=== PATIENT | male | born 1965 | race Caucasian/White ===

== ENCOUNTER → 2017-10-03 | Outpatient (CLI) | payer OTHER ==
--- NOTE | 2017-10-03 10:26 | XR ---
EXAMINATION TYPE: XR knee limited LT DATE OF EXAM: 10/03/2017 CLINICAL HISTORY: History of cerebral palsy with pain and arthritis. TECHNIQUE: Two views of the left knee are obtained. COMPARISON: None. FINDINGS: There is no acute fracture/dislocation evident in left knee. 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 There is mild tricompartment joint spa ce loss. Posterior popliteal vascular calcification is seen. IMPRESSION: As above.
== END ==
LOC: RADXRMAIN 09:55
PROVIDERS: ATTEND Family Medicine
DX: M25.562 Pain in left knee (principal); Z86.69 Personal history of other diseases of the nervous system and sense organs

== ENCOUNTER 2018-10-10 10:27 | Day surgery (SDC) | payer OTHER ==
[2018-10-05 09:57] VITALS: BMI 25.8
[~2018-10-10 10:27] MED LIST: ALPRAZolam 0.25 MG TAB PO PRN; ALPRAZolam 0.5 MG TAB PO PRN; ASPIRIN 325 MG TAB PO STA; ATORVASTATIN 80 MG TAB PO STA; NITROGLYCERIN SL TABS 0.4 MG TAB SUBLINGUAL PRN; SODIUM CHLORIDE 0.9% 1,000 ML in EMPTY BAG 1 BAG IV ONE
[2018-10-10] MEDS ORDERED: fentaNYL (PF) 50 MCG/ML 2 ML AMP IV ONE (10:40)
[2018-10-10] MEDS ORDERED: MIDAZOLAM (PF) 2 MG/2 ML VIAL IV ONE (10:40)
[2018-10-10] MEDS ORDERED: LIDOCAINE 1% INJ 10MG/ML (20 ML MDV) SQ ONE ×2 (10:41→10:42)
[2018-10-10] MEDS ORDERED: SODIUM CHLORIDE 0.9% 1,000 ML IV ONE (11:05)
[2018-10-10 11:28] VITALS: RESP 16; TEMP 98.1
[2018-10-10 11:40] LABS: Basophils # (A) 0.1 k/uL (0-0.2); Basophils % (A) 0 %; Eosinophils # (A) 0.3 k/uL (0-0.7); Eosinophils % (A) 2 %; HCT 45.8 % (39.0-53.0); Lymphocytes % (A) 19 %; MCH 30.1 pg (25.0-35.0); MCHC 32.7 g/dL (31.0-37.0); Mean Platelet Volume 6.9; Monocytes # (A) 0.6 k/uL (0-1.0); Monocytes % (A) 5 %; Neutrophils # (A) 7.5 k/uL (1.3-7.7); Neutrophils % (A) 71 %; Platelet Count 268 k/uL (150-450); RBC 4.97 m/uL (4.30-5.90); RDW 13.2 % (11.5-15.5); WBC 10.6 k/uL (3.8-10.6)
[2018-10-10 11:50] LABS: Anion Gap 12 mmol/L; Blood Urea Nitrogen 14 mg/dL (9-20); Carbon Dioxide 20 mmol/L (22-30); Chloride 110 mmol/L (98-107); Glucose 100 mg/dL (74-99); Potassium 4.7 mmol/L (3.5-5.1); Sodium 142 mmol/L (137-145)
[2018-10-10] MEDS ORDERED: LIDOCAINE 1% INJ 10MG/ML (20 ML MDV) ONE (11:51)
[2018-10-10] MEDS ORDERED: fentaNYL (PF) 50 MCG/ML 2 ML AMP ONE (11:51)
[2018-10-10] MEDS ORDERED: RX INFO: IV CONTRAST WAS GIVEN 1 EACH MISC MISCELLANE PRN (16:33)
[2018-10-10] MEDS ORDERED: METOPROLOL SUCCINATE (ER) 25 MG TAB.ER.24H PO SCH (16:45)
[2018-10-10] MEDS ORDERED: ASPIRIN 81 MG PO SCH (16:45)
[2018-10-10 16:53] LABS: Basophils % (A) 0 %; Eosinophils # (A) 0.1 k/uL (0-0.7); Eosinophils % (A) 1 %; HCT 42.7 % (39.0-53.0); HGB 13.8 gm/dL (13.0-17.5); Lymphocytes # (A) 2.1 k/uL (1.0-4.8); Lymphocytes % (A) 26 %; MCH 29.8 pg (25.0-35.0); MCHC 32.3 g/dL (31.0-37.0); MCV 92.5 fL (80.0-100.0); Mean Platelet Volume 6.7; Monocytes # (A) 0.3 k/uL (0-1.0); Monocytes % (A) 4 %; Neutrophils # (A) 5.4 k/uL (1.3-7.7); Neutrophils % (A) 67 %; Platelet Count 234 k/uL (150-450); RBC 4.61 m/uL (4.30-5.90); RDW 13.1 % (11.5-15.5); WBC 8.1 k/uL (3.8-10.6)
[2018-10-10 16:55] LABS: ALT 30 U/L (21-72); AST 21 U/L (17-59); Albumin 4.5 g/dL (3.5-5.0); Alkaline Phosphatase 78 U/L (38-126); Anion Gap 8 mmol/L; Blood Urea Nitrogen 12 mg/dL (9-20); Calcium 9.8 mg/dL (8.4-10.2); Carbon Dioxide 28 mmol/L (22-30); Chloride 105 mmol/L (98-107); Cholesterol 101 mg/dL (<200); Glucose 127 mg/dL (74-99); HDL Cholesterol 50 mg/dL (40-60); LDL Cholesterol,Calculated 24 mg/dL (0-99); Magnesium 1.8 mg/dL (1.6-2.3); Potassium 3.7 mmol/L (3.5-5.1); Sodium 141 mmol/L (137-145); Total Bilirubin 0.4 mg/dL (0.2-1.3); Total Protein 7.4 g/dL (6.3-8.2); Triglycerides 136 mg/dL (<150)
[2018-10-10 16:59] LABS: Partial Thromboplastin Time 24.7 sec (22.0-30.0); Prothrombin Time 10.4 sec (9.0-12.0)
--- NOTE | 2018-10-10 17:12 | P.GSCN ---
<Natalie Cline - Last Filed: 10/10/18 16:55> History of Present Illness Consult date: 10/10/18 Reason for Consult: triple-vessel coronary artery disease, surgical revascularization recommendation s Requesting physician: Tarik Prajapati History of present illness: This is a 53-year-old inactive gentleman who previously followed with Dr. Patel on an outpatient basis. He has a previous medical history of cerebral palsy, hyperlipidemia, previous tobacco dependence, quit smoking in February 2017 but prior to that smoked a pack a day for 40 years, shingles in 2014, questionable acute kidney injury many years ago, and family history of premature coronary artery disease on his mother's side. Apparently he has been having intermittent chest pain for the last 6 months which occurs with exertion. It is associated with shortness of breath and abates on its own. He denied any other symptoms. He had discussed this with his primary care physician without follow-up. Apparently he had been scheduled for a colonoscopy but when he told the anesthesiologist that he had been having intermittent chest pain, the anesthesiologist canceled the case and referred him to cardiology. He followed up with Dr. Prajapati of [facility], had a stress test and echocardiogram in the office, results of which are not available at this time, but he was recommended to undergo heart catheterization which was completed today. The catheterization demonstrated right coronary artery stenosis 99%, PLB branch with 60% stenosis, obtuse marginal branch of the circumflex coronary artery at 90% stenosis, and proximal LAD stenosis of 85%. Consultation was placed for Dr. Galan from cardiothoracic surgery for surgical recommendations. Review of Systems Review of systems was completed and is negative except as noted in the HPI Past Medical History Past Medical History: Chest Pain / Angina, Hyperlipidemia Additional Past Medical History / Comment(s): RECENT EPISODES OF CHEST PAIN, cerebral palsy History of Any Multi-Drug Resistant Organisms: None Reported Past Surgical History: No Surgical Hx Reported Past Anesthesia/Blood Transfusion Reactions: No Reported Reaction Additional Past Anesthesia/Blood Transfusion Reaction / Comm: NO PRIOR SX HX Past Psychological History: No Psychological Hx Reported Smoking Status: Former smoker Past Alcohol Use History: None Reported Past Drug Use History: None Reported - Past Family History Mother Additional Family Medical History / Comment(s): family history of premature coronary artery disease on his mother's side Medications and Allergies Home Medications Medication Instructions Recorded Confirmed Type Ergocalciferol (Vitamin D2) 50,000 unit PO MO 10/05/18 10/10/18 History [Vitamin D2] Aspirin 81 mg PO DAILY #30 chew 10/10/18 Rx Atorvastatin [Lipitor] 80 mg PO HS #30 tab 10/10/18 Rx Metoprolol Succinate (ER) [Toprol 25 mg PO DAILY #30 tab.er.24h 10/10/18 Rx XL] Nitroglycerin Sl Tabs [Nitrostat] 0.4 mg SUBLINGUAL Q5M PRN #25 tab 10/10/18 Rx Allergies Allergy/AdvReac Type Severity Reaction Status Date / Time No Known Allergies Allergy Verified 10/05/18 09:54 Surgical - Exam Vital Signs Temp Pulse Resp Pulse Ox 98.1 F 62 16 98 10/10/18 11:09 10/10/18 11:09 10/10/18 11:09 10/10/18 11:09 - General well developed, well nourished, no distress, no pain - Eyes PERRL, normal ocular movement - ENT no hearing loss - Neck no masses, no bruits, trachea midline - Respiratory lungs sounds clear bilaterally. Respirations even, nonlabored. Currently on room air with oxygen saturation 94%. - Cardiovascular S1, S2 present. Regular rate and rhythm, sinus rhythm on telemetry. Palpable peripheral pulses bilaterally. No edema present. No calf pain or tenderness noted. - Abdomen Abdomen: soft, non tender, bowel sounds - Genitourinary deferred - Rectum deferred - Integumentary no rash, no growths - Neurologic contracture of the right arm normal sensation - Psychiatric oriented to time, oriented to person, oriented to place, speech is normal Results - Labs 10/10/18 16:30 10/10/18 11:20 Abnormal Lab Results - Last 24 Hours (Table) 10/10/18 Range/Units 11:20 Chloride 110 H (98-107) mmol/L Carbon Dioxide 20 L (22-30) mmol/L Creatinine 0.62 L (0.66-1.25) mg/dL Glucose 100 H (74-99) mg/dL Diabetes panel 10/10/18 Range/Units 11:20 Sodium 142 (137-145) mmol/L Potassium 4.7 (3.5-5.1) mmol/L Chloride 110 H (98-107) mmol/L Carbon Dioxide 20 L (22-30) mmol/L BUN 14 (9-20) mg/dL Creatinine 0.62 L (0.66-1.25) mg/dL Glucose 100 H (74-99) mg/dL Calcium 10.0 (8.4-10.2) mg/dL Calcium panel 10/10/18 Range/Units 11:20 Calcium 10.0 (8.4-10.2) mg/dL Pituitary panel 10/10/18 Range/Units 11:20 Sodium 142 (137-145) mmol/L Potassium 4.7 (3.5-5.1) mmol/L Chloride 110 H (98-107) mmol/L Carbon Dioxide 20 L (22-30) mmol/L BUN 14 (9-20) mg/dL Creatinine 0.62 L (0.66-1.25) mg/dL Glucose 100 H (74-99) mg/dL Calcium 10.0 (8.4-10.2) mg/dL Adrenal panel 10/10/18 Range/Units 11:20 Sodium 142 (137-145) mmol/L Potassium 4.7 (3.5-5.1) mmol/L Chloride 110 H (98-107) mmol/L Carbon Dioxide 20 L (22-30) mmol/L BUN 14 (9-20) mg/dL Creatinine 0.62 L (0.66-1.25) mg/dL Glucose 100 H (74-99) mg/dL Calcium 10.0 (8.4-10.2) mg/dL - Imaging Additional studies: cardiac catheterization films reviewed Assessment and Plan Assessment: 1. Triple-vessel coronary artery disease 2. Hyperlipidemia 3. Cerebral palsy 4. Previous tobacco dependence 5. Family history of premature coronary artery disease Plan: The patient was seen and examined at the bedside in the extended stay unit. Chart/diagnostics were reviewed. The usual perioperative course of coronary artery bypass surgery was reviewed with the patient, risks and benefits were discussed, all questions were answered. In addition, the patient's sister Radha was called on the phone and the same teaching was completed with her. Preoperative teaching was initiated. Heart catheterization films will be rev iewed with Dr. Galan. We recommend maximizing medical therapy with aspirin, statin, beta karissa therapy. Further recommendations to be made for timing of surgery. Thank you prefer this consult. We look forward to working with you in the care of your patient. Time with Patient: Greater than 30 <Denilson Galan - Last Filed: 10/10/18 18:25> Surgical - Exam Vital Signs Temp Pulse Resp Pulse Ox 98.1 F 62 16 98 10/10/18 11:09 10/10/18 11:09 10/10/18 11:09 10/10/18 11:09 Results - Labs 10/10/18 16:30 10/10/18 16:30 Abnormal Lab Results - Last 24 Hours (Table) 10/10/18 10/10/18 Range/Units 11:20 16:30 Chloride 110 H (98-107) mmol/L Carbon Dioxide 20 L (22-30) mmol/L Creatinine 0.62 L (0.66-1.25) mg/dL Glucose 100 H 127 H (74-99) mg/dL Diabetes panel 10/10/18 10/10/18 Range/Units 11:20 16:30 Sodium 142 141 (137-145) mmol/L Potassium 4.7 3.7 (3.5-5.1) mmol/L Chloride 110 H 105 (98-107) mmol/L Carbon Dioxide 20 L 28 (22-30) mmol/L BUN 14 12 (9-20) mg/dL Creatinine 0.62 L 0.67 (0.66-1.25) mg/dL Glucose 100 H 127 H (74-99) mg/dL Calcium 10.0 9.8 (8.4-10.2) mg/dL AST 21 (17-59) U/L ALT 30 (21-72) U/L Alkaline Phosphatase 78 (38-126) U/L Total Protein 7.4 (6.3-8.2) g/dL Albumin 4.5 (3.5-5.0) g/dL Triglycerides 136 (<150) mg/dL HDL Cholesterol 50 (40-60) mg/dL Thyroid panel 10/10/18 Range/Units 16:30 TSH 2.710 (0.465-4.680) mIU/L Calcium panel 10/10/18 10/10/18 Range/Units 11:20 16:30 Calcium 10.0 9.8 (8.4-10.2) mg/dL Albumin 4.5 (3.5-5.0) g/dL Pituitary panel 10/10/18 10/10/18 Range/Units 11:20 16:30 Sodium 142 141 (137-145) mmol/L Potassium 4.7 3.7 (3.5-5.1) mmol/L Chloride 110 H 105 (98-107) mmol/L Carbon Dioxide 20 L 28 (22-30) mmol/L BUN 14 12 (9-20) mg/dL Creatinine 0.62 L 0.67 (0.66-1.25) mg/dL Glucose 100 H 127 H (74-99) mg/dL Calcium 10.0 9.8 (8.4-10.2) mg/dL TSH 2.710 (0.465-4.680) mIU/L Adrenal panel 10/10/18 10/10/18 Range/Units 11:20 16:30 Sodium 142 141 (137-145) mmol/L Potassium 4.7 3.7 (3.5-5.1) mmol/L Chloride 110 H 105 (98-107) mmol/L Carbon Dioxide 20 L 28 (22-30) mmol/L BUN 14 12 (9-20) mg/dL Creatinine 0.62 L 0.67 (0.66-1.25) mg/dL Glucose 100 H 127 H (74-99) mg/dL Calcium 10.0 9.8 (8.4-10.2) mg/dL Total Bilirubin 0.4 (0.2-1.3) mg/dL AST 21 (17-59) U/L ALT 30 (21-72) U/L Alkaline Phosphatase 78 (38-126) U/L Total Protein 7.4 (6.3-8.2) g/dL Albumin 4.5 (3.5-5.0) g/dL Assessment and Plan Plan: The patient was seen and examined. The history and physical findings were veri fied. I agree with the above assessment and plan. The patient is a 53 year old male with a history of cerebral palsy and a congenital right upper extremity contracture, who reports chest pain for several months. Cardiac cath performed today reveals multi-vessel CAD. A coronary artery bypass was recommended. The risks, benefits, and alternatives to the procedure were discussed with the patient. All of his questions were answered. His pre-operative workup is in progress. He will be discharged home today with plan for CABG within the next several weeks.
[2018-10-10] MEDS ORDERED: ATORVASTATIN 80 MG TAB PO SCH (18:00)
--- NOTE | 2018-10-10 18:16 | XR ---
EXAMINATION TYPE: XR chest 2V DATE OF EXAM: 10/10/2018 COMPARISON: EXAMINATION TYPE: XR chest 2V DATE OF EXAM: 10/10/2018 COMPARISON: NONE HISTORY: Postop cardiac surgery. TECHNIQUE: 2 views FINDINGS: Heart and mediastinum appear normal. Lungs are clear of infiltrate. There is no heart failu re. There is no evidence of pleural effusion or pneumothorax. There are chest leads. Bony thorax is i ntact. IMPRESSION: No active cardiopulmonary disease.
--- NOTE | 2018-10-10 18:31 | CC ---
CARDIAC CATHETERIZATION REPORT This patient was recently evaluated in the office with symptoms of exertional angina. The patient underwent a stress test. Stress test showed inferior wall ischemia. In view of that, the patient was recommended to have a cardiac catheterization for definitive diagnosis. The patient does not have any definite history of diabetes. PROCEDURE: The right groin was prepped and draped in the usual manner and a #6-Czech was placed in under ultrasound guidance with a micropuncture needle. Selective coronary angiography was then performed in multiple projections. Left ventricular pressures were obtained. We did not do left ventriculography because patient developed transient left bundle branch block. HEMODYNAMICS: Left ventricular end-diastolic pressure was 12 to 16 mmHg prior to angiography. No gradient was noted across the aortic valve. SELECTIVE CORONARY ANGIOGRAPHY: Left main coronary artery is normal and patent. All of this patient's coronary blood vessels are heavily calcified. LAD has 85% stenosis in its proximal portion. Distal LAD is a good-caliber blood vessel and is bypassable. Circumflex coronary artery is a good-caliber blood vessel and obtuse marginal branch has a 90% stenosis. The right coronary artery is heavily calcified and has 99% stenosis in its proximal portion. There is a CHILO-3 flow noted in the distal right coronary artery. The PLV branch has a 60% to 70% stenosis. FINAL IMPRESSION: This study reveals severe triple-vessel disease. Patient's blood vessels are heavily calcified. In view of the significant triple-vessel disease and heavily calcified vessels, we will get a surgical opinion for possible coronary artery bypass surgery. The films were also reviewed with Dr. Friedman. MMWAYNE / ALISHA: [id number] /
[2018-10-10 19:02] VITALS: BP 172/86; PULSE 67
--- NOTE | 2018-10-10 19:09 | US ---
EXAMINATION TYPE: US carotid duplex BILAT DATE OF EXAM: 10/10/2018 COMPARISON: NONE CLINICAL HISTORY: Pre-Op Cardiac Surgery. Pre CABG surgery. EXAM MEASUREMENTS: RIGHT: Peak Systolic Velocity (PSV) cm/sec ----- Right CCA: 88.1 ----- Right ICA: 175.3 ----- Right ECA: 147.5 ICA/CCA ratio: 2.0 RIGHT: End Diastole cm/sec ----- Right CCA: 19.8 ----- Right ICA: 33.2 ----- Right ECA: 13.7 LEFT: Peak Systolic Velocity (PSV) cm/sec ----- Left CCA: 91.9 ----- Left ICA: 209.8 ----- Left ECA: 245.4 ICA/CCA ratio: 2.3 LEFT: End Diastole cm/sec ----- Left CCA: 27.3 ----- Left ICA: 54.6 ----- Left ECA: 19.1 VERTEBRALS (direction of flow): Right Vertebral: Antegrade Left Vertebral: Antegrade Rhythm: Normal Bilateral plaque seen in bulbs. Elevated velocities in bilateral ICA and ECA vessels. IMPRESSION: There is antegrade flow in the vertebral arteries. The images and measurements suggest 7 0% stenosis in both internal carotid arteries. Bilateral elevated internal carotid artery velocities. Criteria for Assigning % of Stenosis / Diameter reduction (Estimation based on the indirect measurements of the internal carotid artery velocities (ICA PSV). 1. Normal (no stenosis)=ICA PSV < 125 cm/s: ratio < 2.0: ICA EDV<40 cm/s. 2. Less than 50% stenosis=ICA PSV < 125 cm/s: ratio < 2.0: ICA EDV<40 cm/s. 3. 50 to 69% stenosis=ICA PSV of 125 to 230 cm/s: ration 2.0 ? 4.0: ICA EDV 40-100 cm/s. 4. Greater than 70% stenosis to near occlusion= ICA PSV > 230 cm/s: ratio > 4.0: ICA EDV > 100 cm/s. 5. Near occlusion= ICA PSV velocities may be low or undetectable: variable ratio and ICA EDV. 6. Total occlusion=unable to detect flow.
[2018-10-10 19:11] LABS: Amorphous Sediment,Urine Rare /hpf; Appearance,Urine Clear (Clear); Bacteria,Urine Many /hpf; Bilirubin,Urine Negative (Negative); Blood,Urine Negative (Negative); Color,Urine Light Yellow; Glucose,Urine (UA) Negative (Negative); Ketones,Urine Negative (Negative); Leukocyte Esterase,Urine Moderate (Negative); Nitrite,Urine Positive (Negative); PH, Urine 6.5 (5.0-8.0); Protein,Urine Negative (Negative); RBC,Urine 3 /hpf (0-5); Squamous Epithelial Cell,Urine <1 /hpf (0-4); Urobilinogen,Urine <2.0 mg/dL (<2.0); WBC,Urine 52 /hpf (0-5)
[2018-10-10 19:36] LABS: Specific Gravity,Urine >1.050 (1.001-1.035)
[2018-10-10] MEDS ORDERED: ATORVASTATIN 40 MG TAB PO SCH (21:00)
[2018-10-11 04:35] LABS: Hepatitis A Antibody IgM Non-Reactive (Non-Reactive); Hepatitis B Core IgM Non-Reactive (Non-Reactive)
[2018-10-11 04:37] LABS: Hemoglobin A1C 5.9 % (4.0-6.0)
== END 2018-10-10 19:26 | disposition home or self-care (01) ==
LOC: CATHCVL 10:27
PROVIDERS: ATTEND Internal Medicine Cardiovascular Disease
DX: I25.10 Atherosclerotic heart disease of native coronary artery without angina pectoris (principal); I25.84 Coronary atherosclerosis due to calcified coronary lesion; Z87.891 Personal history of nicotine dependence; E78.5 Hyperlipidemia, unspecified; G80.9 Cerebral palsy, unspecified; Z82.49 Family history of ischemic heart disease and other diseases of the circulatory system; Z79.899 Other long term (current) drug therapy
CPT/HCPCS: 93458; 86900; 86901; 80061; 80053; 80074; 84443; 83735; 85025; 85610; 85730; 86850; 81001; 87070; 87086; 87077; 87186; 83036; 71046; 93970; 93880; C1760; C1894; C1769 ×2; J2001; J3010; J2250; 80048

== ENCOUNTER → 2018-10-10 | Outpatient (CLI) | payer OTHER ==
[2018-10-16 14:08] VITALS: BMI 25.8
== END | disposition home or self-care (01) ==
LOC: LABWHC1 16:30 → EDSTATUS 10-19 08:00
PROVIDERS: ATTEND Surgery
DX: I25.10 Atherosclerotic heart disease of native coronary artery without angina pectoris (principal)
CPT/HCPCS: 86850; 86900; 86901

== ENCOUNTER 2018-10-24 05:35 | Inpatient (IN) | payer OTHER ==
[~2018-10-24 05:35] MED LIST changes: +ALBUMIN HUMAN 25% 50 ML IV ONE; -ALPRAZolam 0.25 MG TAB PO PRN; -ALPRAZolam 0.5 MG TAB PO PRN; +ASPIRIN 325 MG TAB PO ONE; -ASPIRIN 325 MG TAB PO STA; +ATORVASTATIN 10 MG TAB PO ONE; -ATORVASTATIN 80 MG TAB PO STA; +CALCIUM CHLORIDE 100 MG/ML 10 ML SYRINGE IV ONE; +CHLORHEXIDINE GLUCONATE 15 ML CUP MUCOUS MEM ONE; +CLEVIDIPINE BUTYRATE 25 MG in EMPTY BAG 1 BAG IV ONE; +DEXTROSE 5% IN WATER 1,000 ML with POTASSIUM CHLORIDE 110 MEQ, MAGNESIUM SULFATE 16 MEQ... IV ONE; +DEXTROSE 5% IN WATER 1,000 ML with POTASSIUM CHLORIDE 25 MEQ, SODIUM CHLORIDE 2.5MEQ/ML... IRRIGATION ONE; +HEPARIN SODIUM 1,000 UN/ML (10ML VL) IV ONE; +HEPARIN SODIUM,PORCINE 5,000 UNIT in SODIUM CHLORIDE 0.9% 500 ML 500 ML IV ONE; +LACTATED RINGERS 1,000 ML IV ONE; +MAGNESIUM SULFATE MG 500 MG/ML IV ONE; +MANNITOL 25% 12.5 GM/50 ML VIAL IV ONE; +METOPROLOL TARTRATE 12.5 MG TAB PO ONE; -NITROGLYCERIN SL TABS 0.4 MG TAB SUBLINGUAL PRN; +NITROGLYCERIN-D5W PMX 25 MG/250 ML BTL IV ONE; +NOREPINEPHRINE 4 MG in SODIUM CHLORIDE 0.9% 250 ML IV ONE; +PAPAVERINE 360 MG in SODIUM CHLORIDE 0.9% 90 ML IV ONE; +PHENYLEPHRINE 10 MG/ML VIAL IV ONE; +PHENYLEPHRINE 40 MG in SODIUM CHLORIDE 0.9% 250 ML IV ONE; +PROPOFOL 1,000 MG/100 ML VIAL IV ONE; +PROTAMINE SULFATE 10 MG/ML 25 ML VIAL IV ONE; +PROTAMINE SULFATE 250 MG in EMPTY BAG 1 BAG IV ONE; +SODIUM BICARB 8.4% 50 ML SYR (1 MEQ/ML) IV ONE; +SODIUM CHLORIDE 0.9% 1,000 ML IV ONE; -SODIUM CHLORIDE 0.9% 1,000 ML in EMPTY BAG 1 BAG IV ONE; +TRANEXAMIC ACID 2,000 MG in SODIUM CHLORIDE 0.9% 80 ML IV ONE; +ceFAZolin 1,000 MG in SODIUM CHLORIDE 0.9% IRRIGATIO 1,000 ML IRRIGATION ONE; +ceFAZolin 2,000 MG in SODIUM CHLORIDE 0.9% 30 ML IVPB ONE; +ceFAZolin IN SWFI 2 GM/20 ML SYRINGE IVP ONE
[2018-10-24] MEDS ORDERED: ALBUMIN HUMAN 5% (12.5gm) 250 ML BOTTLE IVPB ONE (07:38)
[2018-10-24] MEDS ORDERED: PHENYLEPHRINE-0.9% NACL SYG 1 MG/10 ML SYRINGE ONE (07:38)
[2018-10-24] MEDS ORDERED: VASOPRESSIN 20 UNIT/ML 1 ML VIAL ONE (07:38)
[2018-10-24] MEDS ORDERED: PROPOFOL 10 MG/ML 20 ML VIAL IV ONE (07:38)
[2018-10-24] MEDS ORDERED: SODIUM CHLORIDE 0.9% 250 ML BAG ONE (07:38)
[2018-10-24] MEDS ORDERED: ELECTROLYTE-R (PH 7.4) 1,000 ML IV.SOLN IV ONE (07:38)
[2018-10-24] MEDS ORDERED: LIDOCAINE 1% INJ 10MG/ML (20 ML MDV) ONE (07:38)
[2018-10-24] MEDS ORDERED: PROTAMINE SULFATE 10 MG/ML 25 ML VIAL IV ONE (07:38)
[2018-10-24] MEDS ORDERED: VECURONIUM 10 MG VIAL IV ONE (07:38)
[2018-10-24] MEDS ORDERED: MIDAZOLAM 2 MG/2 ML VIAL ONE (07:38)
[2018-10-24] MEDS ORDERED: CALCIUM CHLORIDE 100 MG/ML 10 ML SYRINGE ONE (07:38)
[2018-10-24] MEDS ORDERED: fentaNYL (PF) 50 MCG/ML 50 ML VIAL ONE (07:38)
[2018-10-24] MEDS ORDERED: TRANEXAMIC ACID 1,000 MG/10 ML VIAL ONE (07:38)
[2018-10-24] MEDS ORDERED: ROCURONIUM BROMIDE 10 MG/ML 10 ML VIAL IV ONE (07:38)
[2018-10-24] MEDS ORDERED: HEPARIN SODIUM,PORCINE 10,000 UNIT/ML 1 ML VIAL ONE (07:38)
[2018-10-24] MEDS ORDERED: LACTATED RINGERS 1,000 ML BAG IV ONE (07:38)
[2018-10-24] MEDS ORDERED: GLYCOPYRROLATE 0.2 MG/ML 2 ML VIAL ONE (07:38)
[2018-10-24] MEDS ORDERED: INSULIN REGULAR 100 UNIT/ML VIAL ONE (07:38)
[2018-10-24] MEDS ORDERED: POTASSIUM CHLORIDE 2 MEQ/ML 20 ML VIAL ONE (07:38)
[2018-10-24] MEDS ORDERED: DILTIAZEM 125 MG in SODIUM CHLORIDE 0.9% 100 ML IV SCH ×2 (08:30→15:13)
[2018-10-24 08:59] LABS: ABG Base Excess -3.4 mmol/L; ABG HCO3 23 mmol/L (21-25); ABG PCO2 43 mmHg (35-45); ABG PH 7.33 (7.35-7.45); ABG PO2 225 mmHg (83-108); ABG Potassium Whole Blood 4.1 mmol/L (3.4-4.5); ABG Sodium Whole Blood 141 mmol/L (135-146); ABG TCO2 24 mmol/L (19-24)
[2018-10-24 10:09] LABS: ABG Base Excess -5.4 mmol/L; ABG HCO3 23 mmol/L (21-25); ABG PCO2 55 mmHg (35-45); ABG PH 7.22 (7.35-7.45); ABG PO2 228 mmHg (83-108); ABG Potassium Whole Blood 4.5 mmol/L (3.4-4.5); ABG Sodium Whole Blood 141 mmol/L (135-146); ABG TCO2 25 mmol/L (19-24)
[2018-10-24 11:03] LABS: ABG Base Excess 1.8 mmol/L; ABG HCO3 27 mmol/L (21-25); ABG PCO2 43 mmHg (35-45); ABG Potassium Whole Blood 4.4 mmol/L (3.4-4.5); ABG Sodium Whole Blood 138 mmol/L (135-146); ABG TCO2 28 mmol/L (19-24)
[2018-10-24 11:17] LABS: ABG Base Excess -0.3 mmol/L; ABG HCO3 25 mmol/L (21-25); ABG PCO2 41 mmHg (35-45); ABG PH 7.39 (7.35-7.45); ABG PO2 382 mmHg (83-108); ABG Potassium Whole Blood 5.6 mmol/L (3.4-4.5); ABG Sodium Whole Blood 135 mmol/L (135-146); ABG TCO2 26 mmol/L (19-24)
[2018-10-24 11:48] LABS: ABG Base Excess -1.9 mmol/L; ABG HCO3 23 mmol/L (21-25); ABG PCO2 39 mmHg (35-45); ABG PH 7.38 (7.35-7.45); ABG PO2 326 mmHg (83-108); ABG Potassium Whole Blood 5.1 mmol/L (3.4-4.5); ABG Sodium Whole Blood 136 mmol/L (135-146); ABG TCO2 24 mmol/L (19-24)
[2018-10-24 12:27] LABS: ABG Base Excess -2.8 mmol/L; ABG HCO3 22 mmol/L (21-25); ABG PCO2 39 mmHg (35-45); ABG PH 7.36 (7.35-7.45); ABG PO2 321 mmHg (83-108); ABG Potassium Whole Blood 4.7 mmol/L (3.4-4.5); ABG Sodium Whole Blood 137 mmol/L (135-146); ABG TCO2 24 mmol/L (19-24)
[2018-10-24 13:01] LABS: ABG Base Excess -4.2 mmol/L; ABG HCO3 22 mmol/L (21-25); ABG PCO2 42 mmHg (35-45); ABG PH 7.32 (7.35-7.45); ABG PO2 346 mmHg (83-108); ABG Sodium Whole Blood 137 mmol/L (135-146); ABG TCO2 23 mmol/L (19-24)
[2018-10-24 14:25] LABS: ABG Base Excess -2.9 mmol/L; ABG HCO3 23 mmol/L (21-25); ABG PCO2 44 mmHg (35-45); ABG PH 7.33 (7.35-7.45); ABG PO2 234 mmHg (83-108); ABG Potassium Whole Blood 3.6 mmol/L (3.4-4.5); ABG Sodium Whole Blood 141 mmol/L (135-146); ABG TCO2 24 mmol/L (19-24)
[2018-10-24 14:25] LABS: ABG PO2 >420 mmHg (83-108)
[2018-10-24] MEDS ORDERED: CALCIUM GLUCONATE 2 GM in SODIUM CHLORIDE 0.9% 100 ML IVPB PRN (15:13)
[2018-10-24] MEDS ORDERED: Potassium Replacement Protocol 1 EACH MISC MISCELLANE PRN (15:13)
[2018-10-24] MEDS ORDERED: NITROGLYCERIN-D5W PMX 50 MG in DEXTROSE/WATER 1 250ML.BAG IV SCH (15:13)
[2018-10-24] MEDS ORDERED: Phosphorus Replacement Protoco 1 EACH MISC MISCELLANE PRN (15:13)
[2018-10-24] MEDS ORDERED: PROPOFOL 1,000 MG in EMPTY BAG 1 BAG IV SCH (15:13)
[2018-10-24] MEDS ORDERED: METOCLOPRAMIDE 5 MG/ML 2 ML VIAL IVP PRN (15:13)
[2018-10-24] MEDS ORDERED: DEXMEDETOMIDINE/0.9% NACL(PMX) 400 MCG in EMPTY BAG 1 BAG IV SCH (15:13)
[2018-10-24] MEDS ORDERED: BENZOCAINE/MENTHOL LOZENG 1 EACH LOZENGE MUCOUS MEM PRN (15:13)
[2018-10-24] MEDS ORDERED: Magnesium Replacement Protocol 1 EACH MISC MISCELLANE PRN (15:13)
[2018-10-24] MEDS ORDERED: ONDANSETRON 4 MG/2 ML VIAL IVP PRN (15:13)
[2018-10-24] MEDS ORDERED: AMIODARONE 360 MG in DEXTROSE 5% IN WATER 200 ML IV PRN ×2 (15:13)
[2018-10-24] MEDS ORDERED: IPRATROPIUM-ALBUTEROL 3 ML NEB INHALATION PRN (15:13)
[2018-10-24] MEDS: LACTATED RINGERS 1,000 ML IV SCH (15:35)
[2018-10-24] MEDS: SODIUM CHLORIDE 0.9% 150 ML with VASOPRESSIN 60 UNIT IV SCH ×2 (15:35)
[2018-10-24 16:03] LABS: ABG Base Excess -0.7 mmol/L; ABG HCO3 26 mmol/L (21-25); ABG Oxygen Saturation 99.4 % (94-97); ABG PCO2 53 mmHg (35-45); ABG PH 7.29 (7.35-7.45); ABG PO2 274 mmHg (83-108); ABG TCO2 27 mmol/L (19-24)
[2018-10-24 16:08] LABS: Ionized Calcium 4.8 mg/dL (4.5-5.3)
[2018-10-24] MEDS: IPRATROPIUM-ALBUTEROL 3 ML NEB INHALATION SCH ×3 (16:08→19:47)
[2018-10-24] MEDS: ALBUMIN HUMAN 5% 250 ML in EMPTY BAG 1 BAG IVPB PRN ×2 (16:10→18:00)
[2018-10-24 16:11] LABS: INR 1.3 (<1.2); Partial Thromboplastin Time 28.6 sec (22.0-30.0); Prothrombin Time 13.6 sec (9.0-12.0)
[2018-10-24 16:12] LABS: ALT 22 U/L (21-72); AST 42 U/L (17-59); Alkaline Phosphatase 33 U/L (38-126); Anion Gap 5 mmol/L; Blood Urea Nitrogen 10 mg/dL (9-20); Calcium 7.8 mg/dL (8.4-10.2); Carbon Dioxide 26 mmol/L (22-30); Chloride 111 mmol/L (98-107); Glucose 88 mg/dL (74-99); Magnesium 2.4 mg/dL (1.6-2.3); Potassium 5.4 mmol/L (3.5-5.1); Sodium 142 mmol/L (137-145); Total Bilirubin 0.5 mg/dL (0.2-1.3); Total Protein 4.6 g/dL (6.3-8.2)
[2018-10-24] MEDS: NOREPINEPHRINE 4 MG in SODIUM CHLORIDE 0.9% 250 ML IV SCH (16:15)
[2018-10-24 16:29] LABS: Basophils % (A) 0 %; Eosinophils # (A) 0.1 k/uL (0-0.7); Eosinophils % (A) 1 %; HCT 24.3 % (39.0-53.0); Lymphocytes # (A) 1.4 k/uL (1.0-4.8); Lymphocytes % (A) 10 %; MCH 30.9 pg (25.0-35.0); MCV 90.8 fL (80.0-100.0); Mean Platelet Volume 7.4; Monocytes # (A) 0.9 k/uL (0-1.0); Monocytes % (A) 6 %; Neutrophils # (A) 11.7 k/uL (1.3-7.7); Neutrophils % (A) 83 %; Platelet Count 125 k/uL (150-450); RBC 2.68 m/uL (4.30-5.90); RDW 13.6 % (11.5-15.5); WBC 14.2 k/uL (3.8-10.6)
[2018-10-24 16:30] LABS: Glucose,Whole Blood 88 mg/dL (75-99)
[2018-10-24 16:30] LABS: HGB 8.3 gm/dL (13.0-17.5)
[2018-10-24 16:30] LABS: Glucose,Whole Blood 103 mg/dL (75-99)
--- NOTE | 2018-10-24 16:38 | XR ---
EXAMINATION TYPE: XR chest 1V portable DATE OF EXAM: 10/24/2018 COMPARISON: 10/10/2018 HISTORY: Status post cardiac surgery. TECHNIQUE: Single frontal view of the chest is obtained. FINDINGS: There are bilateral thoracostomy tubes present without residual pneumothorax. Scattered ar eas of atelectasis are now seen that are linear. There is a [place]-Nabil catheter terminating in the pul monary outflow track and appropriately placed enteric tube with its fenestrated portion beyond the ga stroesophageal junction. Mediastinal drains and epicardial pacing leads are seen. Endotracheal tube a ppears to terminate at the level of the aortic arch, appropriately placed. Cardia mediastinal silhoue tte is mildly enlarged. No lauro pulmonary vascular congestion. No acute osseous pathology. Post CABG changes the chest are noted. IMPRESSION: Postsurgical changes, lines, and tubes as described above all appearing appropriately pl aced with new multifocal atelectasis.
--- NOTE | 2018-10-24 17:12 | P.CNPUL ---
History of Present Illness Consult date: 10/24/18 Chief complaint: Ventilator management, post thoracotomy and bypass surgery History of present illness: 83-year-old male patient, a previous smoker quit in 2017, the case of mild cerebral palsy, along with history of hyperlipidemia and coronary artery disease who came in and underwent a four-vessel bypass surgery and following the surgery the patient was brought into the intensive care unit. I was asked to evaluate this patient. Managed ventilator. This is in the process of weaning and evaluate his pulmonary status.. The patient had a cardiac catheterization that showed severe disease with 99% RCA lesion, 60% PLB lesion, 90% stenosis in the circumflex and acute marginal and 85% stenosis in the proximal LAD. The patient underwent four-vessel bypass surgery. Currently is in intensive care unit. He is intubated on a mechanical ventilator. He is an assist-control mode of ventilation and I had him on a rate of 22 with a tidal volume of 500 and FiO2 of 50% with a PEEP of 5. I did the necessary vent changes after reviewing his blood gases. He did have a component of respiratory acidosis immediately after he got from the operating room. His current pulmonary artery pressures 32/18. His cardiac index is at 3.2 with a output of 5.9. He is on vasopressin 0.04 units per minute, norepinephrine infusion at 0.08 g per KG per minute, Cardizem drip at 2.5 mg an hour and nitroglycerin drip at 5 mg per minute. The patient is currently paced at the rate of 80. Underlying cardiac rhythm is sinus bradycardia in the low 40s. He is producing adequate amount of urine output. Chest x-ray shows no acute abnormalities. The patient has a right pleural and left pleural chest tube and a mediastinal chest tube. He is sedated with propofol. He is calm and comfortable. The postop blood gases showed a pH of 7.29 and a pCO2 of 53 and total of 274. The white cell count is at 14.2 with a hemoglobin of 8.3 Review of Systems ROS unobtainable: due to endotracheal tube Past Medical History Past Medical History: Coronary Artery Disease (CAD), Hyperlipidemia Additional Past Medical History / Comment(s): Cerebral palsy History of Any Multi-Drug Resistant Organisms: None Reported Past Surgical History: Heart Catheterization Past Anesthesia/Blood Transfusion Reactions: No Reported Reaction Additional Past Anesthesia/Blood Transfusion Reaction / Comment(s): no hx general anesthesia or blood transfusion Smoking Status: Former smoker - Past Family History Mother Family Medical History: No Reported History Additional Family Medical History / Comment(s): family history of premature coronary artery disease on his mother's side Medications and Allergies Home Medications Medication Instructions Recorded Confirmed Type Ergocalciferol (Vitamin D2) 50,000 unit PO MO 10/05/18 10/24/18 History [Vitamin D2] Aspirin 81 mg PO DAILY #30 chew 10/10/18 10/24/18 Rx Atorvastatin [Lipitor] 80 mg PO HS #30 tab 10/10/18 10/24/18 Rx Metoprolol Succinate (ER) [Toprol 25 mg PO DAILY #30 tab.er.24h 10/10/18 10/24/18 Rx XL] Nitroglycerin Sl Tabs [Nitrostat] 0.4 mg SUBLINGUAL Q5M PRN #25 tab 10/10/18 10/24/18 Rx Allergies Allergy/AdvReac Type Severity Reaction Status Date / Time No Known Allergies Allergy Verified 10/24/18 14:08 Physical Exam Vitals: Vital Signs Temp Pulse Pulse Resp BP BP Pulse Ox 10/24/18 16:17 80 10/24/18 16:10 80 10/24/18 06:29 98.9 F 70 18 141/80 133/72 97 Intake and Output 10/24/18 10/24/18 10/24/18 06:59 14:59 22:59 Intake Total 33 Output Total 2565 Balance -2532 Intake: IV 33 Output: Urine 1065 Estimated Blood Loss 1500 Gen. appearance, comfortable likely distress Head exam was generally normal. There was no scleral icterus or corneal arcus. Mucous membranes were moist. Neck was supple and without jugular venous distension, thyromegaly, or carotid bruits. Carotids were easily palpable bilaterally. There was no adenopathy. The patient has a right IJ [place]-Nabil catheter and a Cordis in place. The patient is intubated on a mechanical ventilator. Orogastric and orotracheal tube are both in place. Lungs were clear to auscultation and percussion, and with normal diaphragmatic excursion. No wheezes or rales were noted. The patient has a right pleural, left pleural anatomy sternal chest tube. Sternum stable treatment intact. The patient is currently paced. Heart sounds are regular, paced at the rate of 80. No significant murmurs appreciated Abdominal exam revealed normal bowel sounds. The abdomen was soft, non-tender, a nd without masses, organomegaly, or appreciable enlargement of the abdominal aorta. Examination of the extremities revealed easily palpable radial, femoral and pedal pulses. There was no cyanosis, clubbing or edema. Examination of the skin revealed no evidence of significant rashes, suspicious appearing nevi or other concerning lesions. All of the surgical wound sites of dry clean and intact. Results - Laboratory Findings CBC and BMP: 10/24/18 15:45 10/24/18 15:45 ABG ABG pH 7.29 (7.35-7.45) L 10/24/18 15:59 ABG pCO2 53 mmHg (35-45) H 10/24/18 15:59 ABG pO2 274 mmHg (83-108) H 10/24/18 15:59 ABG O2 Saturation 99.4 % (94-97) H 10/24/18 15:59 PT/INR, D-dimer PT 13.6 sec (9.0-12.0) H 10/24/18 15:45 INR 1.3 (<1.2) H 10/24/18 15:45 Abnormal lab findings: Abnormal Labs 10/24/18 10/24/18 10/24/18 06:25 08:59 10:09 WBC RBC Hgb Hct Plt Count Neutrophils # PT INR ABG pH 7.33 L 7.22 L ABG pCO2 55 H ABG pO2 225 H 228 H ABG HCO3 ABG Total CO2 25 H ABG O2 Saturation 100.0 H 100.0 H ABG Hematocrit ABG Potassium ABG Ionized Calcium ABG Glucose 114 H 144 H ABG Lactic Acid Hemoglobin 12.8 L Potassium Chloride Creatinine POC Glucose (mg/dL) Calcium Magnesium Alkaline Phosphatase Total Protein Albumin Arterial Blood Potassium Arterial Blood Glucose 114 H 144 H Crossmatch See Detail 10/24/18 10/24/18 10/24/18 11:03 11:18 11:49 WBC RBC Hgb Hct Plt Count Neutrophils # PT INR ABG pH ABG pCO2 ABG pO2 >420 H 382 H 326 H ABG HCO3 27 H ABG Total CO2 28 H 26 H ABG O2 Saturation 100.0 H 100.0 H 100.0 H ABG Hematocrit 27 L 26 L 24 L ABG Potassium 5.6 H 5.1 H ABG Ionized Calcium 3.7 L 4.0 L 3.9 L ABG Glucose 118 H 235 H 204 H ABG Lactic Acid Hemoglobin 8.8 L 8.6 L 7.9 L Potassium Chloride Creatinine POC Glucose (mg/dL) Calcium Magnesium Alkaline Phosphatase Total Protein Albumin Arterial Blood Potassium 5.6 H 5.1 H Arterial Blood Glucose 118 H 235 H 204 H Crossmatch 10/24/18 10/24/18 10/24/18 12:28 13:01 14:26 WBC RBC Hgb Hct Plt Count Neutrophils # PT INR ABG pH 7.32 L 7.33 L ABG pCO2 ABG pO2 321 H 346 H 234 H ABG HCO3 ABG Total CO2 ABG O2 Saturation 100.0 H 100.0 H 100.0 H ABG Hematocrit 23 L 21 L 22 L ABG Potassium 4.7 H ABG Ionized Calcium 4.0 L 4.0 L 4.4 L ABG Glucose 220 H 239 H 145 H ABG Lactic Acid 2.5 H* 3.0 H* 3.0 H* Hemoglobin 7.6 L 7.0 L* 7.3 L Potassium Chloride Creatinine POC Glucose (mg/dL) Calcium Magnesium Alkaline Phosphatase Total Protein Albumin Arterial Blood Potassium 4.7 H Arterial Blood Glucose 220 H 239 H 145 H Crossmatch 10/24/18 10/24/18 10/24/18 15:45 15:45 15:45 WBC 14.2 H RBC 2.68 L Hgb 8.3 L D Hct 24.3 L Plt Count 125 L Neutrophils # 11.7 H PT 13.6 H INR 1.3 H ABG pH ABG pCO2 ABG pO2 ABG HCO3 ABG Total CO2 ABG O2 Saturation ABG Hematocrit ABG Potassium ABG Ionized Calcium ABG Glucose ABG Lactic Acid Hemoglobin Potassium 5.4 H Chloride 111 H Creatinine 0.47 L POC Glucose (mg/dL) Calcium 7.8 L Magnesium 2.4 H Alkaline Phosphatase 33 L Total Protein 4.6 L Albumin 3.0 L Arterial Blood Potassium Arterial Blood Glucose Crossmatch 10/24/18 10/24/18 15:53 15:59 WBC RBC Hgb Hct Plt Count Neutrophils # PT INR ABG pH 7.29 L ABG pCO2 53 H ABG pO2 274 H ABG HCO3 26 H ABG Total CO2 27 H ABG O2 Saturation 99.4 H ABG Hematocrit ABG Potassium ABG Ionized Calcium ABG Glucose ABG Lactic Acid Hemoglobin Potassium Chloride Creatinine POC Glucose (mg/dL) 103 H Calcium Magnesium Alkaline Phosphatase Total Protein Albumin Arterial Blood Potassium Arterial Blood Glucose Crossmatch - Diagnostic Findings Chest x-ray: image reviewed Assessment and Plan Plan: 1 multivessel coronary disease and the patient is status post four-vessel bypass surgery. Postop day #0. Currently intubated on mechanical ventilator. Hemodynamically stable. On a combination of vasopressin and norepinephrine infusion for hemodynamic support. Cardiac index is at 3.2 with adequate hemodynamics. 2 sinus bradycardia currently paced at the rate of 80 3 ventilator management as the patient is currently intubated on mechanical ventilator post thoracotomy bypass surgery. There is a component of respiratory acidosis and based on that the necessary vent changes with him. 4 history of cerebral palsy 5 history of hyperlipidemia Plan Necessary vent changes were done. Continue the respiratory rate of 22. Drop down the FiO2 to 50% with a PEEP of 5. Monitor hemodynamics. Gradually wean off the propofol and once the patient is ready we'll proceed with checking the patient's weaning parameters and proceed with spontaneous breathing trial. Anticipate extubated within next 4-6 hours. Continue DuoNeb nebulized treatments around the clock. Keep the cardiac rhythm paced the rate of 80. Continue the nitroglycerin drip and the Cardizem drip per protocol. Wean off pressors. We'll continue to follow.
[2018-10-24] MEDS: ceFAZolin IN SWFI 2 GM/20 ML SYRINGE IVP SCH (17:54)
[2018-10-24 17:55] LABS: Glucose,Whole Blood 126 mg/dL (75-99)
[2018-10-24] MEDS: ACETAMINOPHEN IV (For NPO) 1,000 MG in EMPTY BAG 1 BAG IVPB SCH (17:58)
[2018-10-24] MEDS: INSULIN REGULAR 100 UNIT in SODIUM CHLORIDE 0.9% 100 ML IV ONE ×2 (18:00→22:28)
[2018-10-24 19:03] LABS: Glucose,Whole Blood 133 mg/dL (75-99)
[2018-10-24] MEDS ORDERED: NOREPINEPHRINE 4 MG in SODIUM CHLORIDE 0.9% 250 ML IV SCH (19:45)
[2018-10-24 19:54] LABS: Basophils % (A) 0 %; Eosinophils # (A) 0.1 k/uL (0-0.7); Eosinophils % (A) 1 %; HCT 21.9 % (39.0-53.0); HGB 7.6 gm/dL (13.0-17.5); Lymphocytes # (A) 0.5 k/uL (1.0-4.8); Lymphocytes % (A) 4 %; MCH 31.2 pg (25.0-35.0); MCHC 34.8 g/dL (31.0-37.0); MCV 89.7 fL (80.0-100.0); Monocytes # (A) 0.5 k/uL (0-1.0); Monocytes % (A) 4 %; Neutrophils # (A) 10.4 k/uL (1.3-7.7); Neutrophils % (A) 90 %; Platelet Count 125 k/uL (150-450); RBC 2.44 m/uL (4.30-5.90); RDW 13.4 % (11.5-15.5); WBC 11.5 k/uL (3.8-10.6)
[2018-10-24 19:56] LABS: Glucose,Whole Blood 137 mg/dL (75-99)
[2018-10-24] MEDS: INSULIN REGULAR 100 UNIT in SODIUM CHLORIDE 0.9% 100 ML IV SCH (20:34)
[2018-10-24 20:42] LABS: Anion Gap 7 mmol/L; Blood Urea Nitrogen 10 mg/dL (9-20); Calcium 8.2 mg/dL (8.4-10.2); Carbon Dioxide 23 mmol/L (22-30); Chloride 109 mmol/L (98-107); Glucose 119 mg/dL (74-99); Phosphorus 1.1 mg/dL (2.5-4.5); Potassium 4.3 mmol/L (3.5-5.1); Sodium 139 mmol/L (137-145)
[2018-10-24 21:07] LABS: Glucose,Whole Blood 140 mg/dL (75-99)
[2018-10-24] MEDS: MAGNESIUM SULFATE-D5W PMX 1 GM in DEXTROSE/WATER 1 100ML.BAG IVPB SCH ×2 (21:36→22:30)
[2018-10-24] MEDS: MUPIROCIN 2% OINT 22 GM TUBE NASAL SCH (21:40)
[2018-10-24 21:46] LABS: Basophils % (A) 0 %; Eosinophils # (A) 0.1 k/uL (0-0.7); Eosinophils % (A) 1 %; HCT 23.6 % (39.0-53.0); HGB 7.6 gm/dL (13.0-17.5); Lymphocytes # (A) 0.7 k/uL (1.0-4.8); Lymphocytes % (A) 7 %; MCHC 32.1 g/dL (31.0-37.0); MCV 90.2 fL (80.0-100.0); Monocytes # (A) 0.5 k/uL (0-1.0); Monocytes % (A) 5 %; Neutrophils # (A) 8.6 k/uL (1.3-7.7); Neutrophils % (A) 87 %; Platelet Count 124 k/uL (150-450); RBC 2.61 m/uL (4.30-5.90); RDW 13.4 % (11.5-15.5); WBC 9.9 k/uL (3.8-10.6)
[2018-10-24 22:17] LABS: Glucose,Whole Blood 159 mg/dL (75-99)
[2018-10-24] MEDS: CLEVIDIPINE BUTYRATE 25 MG in EMPTY BAG 1 BAG IV SCH (22:27)
[2018-10-24] MEDS: POTASSIUM PHOSPHATE 10 MMOL in SODIUM CHLORIDE 0.9% 100 ML IV SCH (22:28)
[2018-10-24] MEDS: HEPARIN SODIUM,PORCINE 5,000 UNIT/ML 1 ML VIAL SQ SCH (22:30)
--- NOTE | 2018-10-24 22:49 | P.CONS ---
History of Present Illness - Reason for Consult Consult date: 10/24/18 Medical Management Requesting physician: Denilson Galan - Chief Complaint Post CABG, respiratory failure, hyperglycemia, hypertension and hyperlipide - History of Present Illness 53-year-old male one of Dr. Frank patient with mild degree of cerebral palsy who has history of hypertension hyperlipidemia and coronary artery disease with heart catheter 2 weeks ago showed 99 percentile blockage of the RCA 60% of the PLB 90% stenosis of the circumflex and acute marginal and 85 percentile stenosis of the LAD. Patient was referred to cardiothoracic seen and evaluated and was schedule elective bypass surgery with Dr. Galan which was done successfully today patient was intubated and placed on mechanical ventilation post surgery seen pulmonary and transferred to the intensive care unit, remain on vasodepressor along with insulin drip the blood sugar running marginal at the time. Patient is sedated on mechanical ventilation. Review of Systems CONSTITUTIONAL: Well-developed sedated on mechanical ventilation with [place]-Nabil catheter on along with central line Artline and 2 chest tube. EYES: No icterus sclerae, no conjunctivitis. EARS, NOSE, MOUTH, THROAT, and FACE: No sore throat, lymphadenopathy, carotid bruits or deformity. RESPIRATORY: He is on mechanical ventilation.. CARDIOVASCULAR: Post CABG mildly sedated no sign of bleed. GASTROINTESTINAL: Patient is sedated no diarrhea no sign of GI bleed. GENITOURINARY: Negative for Hematuria. With Pretty catheter in. INTEGUMENT/BREAST: Patient is sedated. HEMATOLOGIC/LYMPHATIC: Negative for bleed or purpura. MUSCULOSKELTAL: Patient is sedated. NEURLOGICAL: Patient is sedated. Past Medical History Past Medical History: Coronary Artery Disease (CAD), Hyperlipidemia Additional Past Medical History / Comment(s): Cerebral palsy History of Any Multi-Drug Resistant Organisms: None Reported Past Surgical History: Heart Catheterization Past Anesthesia/Blood Transfusion Reactions: No Reported Reaction Additional Past Anesthesia/Blood Transfusion Reaction / Comm: no hx general anesthesia or blood transfusion Smoking Status: Former smoker - Past Family History Mother Family Medical History: No Reported History Additional Family Medical History / Comment(s): family history of premature coronary artery disease on his mother's side Medications and Allergies Home Medications Medication Instructions Recorded Confirmed Type Ergocalciferol (Vitamin D2) 50,000 unit PO MO 10/05/18 10/24/18 History [Vitamin D2] Aspirin 81 mg PO DAILY #30 chew 10/10/18 10/24/18 Rx Atorvastatin [Lipitor] 80 mg PO HS #30 tab 10/10/18 10/24/18 Rx Metoprolol Succinate (ER) [Toprol 25 mg PO DAILY #30 tab.er.24h 10/10/18 10/24/18 Rx XL] Nitroglycerin Sl Tabs [Nitrostat] 0.4 mg SUBLINGUAL Q5M PRN #25 tab 10/10/18 10/24/18 Rx Allergies Allergy/AdvReac Type Severity Reaction Status Date / Time No Known Allergies Allergy Verified 10/24/18 14:08 Physical Exam Vitals: Vital Signs Temp Pulse Pulse Resp BP BP BP 10/24/18 21:30 69 22 10/24/18 21:15 68 22 10/24/18 21:00 72 22 10/24/18 20:45 71 22 10/24/18 20:30 72 22 10/24/18 20:15 76 22 10/24/18 20:00 100 F H 78 22 10/24/18 19:55 77 10/24/18 19:45 82 23 10/24/18 19:44 77 10/24/18 19:30 75 22 10/24/18 19:15 76 22 10/24/18 19:00 77 22 10/24/18 18:45 78 22 10/24/18 18:30 78 22 10/24/18 18:15 81 24 10/24/18 18:00 86 22 10/24/18 17:45 82 22 10/24/18 17:30 75 23 10/24/18 17:15 71 23 10/24/18 17:00 70 24 10/24/18 16:45 80 22 101/64 10/24/18 16:30 80 22 103/73 10/24/18 16:17 80 10/24/18 16:15 80 27 H 10/24/18 16:10 80 10/24/18 16:00 80 12 10/24/18 15:45 35.2 F L 80 13 10/24/18 15:40 22 10/24/18 06:29 98.9 F 70 18 141/80 133/72 Pulse Ox 10/24/18 21:30 98 10/24/18 21:15 98 10/24/18 21:00 98 10/24/18 20:45 98 10/24/18 20:30 98 10/24/18 20:15 98 10/24/18 20:00 98 10/24/18 19:55 10/24/18 19:45 100 10/24/18 19:44 10/24/18 19:30 100 10/24/18 19:15 100 10/24/18 19:00 100 10/24/18 18:45 99 10/24/18 18:30 100 10/24/18 18:15 99 10/24/18 18:00 100 10/24/18 17:45 100 10/24/18 17:30 99 10/24/18 17:15 98 10/24/18 17:00 98 10/24/18 16:45 98 10/24/18 16:30 98 10/24/18 16:17 10/24/18 16:15 100 10/24/18 16:10 10/24/18 16:00 100 10/24/18 15:45 100 10/24/18 15:40 100 10/24/18 06:29 97 Intake and Output 10/24/18 10/24/18 10/24/18 06:59 14:59 22:59 Intake Total 33 731.360 Output Total 2565 1430 Balance -8562 -149.640 Intake: IV 33 594.0 0.9 Pressure Bag 72 Cardiac Output (0.9) 90 Diltiazem 125 mg In 20.0 Sodium Chloride 0.9% 100 ml @ 5 MG/HR 5 mls/hr IV .Q24H JENNIFER Rx#:[id number] Lactated Ringers 1,000 ml 400 @ 50 mls/hr IV .Q20H JENNIFER Rx#:[id number] Nitroglycerin-D5w Pmx 50 12.0 mg In Dextrose/Water 1 250ml.bag @ 5 MCG/MIN 1.5 mls/hr IV .Q24H JENNIFER Rx#: [id number] Intake, IV Titration 137.360 Amount Dexmedetomidine/0.9% NaCl 15.906 (Pmx) 400 mcg In Empty Bag 1 bag @ Titrate IV . Q0M JENNIFER Rx#:[id number] Norepinephrine 4 mg In 119.821 Sodium Chloride 0.9% 250 ml @ 0.05 MCG/KG/MIN 13. 826 mls/hr IV .[id number] JENNIFER Rx#:[id number] Propofol 1,000 mg In 1.633 Empty Bag 1 bag @ Titrate IV .Q0M JENNIFER Rx#: [id number] Output: Chest Tube Drainage 305 Left Lateral Chest 208 Right Pleural/Mediastinal 97 Urine 1065 1125 Estimated Blood Loss 1500 Other: Voiding Method Indwelling Catheter ABP, PAP, CO, CI - Last 8 Hours Arterial Blood Pressure 127/61 Arterial Blood Pressure 125/61 Arterial Blood Pressure 128/62 Arterial Blood Pressure 118/59 Arterial Blood Pressure 129/62 Arterial Blood Pressure 124/60 Arterial Blood Pressure 101/54 Arterial Blood Pressure 120/58 Arterial Blood Pressure 123/61 Arterial Blood Pressure 106/53 Arterial Blood Pressure 128/59 Arterial Blood Pressure 128/58 Arterial Blood Pressure 110/52 Arterial Blood Pressure 84/48 Arterial Blood Pressure 100/50 Arterial Blood Pressure 98/54 Arterial Blood Pressure 98/50 Arterial Blood Pressure 96/52 Arterial Blood Pressure 94/53 Arterial Blood Pressure 109/57 Arterial Blood Pressure 96/52 Arterial Blood Pressure 128/70 Arterial Blood Pressure 126/63 Pulmonary Artery Pressure 31/16 Pulmonary Artery Pressure 29/15 Pulmonary Artery Pressure 31/17 Pulmonary Artery Pressure 30/16 Pulmonary Artery Pressure 32/16 Pulmonary Artery Pressure 32/17 Pulmonary Artery Pressure 34/18 Pulmonary Artery Pressure 34/19 Pulmonary Artery Pressure 32/18 Pulmonary Artery Pressure 34/19 Pulmonary Artery Pressure 31/18 Pulmonary Artery Pressure 34/19 Pulmonary Artery Pressure 36/21 Pulmonary Artery Pressure 34/18 Pulmonary Artery Pressure 37/15 Pulmonary Artery Pressure 36/20 Pulmonary Artery Pressure 39/21 Pulmonary Artery Pressure 37/20 Pulmonary Artery Pressure 39/18 Pulmonary Artery Pressure 36/18 Pulmonary Artery Pressure 37/18 Pulmonary Artery Pressure 35/17 Pulmonary Artery Pressure 36/18 Pulmonary Artery Pressure 35/21 Cardiac Output 5.9 Cardiac Index 3.2 General Appearance: Sedated on mechanical ventilation with many central line and chest tube on.. Neck HEENT: Supple, no lymphadenopathy, no thyroid enlargement, no carotid bruits. [place]-Nabil catheter in the right side. Lungs: Decreased breath sounds in the left side no crackles or wheezes. Chest Wall: Decrease expansion with deep inspiration with 2 chest tube. Heart: Regular rate and rhythm, S1, S2 mild arrhythmia with S3., no murmur, rub or gallop. Back: Symmetric, no curvature, ROM normal, no CVA tenderness. Abdomen: Soft, non-tender, bowel sounds active all four quadrants, no masses, no organomegaly. Extremities: Extremities normal, atraumatic, no cyanosis or edema. Right side had minimum bleed from the graft site Pulses: 2+ and symmetric. Skin: Skin color, texture, tugor normal, no rashes or lesions. Neurologic: Patient is sedated on mechanical ventilation. Results CBC & Chem 7: 10/25/18 04:12 10/25/18 04:12 Labs: Abnormal Lab Results - Last 24 Hours (Table) 10/24/18 10/24/18 10/24/18 Range/Units 06:25 08:59 10:09 WBC (3.8-10.6) k/uL RBC (4.30-5.90) m/uL Hgb (13.0-17.5) gm/dL Hct (39.0-53.0) % Plt Count (150-450) k/uL Neutrophils # (1.3-7.7) k/uL Lymphocytes # (1.0-4.8) k/uL PT (9.0-12.0) sec INR (<1.2) ABG pH 7.33 L 7.22 L (7.35-7.45) ABG pCO2 55 H (35-45) mmHg ABG pO2 225 H 228 H (83-108) mmHg ABG HCO3 (21-25) mmol/L ABG Total CO2 25 H (19-24) mmol/L ABG O2 Saturation 100.0 H 100.0 H (94-97) % ABG Hematocrit (34.0-46.0) % ABG Potassium (3.4-4.5) mmol/L ABG Ionized Calcium (4.5-5.3) mg/dL ABG Glucose 114 H 144 H (75-99) mg/dL ABG Lactic Acid (0.5-1.6) mmol/L Hemoglobin 12.8 L (13.0-17.5) gm/dL Potassium (3.5-5.1) mmol/L Chloride (98-107) mmol/L Creatinine (0.66-1.25) mg/dL Glucose (74-99) mg/dL POC Glucose (mg/dL) (75-99) mg/dL Calcium (8.4-10.2) mg/dL Phosphorus (2.5-4.5) mg/dL Magnesium (1.6-2.3) mg/dL Alkaline Phosphatase (38-126) U/L Total Protein (6.3-8.2) g/dL Albumin (3.5-5.0) g/dL Arterial Blood Potassium (3.4-4.5) mmol/L Arterial Blood Glucose 114 H 144 H (75-99) mg/dL Crossmatch See Detail 10/24/18 10/24/18 10/24/18 Range/Units 11:03 11:18 11:49 WBC (3.8-10.6) k/uL RBC (4.30-5.90) m/uL Hgb (13.0-17.5) gm/dL Hct (39.0-53.0) % Plt Count (150-450) k/uL Neutrophils # (1.3-7.7) k/uL Lymphocytes # (1.0-4.8) k/uL PT (9.0-12.0) sec INR (<1.2) ABG pH (7.35-7.45) ABG pCO2 (35-45) mmHg ABG pO2 >420 H 382 H 326 H (83-108) mmHg ABG HCO3 27 H (21-25) mmol/L ABG Total CO2 28 H 26 H (19-24) mmol/L ABG O2 Saturation 100.0 H 100.0 H 100.0 H (94-97) % ABG Hematocrit 27 L 26 L 24 L (34.0-46.0) % ABG Potassium 5.6 H 5.1 H (3.4-4.5) mmol/L ABG Ionized Calcium 3.7 L 4.0 L 3.9 L (4.5-5.3) mg/dL ABG Glucose 118 H 235 H 204 H (75-99) mg/dL ABG Lactic Acid (0.5-1.6) mmol/L Hemoglobin 8.8 L 8.6 L 7.9 L (13.0-17.5) gm/dL Potassium (3.5-5.1) mmol/L Chloride (98-107) mmol/L Creatinine (0.66-1.25) mg/dL Glucose (74-99) mg/dL POC Glucose (mg/dL) (75-99) mg/dL Calcium (8.4-10.2) mg/dL Phosphorus (2.5-4.5) mg/dL Magnesium (1.6-2.3) mg/dL Alkaline Phosphatase (38-126) U/L Total Protein (6.3-8.2) g/dL Albumin (3.5-5.0) g/dL Arterial Blood Potassium 5.6 H 5.1 H (3.4-4.5) mmol/L Arterial Blood Glucose 118 H 235 H 204 H (75-99) mg/dL Crossmatch 10/24/18 10/24/18 10/24/18 Range/Units 12:28 13:01 14:26 WBC (3.8-10.6) k/uL RBC (4.30-5.90) m/uL Hgb (13.0-17.5) gm/dL Hct (39.0-53.0) % Plt Count (150-450) k/uL Neutrophils # (1.3-7.7) k/uL Lymphocytes # (1.0-4.8) k/uL PT (9.0-12.0) sec INR (<1.2) ABG pH 7.32 L 7.33 L (7.35-7.45) ABG pCO2 (35-45) mmHg ABG pO2 321 H 346 H 234 H (83-108) mmHg ABG HCO3 (21-25) mmol/L ABG Total CO2 (19-24) mmol/L ABG O2 Saturation 100.0 H 100.0 H 100.0 H (94-97) % ABG Hematocrit 23 L 21 L 22 L (34.0-46.0) % ABG Potassium 4.7 H (3.4-4.5) mmol/L ABG Ionized Calcium 4.0 L 4.0 L 4.4 L (4.5-5.3) mg/dL ABG Glucose 220 H 239 H 145 H (75-99) mg/dL ABG Lactic Acid 2.5 H* 3.0 H* 3.0 H* (0.5-1.6) mmol/L Hemoglobin 7.6 L 7.0 L* 7.3 L (13.0-17.5) gm/dL Potassium (3.5-5.1) mmol/L Chloride (98-107) mmol/L Creatinine (0.66-1.25) mg/dL Glucose (74-99) mg/dL POC Glucose (mg/dL) (75-99) mg/dL Calcium (8.4-10.2) mg/dL Phosphorus (2.5-4.5) mg/dL Magnesium (1.6-2.3) mg/dL Alkaline Phosphatase (38-126) U/L Total Protein (6.3-8.2) g/dL Albumin (3.5-5.0) g/dL Arterial Blood Potassium 4.7 H (3.4-4.5) mmol/L Arterial Blood Glucose 220 H 239 H 145 H (75-99) mg/dL Crossmatch 10/24/18 10/24/18 10/24/18 Range/Units 15:45 15:45 15:45 WBC 14.2 H (3.8-10.6) k/uL RBC 2.68 L (4.30-5.90) m/uL Hgb 8.3 L D (13.0-17.5) gm/dL Hct 24.3 L (39.0-53.0) % Plt Count 125 L (150-450) k/uL Neutrophils # 11.7 H (1.3-7.7) k/uL Lymphocytes # (1.0-4.8) k/uL PT 13.6 H (9.0-12.0) sec INR 1.3 H (<1.2) ABG pH (7.35-7.45) ABG pCO2 (35-45) mmHg ABG pO2 (83-108) mmHg ABG HCO3 (21-25) mmol/L ABG Total CO2 (19-24) mmol/L ABG O2 Saturation (94-97) % ABG Hematocrit (34.0-46.0) % ABG Potassium (3.4-4.5) mmol/L ABG Ionized Calcium (4.5-5.3) mg/dL ABG Glucose (75-99) mg/dL ABG Lactic Acid (0.5-1.6) mmol/L Hemoglobin (13.0-17.5) gm/dL Potassium 5.4 H (3.5-5.1) mmol/L Chloride 111 H (98-107) mmol/L Creatinine 0.47 L (0.66-1.25) mg/dL Glucose (74-99) mg/dL POC Glucose (mg/dL) (75-99) mg/dL Calcium 7.8 L (8.4-10.2) mg/dL Phosphorus (2.5-4.5) mg/dL Magnesium 2.4 H (1.6-2.3) mg/dL Alkaline Phosphatase 33 L (38-126) U/L Total Protein 4.6 L (6.3-8.2) g/dL Albumin 3.0 L (3.5-5.0) g/dL Arterial Blood Potassium (3.4-4.5) mmol/L Arterial Blood Glucose (75-99) mg/dL Crossmatch 10/24/18 10/24/18 10/24/18 Range/Units 15:53 15:59 17:38 WBC 11.5 H (3.8-10.6) k/uL RBC 2.44 L (4.30-5.90) m/uL Hgb 7.6 L (13.0-17.5) gm/dL Hct 21.9 L (39.0-53.0) % Plt Count 125 L (150-450) k/uL Neutrophils # 10.4 H (1.3-7.7) k/uL Lymphocytes # 0.5 L (1.0-4.8) k/uL PT (9.0-12.0) sec INR (<1.2) ABG pH 7.29 L (7.35-7.45) ABG pCO2 53 H (35-45) mmHg ABG pO2 274 H (83-108) mmHg ABG HCO3 26 H (21-25) mmol/L ABG Total CO2 27 H (19-24) mmol/L ABG O2 Saturation 99.4 H (94-97) % ABG Hematocrit (34.0-46.0) % ABG Potassium (3.4-4.5) mmol/L ABG Ionized Calcium (4.5-5.3) mg/dL ABG Glucose (75-99) mg/dL ABG Lactic Acid (0.5-1.6) mmol/L Hemoglobin (13.0-17.5) gm/dL Potassium (3.5-5.1) mmol/L Chloride (98-107) mmol/L Creatinine (0.66-1.25) mg/dL Glucose (74-99) mg/dL POC Glucose (mg/dL) 103 H (75-99) mg/dL Calcium (8.4-10.2) mg/dL Phosphorus (2.5-4.5) mg/dL Magnesium (1.6-2.3) mg/dL Alkaline Phosphatase (38-126) U/L Total Protein (6.3-8.2) g/dL Albumin (3.5-5.0) g/dL Arterial Blood Potassium (3.4-4.5) mmol/L Arterial Blood Glucose (75-99) mg/dL Crossmatch 10/24/18 10/24/18 10/24/18 Range/Units 17:44 18:51 19:42 WBC (3.8-10.6) k/uL RBC (4.30-5.90) m/uL Hgb (13.0-17.5) gm/dL Hct (39.0-53.0) % Plt Count (150-450) k/uL Neutrophils # (1.3-7.7) k/uL Lymphocytes # (1.0-4.8) k/uL PT (9.0-12.0) sec INR (<1.2) ABG pH (7.35-7.45) ABG pCO2 (35-45) mmHg ABG pO2 (83-108) mmHg ABG HCO3 (21-25) mmol/L ABG Total CO2 (19-24) mmol/L ABG O2 Saturation (94-97) % ABG Hematocrit (34.0-46.0) % ABG Potassium (3.4-4.5) mmol/L ABG Ionized Calcium (4.5-5.3) mg/dL ABG Glucose (75-99) mg/dL ABG Lactic Acid (0.5-1.6) mmol/L Hemoglobin (13.0-17.5) gm/dL Potassium (3.5-5.1) mmol/L Chloride (98-107) mmol/L Creatinine (0.66-1.25) mg/dL Glucose (74-99) mg/dL POC Glucose (mg/dL) 126 H 133 H 137 H (75-99) mg/dL Calcium (8.4-10.2) mg/dL Phosphorus (2.5-4.5) mg/dL Magnesium (1.6-2.3) mg/dL Alkaline Phosphatase (38-126) U/L Total Protein (6.3-8.2) g/dL Albumin (3.5-5.0) g/dL Arterial Blood Potassium (3.4-4.5) mmol/L Arterial Blood Glucose (75-99) mg/dL Crossmatch 10/24/18 10/24/18 10/24/18 Range/Units 19:45 20:55 21:34 WBC (3.8-10.6) k/uL RBC 2.61 L (4.30-5.90) m/uL Hgb 7.6 L (13.0-17.5) gm/dL Hct 23.6 L (39.0-53.0) % Plt Count 124 L (150-450) k/uL Neutrophils # 8.6 H (1.3-7.7) k/uL Lymphocytes # 0.7 L (1.0-4.8) k/uL PT (9.0-12.0) sec INR (<1.2) ABG pH (7.35-7.45) ABG pCO2 (35-45) mmHg ABG pO2 (83-108) mmHg ABG HCO3 (21-25) mmol/L ABG Total CO2 (19-24) mmol/L ABG O2 Saturation (94-97) % ABG Hematocrit (34.0-46.0) % ABG Potassium (3.4-4.5) mmol/L ABG Ionized Calcium (4.5-5.3) mg/dL ABG Glucose (75-99) mg/dL ABG Lactic Acid (0.5-1.6) mmol/L Hemoglobin (13.0-17.5) gm/dL Potassium (3.5-5.1) mmol/L Chloride 109 H (98-107) mmol/L Creatinine 0.50 L (0.66-1.25) mg/dL Glucose 119 H (74-99) mg/dL POC Glucose (mg/dL) 140 H (75-99) mg/dL Calcium 8.2 L (8.4-10.2) mg/dL Phosphorus 1.1 L (2.5-4.5) mg/dL Magnesium (1.6-2.3) mg/dL Alkaline Phosphatase (38-126) U/L Total Protein (6.3-8.2) g/dL Albumin (3.5-5.0) g/dL Arterial Blood Potassium (3.4-4.5) mmol/L Arterial Blood Glucose (75-99) mg/dL Crossmatch 10/24/18 Range/Units 22:06 WBC (3.8-10.6) k/uL RBC (4.30-5.90) m/uL Hgb (13.0-17.5) gm/dL Hct (39.0-53.0) % Plt Count (150-450) k/uL Neutrophils # (1.3-7.7) k/uL Lymphocytes # (1.0-4.8) k/uL PT (9.0-12.0) sec INR (<1.2) ABG pH (7.35-7.45) ABG pCO2 (35-45) mmHg ABG pO2 (83-108) mmHg ABG HCO3 (21-25) mmol/L ABG Total CO2 (19-24) mmol/L ABG O2 Saturation (94-97) % ABG Hematocrit (34.0-46.0) % ABG Potassium (3.4-4.5) mmol/L ABG Ionized Calcium (4.5-5.3) mg/dL ABG Glucose (75-99) mg/dL ABG Lactic Acid (0.5-1.6) mmol/L Hemoglobin (13.0-17.5) gm/dL Potassium (3.5-5.1) mmol/L Chloride (98-107) mmol/L Creatinine (0.66-1.25) mg/dL Glucose (74-99) mg/dL POC Glucose (mg/dL) 159 H (75-99) mg/dL Calcium (8.4-10.2) mg/dL Phosphorus (2.5-4.5) mg/dL Magnesium (1.6-2.3) mg/dL Alkaline Phosphatase (38-126) U/L Total Protein (6.3-8.2) g/dL Albumin (3.5-5.0) g/dL Arterial Blood Potassium (3.4-4.5) mmol/L Arterial Blood Glucose (75-99) mg/dL Crossmatch Assessment and Plan Plan: 1 post multiple vessel CABG: Patient is in ICU still sedated on mechanical ventilation with [place]-Nabil catheter and multiple central line and chest tube, still on vasopressor at this point watching for any arrhythmia still on insulin drip watch for any further hyperglycemia. 2 respiratory failure on mechanical ventilation post CABG: Continue vent management with pulmonary. 3 hyperlipidemia: We will resume atorvastatin as soon as he is able take oral meds. 4 history of cerebral palsy: Mild. 5 hyperglycemia: Remain on insulin drip and try to keep blood sugar between handwritten 150. 6 anemia post surgery: If hemoglobin dropped below 7 require transfusion. 7 BPH: Watch for any urinary retention still have Pretty catheter in. 8 arrhythmia: Remain on amiodarone drip and Cardizem drip post surgery and within expected. 9 GI prophylaxis: Patient remain on pantoprazole IV. 10 DVT prophylaxis: Remain on heparin 5000 units subcu in his 3 times a day. CODE STATUS: Full code. Dr. Galan thank you very much for the consult if I can be any further help to please let me know.
[2018-10-24 23:24] LABS: Glucose,Whole Blood 169 mg/dL (75-99)
--- NOTE | 2018-10-24 23:31 | CONS ---
CONSULTATION Mr. Mathew is a 53-year-old male who underwent coronary artery bypass grafting today by Dr. Galan. He has been seen by Dr. Prajapati and was found to have severe triple-vessel coronary artery disease with severely calcified coronary arteries. He underwent 4-way coronary artery bypass grafting. He remains intubated. He is starting to wake up. Hemodynamically he is on norepinephrine. He is in sinus mechanism with sinus bradycardia. He is being paced at this time. Reviewing his prior workup, his cardiac catheterization was performed on October 10 and his left ventricular end-diastolic pressure at that time was 12 to 16 mmHg. Patient has no history of malignant arrhythmia. His coronary risk factors are positive for hypertension and hyperlipidemia. He is non- diabetic. He is a remote smoker. MEDICATIONS: His medications include: 1. Metoprolol succinate 25 mg daily. 2. Lipitor 80 mg daily. 3. Aspirin. 4. Vitamin D. REVIEW OF SYSTEMS: Review of systems is not obtainable at this time. PHYSICAL EXAMINATION: He is a 53-year-old male, intubated, trying to wake up. He is in sinus mechanism with paced rhythm. Blood pressure is 130/70 with a heart rate in the 70s. HEAD: Normocephalic. Eyes: Sclerae anicteric. NECK: No bruit. LUNGS: Clear to auscultation anteriorly. HEART: Regular rate and rhythm. S1, S2. No S3. No rub appreciated. ABDOMEN: Soft. Hypoactive bowel sounds. No organomegaly. EXTREMITIES: No edema. LAB DATA: Lab data revealed a hemoglobin of 8.3, BUN and creatinine of 10 and 0.47. IMPRESSION: 1. Status post coronary artery bypass grafting. 2. Hyperlipidemia. 3. Sinus bradycardia, being atrially paced. 4. History of mild cerebral palsy. RECOMMENDATIONS: From the cardiac standpoint, we will continue the routine postoperative care. Hopefully he will be weaned and extubated soon. We will re-initiate the treatment with statin and the beta karissa. Depending on his progress, further recommendations will be made. Thank you for this consult. We will follow with you. ENDY / SILVIAN: [id number] /
[2018-10-25] MEDS: ACETAMINOPHEN IV (For NPO) 1,000 MG in EMPTY BAG 1 BAG IVPB SCH (00:11)
[2018-10-25 00:16] LABS: Glucose,Whole Blood 142 mg/dL (75-99)
[2018-10-25] MEDS: ceFAZolin IN SWFI 2 GM/20 ML SYRINGE IVP SCH ×2 (00:20→08:47)
[2018-10-25] MEDS: HEPARIN SODIUM,PORCINE 5,000 UNIT/ML 1 ML VIAL SQ SCH ×4 (00:21→23:36)
[2018-10-25] MEDS: POTASSIUM PHOSPHATE 10 MMOL in SODIUM CHLORIDE 0.9% 100 ML IV SCH ×2 (00:36→02:26)
[2018-10-25 00:37] LABS: ABG Base Excess -2.5 mmol/L; ABG HCO3 23 mmol/L (21-25); ABG Oxygen Saturation 96.7 % (94-97); ABG PCO2 38 mmHg (35-45); ABG PH 7.38 (7.35-7.45); ABG PO2 82 mmHg (83-108); ABG TCO2 24 mmol/L (19-24)
[2018-10-25 01:21] LABS: Glucose,Whole Blood 123 mg/dL (75-99)
[2018-10-25 02:29] LABS: Glucose,Whole Blood 123 mg/dL (75-99)
[2018-10-25 03:06] LABS: Glucose,Whole Blood 123 mg/dL (75-99)
[2018-10-25 04:29] LABS: Basophils % (A) 0 %; Eosinophils # (A) 0.1 k/uL (0-0.7); Eosinophils % (A) 1 %; HCT 21.9 % (39.0-53.0); HGB 7.7 gm/dL (13.0-17.5); Lymphocytes # (A) 1.1 k/uL (1.0-4.8); Lymphocytes % (A) 10 %; MCH 31.8 pg (25.0-35.0); MCHC 35.1 g/dL (31.0-37.0); MCV 90.7 fL (80.0-100.0); Mean Platelet Volume 7.3; Monocytes # (A) 0.7 k/uL (0-1.0); Monocytes % (A) 6 %; Neutrophils # (A) 9.6 k/uL (1.3-7.7); Neutrophils % (A) 83 %; Platelet Count 135 k/uL (150-450); RBC 2.42 m/uL (4.30-5.90); RDW 13.6 % (11.5-15.5); WBC 11.6 k/uL (3.8-10.6)
[2018-10-25 04:30] LABS: Glucose,Whole Blood 126 mg/dL (75-99)
[2018-10-25] MEDS: HYDROcodone/APAP 5-325MG 1 EACH TAB PO PRN ×2 (04:35→22:06)
[2018-10-25 04:39] LABS: Ionized Calcium 4.7 mg/dL (4.5-5.3)
[2018-10-25 04:50] LABS: ALT 25 U/L (21-72); AST 72 U/L (17-59); Albumin 3.5 g/dL (3.5-5.0); Alkaline Phosphatase 34 U/L (38-126); Anion Gap 7 mmol/L; Blood Urea Nitrogen 10 mg/dL (9-20); Calcium 8.1 mg/dL (8.4-10.2); Carbon Dioxide 22 mmol/L (22-30); Chloride 108 mmol/L (98-107); Glucose 108 mg/dL (74-99); Magnesium 2.1 mg/dL (1.6-2.3); Potassium 4.8 mmol/L (3.5-5.1); Sodium 137 mmol/L (137-145); Total Bilirubin 0.5 mg/dL (0.2-1.3); Total Protein 5.2 g/dL (6.3-8.2)
[2018-10-25] MEDS: ALBUMIN HUMAN 5% 250 ML in EMPTY BAG 1 BAG IVPB PRN ×3 (06:52→13:49)
[2018-10-25] MEDS ORDERED: ACETAMINOPHEN TAB 500 MG TAB PO PRN (06:57)
[2018-10-25 07:18] LABS: Glucose,Whole Blood 153 mg/dL (75-99)
--- NOTE | 2018-10-25 07:18 | XR ---
EXAMINATION TYPE: XR chest 1V portable DATE OF EXAM: 10/25/2018 COMPARISON: 10/24/2018 HISTORY: Status post cardiac surgery TECHNIQUE: Single frontal view of the chest is obtained. FINDINGS: Cardiomediastinal silhouette is stable. Endotracheal tube and enteric tube have been remov ed in the interim. Right [place]-Nabil catheter, mediastinal drains, thoracostomy tubes, and subtly seen epicardial pacing wires are unchanged. Scattered areas of atelectasis are similar. No new focal conso lidation. Post CABG changes the chest are again noted. No acute osseous pathology. IMPRESSION: Extubation and removal of the enteric tube with other stable lines and tubes and scatter ed areas of atelectasis in comparison to the exam of 10/24/2018.
[2018-10-25] MEDS: IPRATROPIUM-ALBUTEROL 3 ML NEB INHALATION SCH ×4 (07:44→19:26)
[2018-10-25] MEDS: NOREPINEPHRINE 4 MG in SODIUM CHLORIDE 0.9% 250 ML IV SCH (08:16)
--- NOTE | 2018-10-25 08:27 | P.PN ---
Subjective Progress Note Date: 10/25/18 Principal diagnosis: Severe triple vessel coronary artery disease with preserved LV function. Previous medical history of hypertension, hyperlipidemia, previous tobacco dependence with preoperative FEV1 94% of predicted, cerebral palsy, bilateral carotid artery stenosis 70%, and family history of premature coronary artery disease. Preoperative E coli urinary tract infection treated with Cipro for 1 week. POD#1 coronary artery bypass graft surgery with left internal mammary artery to the left anterior descending coronary artery, left radial artery to the first obtuse marginal artery, reverse saphenous vein graft to the first diagonal artery, reverse saphenous vein graft to the posterior lateral branch of the right coronary artery. Endoscopic harvest of the right greater saphenous vein and the left radial artery. Epiaortic scanning. Intraoperative transesphageal echocardiogram. Postoperative acute blood loss anemia, expected secondary to cardiopulmonary bypass pump and hemodilution. The patient is currently sitting up in bed in the intensive care unit in no a cute distress. He was successfully extubated at 00:58 this morning. He does complain of post surgical pain, denies shortness of breath. He is requiring IV levo and vasopressin to maintain adequate hemodynamics. Remains on IV cardizem for radial artery spasm prophylaxis. Currently AV paced at rate 90 BPM to improve hemodynamics, underlying rhythm normal sinus with rate in the high 60s- low 70s. Mediastinal/right/left chest tubes present. Adequate urine output. No other complaints. Objective - Vital Signs Vital signs: Vital Signs Temp 98.4 F 10/25/18 00:00 Pulse 79 10/25/18 03:45 Resp 28 H 10/25/18 03:45 BP 107/78 10/25/18 00:15 Pulse Ox 94 L 10/25/18 03:45 Intake & Output 10/24/18 10/25/18 10/25/18 18:59 06:59 18:59 Intake Total 424.738 976.212 9.014 Output Total 3395 1637 Balance -2970.262 -660.788 9.014 Weight 83 kg Intake: IV 345.0 774.0 0.9 Pressure Bag 36 108 Cardiac Output (0.9) 60 30 Diltiazem 125 mg In 10.0 30.0 Sodium Chloride 0.9% 100 ml @ 5 MG/HR 5 mls/hr IV .Q24H [facility] Rx#:[id number] Lactated Ringers 1,000 ml 200 600 @ 20 mls/hr IV .Q24H [facility] Rx#:[id number] Nitroglycerin-D5w Pmx 50 6.0 6.0 mg In Dextrose/Water 1 250ml.bag @ 5 MCG/MIN 1.5 mls/hr IV .Q24H [facility] Rx#: [id number] Intake, IV Titration 79.738 202.212 9.014 Amount Dexmedetomidine/0.9% NaCl 5.080 55.913 (Pmx) 400 mcg In Empty Bag 1 bag @ Titrate IV . Q0M [facility] Rx#:[id number] Insulin Regular 100 unit 9.654 9.014 In Sodium Chloride 0.9% 100 ml @ Per Protocol IV .Q0M [facility] Rx#:[id number] Norepinephrine 4 mg In 74.658 129.822 Sodium Chloride 0.9% 250 ml @ 0.05 MCG/KG/MIN 13. 826 mls/hr IV .[id number] [facility] Rx#:[id number] Propofol 1,000 mg In 6.823 Empty Bag 1 bag @ Titrate IV .Q0M [facility] Rx#: [id number] Output: Chest Tube Drainage 180 397 Left Lateral Chest 105 253 Right Pleural/Mediastinal 75 144 Drainage 15 Left Wrist 15 Urine 1715 1225 Estimated Blood Loss 1500 Other: Voiding Method Indwelling Catheter Indwelling Catheter ABP, PAP, CO, CI - Last Documented Arterial Blood Pressure 110/58 Pulmonary Artery Pressure 33/17 Cardiac Output 5.9 Cardiac Index 3.2 - Constitutional General appearance: Present: cooperative, no acute distress - Respiratory Details: Lungs sounds diminished bilaterally. Respirations even, nonlabored. Currently on 4 L nasal cannula with oxygen saturation 96%. Only able to achieve 500 mL on his incentive spirometry. Mediastinal/right pleural chest tube to continuous wall suction, 95 mL serosanguineous drainage overnight, 270 mL since surgery. Left pleural chest tube to continuous wall suction, 120 mL serosanguineous drainage overnight, 400 mL since surgery. No air leaks present. - Cardiovascular Details: S1, S2 present. Regular rate and rhythm, AV paced on telemetry with underlying rhythm sinus in the high 60s to low 70s. Sternum stable. A/V epicardial pacemaker wires present, connected to generator, DDD mode with rate 90 bpm. Palpable peripheral pulses bilaterally. No edema present. No calf pain or tenderness noted. Right internal jugular [place], right radial arterial line present. Unable to obtain CO/CI last night, CVP was in the 12-14 range early in the evening, up to 16-18 range this morning. Pulmonary artery pressures remain 30s over teens. Remains on IV levo and vasopressin for hemodynamics. Heart hugger in place with patient demonstrating appropriate use. Antiembolism stockings, SCDs present. - Gastrointestinal Gastrointestinal Comment(s): Abdomen soft, nontender, nondistended. Hypoactive bowel sounds 4 quadrants present. Tolerating clear liquids. - Genitourinary Genitourinary Comment(s): Pretty present draining clear, yellow urine. Output overnight 60-125 mL per hour. - Integumentary Integumentary Comment(s): Skin is warm and dry with evidence of good perfusion. Anterior chest incision well approximated and covered with dry intact dressing. Chest tube sites covered with dry intact dressing. Left radial harvest site well approximated, CURTIS drain present with minimal serosanguineous drainage, left arm Levy wrapped, patient able to move all fingers, strong stretch box tender, positive feeling but does have some numbness. Right lower extremity EVH site well approximated without drainage. - Neurologic Neurologic: Present: CNII-XII intact - Musculoskeletal Musculoskeletal: Present: strength equal bilaterally - Psychiatric Psychiatric: Present: A&O x's 3, appropriate affect, intact judgment & insight - Allied health notes Allied health notes reviewed: nursing - Labs CBC & Chem 7: 10/25/18 04:12 10/25/18 04:12 Labs: Abnormal Lab Results - Last 24 Hours (Table) 10/24/18 10/24/18 10/24/18 Range/Units 06:25 08:59 10:09 WBC (3.8-10.6) k/uL RBC (4.30-5.90) m/uL Hgb (13.0-17.5) gm/dL Hct (39.0-53.0) % Plt Count (150-450) k/uL Neutrophils # (1.3-7.7) k/uL Lymphocytes # (1.0-4.8) k/uL PT (9.0-12.0) sec INR (<1.2) ABG pH 7.33 L 7.22 L (7.35-7.45) ABG pCO2 55 H (35-45) mmHg ABG pO2 225 H 228 H (83-108) mmHg ABG HCO3 (21-25) mmol/L ABG Total CO2 25 H (19-24) mmol/L ABG O2 Saturation 100.0 H 100.0 H (94-97) % ABG Hematocrit (34.0-46.0) % ABG Potassium (3.4-4.5) mmol/L ABG Ionized Calcium (4.5-5.3) mg/dL ABG Glucose 114 H 144 H (75-99) mg/dL ABG Lactic Acid (0.5-1.6) mmol/L Hemoglobin 12.8 L (13.0-17.5) gm/dL Potassium (3.5-5.1) mmol/L Chloride (98-107) mmol/L Creatinine (0.66-1.25) mg/dL Glucose (74-99) mg/dL POC Glucose (mg/dL) (75-99) mg/dL Calcium (8.4-10.2) mg/dL Phosphorus (2.5-4.5) mg/dL Magnesium (1.6-2.3) mg/dL AST (17-59) U/L Alkaline Phosphatase (38-126) U/L Total Protein (6.3-8.2) g/dL Albumin (3.5-5.0) g/dL Arterial Blood Potassium (3.4-4.5) mmol/L Arterial Blood Glucose 114 H 144 H (75-99) mg/dL Crossmatch See Detail 10/24/18 10/24/18 10/24/18 Range/Units 11:03 11:18 11:49 WBC (3.8-10.6) k/uL RBC (4.30-5.90) m/uL Hgb (13.0-17.5) gm/dL Hct (39.0-53.0) % Plt Count (150-450) k/uL Neutrophils # (1.3-7.7) k/uL Lymphocytes # (1.0-4.8) k/uL PT (9.0-12.0) sec INR (<1.2) ABG pH (7.35-7.45) ABG pCO2 (35-45) mmHg ABG pO2 >420 H 382 H 326 H (83-108) mmHg ABG HCO3 27 H (21-25) mmol/L ABG Total CO2 28 H 26 H (19-24) mmol/L ABG O2 Saturation 100.0 H 100.0 H 100.0 H (94-97) % ABG Hematocrit 27 L 26 L 24 L (34.0-46.0) % ABG Potassium 5.6 H 5.1 H (3.4-4.5) mmol/L ABG Ionized Calcium 3.7 L 4.0 L 3.9 L (4.5-5.3) mg/dL ABG Glucose 118 H 235 H 204 H (75-99) mg/dL ABG Lactic Acid (0.5-1.6) mmol/L Hemoglobin 8.8 L 8.6 L 7.9 L (13.0-17.5) gm/dL Potassium (3.5-5.1) mmol/L Chloride (98-107) mmol/L Creatinine (0.66-1.25) mg/dL Glucose (74-99) mg/dL POC Glucose (mg/dL) (75-99) mg/dL Calcium (8.4-10.2) mg/dL Phosphorus (2.5-4.5) mg/dL Magnesium (1.6-2.3) mg/dL AST (17-59) U/L Alkaline Phosphatase (38-126) U/L Total Protein (6.3-8.2) g/dL Albumin (3.5-5.0) g/dL Arterial Blood Potassium 5.6 H 5.1 H (3.4-4.5) mmol/L Arterial Blood Glucose 118 H 235 H 204 H (75-99) mg/dL Crossmatch 10/24/18 10/24/18 10/24/18 Range/Units 12:28 13:01 14:26 WBC (3.8-10.6) k/uL RBC (4.30-5.90) m/uL Hgb (13.0-17.5) gm/dL Hct (39.0-53.0) % Plt Count (150-450) k/uL Neutrophils # (1.3-7.7) k/uL Lymphocytes # (1.0-4.8) k/uL PT (9.0-12.0) sec INR (<1.2) ABG pH 7.32 L 7.33 L (7.35-7.45) ABG pCO2 (35-45) mmHg ABG pO2 321 H 346 H 234 H (83-108) mmHg ABG HCO3 (21-25) mmol/L ABG Total CO2 (19-24) mmol/L ABG O2 Saturation 100.0 H 100.0 H 100.0 H (94-97) % ABG Hematocrit 23 L 21 L 22 L (34.0-46.0) % ABG Potassium 4.7 H (3.4-4.5) mmol/L ABG Ionized Calcium 4.0 L 4.0 L 4.4 L (4.5-5.3) mg/dL ABG Glucose 220 H 239 H 145 H (75-99) mg/dL ABG Lactic Acid 2.5 H* 3.0 H* 3.0 H* (0.5-1.6) mmol/L Hemoglobin 7.6 L 7.0 L* 7.3 L (13.0-17.5) gm/dL Potassium (3.5-5.1) mmol/L Chloride (98-107) mmol/L Creatinine (0.66-1.25) mg/dL Glucose (74-99) mg/dL POC Glucose (mg/dL) (75-99) mg/dL Calcium (8.4-10.2) mg/dL Phosphorus (2.5-4.5) mg/dL Magnesium (1.6-2.3) mg/dL AST (17-59) U/L Alkaline Phosphatase (38-126) U/L Total Protein (6.3-8.2) g/dL Albumin (3.5-5.0) g/dL Arterial Blood Potassium 4.7 H (3.4-4.5) mmol/L Arterial Blood Glucose 220 H 239 H 145 H (75-99) mg/dL Crossmatch 10/24/18 10/24/18 10/24/18 Range/Units 15:45 15:45 15:45 WBC 14.2 H (3.8-10.6) k/uL RBC 2.68 L (4.30-5.90) m/uL Hgb 8.3 L D (13.0-17.5) gm/dL Hct 24.3 L (39.0-53.0) % Plt Count 125 L (150-450) k/uL Neutrophils # 11.7 H (1.3-7.7) k/uL Lymphocytes # (1.0-4.8) k/uL PT 13.6 H (9.0-12.0) sec INR 1.3 H (<1.2) ABG pH (7.35-7.45) ABG pCO2 (35-45) mmHg ABG pO2 (83-108) mmHg ABG HCO3 (21-25) mmol/L ABG Total CO2 (19-24) mmol/L ABG O2 Saturation (94-97) % ABG Hematocrit (34.0-46.0) % ABG Potassium (3.4-4.5) mmol/L ABG Ionized Calcium (4.5-5.3) mg/dL ABG Glucose (75-99) mg/dL ABG Lactic Acid (0.5-1.6) mmol/L Hemoglobin (13.0-17.5) gm/dL Potassium 5.4 H (3.5-5.1) mmol/L Chloride 111 H (98-107) mmol/L Creatinine 0.47 L (0.66-1.25) mg/dL Glucose (74-99) mg/dL POC Glucose (mg/dL) (75-99) mg/dL Calcium 7.8 L (8.4-10.2) mg/dL Phosphorus (2.5-4.5) mg/dL Magnesium 2.4 H (1.6-2.3) mg/dL AST (17-59) U/L Alkaline Phosphatase 33 L (38-126) U/L Total Protein 4.6 L (6.3-8.2) g/dL Albumin 3.0 L (3.5-5.0) g/dL Arterial Blood Potassium (3.4-4.5) mmol/L Arterial Blood Glucose (75-99) mg/dL Crossmatch 10/24/18 10/24/18 10/24/18 Range/Units 15:53 15:59 17:38 WBC 11.5 H (3.8-10.6) k/uL RBC 2.44 L (4.30-5.90) m/uL Hgb 7.6 L (13.0-17.5) gm/dL Hct 21.9 L (39.0-53.0) % Plt Count 125 L (150-450) k/uL Neutrophils # 10.4 H (1.3-7.7) k/uL Lymphocytes # 0.5 L (1.0-4.8) k/uL PT (9.0-12.0) sec INR (<1.2) ABG pH 7.29 L (7.35-7.45) ABG pCO2 53 H (35-45) mmHg ABG pO2 274 H (83-108) mmHg ABG HCO3 26 H (21-25) mmol/L ABG Total CO2 27 H (19-24) mmol/L ABG O2 Saturation 99.4 H (94-97) % ABG Hematocrit (34.0-46.0) % ABG Potassium (3.4-4.5) mmol/L ABG Ionized Calcium (4.5-5.3) mg/dL ABG Glucose (75-99) mg/dL ABG Lactic Acid (0.5-1.6) mmol/L Hemoglobin (13.0-17.5) gm/dL Potassium (3.5-5.1) mmol/L Chloride (98-107) mmol/L Creatinine (0.66-1.25) mg/dL Glucose (74-99) mg/dL POC Glucose (mg/dL) 103 H (75-99) mg/dL Calcium (8.4-10.2) mg/dL Phosphorus (2.5-4.5) mg/dL Magnesium (1.6-2.3) mg/dL AST (17-59) U/L Alkaline Phosphatase (38-126) U/L Total Protein (6.3-8.2) g/dL Albumin (3.5-5.0) g/dL Arterial Blood Potassium (3.4-4.5) mmol/L Arterial Blood Glucose (75-99) mg/dL Crossmatch 10/24/18 10/24/18 10/24/18 Range/Units 17:44 18:51 19:42 WBC (3.8-10.6) k/uL RBC (4.30-5.90) m/uL Hgb (13.0-17.5) gm/dL Hct (39.0-53.0) % Plt Count (150-450) k/uL Neutrophils # (1.3-7.7) k/uL Lymphocytes # (1.0-4.8) k/uL PT (9.0-12.0) sec INR (<1.2) ABG pH (7.35-7.45) ABG pCO2 (35-45) mmHg ABG pO2 (83-108) mmHg ABG HCO3 (21-25) mmol/L ABG Total CO2 (19-24) mmol/L ABG O2 Saturation (94-97) % ABG Hematocrit (34.0-46.0) % ABG Potassium (3.4-4.5) mmol/L ABG Ionized Calcium (4.5-5.3) mg/dL ABG Glucose (75-99) mg/dL ABG Lactic Acid (0.5-1.6) mmol/L Hemoglobin (13.0-17.5) gm/dL Potassium (3.5-5.1) mmol/L Chloride (98-107) mmol/L Creatinine (0.66-1.25) mg/dL Glucose (74-99) mg/dL POC Glucose (mg/dL) 126 H 133 H 137 H (75-99) mg/dL Calcium (8.4-10.2) mg/dL Phosphorus (2.5-4.5) mg/dL Magnesium (1.6-2.3) mg/dL AST (17-59) U/L Alkaline Phosphatase (38-126) U/L Total Protein (6.3-8.2) g/dL Albumin (3.5-5.0) g/dL Arterial Blood Potassium (3.4-4.5) mmol/L Arterial Blood Glucose (75-99) mg/dL Crossmatch 10/24/18 10/24/18 10/24/18 Range/Units 19:45 20:55 21:34 WBC (3.8-10.6) k/uL RBC 2.61 L (4.30-5.90) m/uL Hgb 7.6 L (13.0-17.5) gm/dL Hct 23.6 L (39.0-53.0) % Plt Count 124 L (150-450) k/uL Neutrophils # 8.6 H (1.3-7.7) k/uL Lymphocytes # 0.7 L (1.0-4.8) k/uL PT (9.0-12.0) sec INR (<1.2) ABG pH (7.35-7.45) ABG pCO2 (35-45) mmHg ABG pO2 (83-108) mmHg ABG HCO3 (21-25) mmol/L ABG Total CO2 (19-24) mmol/L ABG O2 Saturation (94-97) % ABG Hematocrit (34.0-46.0) % ABG Potassium (3.4-4.5) mmol/L ABG Ionized Calcium (4.5-5.3) mg/dL ABG Glucose (75-99) mg/dL ABG Lactic Acid (0.5-1.6) mmol/L Hemoglobin (13.0-17.5) gm/dL Potassium (3.5-5.1) mmol/L Chloride 109 H (98-107) mmol/L Creatinine 0.50 L (0.66-1.25) mg/dL Glucose 119 H (74-99) mg/dL POC Glucose (mg/dL) 140 H (75-99) mg/dL Calcium 8.2 L (8.4-10.2) mg/dL Phosphorus 1.1 L (2.5-4.5) mg/dL Magnesium (1.6-2.3) mg/dL AST (17-59) U/L Alkaline Phosphatase (38-126) U/L Total Protein (6.3-8.2) g/dL Albumin (3.5-5.0) g/dL Arterial Blood Potassium (3.4-4.5) mmol/L Arterial Blood Glucose (75-99) mg/dL Crossmatch 10/24/18 10/24/18 10/25/18 Range/Units 22:06 23:10 00:04 WBC (3.8-10.6) k/uL RBC (4.30-5.90) m/uL Hgb (13.0-17.5) gm/dL Hct (39.0-53.0) % Plt Count (150-450) k/uL Neutrophils # (1.3-7.7) k/uL Lymphocytes # (1.0-4.8) k/uL PT (9.0-12.0) sec INR (<1.2) ABG pH (7.35-7.45) ABG pCO2 (35-45) mmHg ABG pO2 (83-108) mmHg ABG HCO3 (21-25) mmol/L ABG Total CO2 (19-24) mmol/L ABG O2 Saturation (94-97) % ABG Hematocrit (34.0-46.0) % ABG Potassium (3.4-4.5) mmol/L ABG Ionized Calcium (4.5-5.3) mg/dL ABG Glucose (75-99) mg/dL ABG Lactic Acid (0.5-1.6) mmol/L Hemoglobin (13.0-17.5) gm/dL Potassium (3.5-5.1) mmol/L Chloride (98-107) mmol/L Creatinine (0.66-1.25) mg/dL Glucose (74-99) mg/dL POC Glucose (mg/dL) 159 H 169 H 142 H (75-99) mg/dL Calcium (8.4-10.2) mg/dL Phosphorus (2.5-4.5) mg/dL Magnesium (1.6-2.3) mg/dL AST (17-59) U/L Alkaline Phosphatase (38-126) U/L Total Protein (6.3-8.2) g/dL Albumin (3.5-5.0) g/dL Arterial Blood Potassium (3.4-4.5) mmol/L Arterial Blood Glucose (75-99) mg/dL Crossmatch 10/25/18 10/25/18 10/25/18 Range/Units 00:33 01:08 02:16 WBC (3.8-10.6) k/uL RBC (4.30-5.90) m/uL Hgb (13.0-17.5) gm/dL Hct (39.0-53.0) % Plt Count (150-450) k/uL Neutrophils # (1.3-7.7) k/uL Lymphocytes # (1.0-4.8) k/uL PT (9.0-12.0) sec INR (<1.2) ABG pH (7.35-7.45) ABG pCO2 (35-45) mmHg ABG pO2 82 L (83-108) mmHg ABG HCO3 (21-25) mmol/L ABG Total CO2 (19-24) mmol/L ABG O2 Saturation (94-97) % ABG Hematocrit (34.0-46.0) % ABG Potassium (3.4-4.5) mmol/L ABG Ionized Calcium (4.5-5.3) mg/dL ABG Glucose (75-99) mg/dL ABG Lactic Acid (0.5-1.6) mmol/L Hemoglobin (13.0-17.5) gm/dL Potassium (3.5-5.1) mmol/L Chloride (98-107) mmol/L Creatinine (0.66-1.25) mg/dL Glucose (74-99) mg/dL POC Glucose (mg/dL) 123 H 123 H (75-99) mg/dL Calcium (8.4-10.2) mg/dL Phosphorus (2.5-4.5) mg/dL Magnesium (1.6-2.3) mg/dL AST (17-59) U/L Alkaline Phosphatase (38-126) U/L Total Protein (6.3-8.2) g/dL Albumin (3.5-5.0) g/dL Arterial Blood Potassium (3.4-4.5) mmol/L Arterial Blood Glucose (75-99) mg/dL Crossmatch 10/25/18 10/25/18 10/25/18 Range/Units 02:53 04:12 04:12 WBC 11.6 H (3.8-10.6) k/uL RBC 2.42 L (4.30-5.90) m/uL Hgb 7.7 L (13.0-17.5) gm/dL Hct 21.9 L (39.0-53.0) % Plt Count 135 L (150-450) k/uL Neutrophils # 9.6 H (1.3-7.7) k/uL Lymphocytes # (1.0-4.8) k/uL PT (9.0-12.0) sec INR (<1.2) ABG pH (7.35-7.45) ABG pCO2 (35-45) mmHg ABG pO2 (83-108) mmHg ABG HCO3 (21-25) mmol/L ABG Total CO2 (19-24) mmol/L ABG O2 Saturation (94-97) % ABG Hematocrit (34.0-46.0) % ABG Potassium (3.4-4.5) mmol/L ABG Ionized Calcium (4.5-5.3) mg/dL ABG Glucose (75-99) mg/dL ABG Lactic Acid (0.5-1.6) mmol/L Hemoglobin (13.0-17.5) gm/dL Potassium (3.5-5.1) mmol/L Chloride 108 H (98-107) mmol/L Creatinine 0.45 L (0.66-1.25) mg/dL Glucose 108 H (74-99) mg/dL POC Glucose (mg/dL) 123 H (75-99) mg/dL Calcium 8.1 L (8.4-10.2) mg/dL Phosphorus (2.5-4.5) mg/dL Magnesium (1.6-2.3) mg/dL AST 72 H (17-59) U/L Alkaline Phosphatase 34 L (38-126) U/L Total Protein 5.2 L (6.3-8.2) g/dL Albumin (3.5-5.0) g/dL Arterial Blood Potassium (3.4-4.5) mmol/L Arterial Blood Glucose (75-99) mg/dL Crossmatch 10/25/18 10/25/18 Range/Units 04:18 07:06 WBC (3.8-10.6) k/uL RBC (4.30-5.90) m/uL Hgb (13.0-17.5) gm/dL Hct (39.0-53.0) % Plt Count (150-450) k/uL Neutrophils # (1.3-7.7) k/uL Lymphocytes # (1.0-4.8) k/uL PT (9.0-12.0) sec INR (<1.2) ABG pH (7.35-7.45) ABG pCO2 (35-45) mmHg ABG pO2 (83-108) mmHg ABG HCO3 (21-25) mmol/L ABG Total CO2 (19-24) mmol/L ABG O2 Saturation (94-97) % ABG Hematocrit (34.0-46.0) % ABG Potassium (3.4-4.5) mmol/L ABG Ionized Calcium (4.5-5.3) mg/dL ABG Glucose (75-99) mg/dL ABG Lactic Acid (0.5-1.6) mmol/L Hemoglobin (13.0-17.5) gm/dL Potassium (3.5-5.1) mmol/L Chloride (98-107) mmol/L Creatinine (0.66-1.25) mg/dL Glucose (74-99) mg/dL POC Glucose (mg/dL) 126 H 153 H (75-99) mg/dL Calcium (8.4-10.2) mg/dL Phosphorus (2.5-4.5) mg/dL Magnesium (1.6-2.3) mg/dL AST (17-59) U/L Alkaline Phosphatase (38-126) U/L Total Protein (6.3-8.2) g/dL Albumin (3.5-5.0) g/dL Arterial Blood Potassium (3.4-4.5) mmol/L Arterial Blood Glucose (75-99) mg/dL Crossmatch - Imaging and Cardiology Chest x-ray: report reviewed, image reviewed Assessment and Plan Assessment: 1. Severe triple-vessel coronary artery disease with preserved LV function, status post CABG 4 2. Hypertension 3. Hyperlipidemia 4. Previous tobacco dependence with preoperative FEV1 94% of predicted 5. Cerebral palsy 6. Bilateral carotid artery stenosis 70% 7. Family history of premature coronary artery disease 8. Preoperative E. coli urinary tract infection, treated 9. Postoperative acute blood loss anemia, expected Plan: 1. Continue aspirin, statin, Plavix. Will hold beta karissa for now, will restart and titrate up as able. 2. Wean levo, then vasa as able. 3. Continue Cardizem for radial artery spasm prophylaxis, will transition from IV to oral. 4. Wean O2 as tolerated. Encourage incentive spirometry use 10 times every hour while awake. 5. Bronchodilators per pulmonology. Encourage continued smoking cessation. 6. Increase activity, ambulate as tolerated. PT/OT/cardiac rehab following. 7. Will monitor daily labs, chest x-rays. Electrolyte replacement per protocol. No transfusion. 8. Pain management with current medication regimen. Toradol added. 9. Insulin management per primary care service. 10. GI/DVT prophylaxis. 11. Will check random cortisol level. 12. Will discontinue [place] today. Connected Cordis to continue CVP monitoring. 13. Continue chest tubes, Pretty catheter for another 24 hours. 14. More recommendations to follow as patient progresses. Time with Patient: Greater than 30
[2018-10-25] MEDS: KETOROLAC 30 MG/ML 1 ML VIAL IVP SCH ×4 (08:29→23:36)
[2018-10-25] MEDS: ATORVASTATIN 40 MG TAB PO SCH (08:30)
[2018-10-25] MEDS: CLOPIDOGREL 75 MG TAB PO SCH (08:30)
[2018-10-25] MEDS: DILTIAZEM ORAL 30 MG TAB PO SCH ×4 (08:30→23:36)
[2018-10-25] MEDS: ASPIRIN 325 MG TAB PO SCH (08:30)
[2018-10-25 08:45] LABS: Glucose,Whole Blood 144 mg/dL (75-99)
[2018-10-25] MEDS: MUPIROCIN 2% OINT 22 GM TUBE NASAL SCH ×2 (08:47→21:01)
[2018-10-25] MEDS ORDERED: PANTOPRAZOLE 40 MG/10 ML VIAL IVP SCH (09:00)
[2018-10-25] MEDS ORDERED: BISACODYL 10 MG SUPP RECTAL PRN (09:00)
[2018-10-25] MEDS ORDERED: METOPROLOL TARTRATE 12.5 MG TAB PO SCH (09:00)
--- NOTE | 2018-10-25 10:08 | OP ---
OPERATIVE REPORT DATE OF SURGERY: 10/24/2018 PREOPERATIVE DIAGNOSIS: Coronary artery disease. POSTOPERATIVE DIAGNOSIS: Coronary artery disease. PROCEDURE: 1. Coronary artery bypass grafting x4 vessels (left internal mammary artery to left anterior descending artery, radial artery to obtuse marginal artery, saphenous vein graft to diagonal artery, saphenous vein graft to PLB). 2. Endoscopic vein harvest right greater saphenous vein. 3. Endoscopic harvest of left radial artery. 4. Transesophageal echocardiogram. 5. Epiaortic ultrasound. SURGEON: Denilson Galan MD. [employer] SERVICE TECHNICIAN: 1. LUPILLO Villegas. 2. LUPILLO Larson. ANESTHESIA: General. SPECIMENS: None. COMPLICATIONS: None. INDICATION: The patient is a 53-year-old male with a past medical history significant for cerebral palsy, previous tobacco use, and hyperlipidemia who reports chest pain with exertion over the last 6 months. Workup revealed multivessel coronary artery disease. A coronary artery bypass was recommended. The risks, benefits, and alternatives to this procedure were discussed with the patient. All his questions were answered. Consent was obtained. FINDINGS: The left internal mammary artery was a good conduit with brisk flow. The saphenous vein was a good conduit. The left anterior descending artery measured 1.3 mm. The diagonal artery measured 1.3 mm. The obtuse marginal artery measured 1.3 mm. The PLB measured 1.3 mm. Of note, all coronary arteries were heavily calcified. PROCEDURE IN DETAIL: The patient was taken to the operating room and placed supine on the operating table. After the induction of general anesthesia, he was prepped and draped in the usual sterile fashion. Preoperative transesophageal echocardiogram confirmed a preserved ejection fraction with trace to mild mitral regurgitation. A median sternotomy was performed. The left internal mammary artery was harvested in the standard fashion taking care to clip all branches. Intravenous heparin was administered. The vessel was transected distally revealing brisk flow. Simultaneously greater saphenous vein was harvested from the right lower extremity using endoscopic technique. All branches were tied. In addition, radial artery was harvested from the left upper extremity using endoscopic technique. Again, all branches were tied. A pericardial cradle was created. The ascending aorta was palpated. There was no significant calcific plaque noted. Epiaortic ultrasound was then performed on the ascending aorta. Again no significant calcific plaque or atheromatous disease was identified. An arterial cannula was placed in the distal ascending aorta. A venous cannula placed through the right atrial appendage and directed into the IVC. Both antegrade and retrograde catheters were placed as well. The patient was then placed on cardiopulmonary bypass with good decompression of the heart. The aortic cross- clamp was applied. Cold blood potassium cardioplegia was delivered in both antegrade and retrograde fashion to achieve arrest of the heart. Of note, cardioplegia was delivered every 15 - 20 minutes while the patient remained under crossclamp. We began by inspecting the inferior wall. The main right coronary itself was heavily calcified throughout its course. The posterior lateral branch was identified. A small arteriotomy was created. This vessel accepted a 1 mm probe. Using saphenous vein in a reverse fashion, an end-to-side anastomosis was created. This was performed a running 7-0 Prolene suture. The graft was hemostatic and had good flow. Next, the lateral wall was inspected. The obtuse marginal area was identified. A small arteriotomy was created. This vessel contained diffuse calcific disease. Using the radial artery, an end-to-side anastomosis was created. This was performed using running 7-0 Prolene suture. The graft was hemostatic and had good flow. Next, the anterior wall was identified. The diagonal artery was dissected free. A small arteriotomy was created. This vessel accepted a 1 mm probe. Using saphenous vein in a reverse fashion, an end- to-side anastomosis was created. This performed using 7-0 Prolene suture. The graft was hemostatic and good flow. Finally the left anterior descending artery was dissected free. A small arteriotomy was created. The vessel accepted a 1 mm probe. Using the left internal mammary artery, an end-to-side anastomosis was created. This was performed using a running 8-0 Prolene suture. The graft was hemostatic. The mammary pedicle was then tacked down to the anterior surface of the heart. Of note, all coronary arteries were significantly calcified. Attention was then turned to the proximal anastomoses. These were performed in an end- to-side fashion using running 6-0 Prolene sutures. One liter of warm blood was delivered in retrograde fashion. Both lidocaine and magnesium were administered as well. The aortic cross-clamp was removed. The grafts were de-aired in the standard fashion. Distal anastomoses were inspected and appeared to be hemostatic. Temporary atrial and ventricular pacing wires were placed and brought through the skin. The patient was then weaned off cardiopulmonary bypass. He was with the addition of both Levophed and vasopressin. Followup transesophageal echocardiogram confirmed good left ventricular ejection fraction and trace to mild mitral regurgitation. Protamine was administered. There were no adverse reactions. The remaining cannulas were then removed. The mediastinum was copiously irrigated with warm saline solution. All surgical sites were inspected, appeared to be hemostatic. Reinforcement sutures were placed as needed. Soft tissues were reapproximated over the ascending aorta as well as over the apex of the heart. Straight 32-[place] chest tubes were placed in both the left and right pleural spaces. A 36-[place] chest tube was placed and directed into the mediastinum. These were all secured to skin using sutures. The sternum was then reapproximated using the [place] cable system. Wires were placed in a [id number]-he-hudox fashion. At the completion of the closure, the sternum was well aligned. The remainder of the wound was then closed in layers. Sterile dressing was applied. The patient appeared to tolerate the procedure well. There were no immediate complications. He returned to the CCU in critical but stable condition. MMODL / IJN: [id number] / JETT
--- NOTE | 2018-10-25 10:14 | PN ---
PROGRESS NOTE Jeovany Mathew is a 53-year-old male status post coronary artery bypass grafting yesterday by Dr. Galan. He is awake, alert, sitting up in the chair, being paced in the DDD fashion, alert. Hemodynamically, still requiring vasopressin and low dose of norepinephrine. He continues to be in underlying sinus bradycardia. In addition to the norepinephrine and vasopressin, he is on aspirin, Lipitor 40 mg daily and Plavix 75 mg daily. PHYSICAL EXAMINATION: VITAL SIGNS: Blood pressure running in the one teens with a heart rate in the 70s, paced. His PA pressure 33. LUNGS a few crackles at the bases. HEART: Regular rhythm S1, S2. No S3. No rub appreciated. ABDOMEN: Soft, nontender. Positive bowel sounds. EXTREMITIES: No edema appreciated. Chest x-ray revealed a left small effusion. IMPRESSION: 1. Status post coronary artery bypass grafting, requiring small dose of vasopressors. 2. Hyperlipidemia. 3. History of mild cerebral palsy. RECOMMENDATION: We will continue present therapy. Continue incentive spirometry. I am hopeful that we can wean the vasopressors soon and reinitiate the beta blockers. Otherwise, we will continue the rest of his medical regimen. MMODL / IJN: [id number] /
[2018-10-25 10:38] LABS: Glucose,Whole Blood 136 mg/dL (75-99)
[2018-10-25] MEDS: LACTATED RINGERS 1,000 ML IV SCH (11:47)
[2018-10-25] MEDS: SODIUM CHLORIDE 0.9% 150 ML with VASOPRESSIN 60 UNIT IV SCH ×2 (11:47)
[2018-10-25] MEDS: INSULIN REGULAR 100 UNIT in SODIUM CHLORIDE 0.9% 100 ML IV SCH (11:48)
[2018-10-25 12:02] LABS: Glucose,Whole Blood 122 mg/dL (75-99)
[2018-10-25] MEDS ORDERED: ARTIFICIAL TEARS-HYPROMELLOSE DROPS 15 ML BTL BOTH EYES PRN (13:04)
[2018-10-25 14:32] LABS: Glucose,Whole Blood 129 mg/dL (75-99)
--- NOTE | 2018-10-25 15:40 | P.PN ---
Subjective Progress Note Date: 10/25/18 53-year-old male one of Dr. Frank patient with mild degree of cerebral palsy who has history of hypertension hyperlipidemia and coronary artery disease with heart catheter 2 weeks ago showed 99 percentile blockage of the RCA 60% of the PLB 90% stenosis of the circumflex and acute marginal and 85 percentile stenosis of the LAD. Patient was referred to cardiothoracic seen and evaluated and was schedule elective bypass surgery with Dr. Galan which was done successfully today patient was intubated and placed on mechanical ventilation post surgery seen pulmonary and transferred to the intensive care unit, remain on vasodepressor along with insulin drip the blood sugar running marginal at the time. Patient is sedated on mechanical ventilation. 10/25: Patient remains in intensive care unit. He was successfully extubated around midnight. His pain is currently controlled. He is continued on norepinephrine and vasopressin as well as IV Cardizem and amiodarone. Patient is on insulin drip for blood sugar control. Pretty catheter in place with adequate urine output. Chest tubes remain in place. Objective - Vital Signs Vital signs: Vital Signs Temp 98.3 F 10/25/18 08:00 Pulse 89 10/25/18 11:47 Resp 19 10/25/18 11:32 BP 86/76 10/25/18 10:30 Pulse Ox 94 L 10/25/18 10:30 Intake & Output 10/24/18 10/25/18 10/25/18 18:59 06:59 18:59 Intake Total 424.738 976.212 294.822 Output Total 3395 1637 405 Balance -2970.262 -660.788 -110.178 Weight 83 kg 83 kg Intake: IV 345.0 774.0 154.5 0.9 Pressure Bag 36 108 27 Cardiac Output (0.9) 60 30 Diltiazem 125 mg In 10.0 30.0 7.5 Sodium Chloride 0.9% 100 ml @ 5 MG/HR 5 mls/hr IV .Q24H JENNIFER Rx#:[id number] Lactated Ringers 1,000 ml 200 600 120 @ 20 mls/hr IV .Q24H JENNIFER Rx#:[id number] Nitroglycerin-D5w Pmx 50 6.0 6.0 mg In Dextrose/Water 1 250ml.bag @ 5 MCG/MIN 1.5 mls/hr IV .Q24H JENNIFER Rx#: [id number] Intake, IV Titration 79.738 202.212 140.322 Amount Dexmedetomidine/0.9% NaCl 5.080 55.913 (Pmx) 400 mcg In Empty Bag 1 bag @ Titrate IV . Q0M JENNIFER Rx#:[id number] Insulin Regular 100 unit 9.654 28.011 In Sodium Chloride 0.9% 100 ml @ Per Protocol IV .Q0M JENNIFER Rx#:[id number] Norepinephrine 4 mg In 74.658 129.822 112.311 Sodium Chloride 0.9% 250 ml @ 0.05 MCG/KG/MIN 13. 826 mls/hr IV .[id number] JENNIFER Rx#:[id number] Propofol 1,000 mg In 6.823 Empty Bag 1 bag @ Titrate IV .Q0M JENNIFER Rx#: [id number] Output: Chest Tube Drainage 180 397 180 Left Lateral Chest 105 253 80 Right Pleural/Mediastinal 75 144 100 Drainage 15 Left Wrist 15 Urine 1715 1225 225 Estimated Blood Loss 1500 Other: Voiding Method Indwelling Catheter Indwelling Catheter Indwelling Catheter ABP, PAP, CO, CI - Last Documented Arterial Blood Pressure 92/51 Pulmonary Artery Pressure 34/17 Cardiac Output 5.9 Cardiac Index 3.2 - Exam Review of Systems CONSTITUTIONAL: Well-developed. EYES: No icterus sclerae, no conjunctivitis. EARS, NOSE, MOUTH, THROAT, and FACE: No sore throat, lymphadenopathy, carotid bruits or deformity. RESPIRATORY: He is on mechanical ventilation.. CARDIOVASCULAR: Post CABG mildly sedated no sign of bleed. GASTROINTESTINAL: Patient is sedated no diarrhea no sign of GI bleed. GENITOURINARY: Negative for Hematuria. With Pretty catheter in. INTEGUMENT/BREAST: Patient is sedated. HEMATOLOGIC/LYMPHATIC: Negative for bleed or purpura. MUSCULOSKELTAL: Patient is sedated. NEURLOGICAL: Patient is sedated. General Appearance: Patient is sitting in recliner at the bedside and appears to be comfortable and in no acute distress... Neck HEENT: Supple, no lymphadenopathy, no thyroid enlargement, no carotid bruits. Brinklow-Nabil catheter in the right side. Lungs: Decreased breath sounds in the left side no crackles or wheezes. Chest Wall: Decrease expansion with deep inspiration with 2 chest tube. Heart: Regular rate and rhythm, S1, S2 mild arrhythmia with S3., no murmur, rub or gallop. Back: Symmetric, no curvature, ROM normal, no CVA tenderness. Abdomen: Soft, non-tender, bowel sounds active all four quadrants, no masses, no organomegaly. Extremities: Extremities normal, atraumatic, no cyanosis or edema. Right side had minimum bleed from the graft site Pulses: 2+ and symmetric. Skin: Skin color, texture, tugor normal, no rashes or lesions. Neurologic: Patient is awake alert and oriented 3. No focal neural deficits. - Labs CBC & Chem 7: 10/25/18 04:12 10/25/18 04:12 Labs: Abnormal Lab Results - Last 24 Hours (Table) 10/24/18 10/24/18 10/24/18 Range/Units 06:25 15:45 15:45 WBC 14.2 H (3.8-10.6) k/uL RBC 2.68 L (4.30-5.90) m/uL Hgb 8.3 L D (13.0-17.5) gm/dL Hct 24.3 L (39.0-53.0) % Plt Count 125 L (150-450) k/uL Neutrophils # 11.7 H (1.3-7.7) k/uL Lymphocytes # (1.0-4.8) k/uL PT (9.0-12.0) sec INR (<1.2) ABG pH (7.35-7.45) ABG pCO2 (35-45) mmHg ABG pO2 (83-108) mmHg ABG HCO3 (21-25) mmol/L ABG Total CO2 (19-24) mmol/L ABG O2 Saturation (94-97) % Potassium 5.4 H (3.5-5.1) mmol/L Chloride 111 H (98-107) mmol/L Creatinine 0.47 L (0.66-1.25) mg/dL Glucose (74-99) mg/dL POC Glucose (mg/dL) (75-99) mg/dL Calcium 7.8 L (8.4-10.2) mg/dL Phosphorus (2.5-4.5) mg/dL Magnesium 2.4 H (1.6-2.3) mg/dL AST (17-59) U/L Alkaline Phosphatase 33 L (38-126) U/L Total Protein 4.6 L (6.3-8.2) g/dL Albumin 3.0 L (3.5-5.0) g/dL Crossmatch See Detail 10/24/18 10/24/18 10/24/18 Range/Units 15:45 15:53 15:59 WBC (3.8-10.6) k/uL RBC (4.30-5.90) m/uL Hgb (13.0-17.5) gm/dL Hct (39.0-53.0) % Plt Count (150-450) k/uL Neutrophils # (1.3-7.7) k/uL Lymphocytes # (1.0-4.8) k/uL PT 13.6 H (9.0-12.0) sec INR 1.3 H (<1.2) ABG pH 7.29 L (7.35-7.45) ABG pCO2 53 H (35-45) mmHg ABG pO2 274 H (83-108) mmHg ABG HCO3 26 H (21-25) mmol/L ABG Total CO2 27 H (19-24) mmol/L ABG O2 Saturation 99.4 H (94-97) % Potassium (3.5-5.1) mmol/L Chloride (98-107) mmol/L Creatinine (0.66-1.25) mg/dL Glucose (74-99) mg/dL POC Glucose (mg/dL) 103 H (75-99) mg/dL Calcium (8.4-10.2) mg/dL Phosphorus (2.5-4.5) mg/dL Magnesium (1.6-2.3) mg/dL AST (17-59) U/L Alkaline Phosphatase (38-126) U/L Total Protein (6.3-8.2) g/dL Albumin (3.5-5.0) g/dL Crossmatch 10/24/18 10/24/18 10/24/18 Range/Units 17:38 17:44 18:51 WBC 11.5 H (3.8-10.6) k/uL RBC 2.44 L (4.30-5.90) m/uL Hgb 7.6 L (13.0-17.5) gm/dL Hct 21.9 L (39.0-53.0) % Plt Count 125 L (150-450) k/uL Neutrophils # 10.4 H (1.3-7.7) k/uL Lymphocytes # 0.5 L (1.0-4.8) k/uL PT (9.0-12.0) sec INR (<1.2) ABG pH (7.35-7.45) ABG pCO2 (35-45) mmHg ABG pO2 (83-108) mmHg ABG HCO3 (21-25) mmol/L ABG Total CO2 (19-24) mmol/L ABG O2 Saturation (94-97) % Potassium (3.5-5.1) mmol/L Chloride (98-107) mmol/L Creatinine (0.66-1.25) mg/dL Glucose (74-99) mg/dL POC Glucose (mg/dL) 126 H 133 H (75-99) mg/dL Calcium (8.4-10.2) mg/dL Phosphorus (2.5-4.5) mg/dL Magnesium (1.6-2.3) mg/dL AST (17-59) U/L Alkaline Phosphatase (38-126) U/L Total Protein (6.3-8.2) g/dL Albumin (3.5-5.0) g/dL Crossmatch 10/24/18 10/24/18 10/24/18 Range/Units 19:42 19:45 20:55 WBC (3.8-10.6) k/uL RBC (4.30-5.90) m/uL Hgb (13.0-17.5) gm/dL Hct (39.0-53.0) % Plt Count (150-450) k/uL Neutrophils # (1.3-7.7) k/uL Lymphocytes # (1.0-4.8) k/uL PT (9.0-12.0) sec INR (<1.2) ABG pH (7.35-7.45) ABG pCO2 (35-45) mmHg ABG pO2 (83-108) mmHg ABG HCO3 (21-25) mmol/L ABG Total CO2 (19-24) mmol/L ABG O2 Saturation (94-97) % Potassium (3.5-5.1) mmol/L Chloride 109 H (98-107) mmol/L Creatinine 0.50 L (0.66-1.25) mg/dL Glucose 119 H (74-99) mg/dL POC Glucose (mg/dL) 137 H 140 H (75-99) mg/dL Calcium 8.2 L (8.4-10.2) mg/dL Phosphorus 1.1 L (2.5-4.5) mg/dL Magnesium (1.6-2.3) mg/dL AST (17-59) U/L Alkaline Phosphatase (38-126) U/L Total Protein (6.3-8.2) g/dL Albumin (3.5-5.0) g/dL Crossmatch 10/24/18 10/24/18 10/24/18 Range/Units 21:34 22:06 23:10 WBC (3.8-10.6) k/uL RBC 2.61 L (4.30-5.90) m/uL Hgb 7.6 L (13.0-17.5) gm/dL Hct 23.6 L (39.0-53.0) % Plt Count 124 L (150-450) k/uL Neutrophils # 8.6 H (1.3-7.7) k/uL Lymphocytes # 0.7 L (1.0-4.8) k/uL PT (9.0-12.0) sec INR (<1.2) ABG pH (7.35-7.45) ABG pCO2 (35-45) mmHg ABG pO2 (83-108) mmHg ABG HCO3 (21-25) mmol/L ABG Total CO2 (19-24) mmol/L ABG O2 Saturation (94-97) % Potassium (3.5-5.1) mmol/L Chloride (98-107) mmol/L Creatinine (0.66-1.25) mg/dL Glucose (74-99) mg/dL POC Glucose (mg/dL) 159 H 169 H (75-99) mg/dL Calcium (8.4-10.2) mg/dL Phosphorus (2.5-4.5) mg/dL Magnesium (1.6-2.3) mg/dL AST (17-59) U/L Alkaline Phosphatase (38-126) U/L Total Protein (6.3-8.2) g/dL Albumin (3.5-5.0) g/dL Crossmatch 10/25/18 10/25/18 10/25/18 Range/Units 00:04 00:33 01:08 WBC (3.8-10.6) k/uL RBC (4.30-5.90) m/uL Hgb (13.0-17.5) gm/dL Hct (39.0-53.0) % Plt Count (150-450) k/uL Neutrophils # (1.3-7.7) k/uL Lymphocytes # (1.0-4.8) k/uL PT (9.0-12.0) sec INR (<1.2) ABG pH (7.35-7.45) ABG pCO2 (35-45) mmHg ABG pO2 82 L (83-108) mmHg ABG HCO3 (21-25) mmol/L ABG Total CO2 (19-24) mmol/L ABG O2 Saturation (94-97) % Potassium (3.5-5.1) mmol/L Chloride (98-107) mmol/L Creatinine (0.66-1.25) mg/dL Glucose (74-99) mg/dL POC Glucose (mg/dL) 142 H 123 H (75-99) mg/dL Calcium (8.4-10.2) mg/dL Phosphorus (2.5-4.5) mg/dL Magnesium (1.6-2.3) mg/dL AST (17-59) U/L Alkaline Phosphatase (38-126) U/L Total Protein (6.3-8.2) g/dL Albumin (3.5-5.0) g/dL Crossmatch 10/25/18 10/25/18 10/25/18 Range/Units 02:16 02:53 04:12 WBC 11.6 H (3.8-10.6) k/uL RBC 2.42 L (4.30-5.90) m/uL Hgb 7.7 L (13.0-17.5) gm/dL Hct 21.9 L (39.0-53.0) % Plt Count 135 L (150-450) k/uL Neutrophils # 9.6 H (1.3-7.7) k/uL Lymphocytes # (1.0-4.8) k/uL PT (9.0-12.0) sec INR (<1.2) ABG pH (7.35-7.45) ABG pCO2 (35-45) mmHg ABG pO2 (83-108) mmHg ABG HCO3 (21-25) mmol/L ABG Total CO2 (19-24) mmol/L ABG O2 Saturation (94-97) % Potassium (3.5-5.1) mmol/L Chloride (98-107) mmol/L Creatinine (0.66-1.25) mg/dL Glucose (74-99) mg/dL POC Glucose (mg/dL) 123 H 123 H (75-99) mg/dL Calcium (8.4-10.2) mg/dL Phosphorus (2.5-4.5) mg/dL Magnesium (1.6-2.3) mg/dL AST (17-59) U/L Alkaline Phosphatase (38-126) U/L Total Protein (6.3-8.2) g/dL Albumin (3.5-5.0) g/dL Crossmatch 10/25/18 10/25/18 10/25/18 Range/Units 04:12 04:18 07:06 WBC (3.8-10.6) k/uL RBC (4.30-5.90) m/uL Hgb (13.0-17.5) gm/dL Hct (39.0-53.0) % Plt Count (150-450) k/uL Neutrophils # (1.3-7.7) k/uL Lymphocytes # (1.0-4.8) k/uL PT (9.0-12.0) sec INR (<1.2) ABG pH (7.35-7.45) ABG pCO2 (35-45) mmHg ABG pO2 (83-108) mmHg ABG HCO3 (21-25) mmol/L ABG Total CO2 (19-24) mmol/L ABG O2 Saturation (94-97) % Potassium (3.5-5.1) mmol/L Chloride 108 H (98-107) mmol/L Creatinine 0.45 L (0.66-1.25) mg/dL Glucose 108 H (74-99) mg/dL POC Glucose (mg/dL) 126 H 153 H (75-99) mg/dL Calcium 8.1 L (8.4-10.2) mg/dL Phosphorus (2.5-4.5) mg/dL Magnesium (1.6-2.3) mg/dL AST 72 H (17-59) U/L Alkaline Phosphatase 34 L (38-126) U/L Total Protein 5.2 L (6.3-8.2) g/dL Albumin (3.5-5.0) g/dL Crossmatch 10/25/18 10/25/18 10/25/18 Range/Units 08:33 10:24 11:50 WBC (3.8-10.6) k/uL RBC (4.30-5.90) m/uL Hgb (13.0-17.5) gm/dL Hct (39.0-53.0) % Plt Count (150-450) k/uL Neutrophils # (1.3-7.7) k/uL Lymphocytes # (1.0-4.8) k/uL PT (9.0-12.0) sec INR (<1.2) ABG pH (7.35-7.45) ABG pCO2 (35-45) mmHg ABG pO2 (83-108) mmHg ABG HCO3 (21-25) mmol/L ABG Total CO2 (19-24) mmol/L ABG O2 Saturation (94-97) % Potassium (3.5-5.1) mmol/L Chloride (98-107) mmol/L Creatinine (0.66-1.25) mg/dL Glucose (74-99) mg/dL POC Glucose (mg/dL) 144 H 136 H 122 H (75-99) mg/dL Calcium (8.4-10.2) mg/dL Phosphorus (2.5-4.5) mg/dL Magnesium (1.6-2.3) mg/dL AST (17-59) U/L Alkaline Phosphatase (38-126) U/L Total Protein (6.3-8.2) g/dL Albumin (3.5-5.0) g/dL Crossmatch 10/25/18 Range/Units 14:20 WBC (3.8-10.6) k/uL RBC (4.30-5.90) m/uL Hgb (13.0-17.5) gm/dL Hct (39.0-53.0) % Plt Count (150-450) k/uL Neutrophils # (1.3-7.7) k/uL Lymphocytes # (1.0-4.8) k/uL PT (9.0-12.0) sec INR (<1.2) ABG pH (7.35-7.45) ABG pCO2 (35-45) mmHg ABG pO2 (83-108) mmHg ABG HCO3 (21-25) mmol/L ABG Total CO2 (19-24) mmol/L ABG O2 Saturation (94-97) % Potassium (3.5-5.1) mmol/L Chloride (98-107) mmol/L Creatinine (0.66-1.25) mg/dL Glucose (74-99) mg/dL POC Glucose (mg/dL) 129 H (75-99) mg/dL Calcium (8.4-10.2) mg/dL Phosphorus (2.5-4.5) mg/dL Magnesium (1.6-2.3) mg/dL AST (17-59) U/L Alkaline Phosphatase (38-126) U/L Total Protein (6.3-8.2) g/dL Albumin (3.5-5.0) g/dL Crossmatch Assessment and Plan Plan: 1 post multiple vessel CABG: Patient is in ICU with Brinklow-Nabil catheter and multiple central line and chest tube, still on vasopressor at this point, Cardizem drip watching for any arrhythmia still on insulin drip watch for any further hyperglycemia. 2 respiratory failure on mechanical ventilation post CABG, successfully extubated: Continue vent management with pulmonary. 3 hyperlipidemia: We will resume atorvastatin as soon as he is able take oral meds. 4 history of cerebral palsy: Mild. 5 hyperglycemia: Remain on insulin drip and try to keep blood sugar between handwritten 150. 6 anemia post surgery: If hemoglobin dropped below 7 require transfusion. 7 BPH: Watch for any urinary retention still have Pretty catheter in. 8 arrhythmia: Remain on amiodarone drip post surgery and within expected. 9 GI prophylaxis: Patient remain on pantoprazole IV. 10 DVT prophylaxis: Remain on heparin 5000 units subcu in his 3 times a day. CODE STATUS: Full code. Dr. Galan thank you very much for the consult if I can be any further help to please let me know. Discharge plan: To be determined Impression and plan of care have been directed as dictated by the signing physician. Eleanor Greer nurse practitioner acting as scribe for signing physician.
[2018-10-25 16:28] LABS: Glucose,Whole Blood 130 mg/dL (75-99)
[2018-10-25] MEDS: CLEVIDIPINE BUTYRATE 25 MG in EMPTY BAG 1 BAG IV SCH (18:10)
[2018-10-25 18:25] LABS: Glucose,Whole Blood 139 mg/dL (75-99)
--- NOTE | 2018-10-25 18:37 | P.PN ---
Subjective Progress Note Date: 10/25/18 On 10/25/2018 the patient is postop day #1. The patient was extubated yesterday without any major difficulties. He is post four-vessel bypass surgery. The patient has a right and left pleural chest tube and a mediastinal chest tube. Output remains considerably low. Earlier this morning he was still requiring pressors. He was in a combination of vasopressin 0.04 units per minute and norepinephrine which is running at 5 g per KG per minute. He is currently AV paced at the rate of 90. Remains hemodynamically well controlled with this current combination. He is producing adequate amount of urine output. His systolic blood pressure in the mid 90s with a mean of 60. Urine output is adequate. He has no specific complaints. Metamucil has been discontinued. Cardizem drip has been discontinued. His hemoglobin is down to 7.7. Chest x- ray from today and the patient has always tubes in place with some atelectatic changes in lung bases. He remains on DuoNeb nebulized treatments around the clock. He is on aspirin. Is on Plavix. He is pulling approximately 500 mL on his incentive spirometer. He is on 42 oxygen nasal cannula. Chest tubes are noted revealing any air leak. No evidence of any pneumothorax on today's chest x-ray. His CVP is running somewhere between 14 and 16. Urine output is about 60 mL an hour. Objective - Vital Signs Vital signs: Vital Signs Temp 98.4 F 10/25/18 16:00 Pulse 89 10/25/18 16:45 Resp 21 10/25/18 16:45 BP 94/58 10/25/18 16:45 Pulse Ox 95 10/25/18 16:45 Intake & Output 10/24/18 10/25/18 10/25/18 18:59 06:59 18:59 Intake Total 424.738 637.450 9552.522 Output Total 3395 1637 960 Balance -2970.262 -660.788 141.522 Weight 83 kg 83 kg Intake: IV 345.0 774.0 871.2 0.9 Pressure Bag 36 108 69 Albumin Human 5% 250 ml 500 In Empty Bag 1 bag @ 250 mls/hr IVPB Q1HR PRN Rx#: [id number] Cardiac Output (0.9) 60 30 Diltiazem 125 mg In 10.0 30.0 10.0 Sodium Chloride 0.9% 100 ml @ 5 MG/HR 5 mls/hr IV .Q24H [facility]ENN[facility]ER Rx#:[id number] Lactated Ringers 1,000 ml 200 600 260 @ 20 mls/hr IV .Q24H JENN[facility]ER Rx#:[id number] Nitroglycerin-D5w Pmx 50 6.0 6.0 mg In Dextrose/Water 1 250ml.bag @ 5 MCG/MIN 1.5 mls/hr IV .Q24H JENN[facility]ER Rx#: [id number] Vasopressin 32.2 Intake, IV Titration 79.738 202.212 140.322 Amount Dexmedetomidine/0.9% NaCl 5.080 55.913 (Pmx) 400 mcg In Empty Bag 1 bag @ Titrate IV . Q0M JENN[facility]ER Rx#:[id number] Insulin Regular 100 unit 9.654 28.011 In Sodium Chloride 0.9% 100 ml @ Per Protocol IV .Q0M JENN[facility]ER Rx#:[id number] Norepinephrine 4 mg In 74.658 129.822 112.311 Sodium Chloride 0.9% 250 ml @ 0.05 MCG/KG/MIN 13. 826 mls/hr IV .[id number] [facility]ENN[facility] Rx#:[id number] Propofol 1,000 mg In 6.823 Empty Bag 1 bag @ Titrate IV .Q0M JENNIFER Rx#: [id number] Oral 90 Output: Chest Tube Drainage 180 397 460 Left Lateral Chest 105 253 200 Right Pleural/Mediastinal 75 144 260 Drainage 15 Left Wrist 15 Urine 1715 1225 500 Estimated Blood Loss 1500 Other: Voiding Method Indwelling Catheter Indwelling Catheter Indwelling Catheter ABP, PAP, CO, CI - Last Documented Arterial Blood Pressure 108/49 Pulmonary Artery Pressure 35/17 Cardiac Output 5.9 Cardiac Index 3.2 - Exam - Constitutional General appearance: Present: cooperative, no acute distress - Respiratory Details: Lungs sounds diminished bilaterally. Respirations even, nonlabored. Currently on 4 L nasal cannula with oxygen saturation 96%. Only able to achieve 500 mL on his incentive spirometry. Mediastinal/right pleural chest tube to continuous wall suction, 95 mL serosanguineous drainage overnight, 270 mL since surgery. Left pleural chest tube to continuous wall suction, 120 mL serosanguineous drainage overnight, 400 mL since surgery. No air leaks present. - Cardiovascular Details: S1, S2 present. Regular rate and rhythm, AV paced on telemetry with underlying rhythm sinus in the high 60s to low 70s. Sternum stable. A/V epicardial pacemaker wires present, connected to generator, DDD mode with rate 90 bpm. Palpable peripheral pulses bilaterally. No edema present. No calf pain or tenderness noted. Right internal jugular Elberta/Cordis, right radial arterial line present. Unable to obtain CO/CI last night, CVP was in the 12-14 range early in the evening, up to 16-18 range this morning. Pulmonary artery pressures remain 30s over teens. Remains on IV levo and vasopressin for hemodynamics. Heart hugger in place with patient demonstrating appropriate use. Antiembolism stockings, SCDs present. - Gastrointestinal Gastrointestinal Comment(s): Abdomen soft, nontender, nondistended. Hypoactive bowel sounds 4 quadrants present. Tolerating clear liquids. - Genitourinary Genitourinary Comment(s): Pretty present draining clear, yellow urine. Output overnight 60-125 mL per derrell r. - Integumentary Integumentary Comment(s): Skin is warm and dry with evidence of good perfusion. Anterior chest incision well approximated and covered with dry intact dressing. Chest tube sites covered with dry intact dressing. Left radial harvest site well approximated, CURTIS drain present with minimal serosanguineous drainage, left arm Levy wrapped, patient able to move all fingers, strong lead relay tester, positive feeling but does have some numbness. Right lower extremity EVH site well approximated without drainage. - Neurologic Neurologic: Present: CNII-XII intact - Musculoskeletal Musculoskeletal: Present: strength equal bilaterally - Psychiatric Psychiatric: Present: A&O x's 3, appropriate affect, intact judgment & insight - Labs CBC & Chem 7: 10/25/18 04:12 10/25/18 04:12 Labs: Abnormal Lab Results - Last 24 Hours (Table) 10/24/18 10/24/18 10/24/18 Range/Units 17:38 18:51 19:42 WBC 11.5 H (3.8-10.6) k/uL RBC 2.44 L (4.30-5.90) m/uL Hgb 7.6 L (13.0-17.5) gm/dL Hct 21.9 L (39.0-53.0) % Plt Count 125 L (150-450) k/uL Neutrophils # 10.4 H (1.3-7.7) k/uL Lymphocytes # 0.5 L (1.0-4.8) k/uL ABG pO2 (83-108) mmHg Chloride (98-107) mmol/L Creatinine (0.66-1.25) mg/dL Glucose (74-99) mg/dL POC Glucose (mg/dL) 133 H 137 H (75-99) mg/dL Calcium (8.4-10.2) mg/dL Phosphorus (2.5-4.5) mg/dL AST (17-59) U/L Alkaline Phosphatase (38-126) U/L Total Protein (6.3-8.2) g/dL 10/24/18 10/24/18 10/24/18 Range/Units 19:45 20:55 21:34 WBC (3.8-10.6) k/uL RBC 2.61 L (4.30-5.90) m/uL Hgb 7.6 L (13.0-17.5) gm/dL Hct 23.6 L (39.0-53.0) % Plt Count 124 L (150-450) k/uL Neutrophils # 8.6 H (1.3-7.7) k/uL Lymphocytes # 0.7 L (1.0-4.8) k/uL ABG pO2 (83-108) mmHg Chloride 109 H (98-107) mmol/L Creatinine 0.50 L (0.66-1.25) mg/dL Glucose 119 H (74-99) mg/dL POC Glucose (mg/dL) 140 H (75-99) mg/dL Calcium 8.2 L (8.4-10.2) mg/dL Phosphorus 1.1 L (2.5-4.5) mg/dL AST (17-59) U/L Alkaline Phosphatase (38-126) U/L Total Protein (6.3-8.2) g/dL 10/24/18 10/24/18 10/25/18 Range/Units 22:06 23:10 00:04 WBC (3.8-10.6) k/uL RBC (4.30-5.90) m/uL Hgb (13.0-17.5) gm/dL Hct (39.0-53.0) % Plt Count (150-450) k/uL Neutrophils # (1.3-7.7) k/uL Lymphocytes # (1.0-4.8) k/uL ABG pO2 (83-108) mmHg Chloride (98-107) mmol/L Creatinine (0.66-1.25) mg/dL Glucose (74-99) mg/dL POC Glucose (mg/dL) 159 H 169 H 142 H (75-99) mg/dL Calcium (8.4-10.2) mg/dL Phosphorus (2.5-4.5) mg/dL AST (17-59) U/L Alkaline Phosphatase (38-126) U/L Total Protein (6.3-8.2) g/dL 10/25/18 10/25/18 10/25/18 Range/Units 00:33 01:08 02:16 WBC (3.8-10.6) k/uL RBC (4.30-5.90) m/uL Hgb (13.0-17.5) gm/dL Hct (39.0-53.0) % Plt Count (150-450) k/uL Neutrophils # (1.3-7.7) k/uL Lymphocytes # (1.0-4.8) k/uL ABG pO2 82 L (83-108) mmHg Chloride (98-107) mmol/L Creatinine (0.66-1.25) mg/dL Glucose (74-99) mg/dL POC Glucose (mg/dL) 123 H 123 H (75-99) mg/dL Calcium (8.4-10.2) mg/dL Phosphorus (2.5-4.5) mg/dL AST (17-59) U/L Alkaline Phosphatase (38-126) U/L Total Protein (6.3-8.2) g/dL 10/25/18 10/25/18 10/25/18 Range/Units 02:53 04:12 04:12 WBC 11.6 H (3.8-10.6) k/uL RBC 2.42 L (4.30-5.90) m/uL Hgb 7.7 L (13.0-17.5) gm/dL Hct 21.9 L (39.0-53.0) % Plt Count 135 L (150-450) k/uL Neutrophils # 9.6 H (1.3-7.7) k/uL Lymphocytes # (1.0-4.8) k/uL ABG pO2 (83-108) mmHg Chloride 108 H (98-107) mmol/L Creatinine 0.45 L (0.66-1.25) mg/dL Glucose 108 H (74-99) mg/dL POC Glucose (mg/dL) 123 H (75-99) mg/dL Calcium 8.1 L (8.4-10.2) mg/dL Phosphorus (2.5-4.5) mg/dL AST 72 H (17-59) U/L Alkaline Phosphatase 34 L (38-126) U/L Total Protein 5.2 L (6.3-8.2) g/dL 10/25/18 10/25/18 10/25/18 Range/Units 04:18 07:06 08:33 WBC (3.8-10.6) k/uL RBC (4.30-5.90) m/uL Hgb (13.0-17.5) gm/dL Hct (39.0-53.0) % Plt Count (150-450) k/uL Neutrophils # (1.3-7.7) k/uL Lymphocytes # (1.0-4.8) k/uL ABG pO2 (83-108) mmHg Chloride (98-107) mmol/L Creatinine (0.66-1.25) mg/dL Glucose (74-99) mg/dL POC Glucose (mg/dL) 126 H 153 H 144 H (75-99) mg/dL Calcium (8.4-10.2) mg/dL Phosphorus (2.5-4.5) mg/dL AST (17-59) U/L Alkaline Phosphatase (38-126) U/L Total Protein (6.3-8.2) g/dL 10/25/18 10/25/18 10/25/18 Range/Units 10:24 11:50 14:20 WBC (3.8-10.6) k/uL RBC (4.30-5.90) m/uL Hgb (13.0-17.5) gm/dL Hct (39.0-53.0) % Plt Count (150-450) k/uL Neutrophils # (1.3-7.7) k/uL Lymphocytes # (1.0-4.8) k/uL ABG pO2 (83-108) mmHg Chloride (98-107) mmol/L Creatinine (0.66-1.25) mg/dL Glucose (74-99) mg/dL POC Glucose (mg/dL) 136 H 122 H 129 H (75-99) mg/dL Calcium (8.4-10.2) mg/dL Phosphorus (2.5-4.5) mg/dL AST (17-59) U/L Alkaline Phosphatase (38-126) U/L Total Protein (6.3-8.2) g/dL 10/25/18 10/25/18 Range/Units 16:15 18:13 WBC (3.8-10.6) k/uL RBC (4.30-5.90) m/uL Hgb (13.0-17.5) gm/dL Hct (39.0-53.0) % Plt Count (150-450) k/uL Neutrophils # (1.3-7.7) k/uL Lymphocytes # (1.0-4.8) k/uL ABG pO2 (83-108) mmHg Chloride (98-107) mmol/L Creatinine (0.66-1.25) mg/dL Glucose (74-99) mg/dL POC Glucose (mg/dL) 130 H 139 H (75-99) mg/dL Calcium (8.4-10.2) mg/dL Phosphorus (2.5-4.5) mg/dL AST (17-59) U/L Alkaline Phosphatase (38-126) U/L Total Protein (6.3-8.2) g/dL Assessment and Plan Plan: 1 multivessel coronary disease and the patient is status post four-vessel bypass surgery. Postop day #1. The patient remains on a combination of vasopressin and norepinephrine infusion for blood pressure support. CVP is in the order of 16 and the patient is producing adequate amount of urine output. 2 sinus bradycardia currently paced at the rate of 90 3 ventilator management as the patient is currently sedated on 4 L. The pleural and yeast final chest tubes are all in place. 4 history of cerebral palsy 5 history of hyperlipidemia 6 cerebral palsy 7 bilateral carotid artery stenosis in the order of 70% 8 preoperative E. coli UTI, treated 9 postoperative acute blood loss anemia, expected outcome of surgery Plan Continue aspirin and Plavix and statins. Wean off pressors if possible. Hold beta blockers and the patient is off pressors. Cardizem will be transitioned to oral. Continue bronchodilators. Monitor the output from the chest tube. Incentive spirometer. Keep the Pretty catheter in place. Monitor CVP monitor. Discontinue the Elberta-Nabil catheter. Keep the patient ICU for now. We'll continue monitoring this patient to keep the cardiac rhythm paced at the rate of 90.
[2018-10-25 18:50] LABS: ABG Base Excess -2.3 mmol/L; ABG HCO3 21 mmol/L (21-25); ABG Oxygen Saturation 98.1 % (94-97); ABG PCO2 27 mmHg (35-45); ABG PO2 88 mmHg (83-108); ABG TCO2 22 mmol/L (19-24)
[2018-10-25 20:16] LABS: Glucose,Whole Blood 140 mg/dL (75-99)
[2018-10-25] MEDS: SENNOSIDES-DOCUSATE SODIUM 1 EACH TAB PO SCH (21:00)
[2018-10-25 23:18] LABS: Glucose,Whole Blood 135 mg/dL (75-99)
[2018-10-26] MEDS: ALBUMIN HUMAN 5% 250 ML in EMPTY BAG 1 BAG IVPB PRN (00:20)
[2018-10-26 01:16] LABS: Glucose,Whole Blood 133 mg/dL (75-99)
[2018-10-26 03:19] LABS: Glucose,Whole Blood 121 mg/dL (75-99)
[2018-10-26] MEDS: SODIUM CHLORIDE 0.9% 150 ML with VASOPRESSIN 60 UNIT IV SCH ×2 (03:22)
[2018-10-26] MEDS ORDERED: SODIUM CHLORIDE 0.9% 150 ML with VASOPRESSIN 60 UNIT IV SCH ×2 (04:15)
[2018-10-26 04:16] LABS: Glucose,Whole Blood 118 mg/dL (75-99); Ionized Calcium 4.7 mg/dL (4.5-5.3)
[2018-10-26] MEDS: HYDROcodone/APAP 5-325MG 1 EACH TAB PO PRN ×3 (04:16→21:36)
[2018-10-26 04:25] LABS: Basophils % (A) 0 %; Eosinophils # (A) 0.1 k/uL (0-0.7); Eosinophils % (A) 1 %; HCT 20.8 % (39.0-53.0); Lymphocytes # (A) 1.6 k/uL (1.0-4.8); Lymphocytes % (A) 16 %; MCH 29.3 pg (25.0-35.0); MCHC 32.6 g/dL (31.0-37.0); MCV 89.7 fL (80.0-100.0); Monocytes # (A) 0.7 k/uL (0-1.0); Monocytes % (A) 7 %; Neutrophils # (A) 7.4 k/uL (1.3-7.7); Neutrophils % (A) 75 %; Platelet Count 118 k/uL (150-450); RBC 2.32 m/uL (4.30-5.90); RDW 13.9 % (11.5-15.5); WBC 9.8 k/uL (3.8-10.6)
[2018-10-26 04:27] LABS: HGB 6.8 gm/dL (13.0-17.5)
[2018-10-26 04:28] LABS: ALT 38 U/L (21-72); AST 187 U/L (17-59); Albumin 3.7 g/dL (3.5-5.0); Alkaline Phosphatase 34 U/L (38-126); Anion Gap 7 mmol/L; Blood Urea Nitrogen 17 mg/dL (9-20); Calcium 8.5 mg/dL (8.4-10.2); Carbon Dioxide 23 mmol/L (22-30); Chloride 108 mmol/L (98-107); Glucose 106 mg/dL (74-99); Magnesium 2.4 mg/dL (1.6-2.3); Phosphorus 2.4 mg/dL (2.5-4.5); Potassium 4.3 mmol/L (3.5-5.1); Sodium 138 mmol/L (137-145); Total Bilirubin 0.6 mg/dL (0.2-1.3); Total Protein 5.5 g/dL (6.3-8.2)
[2018-10-26] MEDS ORDERED: POTASSIUM PHOSPHATE 10 MMOL in SODIUM CHLORIDE 0.9% 100 ML IV ONE (04:30)
[2018-10-26 04:49] LABS: HCT 21.1 % (39.0-53.0); MCH 29.7 pg (25.0-35.0); MCV 90.1 fL (80.0-100.0); Mean Platelet Volume 7.2; Platelet Count 125 k/uL (150-450); RBC 2.34 m/uL (4.30-5.90); RDW 13.9 % (11.5-15.5); WBC 11.6 k/uL (3.8-10.6)
[2018-10-26 05:21] LABS: Glucose,Whole Blood 118 mg/dL (75-99)
[2018-10-26] MEDS: PANTOPRAZOLE 40 MG TABLET PO SCH (06:44)
[2018-10-26] MEDS: KETOROLAC 30 MG/ML 1 ML VIAL IVP SCH ×3 (06:44→17:58)
[2018-10-26] MEDS: DILTIAZEM ORAL 30 MG TAB PO SCH ×3 (06:46→17:57)
[2018-10-26 07:08] LABS: Glucose,Whole Blood 136 mg/dL (75-99)
--- NOTE | 2018-10-26 07:43 | P.PN ---
Subjective Progress Note Date: 10/26/18 Principal diagnosis: Coronary artery disease and status post CABG This is a pleasant 53-year-old gentleman who was experiencing chest discomfort and underwent a heart catheterization by Dr. Prajapati and was found to have severe triple-vessel CAD where the patient was referred for coronary artery bypass grafting. He underwent coronary artery bypass grafting 2 days ago. On follow-up with the patient today, October [id number], he is currently extubated. He is maintaining normal sinus mechanism. The blood pressure has been marginally low and history required small dose of vasopressors. The chest x-ray was reviewed and showed what it seems to be possible left pleural effusion. I do feel that the patient might benefit from small dose of Lasix IV. Beside that he is on dual antiplatelet therapy. He is not on metoprolol at this point because of the blood pressure. Objective - Vital Signs Vital signs: Vital Signs Temp 98.9 F 10/26/18 04:00 Pulse 77 10/26/18 07:00 Resp 23 10/26/18 07:00 BP 93/53 10/26/18 07:00 Pulse Ox 93 L 10/26/18 07:00 Intake & Output 10/25/18 10/26/18 10/26/18 18:59 06:59 18:59 Intake Total 1201.265 486.750 33.482 Output Total 1015 765 120 Balance 186.265 -278.250 -86.518 Weight 83 kg 82.7 kg Intake: IV 932.4 316.6 26 0.9 Pressure Bag 81 72 6 Albumin Human 5% 250 ml 500 In Empty Bag 1 bag @ 250 mls/hr IVPB Q1HR PRN Rx#: [id number] Diltiazem 125 mg In 10.0 Sodium Chloride 0.9% 100 ml @ 5 MG/HR 5 mls/hr IV .Q24H [facility] Rx#:[id number] Lactated Ringers 1,000 ml 300 240 20 @ 20 mls/hr IV .Q24H [facility]ENN[facility] Rx#:[id number] Vasopressin 41.4 4.6 Intake, IV Titration 148.865 170.150 7.482 Amount Insulin Regular 100 unit 36.554 27.328 7.482 In Sodium Chloride 0.9% 100 ml @ Per Protocol IV .Q0M [facility] Rx#:[id number] Norepinephrine 4 mg In 112.311 136.090 Sodium Chloride 0.9% 250 ml @ 0.05 MCG/KG/MIN 13. 826 mls/hr IV .[id number] [facility]ENN[facility]ER Rx#:[id number] Sodium Chloride 0.9% 150 6.732 ml @ 0.02 UNITS/MIN 3.06 mls/hr IV .Q24H [facility]ENN[facility]ER with Vasopressin 60 unit Rx#: [id number] Oral 120 Output: Chest Tube Drainage 460 360 90 Left Lateral Chest 200 130 50 Right Pleural/Mediastinal 260 230 40 Urine 555 405 30 Other: Voiding Method Indwelling Catheter Indwelling Catheter ABP, PAP, CO, CI - Last Documented Arterial Blood Pressure 73/58 Pulmonary Artery Pressure 35/17 Cardiac Output 12 Cardiac Index 3.2 - Constitutional General appearance: Present: no acute distress - Respiratory Respiratory: bilateral: CTA - Cardiovascular Rhythm: regular Heart sounds: normal: S1, S2 - Labs CBC & Chem 7: 10/26/18 04:37 10/26/18 04:04 Labs: Abnormal Lab Results - Last 24 Hours (Table) 10/24/18 10/25/18 10/25/18 Range/Units 06:25 08:33 10:24 WBC (3.8-10.6) k/uL RBC (4.30-5.90) m/uL Hgb (13.0-17.5) gm/dL Hct (39.0-53.0) % Plt Count (150-450) k/uL ABG pH (7.35-7.45) ABG pCO2 (35-45) mmHg ABG O2 Saturation (94-97) % Chloride (98-107) mmol/L Creatinine (0.66-1.25) mg/dL Glucose (74-99) mg/dL POC Glucose (mg/dL) 144 H 136 H (75-99) mg/dL Phosphorus (2.5-4.5) mg/dL Magnesium (1.6-2.3) mg/dL AST (17-59) U/L Alkaline Phosphatase (38-126) U/L Total Protein (6.3-8.2) g/dL Crossmatch See Detail 10/25/18 10/25/18 10/25/18 Range/Units 11:50 14:20 16:15 WBC (3.8-10.6) k/uL RBC (4.30-5.90) m/uL Hgb (13.0-17.5) gm/dL Hct (39.0-53.0) % Plt Count (150-450) k/uL ABG pH (7.35-7.45) ABG pCO2 (35-45) mmHg ABG O2 Saturation (94-97) % Chloride (98-107) mmol/L Creatinine (0.66-1.25) mg/dL Glucose (74-99) mg/dL POC Glucose (mg/dL) 122 H 129 H 130 H (75-99) mg/dL Phosphorus (2.5-4.5) mg/dL Magnesium (1.6-2.3) mg/dL AST (17-59) U/L Alkaline Phosphatase (38-126) U/L Total Protein (6.3-8.2) g/dL Crossmatch 10/25/18 10/25/18 10/25/18 Range/Units 18:13 18:52 20:03 WBC (3.8-10.6) k/uL RBC (4.30-5.90) m/uL Hgb (13.0-17.5) gm/dL Hct (39.0-53.0) % Plt Count (150-450) k/uL ABG pH 7.50 H (7.35-7.45) ABG pCO2 27 L (35-45) mmHg ABG O2 Saturation 98.1 H (94-97) % Chloride (98-107) mmol/L Creatinine (0.66-1.25) mg/dL Glucose (74-99) mg/dL POC Glucose (mg/dL) 139 H 140 H (75-99) mg/dL Phosphorus (2.5-4.5) mg/dL Magnesium (1.6-2.3) mg/dL AST (17-59) U/L Alkaline Phosphatase (38-126) U/L Total Protein (6.3-8.2) g/dL Crossmatch 10/25/18 10/26/18 10/26/18 Range/Units 23:06 01:05 03:08 WBC (3.8-10.6) k/uL RBC (4.30-5.90) m/uL Hgb (13.0-17.5) gm/dL Hct (39.0-53.0) % Plt Count (150-450) k/uL ABG pH (7.35-7.45) ABG pCO2 (35-45) mmHg ABG O2 Saturation (94-97) % Chloride (98-107) mmol/L Creatinine (0.66-1.25) mg/dL Glucose (74-99) mg/dL POC Glucose (mg/dL) 135 H 133 H 121 H (75-99) mg/dL Phosphorus (2.5-4.5) mg/dL Magnesium (1.6-2.3) mg/dL AST (17-59) U/L Alkaline Phosphatase (38-126) U/L Total Protein (6.3-8.2) g/dL Crossmatch 10/26/18 10/26/18 10/26/18 Range/Units 04:04 04:04 04:04 WBC (3.8-10.6) k/uL RBC 2.32 L (4.30-5.90) m/uL Hgb 6.8 L* (13.0-17.5) gm/dL Hct 20.8 L (39.0-53.0) % Plt Count 118 L (150-450) k/uL ABG pH (7.35-7.45) ABG pCO2 (35-45) mmHg ABG O2 Saturation (94-97) % Chloride 108 H (98-107) mmol/L Creatinine 0.53 L (0.66-1.25) mg/dL Glucose 106 H (74-99) mg/dL POC Glucose (mg/dL) 118 H (75-99) mg/dL Phosphorus 2.4 L (2.5-4.5) mg/dL Magnesium 2.4 H (1.6-2.3) mg/dL AST 187 H (17-59) U/L Alkaline Phosphatase 34 L (38-126) U/L Total Protein 5.5 L (6.3-8.2) g/dL Crossmatch 10/26/18 10/26/18 10/26/18 Range/Units 04:37 05:07 06:57 WBC 11.6 H (3.8-10.6) k/uL RBC 2.34 L (4.30-5.90) m/uL Hgb 7.0 L (13.0-17.5) gm/dL Hct 21.1 L (39.0-53.0) % Plt Count 125 L (150-450) k/uL ABG pH (7.35-7.45) ABG pCO2 (35-45) mmHg ABG O2 Saturation (94-97) % Chloride (98-107) mmol/L Creatinine (0.66-1.25) mg/dL Glucose (74-99) mg/dL POC Glucose (mg/dL) 118 H 136 H (75-99) mg/dL Phosphorus (2.5-4.5) mg/dL Magnesium (1.6-2.3) mg/dL AST (17-59) U/L Alkaline Phosphatase (38-126) U/L Total Protein (6.3-8.2) g/dL Crossmatch Assessment and Plan Assessment: Assessment #1 severe triple-vessel CAD and status post CABG #2 hyperlipidemia Plan #1 continue the current medical regimen #2 the right wean the patient from the vasopressors #3 give the patient small dose of Lasix IV #4 follow-up with the patient
--- NOTE | 2018-10-26 07:55 | P.CONS ---
History of Present Illness - Chief Complaint Cardiac debility - History of Present Illness I had the opportunity see patient for inpatient rehab consultation with regard to cardiac debility. He is admitted to [facility] October 24 with known cardiac disease. Underwent elective 4 vessel coronary bypass by Dr. Galan. Seen by Dr. Alfred for medical. Chest x-rays followed for lines and atelectasis. PT prescribed. OT reports minimal assistance for upper dressing, to person total assistance for lower dressing, maximal assistance for bathing, moderate assistance for toileting and two-person moderate assistance for toilet transfer. Previous functional history: 53-year-old left-handed white male who is single lives with sister and sister's . Sister in the [id number] do the advanced homemaking tasks. Patient is unemployed, applying for disability. Dr. Frank is regular doctor. Review of Systems Review of systems: ENT: Denies sneezes or discharge. Eyes: Denies discharge or photophobia. Cardiac: Sternal soreness. Pulmonary: At least moderate shortness of breath. Gastrointestinal: Denies nausea, emesis, constipation, diarrhea. Genitourinary: Denies discharge or frequency. Musculoskeletal: Denies muscle or bone aches. Neurologic: Marked generalized weakness. Endocrine: Denies shakes or sweats. Oncology: Denies cancers. Dermatologic: Denies rash, itching, pruritus. ALLERGY/immunology: Denies sneezes, rashes. Past Medical History Past Medical History: Coronary Artery Disease (CAD), Hyperlipidemia Additional Past Medical History / Comment(s): Cerebral palsy History of Any Multi-Drug Resistant Organisms: None Reported Past Surgical History: Heart Catheterization Past Anesthesia/Blood Transfusion Reactions: No Reported Reaction Additional Past Anesthesia/Blood Transfusion Reaction / Comm: no hx general anesthesia or blood transfusion Smoking Status: Former smoker - Past Family History Mother Family Medical History: No Reported History Additional Family Medical History / Comment(s): family history of premature coronary artery disease on his mother's side Medications and Allergies Home Medications Medication Instructions Recorded Confirmed Type Ergocalciferol (Vitamin D2) 50,000 unit PO MO 10/05/18 10/24/18 History [Vitamin D2] Aspirin 81 mg PO DAILY #30 chew 10/10/18 10/24/18 Rx Atorvastatin [Lipitor] 80 mg PO HS #30 tab 10/10/18 10/24/18 Rx Metoprolol Succinate (ER) [Toprol 25 mg PO DAILY #30 tab.er.24h 10/10/18 10/24/18 Rx XL] Nitroglycerin Sl Tabs [Nitrostat] 0.4 mg SUBLINGUAL Q5M PRN #25 tab 10/10/18 10/24/18 Rx Allergies Allergy/AdvReac Type Severity Reaction Status Date / Time No Known Allergies Allergy Verified 10/24/18 14:08 Physical Exam Vitals: Vital Signs Temp Pulse Resp BP Pulse Ox 10/26/18 07:00 77 23 93/53 93 L 10/26/18 06:45 75 22 94/61 94 L 10/26/18 06:30 78 30 H 83/51 94 L 10/26/18 06:15 72 20 88/59 90 L 10/26/18 06:00 80 25 H 120/70 85 L 10/26/18 05:45 90 24 122/62 87 L 10/26/18 05:30 79 27 H 104/62 89 L 10/26/18 05:15 76 31 H 116/60 88 L 10/26/18 05:00 72 26 H 105/53 96 10/26/18 04:45 70 23 98/71 92 L 10/26/18 04:32 90 L 10/26/18 04:30 74 28 H 111/56 87 L 10/26/18 04:15 73 27 H 102/62 87 L 10/26/18 04:00 98.9 F 71 25 H 103/55 97 10/26/18 03:45 67 21 94/56 98 10/26/18 03:30 67 22 10/26/18 03:15 72 29 H 107/52 88 L 10/26/18 03:00 71 22 94/55 89 L 10/26/18 02:45 67 24 98/51 95 10/26/18 02:30 69 24 93/58 95 10/26/18 02:15 70 24 109/56 95 10/26/18 02:00 70 23 97/64 97 10/26/18 01:45 71 23 101/59 95 10/26/18 01:30 70 24 99/59 96 10/26/18 01:15 70 23 94/60 95 10/26/18 01:00 67 21 94/54 96 10/26/18 00:45 68 22 97/54 94 L 10/26/18 00:30 70 22 91/59 94 L 10/26/18 00:29 92 L 10/26/18 00:15 70 22 102/55 91 L 10/26/18 00:00 98.2 F 69 23 102/55 89 L 10/25/18 23:45 72 23 106/58 90 L 10/25/18 23:30 73 24 113/60 92 L 10/25/18 23:15 72 28 H 103/54 89 L 10/25/18 23:00 73 28 H 109/59 91 L 10/25/18 22:45 73 26 H 108/59 93 L 10/25/18 22:30 74 28 H 109/59 92 L 10/25/18 22:25 74 29 H 91 L 10/25/18 22:15 75 29 H 92 L 10/25/18 22:00 73 27 H 88 L 10/25/18 21:45 78 34 H 10/25/18 21:30 94 28 H 87 L 10/25/18 21:15 78 26 H 92 L 10/25/18 21:00 77 24 93 L 10/25/18 20:45 76 27 H 92 L 10/25/18 20:30 75 27 H 92 L 10/25/18 20:15 74 26 H 93 L 10/25/18 20:00 98.4 F 73 24 93 L 10/25/18 19:45 75 25 H 89 L 10/25/18 19:44 76 10/25/18 19:32 94 L 10/25/18 19:30 96 24 95 10/25/18 19:27 89 10/25/18 19:15 92 24 92 L 10/25/18 19:00 89 24 108/60 93 L 10/25/18 18:45 89 26 H 100/73 91 L 10/25/18 18:30 89 28 H 100/70 90 L 10/25/18 18:15 89 25 H 101/66 87 L 10/25/18 18:00 90 29 H 97/61 86 L 10/25/18 17:45 90 26 H 93/58 83 L 10/25/18 17:30 89 19 90/57 93 L 10/25/18 17:15 88 19 88/63 93 L 10/25/18 17:00 91 20 84/53 94 L 10/25/18 16:45 89 21 94/58 95 10/25/18 16:30 89 23 96/65 94 L 10/25/18 16:15 89 22 91/56 93 L 10/25/18 16:00 98.4 F 90 21 94/56 92 L 10/25/18 15:50 89 20 10/25/18 15:45 89 21 83/57 94 L 10/25/18 15:38 89 20 96 10/25/18 15:30 91 25 H 86/53 92 L 10/25/18 15:15 89 22 85/56 96 10/25/18 15:00 92 20 85/56 98 10/25/18 14:45 89 23 89/62 96 10/25/18 14:30 89 21 113/55 90 L 10/25/18 14:15 89 22 101/64 89 L 10/25/18 14:00 101/64 10/25/18 13:45 89 21 94/64 94 L 10/25/18 13:30 89 23 94/62 96 10/25/18 13:15 89 23 94/60 96 10/25/18 13:00 89 22 87/60 97 10/25/18 12:45 89 22 83/51 96 10/25/18 12:30 89 23 76/55 94 L 10/25/18 12:15 89 22 96/59 96 10/25/18 12:00 97.9 F 92 23 78/65 96 10/25/18 11:47 89 10/25/18 11:45 92 21 86/54 93 L 10/25/18 11:32 89 19 10/25/18 11:30 90 20 98/66 90 L 10/25/18 11:15 92 21 95 10/25/18 11:00 91 25 H 87/59 94 L 10/25/18 10:45 91 21 88/63 94 L 10/25/18 10:30 88 21 86/76 94 L 10/25/18 10:15 87 22 88/65 94 L 10/25/18 10:00 92 21 118/93 93 L 10/25/18 09:45 89 21 92/64 92 L 10/25/18 09:30 89 20 95/68 96 10/25/18 09:15 89 17 102/63 91 L 10/25/18 09:00 89 21 90/40 94 L 10/25/18 08:45 89 20 83/59 92 L 10/25/18 08:30 92 20 96 10/25/18 08:15 89 18 100/55 95 10/25/18 08:02 89 18 10/25/18 08:00 98.3 F 89 21 97/64 90 L Intake and Output 10/25/18 10/26/18 10/26/18 22:59 06:59 14:59 Intake Total 376.330 271.363 33.482 Output Total 540 435 120 Balance -163.670 -163.637 -86.518 Intake: IV 231.0 208 26 0.9 Pressure Bag 48 48 6 Lactated Ringers 1,000 ml 160 160 20 @ 20 mls/hr IV .Q24H JENNIFER Rx#:[id number] Vasopressin 23.0 Intake, IV Titration 115.330 63.363 7.482 Amount Insulin Regular 100 unit 13.803 22.068 7.482 In Sodium Chloride 0.9% 100 ml @ Per Protocol IV .Q0M JENNIFER Rx#:[id number] Norepinephrine 4 mg In 101.527 34.563 Sodium Chloride 0.9% 250 ml @ 0.05 MCG/KG/MIN 13. 826 mls/hr IV .[id number] JENNIFER Rx#:[id number] Sodium Chloride 0.9% 150 6.732 ml @ 0.02 UNITS/MIN 3.06 mls/hr IV .Q24H JENNIFER with Vasopressin 60 unit Rx#: [id number] Oral 30 Output: Chest Tube Drainage 250 160 90 Left Lateral Chest 40 90 50 Right Pleural/Mediastinal 210 70 40 Urine 290 275 30 Other: Voiding Method Indwelling Catheter Indwelling Catheter Weight 82.7 kg ABP, PAP, CO, CI - Last 8 Hours Arterial Blood Pressure 73/58 Arterial Blood Pressure 108/46 Arterial Blood Pressure 97/45 Arterial Blood Pressure 104/44 Arterial Blood Pressure 104/52 Arterial Blood Pressure 94/41 Cardiac Output 12 Skin: Good color, texture, turgor. General: Medium build and comfortable appearance. Head: Normocephalic, atraumatic. Eyes: Symmetric. Pupils equal round. Ears: Symmetric. Hearing within normal limits. Mouth: Clear. Neck: Supple. Carotid without bruit. Cardiac: Regular rate and rhythm. Tenotomy scar clean and dressed. Harness. Lungs: Clear anteriorly and posteriorly. Abdomen: Soft active nontender. Extremities: Normal tone. Neurological: Mental status: Alert, cooperative, pleasant. Cranial nerves: Symmetric facial tone and trapezius. Motor: Poor movement arms and legs. Sensation: Intact throughout. DTRs: Symmetric and equal throughout. Mobility: Requires two-person nursing assistance for transfer to Elsa chair. Results CBC & Chem 7: 10/26/18 04:37 10/26/18 04:04 Labs: Abnormal Lab Results - Last 24 Hours (Table) 10/24/18 10/25/18 10/25/18 Range/Units 06:25 08:33 10:24 WBC (3.8-10.6) k/uL RBC (4.30-5.90) m/uL Hgb (13.0-17.5) gm/dL Hct (39.0-53.0) % Plt Count (150-450) k/uL ABG pH (7.35-7.45) ABG pCO2 (35-45) mmHg ABG O2 Saturation (94-97) % Chloride (98-107) mmol/L Creatinine (0.66-1.25) mg/dL Glucose (74-99) mg/dL POC Glucose (mg/dL) 144 H 136 H (75-99) mg/dL Phosphorus (2.5-4.5) mg/dL Magnesium (1.6-2.3) mg/dL AST (17-59) U/L Alkaline Phosphatase (38-126) U/L Total Protein (6.3-8.2) g/dL Crossmatch See Detail 10/25/18 10/25/18 10/25/18 Range/Units 11:50 14:20 16:15 WBC (3.8-10.6) k/uL RBC (4.30-5.90) m/uL Hgb (13.0-17.5) gm/dL Hct (39.0-53.0) % Plt Count (150-450) k/uL ABG pH (7.35-7.45) ABG pCO2 (35-45) mmHg ABG O2 Saturation (94-97) % Chloride (98-107) mmol/L Creatinine (0.66-1.25) mg/dL Glucose (74-99) mg/dL POC Glucose (mg/dL) 122 H 129 H 130 H (75-99) mg/dL Phosphorus (2.5-4.5) mg/dL Magnesium (1.6-2.3) mg/dL AST (17-59) U/L Alkaline Phosphatase (38-126) U/L Total Protein (6.3-8.2) g/dL Crossmatch 10/25/18 10/25/18 10/25/18 Range/Units 18:13 18:52 20:03 WBC (3.8-10.6) k/uL RBC (4.30-5.90) m/uL Hgb (13.0-17.5) gm/dL Hct (39.0-53.0) % Plt Count (150-450) k/uL ABG pH 7.50 H (7.35-7.45) ABG pCO2 27 L (35-45) mmHg ABG O2 Saturation 98.1 H (94-97) % Chloride (98-107) mmol/L Creatinine (0.66-1.25) mg/dL Glucose (74-99) mg/dL POC Glucose (mg/dL) 139 H 140 H (75-99) mg/dL Phosphorus (2.5-4.5) mg/dL Magnesium (1.6-2.3) mg/dL AST (17-59) U/L Alkaline Phosphatase (38-126) U/L Total Protein (6.3-8.2) g/dL Crossmatch 10/25/18 10/26/18 10/26/18 Range/Units 23:06 01:05 03:08 WBC (3.8-10.6) k/uL RBC (4.30-5.90) m/uL Hgb (13.0-17.5) gm/dL Hct (39.0-53.0) % Plt Count (150-450) k/uL ABG pH (7.35-7.45) ABG pCO2 (35-45) mmHg ABG O2 Saturation (94-97) % Chloride (98-107) mmol/L Creatinine (0.66-1.25) mg/dL Glucose (74-99) mg/dL POC Glucose (mg/dL) 135 H 133 H 121 H (75-99) mg/dL Phosphorus (2.5-4.5) mg/dL Magnesium (1.6-2.3) mg/dL AST (17-59) U/L Alkaline Phosphatase (38-126) U/L Total Protein (6.3-8.2) g/dL Crossmatch 10/26/18 10/26/18 10/26/18 Range/Units 04:04 04:04 04:04 WBC (3.8-10.6) k/uL RBC 2.32 L (4.30-5.90) m/uL Hgb 6.8 L* (13.0-17.5) gm/dL Hct 20.8 L (39.0-53.0) % Plt Count 118 L (150-450) k/uL ABG pH (7.35-7.45) ABG pCO2 (35-45) mmHg ABG O2 Saturation (94-97) % Chloride 108 H (98-107) mmol/L Creatinine 0.53 L (0.66-1.25) mg/dL Glucose 106 H (74-99) mg/dL POC Glucose (mg/dL) 118 H (75-99) mg/dL Phosphorus 2.4 L (2.5-4.5) mg/dL Magnesium 2.4 H (1.6-2.3) mg/dL AST 187 H (17-59) U/L Alkaline Phosphatase 34 L (38-126) U/L Total Protein 5.5 L (6.3-8.2) g/dL Crossmatch 10/26/18 10/26/18 10/26/18 Range/Units 04:37 05:07 06:57 WBC 11.6 H (3.8-10.6) k/uL RBC 2.34 L (4.30-5.90) m/uL Hgb 7.0 L (13.0-17.5) gm/dL Hct 21.1 L (39.0-53.0) % Plt Count 125 L (150-450) k/uL ABG pH (7.35-7.45) ABG pCO2 (35-45) mmHg ABG O2 Saturation (94-97) % Chloride (98-107) mmol/L Creatinine (0.66-1.25) mg/dL Glucose (74-99) mg/dL POC Glucose (mg/dL) 118 H 136 H (75-99) mg/dL Phosphorus (2.5-4.5) mg/dL Magnesium (1.6-2.3) mg/dL AST (17-59) U/L Alkaline Phosphatase (38-126) U/L Total Protein (6.3-8.2) g/dL Crossmatch Assessment and Plan Plan: Impression: 1. Cardiac debility. 2. Coronary artery disease with recent 4 vessel coronary bypass. 3. Generalized weakness. 4. Hypertension. 5. Dyslipidemia. Comments and plan: At this time PT and OT prescribed. Patient is endurance currently quite poor. We'll continue to follow with yourself.
[2018-10-26] MEDS: ASCORBIC ACID 500 MG TAB PO SCH ×2 (08:52→17:57)
[2018-10-26] MEDS: NOREPINEPHRINE 4 MG in SODIUM CHLORIDE 0.9% 250 ML IV SCH (08:53)
[2018-10-26] MEDS: ATORVASTATIN 40 MG TAB PO SCH (08:53)
[2018-10-26] MEDS: FERROUS SULFATE 325 MG TAB PO SCH ×2 (08:53→17:41)
[2018-10-26] MEDS: HEPARIN SODIUM,PORCINE 5,000 UNIT/ML 1 ML VIAL SQ SCH ×2 (08:53→17:57)
[2018-10-26] MEDS: ASPIRIN 325 MG TAB PO SCH (08:53)
[2018-10-26] MEDS: CLOPIDOGREL 75 MG TAB PO SCH (08:53)
--- NOTE | 2018-10-26 08:53 | P.PN ---
Subjective Progress Note Date: 10/26/18 Principal diagnosis: Severe triple vessel coronary artery disease with preserved LV function. Previous medical history of hypertension, hyperlipidemia, previous tobacco dependence with preoperative FEV1 94% of predicted, cerebral palsy, bilateral carotid artery stenosis 70%, and family history of premature coronary artery disease. Preoperative E coli urinary tract infection treated with Cipro for 1 week. POD#2 coronary artery bypass graft surgery with left internal mammary artery to the left anterior descending coronary artery, left radial artery to the first obtuse marginal artery, reverse saphenous vein graft to the first diagonal artery, reverse saphenous vein graft to the posterior lateral branch of the right coronary artery. Endoscopic harvest of the right greater saphenous vein and the left radial artery. Epiaortic scanning. Intraoperative transesphageal echocardiogram. Postoperative acute blood loss anemia, expected secondary to cardiopulmonary bypass pump and hemodilution. The patient is currently sitting up in the recliner in the intensive care unit in no acute distress. He does complain of post surgical pain, denies shortness of breath. IV levo has been off since 0200, and vasopressin has been weaned to 0.1 units per minute. Remains in normal sinus rhythm. Mediastinal/right/left chest tubes present. Adequate urine output. No other complaints. Objective - Vital Signs Vital signs: Vital Signs Temp 98.9 F 10/26/18 04:00 Pulse 77 10/26/18 07:00 Resp 23 10/26/18 07:00 BP 93/53 10/26/18 07:00 Pulse Ox 93 L 10/26/18 07:00 Intake & Output 10/25/18 10/26/18 10/26/18 18:59 06:59 18:59 Intake Total 1201.265 486.750 33.482 Output Total 1015 765 120 Balance 186.265 -278.250 -86.518 Weight 83 kg 82.7 kg Intake: IV 932.4 316.6 26 0.9 Pressure Bag 81 72 6 Albumin Human 5% 250 ml 500 In Empty Bag 1 bag @ 250 mls/hr IVPB Q1HR PRN Rx#: [id number] Diltiazem 125 mg In 10.0 Sodium Chloride 0.9% 100 ml @ 5 MG/HR 5 mls/hr IV .Q24H JENNIFER Rx#:[id number] Lactated Ringers 1,000 ml 300 240 20 @ 20 mls/hr IV .Q24H JENNIFER Rx#:[id number] Vasopressin 41.4 4.6 Intake, IV Titration 148.865 170.150 7.482 Amount Insulin Regular 100 unit 36.554 27.328 7.482 In Sodium Chloride 0.9% 100 ml @ Per Protocol IV .Q0M JENNIFER Rx#:[id number] Norepinephrine 4 mg In 112.311 136.090 Sodium Chloride 0.9% 250 ml @ 0.05 MCG/KG/MIN 13. 826 mls/hr IV .[id number] JENNIFER Rx#:[id number] Sodium Chloride 0.9% 150 6.732 ml @ 0.02 UNITS/MIN 3.06 mls/hr IV .Q24H JENNIFER with Vasopressin 60 unit Rx#: [id number] Oral 120 Output: Chest Tube Drainage 460 360 90 Left Lateral Chest 200 130 50 Right Pleural/Mediastinal 260 230 40 Urine 555 405 30 Other: Voiding Method Indwelling Catheter Indwelling Catheter ABP, PAP, CO, CI - Last Documented Arterial Blood Pressure 73/58 Pulmonary Artery Pressure 35/17 Cardiac Output 12 Cardiac Index 3.2 - Constitutional General appearance: Present: cooperative, no acute distress - Respiratory Details: Lungs sounds diminished bilaterally. Respirations even, nonlabored. Currently on 9 L nasal cannula with oxygen saturation 92%. Only able to achieve 500 mL on his incentive spirometry. Mediastinal/right pleural chest tube to continuous wall suction, 50 mL serosanguineous drainage overnight, 450 mL in the last 24 hours. Left pleural chest tube to continuous wall suction, 60 mL serosanguineous drainage overnight, 250 mL in the last 24 hours. No air leaks present. - Cardiovascular Details: S1, S2 present. Regular rate and rhythm, sinus rhythm on telemetry. Sternum stable. A/V epicardial pacemaker wires present, connected to generator, VVI mode with backup rate 50 bpm. Palpable peripheral pulses bilaterally. No edema present. No calf pain or tenderness noted. Right internal jugular Cordis, right radial arterial line present. Remains on IV vasopressin, levo discontinued at 0200. Heart hugger in place with patient demonstrating appropriate use. Antiembolism stockings, SCDs present. - Gastrointestinal Gastrointestinal Comment(s): Abdomen soft, nontender, nondistended. Active bowel sounds 4 quadrants present. Tolerating diet. Negative flatus. - Genitourinary Genitourinary Comment(s): Elizabeth present draining clear, yellow urine. Output overnight 30-35 mL per hour. - Integumentary Integumentary Comment(s): Skin is warm and dry with evidence of good perfusion. Anterior chest incision well approximated and covered with dry intact dressing. Chest tube sites covered with dry intact dressing. 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 Right lower extremity EVH site well approximated without drainage. - Neurologic Neurologic: Present: CNII-XII intact - Musculoskeletal Musculoskeletal: Present: gait normal, generalized weakness, strength equal b ilaterally - Psychiatric Psychiatric: Present: A&O x's 3, appropriate affect, intact judgment & insight - Allied health notes Allied health notes reviewed: nursing - Labs CBC & Chem 7: 10/26/18 04:37 10/26/18 04:04 Labs: Abnormal Lab Results - Last 24 Hours (Table) 10/24/18 10/25/18 10/25/18 Range/Units 06:25 08:33 10:24 WBC (3.8-10.6) k/uL RBC (4.30-5.90) m/uL Hgb (13.0-17.5) gm/dL Hct (39.0-53.0) % Plt Count (150-450) k/uL ABG pH (7.35-7.45) ABG pCO2 (35-45) mmHg ABG O2 Saturation (94-97) % Chloride (98-107) mmol/L Creatinine (0.66-1.25) mg/dL Glucose (74-99) mg/dL POC Glucose (mg/dL) 144 H 136 H (75-99) mg/dL Phosphorus (2.5-4.5) mg/dL Magnesium (1.6-2.3) mg/dL AST (17-59) U/L Alkaline Phosphatase (38-126) U/L Total Protein (6.3-8.2) g/dL Crossmatch See Detail 10/25/18 10/25/18 10/25/18 Range/Units 11:50 14:20 16:15 WBC (3.8-10.6) k/uL RBC (4.30-5.90) m/uL Hgb (13.0-17.5) gm/dL Hct (39.0-53.0) % Plt Count (150-450) k/uL ABG pH (7.35-7.45) ABG pCO2 (35-45) mmHg ABG O2 Saturation (94-97) % Chloride (98-107) mmol/L Creatinine (0.66-1.25) mg/dL Glucose (74-99) mg/dL POC Glucose (mg/dL) 122 H 129 H 130 H (75-99) mg/dL Phosphorus (2.5-4.5) mg/dL Magnesium (1.6-2.3) mg/dL AST (17-59) U/L Alkaline Phosphatase (38-126) U/L Total Protein (6.3-8.2) g/dL Crossmatch 10/25/18 10/25/18 10/25/18 Range/Units 18:13 18:52 20:03 WBC (3.8-10.6) k/uL RBC (4.30-5.90) m/uL Hgb (13.0-17.5) gm/dL Hct (39.0-53.0) % Plt Count (150-450) k/uL ABG pH 7.50 H (7.35-7.45) ABG pCO2 27 L (35-45) mmHg ABG O2 Saturation 98.1 H (94-97) % Chloride (98-107) mmol/L Creatinine (0.66-1.25) mg/dL Glucose (74-99) mg/dL POC Glucose (mg/dL) 139 H 140 H (75-99) mg/dL Phosphorus (2.5-4.5) mg/dL Magnesium (1.6-2.3) mg/dL AST (17-59) U/L Alkaline Phosphatase (38-126) U/L Total Protein (6.3-8.2) g/dL Crossmatch 10/25/18 10/26/18 10/26/18 Range/Units 23:06 01:05 03:08 WBC (3.8-10.6) k/uL RBC (4.30-5.90) m/uL Hgb (13.0-17.5) gm/dL Hct (39.0-53.0) % Plt Count (150-450) k/uL ABG pH (7.35-7.45) ABG pCO2 (35-45) mmHg ABG O2 Saturation (94-97) % Chloride (98-107) mmol/L Creatinine (0.66-1.25) mg/dL Glucose (74-99) mg/dL POC Glucose (mg/dL) 135 H 133 H 121 H (75-99) mg/dL Phosphorus (2.5-4.5) mg/dL Magnesium (1.6-2.3) mg/dL AST (17-59) U/L Alkaline Phosphatase (38-126) U/L Total Protein (6.3-8.2) g/dL Crossmatch 10/26/18 10/26/18 10/26/18 Range/Units 04:04 04:04 04:04 WBC (3.8-10.6) k/uL RBC 2.32 L (4.30-5.90) m/uL Hgb 6.8 L* (13.0-17.5) gm/dL Hct 20.8 L (39.0-53.0) % Plt Count 118 L (150-450) k/uL ABG pH (7.35-7.45) ABG pCO2 (35-45) mmHg ABG O2 Saturation (94-97) % Chloride 108 H (98-107) mmol/L Creatinine 0.53 L (0.66-1.25) mg/dL Glucose 106 H (74-99) mg/dL POC Glucose (mg/dL) 118 H (75-99) mg/dL Phosphorus 2.4 L (2.5-4.5) mg/dL Magnesium 2.4 H (1.6-2.3) mg/dL AST 187 H (17-59) U/L Alkaline Phosphatase 34 L (38-126) U/L Total Protein 5.5 L (6.3-8.2) g/dL Crossmatch 10/26/18 10/26/18 10/26/18 Range/Units 04:37 05:07 06:57 WBC 11.6 H (3.8-10.6) k/uL RBC 2.34 L (4.30-5.90) m/uL Hgb 7.0 L (13.0-17.5) gm/dL Hct 21.1 L (39.0-53.0) % Plt Count 125 L (150-450) k/uL ABG pH (7.35-7.45) ABG pCO2 (35-45) mmHg ABG O2 Saturation (94-97) % Chloride (98-107) mmol/L Creatinine (0.66-1.25) mg/dL Glucose (74-99) mg/dL POC Glucose (mg/dL) 118 H 136 H (75-99) mg/dL Phosphorus (2.5-4.5) mg/dL Magnesium (1.6-2.3) mg/dL AST (17-59) U/L Alkaline Phosphatase (38-126) U/L Total Protein (6.3-8.2) g/dL Crossmatch - Imaging and Cardiology Chest x-ray: image reviewed Assessment and Plan Assessment: 1. Severe triple-vessel coronary artery disease with preserved LV function, status post CABG 4 2. Hypertension, currently hypotensive on small dose vasopressors 3. Hyperlipidemia 4. Previous tobacco dependence with preoperative FEV1 94% of predicted 5. Cerebral palsy 6. Bilateral carotid artery stenosis 70% 7. Family history of premature coronary artery disease 8. Preoperative E. coli urinary tract infection, treated 9. Postoperative acute blood loss anemia, expected Plan: 1. Continue aspirin, statin, Plavix. Will hold beta karissa for now, will restart and titrate up as able. 2. Wean vaso as able. 3. Continue Cardizem for radial artery spasm prophylaxis. 4. Wean O2 as tolerated. Encourage incentive spirometry use 10 times every hour while awake. 5. Bronchodilators per pulmonology. Encourage continued smoking cessation. 6. Increase activity, ambulate as tolerated. PT/OT/cardiac rehab following. 7. Will monitor daily labs, chest x-rays. Electrolyte replacement per protocol. Will give 1 unit PRBCs. 8. Pain management with current medication regimen. 9. Insulin management per primary care service. 10. GI/DVT prophylaxis. 11. Will give IV lasix today. 12. Keep cordis. Keep elizabeth for another 24 hours for strict accurate I/Os. 13. Will separate and discontinue mediastinal chest tube. Will continue left/right pleural chest tubes. 14. Anticipate need for rehab at discharge, Dr. Chen consulted for IPR. 15. More recommendations to follow as patient progresses. Time with Patient: Greater than 30
[2018-10-26] MEDS: MUPIROCIN 2% OINT 22 GM TUBE NASAL SCH ×2 (08:54→21:36)
[2018-10-26] MEDS: MAGNESIUM HYDROXIDE 2,400 MG/10 ML CUP PO PRN (08:54)
[2018-10-26 08:55] LABS: Glucose,Whole Blood 120 mg/dL (75-99)
--- NOTE | 2018-10-26 09:11 | XR ---
EXAMINATION TYPE: XR chest 1V portable DATE OF EXAM: 10/26/2018 COMPARISON: 10/25/2018 INDICATION: Postoperative cardiac surgery TECHNIQUE: Single frontal view of the chest is obtained. FINDINGS: The heart size is normal. The pulmonary vasculature is normal. Some mild linear opacities at the right base, likely atelectasis. Mild infiltrate which is nonspecifi c is at the left base may be some atelectasis. The [place]-Nabil catheter is been removed. Sheath remains present. Bilateral chest tubes are present. No pneumothorax is evident. A mediastinal tube remains present. IMPRESSION: 1. Bibasilar infiltrates, likely on the basis of atelectasis. 2. Multiple lines and catheters remain present.
[2018-10-26] MEDS: IPRATROPIUM-ALBUTEROL 3 ML NEB INHALATION SCH ×4 (09:42→20:25)
--- NOTE | 2018-10-26 10:26 | P.PN ---
Subjective Progress Note Date: 10/26/18 53-year-old male one of Dr. Frank patient with mild degree of cerebral palsy who has history of hypertension hyperlipidemia and coronary artery disease with heart catheter 2 weeks ago showed 99 percentile blockage of the RCA 60% of the PLB 90% stenosis of the circumflex and acute marginal and 85 percentile stenosis of the LAD. Patient was referred to cardiothoracic seen and evaluated and was schedule elective bypass surgery with Dr. Galan which was done successfully today patient was intubated and placed on mechanical ventilation post surgery seen pulmonary and transferred to the intensive care unit, remain on vasodepressor along with insulin drip the blood sugar running marginal at the time. Patient is sedated on mechanical ventilation. 10/25: Patient remains in intensive care unit. He was successfully extubated around midnight. His pain is currently controlled. He is continued on norepinephrine and vasopressin as well as IV Cardizem and amiodarone. Patient is on insulin drip for blood sugar control. Pertty catheter in place with adequate urine output. Chest tubes remain in place. 10/26: Patient remains in intensive care unit. He has been seen by Dr. Chen for possible inpatient rehab. Patient has been afebrile, heart rate in the 70s to 80, blood pressure 93/53, pulse ox 93% on 10 L high flow nasal cannula. Patient had rapid is pulse ox yesterday afternoon while on nasal cannula and transitioned to high flow O2. Patient is using incentive spirometry at 500 ML's. 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 Repeat lab work this morning shows a hemoglobin of 7, white count 11.6, platelet count 125. BUN 17 and creatinine 0.53. Phosphorus 2.4, magnesium 2.4, AST 187, ALT 38. Blood sugars are running between 118 and 136. Plan to continue insulin drip another day and transitioned to long-acting and short acting insulins tomorrow. Patient is currently eating very little. Horse Shoe's catheter has been discontinued. He has had no episodes of atrial fibrillation. He remains on vasopressin. He is scheduled for 1 unit packed RBCs followed by Kannan. Patient is currently working with PT and OT. Objective - Vital Signs Vital signs: Vital Signs Temp 98.9 F 10/26/18 04:00 Pulse 77 10/26/18 07:00 Resp 23 10/26/18 07:00 BP 93/53 10/26/18 07:00 Pulse Ox 93 L 10/26/18 07:00 Intake & Output 10/25/18 10/26/18 10/26/18 18:59 06:59 18:59 Intake Total 1201.265 486.750 33.482 Output Total 1015 765 120 Balance 186.265 -278.250 -86.518 Weight 83 kg 82.7 kg Intake: IV 932.4 316.6 26 0.9 Pressure Bag 81 72 6 Albumin Human 5% 250 ml 500 In Empty Bag 1 bag @ 250 mls/hr IVPB Q1HR PRN Rx#: [id number] Diltiazem 125 mg In 10.0 Sodium Chloride 0.9% 100 ml @ 5 MG/HR 5 mls/hr IV .Q24H [facility] Rx#:[id number] Lactated Ringers 1,000 ml 300 240 20 @ 20 mls/hr IV .Q24H [facility] Rx#:[id number] Vasopressin 41.4 4.6 Intake, IV Titration 148.865 170.150 7.482 Amount Insulin Regular 100 unit 36.554 27.328 7.482 In Sodium Chloride 0.9% 100 ml @ Per Protocol IV .Q0M [facility] Rx#:[id number] Norepinephrine 4 mg In 112.311 136.090 Sodium Chloride 0.9% 250 ml @ 0.05 MCG/KG/MIN 13. 826 mls/hr IV .[id number] [facility] Rx#:[id number] Sodium Chloride 0.9% 150 6.732 ml @ 0.02 UNITS/MIN 3.06 mls/hr IV .Q24H [facility] with Vasopressin 60 unit Rx#: [id number] Oral 120 Output: Chest Tube Drainage 460 360 90 Left Lateral Chest 200 130 50 Right Pleural/Mediastinal 260 230 40 Urine 555 405 30 Other: Voiding Method Indwelling Catheter Indwelling Catheter ABP, PAP, CO, CI - Last Documented Arterial Blood Pressure 73/58 Pulmonary Artery Pressure 35/17 Cardiac Output 12 Cardiac Index 3.2 - Exam Review of Systems CONSTITUTIONAL: Well-developed. Denies fever, denies chills EYES: No icterus sclerae, no conjunctivitis. EARS, NOSE, MOUTH, THROAT, and FACE: No sore throat, lymphadenopathy, carotid bruits or deformity. RESPIRATORY: He is on mechanical ventilation.. CARDIOVASCULAR: Post CABG mildly sedated no sign of bleed. GASTROINTESTINAL: Patient is sedated no diarrhea no sign of GI bleed. GENITOURINARY: Negative for Hematuria. With Pretty catheter in. INTEGUMENT/BREAST: Patient is sedated. HEMATOLOGIC/LYMPHATIC: Negative for bleed or purpura. MUSCULOSKELTAL: Patient is sedated. NEURLOGICAL: Patient is sedated. General Appearance: Patient is sitting in recliner at the bedside and appears to be comfortable and in no acute distress... Neck HEENT: Supple, no lymphadenopathy, no thyroid enlargement, no carotid bruits. Lungs: Decreased breath sounds in the left side no crackles or wheezes. Chest Wall: Decrease expansion with deep inspiration with chest tubes in place. Heart: Regular rate and rhythm, S1, S2 mild arrhythmia with S3., no murmur, rub or gallop. Back: Symmetric, no curvature, ROM normal, no CVA tenderness. Abdomen: Soft, non-tender, bowel sounds active all four quadrants, no masses, no organomegaly. Pretty catheter draining clear horace urine. Extremities: Extremities normal, atraumatic, no cyanosis or edema. Right side had minimum bleed from the graft site Pulses: 2+ and symmetric. Skin: Skin color, texture, tugor normal, no rashes or lesions. Neurologic: Patient is awake alert and oriented 3. No focal neural deficits. - Labs CBC & Chem 7: 10/26/18 04:37 10/26/18 04:04 Labs: Abnormal Lab Results - Last 24 Hours (Table) 10/24/18 10/25/18 10/25/18 Range/Units 06:25 08:33 10:24 WBC (3.8-10.6) k/uL RBC (4.30-5.90) m/uL Hgb (13.0-17.5) gm/dL Hct (39.0-53.0) % Plt Count (150-450) k/uL ABG pH (7.35-7.45) ABG pCO2 (35-45) mmHg ABG O2 Saturation (94-97) % Chloride (98-107) mmol/L Creatinine (0.66-1.25) mg/dL Glucose (74-99) mg/dL POC Glucose (mg/dL) 144 H 136 H (75-99) mg/dL Phosphorus (2.5-4.5) mg/dL Magnesium (1.6-2.3) mg/dL AST (17-59) U/L Alkaline Phosphatase (38-126) U/L Total Protein (6.3-8.2) g/dL Crossmatch See Detail 10/25/18 10/25/18 10/25/18 Range/Units 11:50 14:20 16:15 WBC (3.8-10.6) k/uL RBC (4.30-5.90) m/uL Hgb (13.0-17.5) gm/dL Hct (39.0-53.0) % Plt Count (150-450) k/uL ABG pH (7.35-7.45) ABG pCO2 (35-45) mmHg ABG O2 Saturation (94-97) % Chloride (98-107) mmol/L Creatinine (0.66-1.25) mg/dL Glucose (74-99) mg/dL POC Glucose (mg/dL) 122 H 129 H 130 H (75-99) mg/dL Phosphorus (2.5-4.5) mg/dL Magnesium (1.6-2.3) mg/dL AST (17-59) U/L Alkaline Phosphatase (38-126) U/L Total Protein (6.3-8.2) g/dL Crossmatch 10/25/18 10/25/18 10/25/18 Range/Units 18:13 18:52 20:03 WBC (3.8-10.6) k/uL RBC (4.30-5.90) m/uL Hgb (13.0-17.5) gm/dL Hct (39.0-53.0) % Plt Count (150-450) k/uL ABG pH 7.50 H (7.35-7.45) ABG pCO2 27 L (35-45) mmHg ABG O2 Saturation 98.1 H (94-97) % Chloride (98-107) mmol/L Creatinine (0.66-1.25) mg/dL Glucose (74-99) mg/dL POC Glucose (mg/dL) 139 H 140 H (75-99) mg/dL Phosphorus (2.5-4.5) mg/dL Magnesium (1.6-2.3) mg/dL AST (17-59) U/L Alkaline Phosphatase (38-126) U/L Total Protein (6.3-8.2) g/dL Crossmatch 10/25/18 10/26/18 10/26/18 Range/Units 23:06 01:05 03:08 WBC (3.8-10.6) k/uL RBC (4.30-5.90) m/uL Hgb (13.0-17.5) gm/dL Hct (39.0-53.0) % Plt Count (150-450) k/uL ABG pH (7.35-7.45) ABG pCO2 (35-45) mmHg ABG O2 Saturation (94-97) % Chloride (98-107) mmol/L Creatinine (0.66-1.25) mg/dL Glucose (74-99) mg/dL POC Glucose (mg/dL) 135 H 133 H 121 H (75-99) mg/dL Phosphorus (2.5-4.5) mg/dL Magnesium (1.6-2.3) mg/dL AST (17-59) U/L Alkaline Phosphatase (38-126) U/L Total Protein (6.3-8.2) g/dL Crossmatch 10/26/18 10/26/18 10/26/18 Range/Units 04:04 04:04 04:04 WBC (3.8-10.6) k/uL RBC 2.32 L (4.30-5.90) m/uL Hgb 6.8 L* (13.0-17.5) gm/dL Hct 20.8 L (39.0-53.0) % Plt Count 118 L (150-450) k/uL ABG pH (7.35-7.45) ABG pCO2 (35-45) mmHg ABG O2 Saturation (94-97) % Chloride 108 H (98-107) mmol/L Creatinine 0.53 L (0.66-1.25) mg/dL Glucose 106 H (74-99) mg/dL POC Glucose (mg/dL) 118 H (75-99) mg/dL Phosphorus 2.4 L (2.5-4.5) mg/dL Magnesium 2.4 H (1.6-2.3) mg/dL AST 187 H (17-59) U/L Alkaline Phosphatase 34 L (38-126) U/L Total Protein 5.5 L (6.3-8.2) g/dL Crossmatch 10/26/18 10/26/18 10/26/18 Range/Units 04:37 05:07 06:57 WBC 11.6 H (3.8-10.6) k/uL RBC 2.34 L (4.30-5.90) m/uL Hgb 7.0 L (13.0-17.5) gm/dL Hct 21.1 L (39.0-53.0) % Plt Count 125 L (150-450) k/uL ABG pH (7.35-7.45) ABG pCO2 (35-45) mmHg ABG O2 Saturation (94-97) % Chloride (98-107) mmol/L Creatinine (0.66-1.25) mg/dL Glucose (74-99) mg/dL POC Glucose (mg/dL) 118 H 136 H (75-99) mg/dL Phosphorus (2.5-4.5) mg/dL Magnesium (1.6-2.3) mg/dL AST (17-59) U/L Alkaline Phosphatase (38-126) U/L Total Protein (6.3-8.2) g/dL Crossmatch Assessment and Plan Plan: 1 post multiple vessel CABG: Patient is in ICU with Horse Shoe-Nabil catheter and multi ple central line and chest tube, still on vasopressor at this point, Cardizem drip watching for any arrhythmia still on insulin drip watch for any further hyperglycemia. 2 acute hypoxic respiratory failure requiring high flow nasal cannula. Patient was successfully extubated. Pulmonary medicine managing. 3 hyperlipidemia: We will resume atorvastatin as soon as he is able take oral meds. 4 history of cerebral palsy: Mild. 5 hyperglycemia without history of diabetes. Previous hemoglobin A1c 5.9: Remain on insulin drip and try to keep blood sugar below 150. 6 anemia post surgery: Continue to monitor. 7 BPH: Watch for any urinary retention still have Pretty catheter in. 8 arrhythmia: Remain on amiodarone drip post surgery and within expected. 9 GI prophylaxis: Patient remain on pantoprazole IV. 10 DVT prophylaxis: Remain on heparin 5000 units subcu in his 3 times a day. CODE STATUS: Full code. Dr. Galan thank you very much for the consult if I can be any further help to please let me know. Discharge plan: To be determined Impression and plan of care have been directed as dictated by the signing physician. Eleanor Greer nurse practitioner acting as scribe for signing phys ician.
[2018-10-26 11:27] LABS: Glucose,Whole Blood 125 mg/dL (75-99)
[2018-10-26] MEDS: LACTATED RINGERS 1,000 ML IV SCH (11:33)
[2018-10-26 11:48] LABS: Glucose,Whole Blood 124 mg/dL (75-99)
--- NOTE | 2018-10-26 12:33 | CDI ---
Documentation Clarification Form Date: 10/26/2018 11:55:36 AM From: Imani Conte RN CCDS Admit Date: 10/24/2018 5:35:00 AM Patient Name: Jeovany Mathew Visit Number: [id number] Discharge Date: ATTENTION: The Clinical Documentation Specialists (CDI) and [facility] Coding Staff appreciate your assistance in clarifying documentation. Please respond to the clarification below the line at the bottom and electronically sign. The CDI & [facility] Coding staff will review the response and follow-up if needed. Please note: Queries are made part of the Legal Health Record. If you have any questions, please contact the author of this message via ITS. Dr. Denilson Galan Acute Hypoxic Respiratory Failure is documented in the Internal Medicine Progress Note 10/26/2018 Patients Admitting Diagnosis: Coronary Artery Disease Post-Operative Diagnosis: Coronary Artery Disease Procedure performed: Coronary Artery Bypass Grafting x 4 Vessels History/Risk Factors: 53 year old male presented to [facility] for elective Coronary Artery Bypass Grafting. Medical history 40 year pack of smoking quit February 2019; Cerebral Palsy mild; Clinical Indicators: Extubated on 10/25/2018 00:58; High Flow Oxygen 10/25/2018 18:00 Treatment: Up to 10 L high flow oxygen Consults: Internal Medicine; Pulmonary In order to accurately reflect this patients severity of illness, please clarify if the post-operative diagnosis is: * Acute Hypoxic Respiratory failure due to (underlying co morbidities or other) * Acute hypoxic respiratory failure due to Surgical Procedure. * Other, please specify ____ * Unable to determine (Last Revision: September 2018) The patient was not in acute respiratory failure, he did have acute hypoxia related to lack of good pulmonary hygiene, namely poor use of incentive spirometry and effective coughing, this is an expected outcome of any patient who doesn't cough and deep breath and clear their lungs. MTDD
[2018-10-26] MEDS ORDERED: FUROSEMIDE 10 MG/ML 4 ML VIAL IV STA (12:44)
--- NOTE | 2018-10-26 15:18 | P.PN ---
Subjective Progress Note Date: 10/26/18 On 10/26/2018 the patient is postop day #2. The patient is doing well. No respiratory distress. Output from the pleural chest tubes are low and the patient's pleural chest tubes were removed. The mediastinal chest tube is still in place. The patient has picked up his own cardiac rhythm and the pacemaker is in a VVI mode at the rate of 50. The patient has a weaned off the norepinephrine infusion. Vasopressin is still running and this will be gradually weaned off today. The patient has no major history distress. Chest x-ray showing atelectatic changes in lung bases bilaterally. Chest tubes are all in place. The patient is using incentive spirometer. No evidence of any air leak. No evidence of any pneumothorax. Tolerating diet. Urine output is in the order of 30-35 mL an hour. Patient requires still oxygen at 10 L per minute nasal cannula. His pulse ox is around 94%. He is afebrile. Objective - Vital Signs Vital signs: Vital Signs Temp 99.0 F 10/26/18 11:38 Pulse 90 10/26/18 13:27 Resp 24 10/26/18 11:38 BP 124/80 10/26/18 11:38 Pulse Ox 94 L 10/26/18 11:38 Intake & Output 10/25/18 10/26/18 10/26/18 18:59 06:59 18:59 Intake Total 1201.265 486.750 215.931 Output Total 1015 765 455 Balance 186.265 -278.250 -239.069 Weight 83 kg 82.7 kg Intake: IV 932.4 316.6 130 0.9 Pressure Bag 81 72 30 Albumin Human 5% 250 ml 500 In Empty Bag 1 bag @ 250 mls/hr IVPB Q1HR PRN Rx#: [id number] Diltiazem 125 mg In 10.0 Sodium Chloride 0.9% 100 ml @ 5 MG/HR 5 mls/hr IV .Q24H [facility] Rx#:[id number] Lactated Ringers 1,000 ml 300 240 100 @ 20 mls/hr IV .Q24H [facility] Rx#:[id number] Vasopressin 41.4 4.6 Intake, IV Titration 148.865 170.150 25.931 Amount Insulin Regular 100 unit 36.554 27.328 12.237 In Sodium Chloride 0.9% 100 ml @ Per Protocol IV .Q0M [facility] Rx#:[id number] Norepinephrine 4 mg In 112.311 136.090 Sodium Chloride 0.9% 250 ml @ 0.05 MCG/KG/MIN 13. 826 mls/hr IV .[id number] [facility] Rx#:[id number] Sodium Chloride 0.9% 150 6.732 13.694 ml @ 0.02 UNITS/MIN 3.06 mls/hr IV .Q24H [facility] with Vasopressin 60 unit Rx#: [id number] Oral 120 60 Blood Product 0 Rc As-1 Unit 0 [id number] Output: Chest Tube Drainage 460 360 300 Left Lateral Chest 200 130 150 Right Pleural/Mediastinal 260 230 150 Urine 555 405 155 Other: Voiding Method Indwelling Catheter Indwelling Catheter Indwelling Catheter ABP, PAP, CO, CI - Last Documented Arterial Blood Pressure 156/119 Pulmonary Artery Pressure 35/17 Cardiac Output 12 Cardiac Index 3.2 - Exam - Constitutional General appearance: Present: cooperative, no acute distress - Respiratory Details: Lungs sounds diminished bilaterally. Respirations even, nonlabored. Currently on 9 L nasal cannula with oxygen saturation 92%. Only able to achieve 500 mL on his incentive spirometry. Mediastinal/right pleural chest tube to continuous wall suction, 50 mL serosanguineous drainage overnight, 450 mL in the last 24 hours. Left pleural chest tube to continuous wall suction, 60 mL serosanguineous drainage overnight, 250 mL in the last 24 hours. No air leaks present. - Cardiovascular Details: S1, S2 present. Regular rate and rhythm, sinus rhythm on telemetry. Sternum stable. A/V epicardial pacemaker wires present, connected to generator, VVI mode with backup rate 50 bpm. Palpable peripheral pulses bilaterally. No edema present. No calf pain or tenderness noted. Right internal jugular Cordis, right radial arterial line present. Remains on IV vasopressin, levo discontinued at 0200. Heart hugger in place with patient demonstrating appropriate use. Antiembolism stockings, SCDs present. - Gastrointestinal Gastrointestinal Comment(s): Abdomen soft, nontender, nondistended. Active bowel sounds 4 quadrants present. Tolerating diet. Negative flatus. - Genitourinary Genitourinary Comment(s): Pretty present draining clear, yellow urine. Output overnight 30-35 mL per hour. - Integumentary Integumentary Comment(s): Skin is warm and dry with evidence of good perfusion. Anterior chest incision well approximated and covered with dry intact dressing. Chest tube sites covered with dry intact dressing. Left radial harvest site well approximated, CURTIS drain present with minimal serosanguineous drainage, patient able to move all fingers, strong armature winder helper repair, positive feeling but does have some numbness. Right lower extremity EVH site well approximated without drainage. - Neurologic Neurologic: Present: CNII-XII intact - Musculoskeletal Musculoskeletal: Present: gait normal, generalized weakness, strength equal bilaterally - Psychiatric Psychiatric: Present: A&O x's 3, appropriate affect, intact judgment & insight - Labs CBC & Chem 7: 10/26/18 04:37 10/26/18 04:04 Labs: Abnormal Lab Results - Last 24 Hours (Table) 10/24/18 10/25/18 10/25/18 Range/Units 06:25 16:15 18:13 WBC (3.8-10.6) k/uL RBC (4.30-5.90) m/uL Hgb (13.0-17.5) gm/dL Hct (39.0-53.0) % Plt Count (150-450) k/uL ABG pH (7.35-7.45) ABG pCO2 (35-45) mmHg ABG O2 Saturation (94-97) % Chloride (98-107) mmol/L Creatinine (0.66-1.25) mg/dL Glucose (74-99) mg/dL POC Glucose (mg/dL) 130 H 139 H (75-99) mg/dL Phosphorus (2.5-4.5) mg/dL Magnesium (1.6-2.3) mg/dL AST (17-59) U/L Alkaline Phosphatase (38-126) U/L Total Protein (6.3-8.2) g/dL Crossmatch See Detail 10/25/18 10/25/18 10/25/18 Range/Units 18:52 20:03 23:06 WBC (3.8-10.6) k/uL RBC (4.30-5.90) m/uL Hgb (13.0-17.5) gm/dL Hct (39.0-53.0) % Plt Count (150-450) k/uL ABG pH 7.50 H (7.35-7.45) ABG pCO2 27 L (35-45) mmHg ABG O2 Saturation 98.1 H (94-97) % Chloride (98-107) mmol/L Creatinine (0.66-1.25) mg/dL Glucose (74-99) mg/dL POC Glucose (mg/dL) 140 H 135 H (75-99) mg/dL Phosphorus (2.5-4.5) mg/dL Magnesium (1.6-2.3) mg/dL AST (17-59) U/L Alkaline Phosphatase (38-126) U/L Total Protein (6.3-8.2) g/dL Crossmatch 10/26/18 10/26/18 10/26/18 Range/Units 01:05 03:08 04:04 WBC (3.8-10.6) k/uL RBC 2.32 L (4.30-5.90) m/uL Hgb 6.8 L* (13.0-17.5) gm/dL Hct 20.8 L (39.0-53.0) % Plt Count 118 L (150-450) k/uL ABG pH (7.35-7.45) ABG pCO2 (35-45) mmHg ABG O2 Saturation (94-97) % Chloride (98-107) mmol/L Creatinine (0.66-1.25) mg/dL Glucose (74-99) mg/dL POC Glucose (mg/dL) 133 H 121 H (75-99) mg/dL Phosphorus (2.5-4.5) mg/dL Magnesium (1.6-2.3) mg/dL AST (17-59) U/L Alkaline Phosphatase (38-126) U/L Total Protein (6.3-8.2) g/dL Crossmatch 10/26/18 10/26/18 10/26/18 Range/Units 04:04 04:04 04:37 WBC 11.6 H (3.8-10.6) k/uL RBC 2.34 L (4.30-5.90) m/uL Hgb 7.0 L (13.0-17.5) gm/dL Hct 21.1 L (39.0-53.0) % Plt Count 125 L (150-450) k/uL ABG pH (7.35-7.45) ABG pCO2 (35-45) mmHg ABG O2 Saturation (94-97) % Chloride 108 H (98-107) mmol/L Creatinine 0.53 L (0.66-1.25) mg/dL Glucose 106 H (74-99) mg/dL POC Glucose (mg/dL) 118 H (75-99) mg/dL Phosphorus 2.4 L (2.5-4.5) mg/dL Magnesium 2.4 H (1.6-2.3) mg/dL AST 187 H (17-59) U/L Alkaline Phosphatase 34 L (38-126) U/L Total Protein 5.5 L (6.3-8.2) g/dL Crossmatch 10/26/18 10/26/18 10/26/18 Range/Units 05:07 06:57 08:43 WBC (3.8-10.6) k/uL RBC (4.30-5.90) m/uL Hgb (13.0-17.5) gm/dL Hct (39.0-53.0) % Plt Count (150-450) k/uL ABG pH (7.35-7.45) ABG pCO2 (35-45) mmHg ABG O2 Saturation (94-97) % Chloride (98-107) mmol/L Creatinine (0.66-1.25) mg/dL Glucose (74-99) mg/dL POC Glucose (mg/dL) 118 H 136 H 120 H (75-99) mg/dL Phosphorus (2.5-4.5) mg/dL Magnesium (1.6-2.3) mg/dL AST (17-59) U/L Alkaline Phosphatase (38-126) U/L Total Protein (6.3-8.2) g/dL Crossmatch 10/26/18 10/26/18 Range/Units 10:42 11:36 WBC (3.8-10.6) k/uL RBC (4.30-5.90) m/uL Hgb (13.0-17.5) gm/dL Hct (39.0-53.0) % Plt Count (150-450) k/uL ABG pH (7.35-7.45) ABG pCO2 (35-45) mmHg ABG O2 Saturation (94-97) % Chloride (98-107) mmol/L Creatinine (0.66-1.25) mg/dL Glucose (74-99) mg/dL POC Glucose (mg/dL) 125 H 124 H (75-99) mg/dL Phosphorus (2.5-4.5) mg/dL Magnesium (1.6-2.3) mg/dL AST (17-59) U/L Alkaline Phosphatase (38-126) U/L Total Protein (6.3-8.2) g/dL Crossmatch Assessment and Plan Plan: 1 multivessel coronary disease and the patient is status post four-vessel bypass surgery. Postop day #2. The patient remains on vasopressin for hemodynamic s upport. Norepinephrine infusion has been discontinued the patient has again his underlying cardiac rhythm and the pacemaker is in a VVI mode at the rate of 50. He is producing good amount of urine output. He'll be given a unit of packed RBC. He'll be given Lasix following that. He is hemodynamically stable. He remains on 10 L of oxygen nasal cannula. This should be gradually weaned off. Anticipating improvement and they oxygenation after removal of the chest tubes. Output from the pleural chest tubes are minimal. These will be taken out today. Mediastinal chest tube in Place. 2 sinus bradycardia, recovered and the patient is in a VVI mode at the rate of 50 3 ventilator management as the patient is currently on 10 L of oxygen nasal cannula 4 history of cerebral palsy 5 history of hyperlipidemia 6 cerebral palsy 7 bilateral carotid artery stenosis in the order of 70% 8 preoperative E. coli UTI, treated 9 postoperative acute blood loss anemia, expected outcome of surgery, hemoglobin is at 7.0 in stable and the patient will be given a unit of packed RBC her surgical recommendation Plan Continue aspirin and Plavix and statins. Wean off pressors if possible. Hold b eta blockers and the patient is off pressors. Cardizem will be transitioned to oral. Continue bronchodilators. Monitor the output from the chest tube. Incentive spirometer. Keep the Pretty catheter in place. Remove the pleural chest tubes and keep diminished on chest tube in place. Continue using incentive spirometer. Wean off FiO2 as tolerated. The pacemaker in a echo VVI mode at a rate of 50. We'll continue to follow. The patient was kept in ICU for now.
[2018-10-26 15:31] LABS: Glucose,Whole Blood 102 mg/dL (75-99)
[2018-10-26 17:17] LABS: Glucose,Whole Blood 119 mg/dL (75-99)
[2018-10-26 19:18] LABS: Glucose,Whole Blood 116 mg/dL (75-99)
[2018-10-26 19:46] LABS: Basophils % (A) 0 %; Eosinophils # (A) 0.2 k/uL (0-0.7); Eosinophils % (A) 1 %; HCT 25.7 % (39.0-53.0); Lymphocytes # (A) 1.7 k/uL (1.0-4.8); Lymphocytes % (A) 13 %; MCH 30.2 pg (25.0-35.0); MCHC 32.9 g/dL (31.0-37.0); MCV 91.7 fL (80.0-100.0); Mean Platelet Volume 7.5; Monocytes # (A) 0.8 k/uL (0-1.0); Monocytes % (A) 6 %; Neutrophils # (A) 10.8 k/uL (1.3-7.7); Neutrophils % (A) 80 %; Platelet Count 142 k/uL (150-450); RDW 14.2 % (11.5-15.5); WBC 13.5 k/uL (3.8-10.6)
[2018-10-26 19:52] LABS: HGB 8.5 gm/dL (13.0-17.5)
[2018-10-26] MEDS: METOPROLOL TARTRATE 12.5 MG TAB PO SCH (21:35)
[2018-10-26] MEDS: SENNOSIDES-DOCUSATE SODIUM 1 EACH TAB PO SCH (21:35)
[2018-10-26 21:55] LABS: Glucose,Whole Blood 92 mg/dL (75-99)
[2018-10-27] MEDS: DILTIAZEM ORAL 30 MG TAB PO SCH ×4 (00:41→18:53)
[2018-10-27] MEDS: HEPARIN SODIUM,PORCINE 5,000 UNIT/ML 1 ML VIAL SQ SCH ×3 (00:41→16:09)
[2018-10-27] MEDS: KETOROLAC 30 MG/ML 1 ML VIAL IVP SCH ×4 (00:42→18:53)
[2018-10-27 07:14] LABS: Glucose,Whole Blood 112 mg/dL (75-99)
--- NOTE | 2018-10-27 07:18 | XR ---
EXAMINATION TYPE: XR chest 1V portable DATE OF EXAM: 10/27/2018 COMPARISON: 10/26/2018 INDICATION: Postop cardiac surgery TECHNIQUE: Single frontal view of the chest is obtained. FINDINGS: The heart size is mildly prominent. The pulmonary vasculature is normal. Bibasilar infiltrates are present slightly worsened over the interval. Correlate for atelectasis. Wei ateral chest tubes are present. No pneumothorax is evident. Right central venous catheter sheath khanh ins in position. Mediastinal tube has been removed. Sternotomy wires are in the midline. IMPRESSION: 1. Slight increase of bibasilar infiltrates suggestive for atelectasis. 2. Mild cardiomegaly. 3. Multiple lines and catheters discussed above.
[2018-10-27] MEDS: IPRATROPIUM-ALBUTEROL 3 ML NEB INHALATION SCH ×4 (07:19→20:20)
[2018-10-27 07:22] LABS: Basophils % (A) 0 %; Eosinophils # (A) 0.2 k/uL (0-0.7); Eosinophils % (A) 2 %; HCT 27.2 % (39.0-53.0); HGB 9.3 gm/dL (13.0-17.5); Lymphocytes # (A) 1.3 k/uL (1.0-4.8); Lymphocytes % (A) 11 %; MCH 30.7 pg (25.0-35.0); MCV 90.4 fL (80.0-100.0); Mean Platelet Volume 7.5; Monocytes # (A) 0.6 k/uL (0-1.0); Monocytes % (A) 5 %; Neutrophils # (A) 9.5 k/uL (1.3-7.7); Neutrophils % (A) 81 %; Platelet Count 137 k/uL (150-450); RBC 3.01 m/uL (4.30-5.90); RDW 14.7 % (11.5-15.5); WBC 11.8 k/uL (3.8-10.6)
--- NOTE | 2018-10-27 07:36 | P.PN ---
Subjective Progress Note Date: 10/27/18 Principal diagnosis: Coronary artery disease and status post CABG This is a pleasant 53-year-old gentleman who was experiencing chest discomfort and underwent a heart catheterization by Dr. Prajapati and was found to have severe triple-vessel CAD where the patient was referred for coronary artery bypass grafting. He underwent coronary artery bypass grafting 2 days ago. On follow-up with the patient today, October [id number], the patient is doing better clinically. He seems to be more awake. Yesterday he was given one unit of packed RBC as well as Lasix IV. We don't have the kidney function this morning. He is on dual antiplatelet therapy and the metoprolol was initiated as well. Objective - Vital Signs Vital signs: Vital Signs Temp 98.9 F 10/27/18 04:00 Pulse 81 10/27/18 07:32 Resp 12 10/27/18 06:00 BP 125/76 10/27/18 06:00 Pulse Ox 93 L 10/27/18 07:22 Intake & Output 10/26/18 10/27/18 10/27/18 18:59 06:59 18:59 Intake Total 799.825 479 23 Output Total 1715 1010 0 Balance -915.175 -531 23 Weight 79.2 kg Intake: IV 291 279 23 0.9 Pressure Bag 51 39 3 Lactated Ringers 1,000 ml 240 240 20 @ 20 mls/hr IV .Q24H JENNIFER Rx#:[id number] Intake, IV Titration 38.825 Amount Insulin Regular 100 unit 25.131 In Sodium Chloride 0.9% 100 ml @ Per Protocol IV .Q0M JENNIFER Rx#:[id number] Sodium Chloride 0.9% 150 13.694 ml @ 0.02 UNITS/MIN 3.06 mls/hr IV .Q24H JENNIFER with Vasopressin 60 unit Rx#: [id number] Oral 160 200 Blood Product 310 Rc As-1 Unit 310 [id number] Output: Chest Tube Drainage 300 275 Left Lateral Chest 150 110 Right Pleural 0 165 Right Pleural/Mediastinal 150 Urine 1415 735 0 Other: Voiding Method Indwelling Catheter Indwelling Catheter ABP, PAP, CO, CI - Last Documented Arterial Blood Pressure 154/69 Pulmonary Artery Pressure 35/17 Cardiac Output 12 Cardiac Index 3.2 - Constitutional General appearance: Present: no acute distress - Respiratory Respiratory: bilateral: CTA - Cardiovascular Rhythm: regular Heart sounds: normal: S1, S2 - Labs CBC & Chem 7: 10/27/18 07:11 10/26/18 04:04 Labs: Abnormal Lab Results - Last 24 Hours (Table) 10/24/18 10/26/18 10/26/18 Range/Units 06:25 08:43 10:42 WBC (3.8-10.6) k/uL RBC (4.30-5.90) m/uL Hgb (13.0-17.5) gm/dL Hct (39.0-53.0) % Plt Count (150-450) k/uL Neutrophils # (1.3-7.7) k/uL POC Glucose (mg/dL) 120 H 125 H (75-99) mg/dL Crossmatch See Detail 10/26/18 10/26/18 10/26/18 Range/Units 11:36 15:19 17:05 WBC (3.8-10.6) k/uL RBC (4.30-5.90) m/uL Hgb (13.0-17.5) gm/dL Hct (39.0-53.0) % Plt Count (150-450) k/uL Neutrophils # (1.3-7.7) k/uL POC Glucose (mg/dL) 124 H 102 H 119 H (75-99) mg/dL Crossmatch 10/26/18 10/26/18 10/27/18 Range/Units 19:00 19:07 07:03 WBC 13.5 H (3.8-10.6) k/uL RBC 2.80 L (4.30-5.90) m/uL Hgb 8.5 L D (13.0-17.5) gm/dL Hct 25.7 L (39.0-53.0) % Plt Count 142 L (150-450) k/uL Neutrophils # 10.8 H (1.3-7.7) k/uL POC Glucose (mg/dL) 116 H 112 H (75-99) mg/dL Crossmatch 10/27/18 Range/Units 07:11 WBC 11.8 H (3.8-10.6) k/uL RBC 3.01 L (4.30-5.90) m/uL Hgb 9.3 L (13.0-17.5) gm/dL Hct 27.2 L (39.0-53.0) % Plt Count 137 L (150-450) k/uL Neutrophils # 9.5 H (1.3-7.7) k/uL POC Glucose (mg/dL) (75-99) mg/dL Crossmatch Assessment and Plan Assessment: Assessment #1 severe triple-vessel CAD and status post CABG #2 hyperlipidemia Plan #1 continue the current medical regimen #2 continue dual antiplatelet therapy as well as a statin #3 continue metoprolol #4 follow-up with the patient
[2018-10-27 07:40] LABS: ALT 47 U/L (21-72); AST 138 U/L (17-59); Albumin 3.6 g/dL (3.5-5.0); Alkaline Phosphatase 35 U/L (38-126); Anion Gap 6 mmol/L; Blood Urea Nitrogen 18 mg/dL (9-20); Calcium 8.5 mg/dL (8.4-10.2); Carbon Dioxide 25 mmol/L (22-30); Chloride 110 mmol/L (98-107); Glucose 102 mg/dL (74-99); Magnesium 2.1 mg/dL (1.6-2.3); Phosphorus 2.2 mg/dL (2.5-4.5); Potassium 4.2 mmol/L (3.5-5.1); Sodium 141 mmol/L (137-145); Total Bilirubin 0.8 mg/dL (0.2-1.3); Total Protein 5.7 g/dL (6.3-8.2)
[2018-10-27] MEDS ORDERED: FUROSEMIDE 10 MG/ML 4 ML VIAL IV STA (08:38)
[2018-10-27] MEDS: CLOPIDOGREL 75 MG TAB PO SCH (09:14)
[2018-10-27] MEDS: FERROUS SULFATE 325 MG TAB PO SCH ×2 (09:14→18:52)
[2018-10-27] MEDS: ATORVASTATIN 40 MG TAB PO SCH (09:14)
[2018-10-27] MEDS: ASPIRIN 325 MG TAB PO SCH (09:14)
[2018-10-27] MEDS: PANTOPRAZOLE 40 MG TABLET PO SCH (09:14)
[2018-10-27] MEDS: ASCORBIC ACID 500 MG TAB PO SCH ×2 (09:14→18:52)
[2018-10-27] MEDS: MUPIROCIN 2% OINT 22 GM TUBE NASAL SCH ×2 (09:29→20:57)
--- NOTE | 2018-10-27 10:21 | P.PN ---
Subjective Progress Note Date: 10/27/18 Principal diagnosis: Severe triple vessel coronary artery disease with preserved LV function. Previous medical history of hypertension, hyperlipidemia, previous tobacco dependence with preoperative FEV1 94% of predicted, cerebral palsy, bilateral carotid artery stenosis 70%, and family history of premature coronary artery disease. Preoperative E coli urinary tract infection treated with Cipro for 1 week. POD#3 coronary artery bypass graft surgery with left internal mammary artery to the left anterior descending coronary artery, left radial artery to the first obtuse marginal artery, reverse saphenous vein graft to the first diagonal artery, reverse saphenous vein graft to the posterior lateral branch of the right coronary artery. Endoscopic harvest of the right greater saphenous vein and the left radial artery. Epiaortic scanning. Intraoperative transesphageal echocardiogram. Postoperative acute blood loss anemia, expected secondary to cardiopulmonary bypass pump and hemodilution. The patient is currently sitting up in the recliner in the intensive care unit in no acute distress. He does complain of post surgical pain, denies shortness of breath. Remains in normal sinus rhythm. Hemodynamically stable on no inotropes or pressors. Right/left chest tubes present. Received 1 unit packed red blood cells followed by 40 mg IV Lasix yesterday with excellent diuresis. No other complaints. Objective - Vital Signs Vital signs: Vital Signs Temp 99.1 F 10/27/18 08:00 Pulse 93 10/27/18 09:00 Resp 26 H 10/27/18 09:00 BP 101/54 10/27/18 09:00 Pulse Ox 84 L 10/27/18 09:00 Intake & Output 10/26/18 10/27/18 10/27/18 18:59 06:59 18:59 Intake Total 799.825 479 69 Output Total 1715 1010 30 Balance -915.175 -531 39 Weight 79.2 kg Intake: IV 291 279 69 0.9 Pressure Bag 51 39 9 Lactated Ringers 1,000 ml 240 240 60 @ 20 mls/hr IV .Q24H JENNIFER Rx#:[id number] Intake, IV Titration 38.825 Amount Insulin Regular 100 unit 25.131 In Sodium Chloride 0.9% 100 ml @ Per Protocol IV .Q0M JENNIFER Rx#:[id number] Sodium Chloride 0.9% 150 13.694 ml @ 0.02 UNITS/MIN 3.06 mls/hr IV .Q24H JENNIFER with Vasopressin 60 unit Rx#: [id number] Oral 160 200 Blood Product 310 Rc As-1 Unit 310 [id number] Output: Chest Tube Drainage 300 275 30 Left Lateral Chest 150 110 20 Right Pleural 0 165 10 Right Pleural/Mediastinal 150 Urine 1415 735 0 Other: Voiding Method Indwelling Catheter Indwelling Catheter ABP, PAP, CO, CI - Last Documented Arterial Blood Pressure 154/69 Pulmonary Artery Pressure 35/17 Cardiac Output 12 Cardiac Index 3.2 - Constitutional General appearance: Present: cooperative, no acute distress - Respiratory Details: Lungs sounds diminished bilaterally. Respirations even, nonlabored. Currently on 6 L nasal cannula with oxygen saturation 93%. Able to achieve 750 mL on his incentive spirometry. Right pleural chest tube to continuous wall suction, 115 mL serous drainage overnight, 200 mL in the last 24 hours. Left pleural chest tube to continuous wall suction, 10 mL serous drainage overnight, 300 mL in the last 24 hours. No air leaks present. - Cardiovascular Details: S1, S2 present. Regular rate and rhythm, sinus rhythm on telemetry. Sternum stable. A/V epicardial pacemaker wires present, grounded. Palpable peripheral pulses bilaterally. No edema present. No calf pain or tenderness noted. Right internal jugular Cordis present. Heart hugger in place with patient demonstrating appropriate use. Antiembolism stockings, SCDs present. - Gastrointestinal Gastrointestinal Comment(s): Abdomen soft, nontender, nondistended. Active bowel sounds 4 quadrants present. Tolerating diet. Positive flatus. - Genitourinary Genitourinary Comment(s): Pretty discontinued this morning. Output overnight 30-50 mL an hour, 1400 mL diuresis after IV Lasix given yesterday. - Integumentary Integumentary Comment(s): Skin is warm and dry with evidence of good perfusion. Anterior chest incision well approximated and covered with dry intact dressing. Chest tube sites covered with dry intact dressing. 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 Right lower extremity EVH site well approximated without drainage. - Neurologic Neurologic: Present: CNII-XII intact - Musculoskeletal Musculoskeletal: Present: gait normal, strength equal bilaterally - Psychiatric Psychiatric: Present: A&O x's 3, appropriate affect, intact judgment & insight - Allied health notes Allied health notes reviewed: nursing - Labs CBC & Chem 7: 10/27/18 07:11 10/27/18 07:11 Labs: Abnormal Lab Results - Last 24 Hours (Table) 10/24/18 10/26/18 10/26/18 Range/Units 06:25 10:42 11:36 WBC (3.8-10.6) k/uL RBC (4.30-5.90) m/uL Hgb (13.0-17.5) gm/dL Hct (39.0-53.0) % Plt Count (150-450) k/uL Neutrophils # (1.3-7.7) k/uL Chloride (98-107) mmol/L Creatinine (0.66-1.25) mg/dL Glucose (74-99) mg/dL POC Glucose (mg/dL) 125 H 124 H (75-99) mg/dL Phosphorus (2.5-4.5) mg/dL AST (17-59) U/L Alkaline Phosphatase (38-126) U/L Total Protein (6.3-8.2) g/dL Crossmatch See Detail 10/26/18 10/26/18 10/26/18 Range/Units 15:19 17:05 19:00 WBC 13.5 H (3.8-10.6) k/uL RBC 2.80 L (4.30-5.90) m/uL Hgb 8.5 L D (13.0-17.5) gm/dL Hct 25.7 L (39.0-53.0) % Plt Count 142 L (150-450) k/uL Neutrophils # 10.8 H (1.3-7.7) k/uL Chloride (98-107) mmol/L Creatinine (0.66-1.25) mg/dL Glucose (74-99) mg/dL POC Glucose (mg/dL) 102 H 119 H (75-99) mg/dL Phosphorus (2.5-4.5) mg/dL AST (17-59) U/L Alkaline Phosphatase (38-126) U/L Total Protein (6.3-8.2) g/dL Crossmatch 10/26/18 10/27/18 10/27/18 Range/Units 19:07 07:03 07:11 WBC 11.8 H (3.8-10.6) k/uL RBC 3.01 L (4.30-5.90) m/uL Hgb 9.3 L (13.0-17.5) gm/dL Hct 27.2 L (39.0-53.0) % Plt Count 137 L (150-450) k/uL Neutrophils # 9.5 H (1.3-7.7) k/uL Chloride (98-107) mmol/L Creatinine (0.66-1.25) mg/dL Glucose (74-99) mg/dL POC Glucose (mg/dL) 116 H 112 H (75-99) mg/dL Phosphorus (2.5-4.5) mg/dL AST (17-59) U/L Alkaline Phosphatase (38-126) U/L Total Protein (6.3-8.2) g/dL Crossmatch 10/27/18 Range/Units 07:11 WBC (3.8-10.6) k/uL RBC (4.30-5.90) m/uL Hgb (13.0-17.5) gm/dL Hct (39.0-53.0) % Plt Count (150-450) k/uL Neutrophils # (1.3-7.7) k/uL Chloride 110 H (98-107) mmol/L Creatinine 0.57 L (0.66-1.25) mg/dL Glucose 102 H (74-99) mg/dL POC Glucose (mg/dL) (75-99) mg/dL Phosphorus 2.2 L (2.5-4.5) mg/dL AST 138 H (17-59) U/L Alkaline Phosphatase 35 L (38-126) U/L Total Protein 5.7 L (6.3-8.2) g/dL Crossmatch - Imaging and Cardiology Chest x-ray: report reviewed, image reviewed Assessment and Plan Assessment: 1. Severe triple-vessel coronary artery disease with preserved LV function, status post CABG 4 2. Hypertension, currently hypotensive on small dose vasopressors 3. Hyperlipidemia 4. Previous tobacco dependence with preoperative FEV1 94% of predicted 5. Cerebral palsy 6. Bilateral carotid artery stenosis 70% 7. Family history of premature coronary artery disease 8. Preoperative E. coli urinary tract infection, treated 9. Postoperative acute blood loss anemia, expected Plan: 1. Continue aspirin, statin, Plavix. Beta blockers restarted last night, will increase as tolerated. 2. Continue Cardizem for radial artery spasm prophylaxis. 3. Wean O2 as tolerated. Encourage incentive spirometry use 10 times every hour while awake. 4. Bronchodilators per pulmonology. Encourage continued smoking cessation. 5. Increase activity, ambulate as tolerated. PT/OT/cardiac rehab following. 6. Will monitor daily labs, chest x-rays. Electrolyte replacement per protocol. No further blood transfusion. 7. Pain management with current medication regimen. 8. Insulin management per primary care service. 9. GI/DVT prophylaxis. 10. Will give IV lasix today. 11. May discontinue cordis if able to obtain peripheral IV site. 12. Will continue left/right pleural chest tubes for another 24 hours. 13. Anticipate need for rehab at discharge, Dr. Chen consulted for IPR. 14. [place]tic[place] [facility] [place]. Feel patient needs one more day of close monitoring in the intensive care unit. 15. More recommendations to follow as patient progresses. Time with Patient: Greater than 30
[2018-10-27] MEDS: METOPROLOL TARTRATE 12.5 MG TAB PO SCH ×2 (12:19→22:35)
[2018-10-27] MEDS: LACTATED RINGERS 1,000 ML IV SCH (12:20)
[2018-10-27 12:26] LABS: Glucose,Whole Blood 78 mg/dL (75-99)
--- NOTE | 2018-10-27 13:15 | P.PN ---
Subjective Progress Note Date: 10/27/18 53-year-old male one of Dr. Frank patient with mild degree of cerebral palsy who has history of hypertension hyperlipidemia and coronary artery disease with heart catheter 2 weeks ago showed 99 percentile blockage of the RCA 60% of the PLB 90% stenosis of the circumflex and acute marginal and 85 percentile stenosis of the LAD. Patient was referred to cardiothoracic seen and evaluated and was schedule elective bypass surgery with Dr. Galan which was done successfully today patient was intubated and placed on mechanical ventilation post surgery seen pulmonary and transferred to the intensive care unit, remain on vasodepressor along with insulin drip the blood sugar running marginal at the time. Patient is sedated on mechanical ventilation. 10/25: Patient remains in intensive care unit. He was successfully extubated around midnight. His pain is currently controlled. He is continued on norepinephrine and vasopressin as well as IV Cardizem and amiodarone. Patient is on insulin drip for blood sugar control. Pretty catheter in place with adequate urine output. Chest tubes remain in place. 10/26: Patient remains in intensive care unit. He has been seen by Dr. Chen for possible inpatient rehab. Patient has been afebrile, heart rate in the 70s to 80, blood pressure 93/53, pulse ox 93% on 10 L high flow nasal cannula. Patient had rapid is pulse ox yesterday afternoon while on nasal cannula and transitioned to high flow O2. Patient is using incentive spirometry at 500 ML's. 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 Repeat lab work this morning shows a hemoglobin of 7, white count 11.6, platelet count 125. BUN 17 and creatinine 0.53. Phosphorus 2.4, magnesium 2.4, AST 187, ALT 38. Blood sugars are running between 118 and 136. Plan to continue insulin drip another day and transitioned to long-acting and short acting insulins tomorrow. Patient is currently eating very little. [place]'s catheter has been discontinued. He has had no episodes of atrial fibrillation. He remains on vasopressin. He is scheduled for 1 unit packed RBCs followed by Lasix. Patient is currently working with PT and OT. 10/27: Patient sitting up in the chair he remains in the intensive care unit he denies any chest pain is less short of breath he continues to have chest tubes in place, he continued to have the pacer in place, he did receive an extra dose of Lasix today, he is off the pressors at this time and he continues to progress in a positive manner. Objective - Vital Signs Vital signs: Vital Signs Temp 98.9 F 10/27/18 04:00 Pulse 81 10/27/18 07:32 Resp 12 10/27/18 06:00 BP 125/76 10/27/18 06:00 Pulse Ox 93 L 10/27/18 07:22 Intake & Output 10/26/18 10/27/18 10/27/18 18:59 06:59 18:59 Intake Total 799.825 479 23 Output Total 1715 1010 0 Balance -915.175 -531 23 Weight 79.2 kg Intake: IV 291 279 23 0.9 Pressure Bag 51 39 3 Lactated Ringers 1,000 ml 240 240 20 @ 20 mls/hr IV .Q24H JENN[facility]ER Rx#:[id number] Intake, IV Titration 38.825 Amount Insulin Regular 100 unit 25.131 In Sodium Chloride 0.9% 100 ml @ Per Protocol IV .Q0M JENNIFER Rx#:[id number] Sodium Chloride 0.9% 150 13.694 ml @ 0.02 UNITS/MIN 3.06 mls/hr IV .Q24H JENNIFER with Vasopressin 60 unit Rx#: [id number] Oral 160 200 Blood Product 310 Rc As-1 Unit 310 [id number] Output: Chest Tube Drainage 300 275 Left Lateral Chest 150 110 Right Pleural 0 165 Right Pleural/Mediastinal 150 Urine 1415 735 0 Other: Voiding Method Indwelling Catheter Indwelling Catheter ABP, PAP, CO, CI - Last Documented Arterial Blood Pressure 154/69 Pulmonary Artery Pressure 35/17 Cardiac Output 12 Cardiac Index 3.2 - Exam Review of Systems CONSTITUTIONAL: Well-developed. Denies fever, denies chills EYES: No icterus sclerae, no conjunctivitis. EARS, NOSE, MOUTH, THROAT, and FACE: No sore throat, lymphadenopathy, carotid bruits or deformity. RESPIRATORY: He is on mechanical ventilation.. CARDIOVASCULAR: Post CABG, no chest pain, less short of breath, no pleurisy. GASTROINTESTINAL: Patient is sedated no diarrhea no sign of GI bleed. GENITOURINARY: Negative for Hematuria. With Pretty catheter in. INTEGUMENT/BREAST: Negative. HEMATOLOGIC/LYMPHATIC: Negative for bleed or purpura. MUSCULOSKELTAL: Patient is sedated. NEURLOGICAL: Patient is more awake today. General Appearance: Patient is sitting in recliner at the bedside and appears to be comfortable and in no acute distress... Neck HEENT: Supple, no lymphadenopathy, no thyroid enlargement, no carotid bruits. Lungs: Decreased breath sounds in the left side no crackles or wheezes. Chest Wall: Decrease expansion with deep inspiration with chest tubes in place. Heart: Regular rate and rhythm, S1, S2 mild arrhythmia with S3., no murmur, rub or gallop. Back: Symmetric, no curvature, ROM normal, no CVA tenderness. Abdomen: Soft, non-tender, bowel sounds active all four quadrants, no masses, no organomegaly. Pretty catheter draining clear horace urine. Extremities: Extremities normal, atraumatic, no cyanosis or edema. Right side had minimum bleed from the graft site Pulses: 2+ and symmetric. Skin: Skin color, texture, tugor normal, no rashes or lesions. Neurologic: Patient is awake alert and oriented 3. No focal neural deficits. - Labs CBC & Chem 7: 10/27/18 07:11 10/27/18 07:11 Labs: Abnormal Lab Results - Last 24 Hours (Table) 10/24/18 10/26/18 10/26/18 Range/Units 06:25 10:42 11:36 WBC (3.8-10.6) k/uL RBC (4.30-5.90) m/uL Hgb (13.0-17.5) gm/dL Hct (39.0-53.0) % Plt Count (150-450) k/uL Neutrophils # (1.3-7.7) k/uL Chloride (98-107) mmol/L Creatinine (0.66-1.25) mg/dL Glucose (74-99) mg/dL POC Glucose (mg/dL) 125 H 124 H (75-99) mg/dL Phosphorus (2.5-4.5) mg/dL AST (17-59) U/L Alkaline Phosphatase (38-126) U/L Total Protein (6.3-8.2) g/dL Crossmatch See Detail 10/26/18 10/26/18 10/26/18 Range/Units 15:19 17:05 19:00 WBC 13.5 H (3.8-10.6) k/uL RBC 2.80 L (4.30-5.90) m/uL Hgb 8.5 L D (13.0-17.5) gm/dL Hct 25.7 L (39.0-53.0) % Plt Count 142 L (150-450) k/uL Neutrophils # 10.8 H (1.3-7.7) k/uL Chloride (98-107) mmol/L Creatinine (0.66-1.25) mg/dL Glucose (74-99) mg/dL POC Glucose (mg/dL) 102 H 119 H (75-99) mg/dL Phosphorus (2.5-4.5) mg/dL AST (17-59) U/L Alkaline Phosphatase (38-126) U/L Total Protein (6.3-8.2) g/dL Crossmatch 10/26/18 10/27/18 10/27/18 Range/Units 19:07 07:03 07:11 WBC 11.8 H (3.8-10.6) k/uL RBC 3.01 L (4.30-5.90) m/uL Hgb 9.3 L (13.0-17.5) gm/dL Hct 27.2 L (39.0-53.0) % Plt Count 137 L (150-450) k/uL Neutrophils # 9.5 H (1.3-7.7) k/uL Chloride (98-107) mmol/L Creatinine (0.66-1.25) mg/dL Glucose (74-99) mg/dL POC Glucose (mg/dL) 116 H 112 H (75-99) mg/dL Phosphorus (2.5-4.5) mg/dL AST (17-59) U/L Alkaline Phosphatase (38-126) U/L Total Protein (6.3-8.2) g/dL Crossmatch 10/27/18 Range/Units 07:11 WBC (3.8-10.6) k/uL RBC (4.30-5.90) m/uL Hgb (13.0-17.5) gm/dL Hct (39.0-53.0) % Plt Count (150-450) k/uL Neutrophils # (1.3-7.7) k/uL Chloride 110 H (98-107) mmol/L Creatinine 0.57 L (0.66-1.25) mg/dL Glucose 102 H (74-99) mg/dL POC Glucose (mg/dL) (75-99) mg/dL Phosphorus 2.2 L (2.5-4.5) mg/dL AST 138 H (17-59) U/L Alkaline Phosphatase 35 L (38-126) U/L Total Protein 5.7 L (6.3-8.2) g/dL Crossmatch Assessment and Plan Assessment: Assessment and plan: 1 post multiple vessel CABG. patient continues to have the chest tube in place as well as the pacer wires, he is off the pressors and is feeling a lot better today he continues to be somewhat short of breath, we will maintain patient on aspirin 325 mg orally once every day, Plavix 75 mg orally once every day, metoprolol 12.5 mg orally twice every day and Lipitor 40 mg orally once every day. 2 Acute hypoxic respiratory failure requiring high flow nasal cannula. Patient was successfully extubated. Pulmonary medicine managing. We'll continue with aggressive pulmonary toileting and usage of incentive spirometer. 3 hyperlipidemia. Continue patient on Lipitor 40 mg orally once every day. 4 history of cerebral palsy: Mild. 5 hyperglycemia without history of diabetes. Previous hemoglobin A1c 5.9: Remain on insulin drip and try to keep blood sugar below 150. 6 anemia post surgery: Continue to monitor. Continue patient on iron 325 mg orally once every day. 7 BPH. Stable at this time. 8. Sinus bradycardia. Recovered. He is currently has a pacer wire in place. 9 . Acute blood loss anemia expected outcome of surgery post blood transfusion currently hemoglobin is stable continue with iron supplement. 10. DVT prophylaxis. Continue heparin 5000 units subcutaneously every 12 hours. 11. GI prophylaxis. Continue PPI. 12. Full code.
--- NOTE | 2018-10-27 13:56 | P.PN ---
Subjective Progress Note Date: 10/27/18 On today's evaluation of 10/27/2018 I'm seeing this patient for a follow-up. The patient is doing well. The patient is still extubated. The patient has pleural . The patient is still using incentive spirometer. Volumes are gradually improving. Chest x-ray shows some increased pulmonary vascular m arkings and small bilateral pleural effusions. All of the chest tubes are in good location. Normal sinus rhythm. Urine output is adequate for now. He will be receiving additional dose of Lasix. No chest pain. No fever. No chills. No altered mentation. He did receive a unit of packed RBC and hemoglobin improved and it's up to 9.3. The mediastinal tube was placed yesterday. The pacer wires were grounded. No other significant events otherwise for now. Objective - Vital Signs Vital signs: Vital Signs Temp 98.7 F 10/27/18 12:00 Pulse 109 H 10/27/18 12:00 Resp 22 10/27/18 12:00 BP 106/66 10/27/18 12:00 Pulse Ox 95 10/27/18 12:00 Intake & Output 10/26/18 10/27/18 10/27/18 18:59 06:59 18:59 Intake Total 799.825 479 861 Output Total 1715 1010 930 Balance -915.175 -531 -69 Weight 79.2 kg Intake: IV 291 279 161 0.9 Pressure Bag 51 39 21 Lactated Ringers 1,000 ml 240 240 140 @ 20 mls/hr IV .Q24H [facility] Rx#:[id number] Intake, IV Titration 38.825 Amount Insulin Regular 100 unit 25.131 In Sodium Chloride 0.9% 100 ml @ Per Protocol IV .Q0M [facility] Rx#:[id number] Sodium Chloride 0.9% 150 13.694 ml @ 0.02 UNITS/MIN 3.06 mls/hr IV .Q24H [facility] with Vasopressin 60 unit Rx#: [id number] Oral 160 200 700 Blood Product 310 Rc As-1 Unit 310 [id number] Output: Chest Tube Drainage 300 275 30 Left Lateral Chest 150 110 20 Right Pleural 0 165 10 Right Pleural/Mediastinal 150 Urine 1415 735 900 Other: Voiding Method Indwelling Catheter Indwelling Catheter # Voids 1 ABP, PAP, CO, CI - Last Documented Arterial Blood Pressure 154/69 Pulmonary Artery Pressure 35/17 Cardiac Output 12 Cardiac Index 3.2 - Labs CBC & Chem 7: 10/27/18 07:11 10/27/18 07:11 Labs: Abnormal Lab Results - Last 24 Hours (Table) 10/24/18 10/26/18 10/26/18 Range/Units 06:25 15:19 17:05 WBC (3.8-10.6) k/uL RBC (4.30-5.90) m/uL Hgb (13.0-17.5) gm/dL Hct (39.0-53.0) % Plt Count (150-450) k/uL Neutrophils # (1.3-7.7) k/uL Chloride (98-107) mmol/L Creatinine (0.66-1.25) mg/dL Glucose (74-99) mg/dL POC Glucose (mg/dL) 102 H 119 H (75-99) mg/dL Phosphorus (2.5-4.5) mg/dL AST (17-59) U/L Alkaline Phosphatase (38-126) U/L Total Protein (6.3-8.2) g/dL Crossmatch See Detail 10/26/18 10/26/18 10/27/18 Range/Units 19:00 19:07 07:03 WBC 13.5 H (3.8-10.6) k/uL RBC 2.80 L (4.30-5.90) m/uL Hgb 8.5 L D (13.0-17.5) gm/dL Hct 25.7 L (39.0-53.0) % Plt Count 142 L (150-450) k/uL Neutrophils # 10.8 H (1.3-7.7) k/uL Chloride (98-107) mmol/L Creatinine (0.66-1.25) mg/dL Glucose (74-99) mg/dL POC Glucose (mg/dL) 116 H 112 H (75-99) mg/dL Phosphorus (2.5-4.5) mg/dL AST (17-59) U/L Alkaline Phosphatase (38-126) U/L Total Protein (6.3-8.2) g/dL Crossmatch 05/25/19 05/25/19 Range/Units 07:11 07:11 WBC 11.8 H (3.8-10.6) k/uL RBC 3.01 L (4.30-5.90) m/uL Hgb 9.3 L (13.0-17.5) gm/dL Hct 27.2 L (39.0-53.0) % Plt Count 137 L (150-450) k/uL Neutrophils # 9.5 H (1.3-7.7) k/uL Chloride 110 H (98-107) mmol/L Creatinine 0.57 L (0.66-1.25) mg/dL Glucose 102 H (74-99) mg/dL POC Glucose (mg/dL) (75-99) mg/dL Phosphorus 2.2 L (2.5-4.5) mg/dL AST 138 H (17-59) U/L Alkaline Phosphatase 35 L (38-126) U/L Total Protein 5.7 L (6.3-8.2) g/dL Crossmatch Assessment and Plan Plan: 1 multivessel coronary disease and the patient is status post four-vessel bypass surgery. Postop day #3. Patient is recovering adequately for now. The mediastinal tube has been removed and the pleural chest tubes have be kept in place. The pacers wires have been grounded. He is using incentive spirometer. He is hemodynamically stable. On IV Lasix. Is producing adequate amount of u rine output in the order of 300 mL an hour, after being given a dose of Lasix. 2 postoperative acute blood loss anemia, expected outcome of surgery, hemoglobin is at 9.3 3 ventilator management as the patient is currently on 6 L of oxygen nasal cannula, the mediastinal chest tube has been removed. 4 history of cerebral palsy 5 history of hyperlipidemia 6 cerebral palsy 7 bilateral carotid artery stenosis in the order of 70% 8 preoperative E. coli UTI, treated Plan Continue pulmonary toileting. Supportive care. Incentive spirometer. Monitor hemoglobin. Monitor the output from the chest tube. Wean down the FiO2 as tolerated. IV Lasix. Rest of the cardiac medications of bone appropriate. The pacer wires have been grounded. He denies to follow 24 hours and will follow.
[2018-10-27] MEDS ORDERED: SODIUM PHOSPHATE 10 MMOL in SODIUM CHLORIDE 0.9% 250 ML IVPB ONE (14:18)
[2018-10-27 17:28] LABS: Glucose,Whole Blood 101 mg/dL (75-99)
[2018-10-27] MEDS: DEXTROSE 5% IN WATER 100 ML with AMIODARONE 150 MG IV PRN ×2 (18:04→18:42)
[2018-10-27] MEDS: SENNOSIDES-DOCUSATE SODIUM 1 EACH TAB PO SCH (20:56)
[2018-10-27 21:02] LABS: Glucose,Whole Blood 112 mg/dL (75-99)
[2018-10-28] MEDS: DILTIAZEM ORAL 30 MG TAB PO SCH ×2 (00:34→06:45)
[2018-10-28] MEDS: KETOROLAC 30 MG/ML 1 ML VIAL IVP SCH ×5 (00:34→23:18)
[2018-10-28] MEDS: HEPARIN SODIUM,PORCINE 5,000 UNIT/ML 1 ML VIAL SQ SCH ×4 (00:34→23:18)
[2018-10-28] MEDS: AMIODARONE 300 MG in DEXTROSE 5% IN WATER 250 ML IV PRN ×4 (00:36→11:32)
[2018-10-28] MEDS: HYDROcodone/APAP 5-325MG 1 EACH TAB PO PRN (00:45)
[2018-10-28 05:21] LABS: HCT 23.8 % (39.0-53.0); MCHC 33.7 g/dL (31.0-37.0); MCV 92.2 fL (80.0-100.0); Mean Platelet Volume 7.7; Platelet Count 170 k/uL (150-450); RBC 2.59 m/uL (4.30-5.90); RDW 14.9 % (11.5-15.5); WBC 8.9 k/uL (3.8-10.6)
[2018-10-28 05:29] LABS: ALT 39 U/L (21-72); AST 92 U/L (17-59); Albumin 3.2 g/dL (3.5-5.0); Alkaline Phosphatase 37 U/L (38-126); Anion Gap 6 mmol/L; Blood Urea Nitrogen 17 mg/dL (9-20); Calcium 8.4 mg/dL (8.4-10.2); Carbon Dioxide 27 mmol/L (22-30); Chloride 106 mmol/L (98-107); Glucose 100 mg/dL (74-99); Magnesium 2.1 mg/dL (1.6-2.3); Phosphorus 3.6 mg/dL (2.5-4.5); Potassium 3.7 mmol/L (3.5-5.1); Sodium 139 mmol/L (137-145); Total Bilirubin 0.5 mg/dL (0.2-1.3); Total Protein 5.3 g/dL (6.3-8.2)
[2018-10-28] MEDS ORDERED: Potassium Replacement Protocol 1 EACH MISC MISCELLANE PRN (06:50)
[2018-10-28 07:11] LABS: Glucose,Whole Blood 105 mg/dL (75-99)
[2018-10-28] MEDS ORDERED: POTASSIUM CHLORIDE ER 20 MEQ TAB.ER PO SCH (07:30)
[2018-10-28] MEDS: IPRATROPIUM-ALBUTEROL 3 ML NEB INHALATION SCH ×4 (07:51→19:35)
[2018-10-28] MEDS: FERROUS SULFATE 325 MG TAB PO SCH ×2 (08:11→17:59)
[2018-10-28] MEDS: PANTOPRAZOLE 40 MG TABLET PO SCH (08:11)
[2018-10-28] MEDS: ASCORBIC ACID 500 MG TAB PO SCH ×2 (08:11→17:59)
[2018-10-28] MEDS: ASPIRIN 325 MG TAB PO SCH (08:12)
[2018-10-28] MEDS: CLOPIDOGREL 75 MG TAB PO SCH (08:12)
[2018-10-28] MEDS: ATORVASTATIN 40 MG TAB PO SCH (08:12)
[2018-10-28] MEDS: METOPROLOL TARTRATE 12.5 MG TAB PO SCH ×2 (08:12→20:28)
--- NOTE | 2018-10-28 08:15 | P.PN ---
Subjective Progress Note Date: 10/28/18 Principal diagnosis: Severe triple vessel coronary artery disease with preserved LV function. Previous medical history of hypertension, hyperlipidemia, previous tobacco dependence with preoperative FEV1 94% of predicted, cerebral palsy, bilateral carotid artery stenosis 70%, and family history of premature coronary artery disease. Preoperative E coli urinary tract infection treated with Cipro for 1 week. POD#4 coronary artery bypass graft surgery with left internal mammary artery to the left anterior descending coronary artery, left radial artery to the first obtuse marginal artery, reverse saphenous vein graft to the first diagonal artery, reverse saphenous vein graft to the posterior lateral branch of the right coronary artery. Endoscopic harvest of the right greater saphenous vein and the left radial artery. Epiaortic scanning. Intraoperative transesphageal echocardiogram. Postoperative acute blood loss anemia, expected secondary to cardiopulmonary bypass pump and hemodilution. Postoperative atrial fibrillation, unexpected but potential outcome, currently in sinus rhythm The patient is currently sitting up in the recliner in the intensive care unit in no acute distress. He denies pain currently, did have an episode of chest pain last night which resolved quickly. Denies shortness of breath. Head short burst of A. fib last night which resolved after initiation of amiodarone, and again this morning for a few minutes. Currently in normal sinus rhythm. Hemodynamically stable on no inotropes or pressors. Right/left chest tubes present. No other complaints. Objective - Vital Signs Vital signs: Vital Signs Temp 98.2 F 10/28/18 04:00 Pulse 96 10/28/18 08:05 Resp 26 H 10/28/18 07:00 BP 114/70 10/28/18 07:00 Pulse Ox 93 L 10/28/18 07:51 Intake & Output 10/27/18 10/28/18 10/28/18 18:59 06:59 18:59 Intake Total 1436 276 23 Output Total 930 525 0 Balance 506 -249 23 Weight 85.1 kg Intake: IV 236 276 23 0.9 Pressure Bag 36 36 3 Lactated Ringers 1,000 ml 200 240 20 @ 20 mls/hr IV .Q24H [facility] Rx#:[id number] Intake, IV Titration 250 Amount Sodium Phosphate 10 mmol 250 In Sodium Chloride 0.9% 250 ml @ 125 mls/hr IVPB ONCE ONE Rx#:[id number] Oral 950 Output: Chest Tube Drainage 30 150 0 Left Lateral Chest 20 70 0 Right Pleural 10 80 0 Urine 900 375 Other: Voiding Method Bedside Commode Urinal # Voids 1 0 0 ABP, PAP, CO, CI - Last Documented Arterial Blood Pressure 154/69 Pulmonary Artery Pressure 35/17 Cardiac Output 12 Cardiac Index 3.2 - Constitutional General appearance: Present: cooperative, no acute distress - Respiratory Details: Lungs sounds diminished bilaterally. Respirations even, nonlabored. Currently on 6 L nasal cannula with oxygen saturation 95%. Able to achieve 750 mL on his incentive spirometry. Right pleural chest tube to continuous wall suction, 30 mL serous drainage overnight, 250 mL in the last 24 hours. Left pleural chest tube to continuous wall suction, 10 mL serous drainage overnight, 250 mL in the last 24 hours. No air leaks present. - Cardiovascular Details: S1, S2 present. Regular rate and rhythm, sinus rhythm on telemetry. Sternum stable. A/V epicardial pacemaker wires present, grounded. Palpable peripheral pulses bilaterally. No edema present. No calf pain or tenderness noted. Right internal jugular Cordis present. Heart hugger in place with patient demonstrating appropriate use. Antiembolism stockings, SCDs present. - Gastrointestinal Gastrointestinal Comment(s): Abdomen soft, nontender, nondistended. Active bowel sounds 4 quadrants prese nt. Tolerating diet. Positive flatus. - Genitourinary Genitourinary Comment(s): Continues to void clear, yellow urine. Diuresed 1 L IV Lasix given yesterday. - Integumentary Integumentary Comment(s): Skin is warm and dry with evidence of good perfusion. Anterior chest incision well approximated and covered with dry intact dressing. Chest tube sites covered with dry intact dressing. 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 Right lower extremity EVH site well approximated without drainage. - Neurologic Neurologic: Present: CNII-XII intact - Musculoskeletal Musculoskeletal: Present: gait normal, strength equal bilaterally - Psychiatric Psychiatric: Present: A&O x's 3, appropriate affect, intact judgment & insight - Allied health notes Allied health notes reviewed: nursing - Labs CBC & Chem 7: 10/28/18 05:01 10/28/18 05:01 Labs: Abnormal Lab Results - Last 24 Hours (Table) 10/27/18 10/27/18 10/28/18 Range/Units 17:17 20:50 05:01 RBC 2.59 L (4.30-5.90) m/uL Hgb 8.0 L (13.0-17.5) gm/dL Hct 23.8 L (39.0-53.0) % Creatinine (0.66-1.25) mg/dL Glucose (74-99) mg/dL POC Glucose (mg/dL) 101 H 112 H (75-99) mg/dL AST (17-59) U/L Alkaline Phosphatase (38-126) U/L Total Protein (6.3-8.2) g/dL Albumin (3.5-5.0) g/dL 10/28/18 10/28/18 Range/Units 05:01 06:59 RBC (4.30-5.90) m/uL Hgb (13.0-17.5) gm/dL Hct (39.0-53.0) % Creatinine 0.61 L (0.66-1.25) mg/dL Glucose 100 H (74-99) mg/dL POC Glucose (mg/dL) 105 H (75-99) mg/dL AST 92 H (17-59) U/L Alkaline Phosphatase 37 L (38-126) U/L Total Protein 5.3 L (6.3-8.2) g/dL Albumin 3.2 L (3.5-5.0) g/dL - Imaging and Cardiology Chest x-ray: image reviewed Assessment and Plan Assessment: 1. Severe triple-vessel coronary artery disease with preserved LV function, status post CABG 4 2. Hypertension, currently hypotensive on small dose vasopressors 3. Hyperlipidemia 4. Previous tobacco dependence with preoperative FEV1 94% of predicted 5. Cerebral palsy 6. Bilateral carotid artery stenosis 70% 7. Family history of premature coronary artery disease 8. Preoperative E. coli urinary tract infection, treated 9. Postoperative acute blood loss anemia, expected 10. Postoperative atrial fibrillation, expected Plan: 1. Continue aspirin, statin, Plavix, beta karissa. Will increase beta karissa as tolerated. 2. Continue Cardizem for radial artery spasm prophylaxis. Will transition to long acting cardizem CD 3. Continue IV Cardizem for A. fib prophylaxis. Will transition to oral amio. No anticoagulation at this point. 4. Wean O2 as tolerated. Encourage incentive spirometry use 10 times every hour while awake. 5. Bronchodilators per pulmonology. Encourage continued smoking cessation. 6. Increase activity, ambulate as tolerated. PT/OT/cardiac rehab following. 7. Will monitor daily labs, chest x-rays. Electrolyte replacement per protoc ol. No further blood transfusion. 8. Pain management with current medication regimen. 9. Insulin management per primary care service. 10. GI/DVT prophylaxis. 11. No lasix today. 12. May discontinue cordis if able to obtain peripheral IV site. 13. Will discontinue left/right pleural chest tubes. 13. Anticipate need for rehab at discharge, Dr. Chen consulted for IPR. 14. Once able to establish peripheral IV and discontinue Cordis will place transfer orders for [address] [place] [address] cardiac stepdown unit. 15. More recommendations to follow as patient progresses. Time with Patient: Greater than 30
--- NOTE | 2018-10-28 08:29 | XR ---
EXAMINATION TYPE: XR chest 1V portable DATE OF EXAM: 10/28/2018 COMPARISON: Prior chest x-ray 10/27/2018 HISTORY: Status post cardiac surgery, chest tube TECHNIQUE: Single frontal view of the chest is obtained. FINDINGS: Bilateral chest tubes remain in place. Patient is post median sternotomy. Right jugular ce ntral venous sheath is noted. No sizable pneumothorax. Bibasilar density persists. Heart size is unch anged. There are overlying cardiac leads. IMPRESSION: Pleural parenchymal changes are stable. Postop changes. Possible basilar effusions and a ssociated atelectasis, correlate to exclude pneumonia, edema.
--- NOTE | 2018-10-28 09:12 | P.PN ---
Subjective Progress Note Date: 10/28/18 Principal diagnosis: Coronary artery disease and status post CABG This is a pleasant 53-year-old gentleman who was experiencing chest discomfort and underwent a heart catheterization by Dr. Prajapati and was found to have severe triple-vessel CAD where the patient was referred for coronary artery bypass grafting. He underwent coronary artery bypass grafting 2 days ago. On follow-up with the patient today, October 282018, the patient seems to be doing good clinically except that he went into A. fib with RVR and he has been in and out atrial fibrillation. He was started on amiodarone IV. The blood pressure seems to be marginal at this point. I recommended continue monitoring the blood pressure and continue the current medical regimen including dual antiplatelet therapy. Objective - Vital Signs Vital signs: Vital Signs Temp 98.5 F 10/28/18 08:00 Pulse 96 10/28/18 08:05 Resp 35 H 10/28/18 08:00 BP 115/78 10/28/18 08:00 Pulse Ox 97 10/28/18 08:00 Intake & Output 10/27/18 10/28/18 10/28/18 18:59 06:59 18:59 Intake Total 1436 276 23 Output Total 930 525 0 Balance 506 -249 23 Weight 85.1 kg Intake: IV 236 276 23 0.9 Pressure Bag 36 36 3 Lactated Ringers 1,000 ml 200 240 20 @ 20 mls/hr IV .Q24H [facility] Rx#:[id number] Intake, IV Titration 250 Amount Sodium Phosphate 10 mmol 250 In Sodium Chloride 0.9% 250 ml @ 125 mls/hr IVPB ONCE ONE Rx#:[id number] Oral 950 Output: Chest Tube Drainage 30 150 0 Left Lateral Chest 20 70 0 Right Pleural 10 80 0 Urine 900 375 Other: Voiding Method Bedside Commode Urinal # Voids 1 0 0 ABP, PAP, CO, CI - Last Documented Arterial Blood Pressure 154/69 Pulmonary Artery Pressure 35/17 Cardiac Output 12 Cardiac Index 3.2 - Constitutional General appearance: Present: no acute distress - Respiratory Respiratory: bilateral: CTA - Cardiovascular Rhythm: regular - Labs CBC & Chem 7: 10/28/18 05:01 10/28/18 05:01 Labs: Abnormal Lab Results - Last 24 Hours (Table) 10/27/18 10/27/18 10/28/18 Range/Units 17:17 20:50 05:01 RBC 2.59 L (4.30-5.90) m/uL Hgb 8.0 L (13.0-17.5) gm/dL Hct 23.8 L (39.0-53.0) % Creatinine (0.66-1.25) mg/dL Glucose (74-99) mg/dL POC Glucose (mg/dL) 101 H 112 H (75-99) mg/dL AST (17-59) U/L Alkaline Phosphatase (38-126) U/L Total Protein (6.3-8.2) g/dL Albumin (3.5-5.0) g/dL 10/28/18 10/28/18 Range/Units 05:01 06:59 RBC (4.30-5.90) m/uL Hgb (13.0-17.5) gm/dL Hct (39.0-53.0) % Creatinine 0.61 L (0.66-1.25) mg/dL Glucose 100 H (74-99) mg/dL POC Glucose (mg/dL) 105 H (75-99) mg/dL AST 92 H (17-59) U/L Alkaline Phosphatase 37 L (38-126) U/L Total Protein 5.3 L (6.3-8.2) g/dL Albumin 3.2 L (3.5-5.0) g/dL Assessment and Plan Assessment: Assessment #1 severe triple-vessel CAD and status post CABG #2 hyperlipidemia #3 paroxysmal atrial fibrillation Plan #1 continue the current medical regimen #2 continue monitor the blood pressure #3 follow-up with the patient
[2018-10-28] MEDS: AMIODARONE 200 MG TAB PO SCH ×2 (11:30→20:28)
--- NOTE | 2018-10-28 11:35 | P.PN ---
Subjective Progress Note Date: 10/28/18 53-year-old male one of Dr. Frank patient with mild degree of cerebral palsy who has history of hypertension hyperlipidemia and coronary artery disease with heart catheter 2 weeks ago showed 99 percentile blockage of the RCA 60% of the PLB 90% stenosis of the circumflex and acute marginal and 85 percentile stenosis of the LAD. Patient was referred to cardiothoracic seen and evaluated and was schedule elective bypass surgery with Dr. Galan which was done successfully today patient was intubated and placed on mechanical ventilation post surgery seen pulmonary and transferred to the intensive care unit, remain on vasodepressor along with insulin drip the blood sugar running marginal at the time. Patient is sedated on mechanical ventilation. 10/25: Patient remains in intensive care unit. He was successfully extubated around midnight. His pain is currently controlled. He is continued on norepinephrine and vasopressin as well as IV Cardizem and amiodarone. Patient is on insulin drip for blood sugar control. Pretty catheter in place with adequate urine output. Chest tubes remain in place. 10/26: Patient remains in intensive care unit. He has been seen by Dr. Chen for possible inpatient rehab. Patient has been afebrile, heart rate in the 70s to 80, blood pressure 93/53, pulse ox 93% on 10 L high flow nasal cannula. Patient had rapid is pulse ox yesterday afternoon while on nasal cannula and transitioned to high flow O2. Patient is using incentive spirometry at 500 ML's. reporting developer is sinus rhythm. Repeat lab work this morning shows a hemoglobin of 7, white count 11.6, platelet count 125. BUN 17 and creatinine 0.53. Phosphorus 2.4, magnesium 2.4, AST 187, ALT 38. Blood sugars are running between 118 and 136. Plan to continue insulin drip another day and transitioned to long-acting and short acting insulins tomorrow. Patient is currently eating very little. [place]'s catheter has been discontinued. He has had no episodes of atrial fibrillation. He remains on vasopressin. He is scheduled for 1 unit packed RBCs followed by Lasix. Patient is currently working with PT and OT. 10/27: Patient sitting up in the chair he remains in the intensive care unit he denies any chest pain is less short of breath he continues to have chest tubes in place, he continued to have the pacer in place, he did receive an extra dose of Lasix today, he is off the pressors at this time and he continues to progress in a positive manner. 10/28: Patient sitting up on the commode he is less short of breath today he denies any chest pain or any shortness breath he had an episode of atrial fibrillation with rapid ventricular response, he was initially placed on am iodarone drip currently would be switched to oral amiodarone and he will be switched to Cardizem CD at the same time along with beta karissa he is feeling a lot better his chest tubes will come out today. Objective - Vital Signs Vital signs: Vital Signs Temp 98.5 F 10/28/18 08:00 Pulse 96 10/28/18 08:05 Resp 35 H 10/28/18 08:00 BP 115/78 10/28/18 08:00 Pulse Ox 97 10/28/18 08:00 Intake & Output 10/27/18 10/28/18 10/28/18 18:59 06:59 18:59 Intake Total 1436 276 23 Output Total 930 525 0 Balance 506 -249 23 Weight 85.1 kg Intake: IV 236 276 23 0.9 Pressure Bag 36 36 3 Lactated Ringers 1,000 ml 200 240 20 @ 20 mls/hr IV .Q24H [facility] Rx#:[id number] Intake, IV Titration 250 Amount Sodium Phosphate 10 mmol 250 In Sodium Chloride 0.9% 250 ml @ 125 mls/hr IVPB ONCE ONE Rx#:[id number] Oral 950 Output: Chest Tube Drainage 30 150 0 Left Lateral Chest 20 70 0 Right Pleural 10 80 0 Urine 900 375 Other: Voiding Method Bedside Commode Urinal # Voids 1 0 0 ABP, PAP, CO, CI - Last Documented Arterial Blood Pressure 154/69 Pulmonary Artery Pressure 35/17 Cardiac Output 12 Cardiac Index 3.2 - Exam Review of Systems CONSTITUTIONAL: Well-developed. Denies fever, denies chills EYES: No icterus sclerae, no conjunctivitis. EARS, NOSE, MOUTH, THROAT, and FACE: No sore throat, lymphadenopathy, carotid bruits or deformity. RESPIRATORY: He is on mechanical ventilation.. CARDIOVASCULAR: Post CABG, no chest pain, less short of breath, no pleurisy. GASTROINTESTINAL: Patient is sedated no diarrhea no sign of GI bleed. GENITOURINARY: Negative for Hematuria. With Pretty catheter in. INTEGUMENT/BREAST: Negative. HEMATOLOGIC/LYMPHATIC: Negative for bleed or purpura. MUSCULOSKELTAL: Patient is sedated. NEURLOGICAL: Patient is more awake today. General Appearance: Patient is sitting in recliner at the bedside and appears to be comfortable and in no acute distress... Neck HEENT: Supple, no lymphadenopathy, no thyroid enlargement, no carotid bruits. Lungs: Decreased breath sounds in the left side no crackles or wheezes. Chest Wall: Decrease expansion with deep inspiration with chest tubes in place. Heart: Regular rate and rhythm, S1, S2 mild arrhythmia with S3., no murmur, rub or gallop. Back: Symmetric, no curvature, ROM normal, no CVA tenderness. Abdomen: Soft, non-tender, bowel sounds active all four quadrants, no masses, no organomegaly. Pretty catheter draining clear horace urine. Extremities: Extremities normal, atraumatic, no cyanosis or edema. Right side had minimum bleed from the graft site Pulses: 2+ and symmetric. Skin: Skin color, texture, tugor normal, no rashes or lesions. Neurologic: Patient is awake alert and oriented 3. No focal neural deficits. - Labs CBC & Chem 7: 10/28/18 05:01 10/28/18 05:01 Labs: Abnormal Lab Results - Last 24 Hours (Table) 10/27/18 10/27/18 10/28/18 Range/Units 17:17 20:50 05:01 RBC 2.59 L (4.30-5.90) m/uL Hgb 8.0 L (13.0-17.5) gm/dL Hct 23.8 L (39.0-53.0) % Creatinine (0.66-1.25) mg/dL Glucose (74-99) mg/dL POC Glucose (mg/dL) 101 H 112 H (75-99) mg/dL AST (17-59) U/L Alkaline Phosphatase (38-126) U/L Total Protein (6.3-8.2) g/dL Albumin (3.5-5.0) g/dL 10/28/18 10/28/18 Range/Units 05:01 06:59 RBC (4.30-5.90) m/uL Hgb (13.0-17.5) gm/dL Hct (39.0-53.0) % Creatinine 0.61 L (0.66-1.25) mg/dL Glucose 100 H (74-99) mg/dL POC Glucose (mg/dL) 105 H (75-99) mg/dL AST 92 H (17-59) U/L Alkaline Phosphatase 37 L (38-126) U/L Total Protein 5.3 L (6.3-8.2) g/dL Albumin 3.2 L (3.5-5.0) g/dL Assessment and Plan Assessment: Assessment and plan: 1 post multiple vessel CABG. patient continues to have the chest tube in place as well as the pacer wires, he is off the pressors and is feeling a lot better today he continues to be somewhat short of breath, we will maintain patient on aspirin 325 mg orally once every day, Plavix 75 mg orally once every day, metoprolol 12.5 mg orally twice every day and Lipitor 40 mg orally once every day. 2 Acute hypoxic respiratory failure requiring high flow nasal cannula. Patient was successfully extubated. Pulmonary medicine managing. We'll continue with aggressive pulmonary toileting and usage of incentive spirometer. 3 hyperlipidemia. Continue patient on Lipitor 40 mg orally once every day. 4 history of cerebral palsy: Mild. 5 hyperglycemia without history of diabetes. Previous hemoglobin A1c 5.9: Remain on insulin drip and try to keep blood sugar below 150. 6 anemia post surgery: Continue to monitor. Continue patient on iron 325 mg orally once every day. 7 BPH. Stable at this time. 8. Atrial fibrillation with rapid ventricular response was on amiodarone drip will be switched to oral amiodarone and continue beta karissa and Cardizem CD. 9 . Acute blood loss anemia expected outcome of surgery post blood transfusion currently hemoglobin is stable continue with iron supplement. 10. DVT prophylaxis. Continue heparin 5000 units subcutaneously every 12 hours. 11. GI prophylaxis. Continue PPI. 12. Full code.
[2018-10-28 12:11] LABS: Glucose,Whole Blood 91 mg/dL (75-99)
[2018-10-28] MEDS: DILTIAZEM CD 120 MG CAP.ER.24H PO SCH (12:34)
--- NOTE | 2018-10-28 12:37 | P.PN ---
Subjective Progress Note Date: 10/28/18 on today's evaluation of 10/28/2018, the patient is awake and alert sitting up on a chair. The chest. He is still using incentive spirometer. Overnight he was due atrial fibrillation with some degree of breath and ventricular response in the 110 range. The patient was given boluses of amiodarone and currently is on amiodarone drip. He is back into sinus rhythm. Note that while going into atrial fibrillation, the patient developed hypotension probably related to the loss of atrial kick. He is currently back to normal sinus rhythm. He is hemodynamically stable. He is on beta blockers and Cardizem for rate control. Sternum is stable clean and intact. He is producing adequate amount of urine output. No nausea. No vomiting. No diarrhea. No altered mentation. Chest x- ray still showing some atelectatic changes in lung bases and pulmonary vascular congestion. Hemoglobin is stable.the oxygenation is improving and the patient is on 6 L of oxygen by nasal cannula with a pulse ox of 97%.hemoglobin is at 8.0. Objective - Vital Signs Vital signs: Vital Signs Temp 98.5 F 10/28/18 08:00 Pulse 79 10/28/18 12:26 Resp 35 H 10/28/18 08:00 BP 115/78 10/28/18 08:00 Pulse Ox 97 10/28/18 08:00 Intake & Output 10/27/18 10/28/18 10/28/18 18:59 06:59 18:59 Intake Total 1436 276 273 Output Total 930 525 0 Balance 506 -249 273 Weight 85.1 kg Intake: IV 236 276 23 0.9 Pressure Bag 36 36 3 Lactated Ringers 1,000 ml 200 240 20 @ 20 mls/hr IV .Q24H JENNIFER Rx#:[id number] Intake, IV Titration 250 250 Amount Amiodarone 300 mg In 250 Dextrose 5% in Water 250 ml @ 0.5 MG/MIN 25 mls/hr IV .Q10H PRN Rx#: [id number] Sodium Phosphate 10 mmol 250 In Sodium Chloride 0.9% 250 ml @ 125 mls/hr IVPB ONCE ONE Rx#:[id number] Oral 950 Output: Chest Tube Drainage 30 150 0 Left Lateral Chest 20 70 0 Right Pleural 10 80 0 Urine 900 375 Other: Voiding Method Bedside Commode Urinal # Voids 1 0 0 ABP, PAP, CO, CI - Last Documented Arterial Blood Pressure 154/69 Pulmonary Artery Pressure 35/17 Cardiac Output 12 Cardiac Index 3.2 - Exam - Constitutional General appearance: Present: cooperative, no acute distress - Respiratory Details: Lungs sounds diminished bilaterally. Respirations even, nonlabored. Currently on 6 L nasal cannula with oxygen saturation 95%. Able to achieve 750 mL on his incentive spirometry. Right pleural chest tube to continuous wall suction, 30 mL serous drainage overnight, 250 mL in the last 24 hours. Left pleural chest tube to continuous wall suction, 10 mL serous drainage overnight, 250 mL in the last 24 hours. No air leaks present. - Cardiovascular Details: S1, S2 present. Regular rate and rhythm, sinus rhythm on telemetry. Sternum stable. A/V epicardial pacemaker wires present, grounded. Palpable peripheral pulses bilaterally. No edema present. No calf pain or tenderness noted. Right internal jugular Cordis present. Heart hugger in place with patient demonstrating appropriate use. Antiembolism stockings, SCDs present. - Gastrointestinal Gastrointestinal Comment(s): Abdomen soft, nontender, nondistended. Active bowel sounds 4 quadrants present. Tolerating diet. Positive flatus. - Genitourinary Genitourinary Comment(s): Continues to void clear, yellow urine. Diuresed 1 L IV Lasix given yesterday. - Integumentary Integumentary Comment(s): Skin is warm and dry with evidence of good perfusion. Anterior chest incision well approximated and covered with dry intact dressing. Chest tube sites covered with dry intact dressing. Left radial harvest site well approximated without drainage, patient able to move all fingers, strong delivery mgr, positive feeling but does have some numbness. Right lower extremity EVH site well approximated without drainage. - Neurologic Neurologic: Present: CNII-XII intact - Musculoskeletal Musculoskeletal: Present: gait normal, strength equal bilaterally - Psychiatric Psychiatric: Present: A&O x's 3, appropriate affect, intact judgment & insight - Labs CBC & Chem 7: 10/28/18 05:01 10/28/18 05:01 Labs: Abnormal Lab Results - Last 24 Hours (Table) 10/27/18 10/27/18 10/28/18 Range/Units 17:17 20:50 05:01 RBC 2.59 L (4.30-5.90) m/uL Hgb 8.0 L (13.0-17.5) gm/dL Hct 23.8 L (39.0-53.0) % Creatinine (0.66-1.25) mg/dL Glucose (74-99) mg/dL POC Glucose (mg/dL) 101 H 112 H (75-99) mg/dL AST (17-59) U/L Alkaline Phosphatase (38-126) U/L Total Protein (6.3-8.2) g/dL Albumin (3.5-5.0) g/dL 10/28/18 10/28/18 Range/Units 05:01 06:59 RBC (4.30-5.90) m/uL Hgb (13.0-17.5) gm/dL Hct (39.0-53.0) % Creatinine 0.61 L (0.66-1.25) mg/dL Glucose 100 H (74-99) mg/dL POC Glucose (mg/dL) 105 H (75-99) mg/dL AST 92 H (17-59) U/L Alkaline Phosphatase 37 L (38-126) U/L Total Protein 5.3 L (6.3-8.2) g/dL Albumin 3.2 L (3.5-5.0) g/dL Assessment and Plan Plan: 1 multivessel coronary disease and the patient is status post four-vessel bypass surgery. Postop day #4. Patient is recovering adequately for now. The mediastinal tube has been removed and the pleural chest tubes have be kept in place. The pacers wires have been grounded. He is using incentive spirometer. He is hemodynamically stable. 2 postoperative acute blood loss anemia, expected outcome of surgery, hemoglobin is at 9.0 3 ventilator management as the patient is currently on 6 L of oxygen nasal cannula, the mediastinal chest tube has been removed. 4 paroxysmal atrial fibrillation, current rhythm is sinus on a combination of metoprolol, Cardizem and amiodarone 5 history of hyperlipidemia 6 cerebral palsy 7 bilateral carotid artery stenosis in the order of 70% 8 preoperative E. coli UTI, treated 9 history of cerebral palsy Plan management of atrial fibrillationper cardiology. The patient will be switched to amiodarone 400 mg by mouth twice a day, he is also on a combination of Cardizem 120 mg by mouth daily and metoprolol 12.5 mg by mouth twice a day. Continue aspirin. Continue Plavix. The patient has not been committed to anticoagulation for now. Remove the chest tube. Continue the incentive spirometer. We'll continue to follow.
[2018-10-28 16:49] LABS: Glucose,Whole Blood 91 mg/dL (75-99)
[2018-10-28] MEDS: SENNOSIDES-DOCUSATE SODIUM 1 EACH TAB PO SCH (20:28)
[2018-10-28 21:18] LABS: Glucose,Whole Blood 144 mg/dL (75-99)
[2018-10-29 02:03] LABS: Glucose,Whole Blood 119 mg/dL (75-99)
[2018-10-29 05:53] LABS: Glucose,Whole Blood 112 mg/dL (75-99)
[2018-10-29] MEDS: ASCORBIC ACID 500 MG TAB PO SCH ×2 (06:07→17:46)
[2018-10-29] MEDS: KETOROLAC 30 MG/ML 1 ML VIAL IVP SCH ×4 (06:07→23:35)
[2018-10-29] MEDS: PANTOPRAZOLE 40 MG TABLET PO SCH (06:07)
[2018-10-29] MEDS: FERROUS SULFATE 325 MG TAB PO SCH ×2 (06:07→17:46)
[2018-10-29 06:13] LABS: HCT 24.3 % (39.0-53.0); HGB 8.1 gm/dL (13.0-17.5); MCH 30.4 pg (25.0-35.0); MCHC 33.2 g/dL (31.0-37.0); MCV 91.6 fL (80.0-100.0); Mean Platelet Volume 7.5; Platelet Count 223 k/uL (150-450); RBC 2.66 m/uL (4.30-5.90); RDW 15.2 % (11.5-15.5); WBC 9.9 k/uL (3.8-10.6)
[2018-10-29 06:23] LABS: Anion Gap 5 mmol/L; Blood Urea Nitrogen 14 mg/dL (9-20); Calcium 8.4 mg/dL (8.4-10.2); Carbon Dioxide 27 mmol/L (22-30); Chloride 107 mmol/L (98-107); Glucose 96 mg/dL (74-99); Magnesium 2.1 mg/dL (1.6-2.3); Potassium 3.9 mmol/L (3.5-5.1); Sodium 139 mmol/L (137-145)
[2018-10-29] MEDS ORDERED: POTASSIUM CHLORIDE ER 20 MEQ TAB.ER PO STA (06:52)
--- NOTE | 2018-10-29 07:50 | P.PN ---
Subjective Progress Note Date: 10/29/18 Principal diagnosis: Severe triple vessel coronary artery disease with preserved LV function. Previous medical history of hypertension, hyperlipidemia, previous tobacco dependence with preoperative FEV1 94% of predicted, cerebral palsy, bilateral carotid artery stenosis 70%, and family history of premature coronary artery disease. Preoperative E coli urinary tract infection treated with Cipro for 1 week. POD#5 coronary artery bypass graft surgery with left internal mammary artery to the left anterior descending coronary artery, left radial artery to the first obtuse marginal artery, reverse saphenous vein graft to the first diagonal artery, reverse saphenous vein graft to the posterior lateral branch of the right coronary artery. Endoscopic harvest of the right greater saphenous vein and the left radial artery. Epiaortic scanning. Intraoperative transesphageal echocardiogram. Postoperative acute blood loss anemia, expected secondary to cardiopulmonary bypass pump and hemodilution. Postoperative atrial fibrillation, unexpected but potential outcome, currently in sinus rhythm The patient is currently sitting up in the recliner in no acute distress. He was transferred to [address] [place] [address] cardiac stepdown unit yesterday afternoon. He denies pain currently, complains of shortness of breath with activity. Remains in normal sinus rhythm. Hemodynamically stable. Right and left pleural chest tubes discontinued yesterday. Did shower and ambulate yesterday. No other complaints. Objective - Vital Signs Vital signs: Vital Signs Temp 98.8 F 10/28/18 20:00 Pulse 77 10/29/18 03:37 Resp 22 10/29/18 03:37 BP 116/65 10/29/18 03:37 Pulse Ox 95 10/29/18 03:37 Intake & Output 10/28/18 10/29/18 10/29/18 18:59 06:59 18:59 Intake Total 865 Output Total 80 450 Balance 785 -450 Weight 75.2 kg Intake: IV 175 0.9 Pressure Bag 15 Lactated Ringers 1,000 ml 160 @ 20 mls/hr IV .Q24H JENNIFER Rx#:[id number] Intake, IV Titration 250 Amount Amiodarone 300 mg In 250 Dextrose 5% in Water 250 ml @ 0.5 MG/MIN 25 mls/hr IV .Q10H PRN Rx#: [id number] Oral 440 Output: Chest Tube Drainage 80 Left Lateral Chest 30 Right Pleural 50 Urine 450 Other: Voiding Method Bedside Commode Toilet Urinal Urinal # Voids 1 1 # Bowel Movements 1 ABP, PAP, CO, CI - Last Documented Arterial Blood Pressure 154/69 Pulmonary Artery Pressure 35/17 Cardiac Output 12 Cardiac Index 3.2 - Constitutional General appearance: Present: cooperative, no acute distress - Respiratory Details: Lungs sounds diminished bilaterally. Respirations even, nonlabored. Currently on 4 L nasal cannula with oxygen saturation 95%. Able to achieve 750 mL on his incentive spirometry. Strong productive cough with yellow sputum. - Cardiovascular Details: S1, S2 present. Regular rate and rhythm, sinus rhythm on telemetry. Sternum stable. A/V epicardial pacemaker wires present, grounded. Palpable peripheral pulses bilaterally. Left arm trace edema present. No calf pain or tenderness noted. Heart hugger in place with patient demonstrating appropriate use although he needs encouragement. Antiembolism stockings, SCDs present. - Gastrointestinal Gastrointestinal Comment(s): Abdomen soft, nontender, nondistended. Active bowel sounds 4 quadrants present. Tolerating diet. Positive bowel movement. - Genitourinary Genitourinary Comment(s): Continues to void clear, yellow urine. - Integumentary Integumentary Comment(s): Skin is warm and dry with evidence of good perfusion. Anterior chest incision well approximated and covered with dry intact dressing. Chest tube sites draining serous drainage, covered with dressing. Left radial harvest site well approximated without drainage, patient able to move all fingers, strong investigative analyst, positive feeling, denies numbness. Right lower extremity EVH site well approximated without drainage, ecchymosis present, expected. - Neurologic Neurologic: Present: CNII-XII intact - Musculoskeletal Musculoskeletal: Present: gait normal, generalized weakness, strength equal bilaterally - Psychiatric Psychiatric: Present: A&O x's 3, appropriate affect - Allied health notes Allied health notes reviewed: nursing - Labs CBC & Chem 7: 10/29/18 05:56 10/29/18 05:56 Labs: Abnormal Lab Results - Last 24 Hours (Table) 10/28/18 10/29/18 10/29/18 Range/Units 21:17 02:01 05:52 RBC (4.30-5.90) m/uL Hgb (13.0-17.5) gm/dL Hct (39.0-53.0) % Creatinine (0.66-1.25) mg/dL POC Glucose (mg/dL) 144 H 119 H 112 H (75-99) mg/dL 10/29/18 10/29/18 Range/Units 05:56 05:56 RBC 2.66 L (4.30-5.90) m/uL Hgb 8.1 L (13.0-17.5) gm/dL Hct 24.3 L (39.0-53.0) % Creatinine 0.60 L (0.66-1.25) mg/dL POC Glucose (mg/dL) (75-99) mg/dL - Imaging and Cardiology Chest x-ray: image reviewed Assessment and Plan Assessment: 1. Severe triple-vessel coronary artery disease with preserved LV function, status post CABG 4 2. Hypertension 3. Hyperlipidemia 4. Previous tobacco dependence with preoperative FEV1 94% of predicted 5. Cerebral palsy 6. Bilateral carotid artery stenosis 70% 7. Family history of premature coronary artery disease 8. Preoperative E. coli urinary tract infection, treated 9. Postoperative acute blood loss anemia, expected 10. Postoperative atrial fibrillation, expected Plan: 1. Continue aspirin, statin, Plavix, beta karissa. Will increase beta karissa as tolerated. 2. Continue Cardizem for radial artery spasm prophylaxis. 3. Continue amiodarone for A. fib prophylaxis. No anticoagulation at this point. 4. Wean O2 as tolerated. Encourage incentive spirometry use 10 times every hour while awake. 5. Bronchodilators per pulmonology. Encourage continued smoking cessation. 6. Increase activity, ambulate as tolerated. PT/OT/cardiac rehab following. 7. Will monitor daily labs, chest x-rays. Electrolyte replacement per protocol. No further blood transfusion. 8. Pain management with current medication regimen. 9. Insulin management per primary care service. 10. GI/DVT prophylaxis. 11. Will give low dose lasix today. 12. Discharge planning in progress. Patient would benefit from aggressive physical and occupational therapy, daily physician visits, frequent lab draws. In other words patient would benefit more from inpatient rehab than subacute rehab. Dr. Chen on consult. 13. Anticipate discharge to inpatient rehab tomorrow. 14. More recommendations to follow as patient progresses. Time with Patient: Greater than 30
[2018-10-29] MEDS: IPRATROPIUM-ALBUTEROL 3 ML NEB INHALATION SCH ×4 (08:15→20:01)
[2018-10-29] MEDS: METOPROLOL TARTRATE 12.5 MG TAB PO SCH ×3 (08:58→21:30)
[2018-10-29] MEDS: AMIODARONE 200 MG TAB PO SCH ×2 (08:58→21:30)
[2018-10-29] MEDS ORDERED: FUROSEMIDE 10 MG/ML 2 ML VIAL IV ONE (10:03)
[2018-10-29] MEDS: ATORVASTATIN 40 MG TAB PO SCH (10:07)
[2018-10-29] MEDS: CLOPIDOGREL 75 MG TAB PO SCH (10:07)
[2018-10-29] MEDS: HEPARIN SODIUM,PORCINE 5,000 UNIT/ML 1 ML VIAL SQ SCH ×3 (10:07→23:35)
[2018-10-29] MEDS: ASPIRIN 325 MG TAB PO SCH (10:07)
--- NOTE | 2018-10-29 10:25 | XR ---
EXAMINATION TYPE: XR chest 2V DATE OF EXAM: 10/29/2018 COMPARISON: 10/28/2018 INDICATION: Post cardiac surgery TECHNIQUE: Frontal and lateral views of the chest are obtained. FINDINGS: The heart size is normal. The pulmonary vasculature is normal. There is a small left pleural effusion. Some plate atelectasis within the left midlung. Catheter varghese th and chest tubes have been removed. No pneumothorax is evident. IMPRESSION: 1. Mild plate atelectasis left midlung. 2. Small left pleural effusion.
--- NOTE | 2018-10-29 10:54 | P.PN ---
Subjective Progress Note Date: 10/29/18 Principal diagnosis: Coronary artery disease and status post CABG This is a pleasant 53-year-old gentleman who was experiencing chest discomfort and underwent a heart catheterization by Dr. Prajapati and was found to have severe triple-vessel CAD where the patient was referred for coronary artery bypass grafting. He underwent coronary artery bypass grafting 4 days ago. On follow-up with the patient today, 10/29/2018, he was transferred out of the ICU yesterday. Overall he is doing good clinically. Hemodynamically he is stable. He did have an episode of atrial fibrillation yesterday. He is on maximize medical treatment at this point. He possibly can be discharged home the day after tomorrow. The GFR is about 60. The hemoglobin is above 8. Objective - Vital Signs Vital signs: Vital Signs Temp 98.8 F 10/28/18 20:00 Pulse 80 10/29/18 08:29 Resp 22 10/29/18 03:37 BP 116/65 10/29/18 03:37 Pulse Ox 95 10/29/18 03:37 Intake & Output 10/28/18 10/29/18 10/29/18 18:59 06:59 18:59 Intake Total 865 240 Output Total 80 450 Balance 785 -450 240 Weight 75.2 kg Intake: IV 175 0.9 Pressure Bag 15 Lactated Ringers 1,000 ml 160 @ 20 mls/hr IV .Q24H JENNIFER Rx#:[id number] Intake, IV Titration 250 Amount Amiodarone 300 mg In 250 Dextrose 5% in Water 250 ml @ 0.5 MG/MIN 25 mls/hr IV .Q10H PRN Rx#: [id number] Oral 440 240 Output: Chest Tube Drainage 80 Left Lateral Chest 30 Right Pleural 50 Urine 450 Other: Voiding Method Bedside Commode Toilet Urinal Urinal # Voids 1 1 1 # Bowel Movements 1 1 ABP, PAP, CO, CI - Last Documented Arterial Blood Pressure 154/69 Pulmonary Artery Pressure 35/17 Cardiac Output 12 Cardiac Index 3.2 - Constitutional General appearance: Present: no acute distress - Respiratory Respiratory: bilateral: diminished - Labs CBC & Chem 7: 10/29/18 05:56 10/29/18 05:56 Labs: Abnormal Lab Results - Last 24 Hours (Table) 10/28/18 10/29/18 10/29/18 Range/Units 21:17 02:01 05:52 RBC (4.30-5.90) m/uL Hgb (13.0-17.5) gm/dL Hct (39.0-53.0) % Creatinine (0.66-1.25) mg/dL POC Glucose (mg/dL) 144 H 119 H 112 H (75-99) mg/dL 10/29/18 10/29/18 Range/Units 05:56 05:56 RBC 2.66 L (4.30-5.90) m/uL Hgb 8.1 L (13.0-17.5) gm/dL Hct 24.3 L (39.0-53.0) % Creatinine 0.60 L (0.66-1.25) mg/dL POC Glucose (mg/dL) (75-99) mg/dL Assessment and Plan Assessment: Assessment #1 severe triple-vessel CAD and status post CABG #2 hyperlipidemia #3 paroxysmal atrial fibrillation Plan #1 continue the current medical regimen #2 possible discharge home in the next 24-48 hours
--- NOTE | 2018-10-29 10:55 | P.PN ---
Subjective Progress Note Date: 10/29/18 53-year-old male one of Dr. Frank patient with mild degree of cerebral palsy who has history of hypertension hyperlipidemia and coronary artery disease with heart catheter 2 weeks ago showed 99 percentile blockage of the RCA 60% of the PLB 90% stenosis of the circumflex and acute marginal and 85 percentile stenosis of the LAD. Patient was referred to cardiothoracic seen and evaluated and was schedule elective bypass surgery with Dr. Galan which was done successfully today patient was intubated and placed on mechanical ventilation post surgery seen pulmonary and transferred to the intensive care unit, remain on vasodepressor along with insulin drip the blood sugar running marginal at the time. Patient is sedated on mechanical ventilation. 10/25: Patient remains in intensive care unit. He was successfully extubated around midnight. His pain is currently controlled. He is continued on norepinephrine and vasopressin as well as IV Cardizem and amiodarone. Patient is on insulin drip for blood sugar control. Pretty catheter in place with adequate urine output. Chest tubes remain in place. 10/26: Patient remains in intensive care unit. He has been seen by Dr. Chen for possible inpatient rehab. Patient has been afebrile, heart rate in the 70s to 80, blood pressure 93/53, pulse ox 93% on 10 L high flow nasal cannula. Patient had rapid is pulse ox yesterday afternoon while on nasal cannula and transitioned to high flow O2. Patient is using incentive spirometry at 500 ML's. pvc monitor is sinus rhythm. Repeat lab work this morning shows a hemoglobin of 7, white count 11.6, platelet count 125. BUN 17 and creatinine 0.53. Phosphorus 2.4, magnesium 2.4, AST 187, ALT 38. Blood sugars are running between 118 and 136. Plan to continue insulin drip another day and transitioned to long-acting and short acting insulins tomorrow. Patient is currently eating very little. [place]'s catheter has been discontinued. He has had no episodes of atrial fibrillation. He remains on vasopressin. He is scheduled for 1 unit packed RBCs followed by Lasix. Patient is currently working with PT and OT. 10/27: Patient sitting up in the chair he remains in the intensive care unit he denies any chest pain is less short of breath he continues to have chest tubes in place, he continued to have the pacer in place, he did receive an extra dose of Lasix today, he is off the pressors at this time and he continues to progress in a positive manner. 10/28: Patient sitting up on the commode he is less short of breath today he denies any chest pain or any shortness breath he had an episode of atrial fibrillation with rapid ventricular response, he was initially placed on am iodarone drip currently would be switched to oral amiodarone and he will be switched to Cardizem CD at the same time along with beta karissa he is feeling a lot better his chest tubes will come out today. 10/29: Patient is sitting up in bed he is feeling a bit better today he was moved out of the ICU, he continues to have significant shortness of breath with ambulation he will be receiving Lasix dose today is utilizing incentive spirometer and regular basis, has no abdominal pain, nausea or vomiting he has a good bowel movement. Objective - Vital Signs Vital signs: Vital Signs Temp 98.8 F 10/28/18 20:00 Pulse 80 10/29/18 08:29 Resp 22 10/29/18 03:37 BP 116/65 10/29/18 03:37 Pulse Ox 95 10/29/18 03:37 Intake & Output 10/28/18 10/29/18 10/29/18 18:59 06:59 18:59 Intake Total 865 240 Output Total 80 450 Balance 785 -450 240 Weight 75.2 kg Intake: IV 175 0.9 Pressure Bag 15 Lactated Ringers 1,000 ml 160 @ 20 mls/hr IV .Q24H JENNIFER Rx#:[id number] Intake, IV Titration 250 Amount Amiodarone 300 mg In 250 Dextrose 5% in Water 250 ml @ 0.5 MG/MIN 25 mls/hr IV .Q10H PRN Rx#: [id number] Oral 440 240 Output: Chest Tube Drainage 80 Left Lateral Chest 30 Right Pleural 50 Urine 450 Other: Voiding Method Bedside Commode Toilet Urinal Urinal # Voids 1 1 # Bowel Movements 1 ABP, PAP, CO, CI - Last Documented Arterial Blood Pressure 154/69 Pulmonary Artery Pressure 35/17 Cardiac Output 12 Cardiac Index 3.2 - Exam Review of Systems CONSTITUTIONAL: Well-developed. Denies fever, denies chills EYES: No icterus sclerae, no conjunctivitis. EARS, NOSE, MOUTH, THROAT, and FACE: No sore throat, lymphadenopathy, carotid bruits or deformity. RESPIRATORY: He is on mechanical ventilation.. CARDIOVASCULAR: Post CABG, no chest pain, less short of breath, no pleurisy. GASTROINTESTINAL: Patient is sedated no diarrhea no sign of GI bleed. GENITOURINARY: Negative for Hematuria. With Pretty catheter in. INTEGUMENT/BREAST: Negative. HEMATOLOGIC/LYMPHATIC: Negative for bleed or purpura. MUSCULOSKELTAL: Patient is sedated. NEURLOGICAL: Patient is more awake today. General Appearance: Patient is sitting in recliner at the bedside and appears to be comfortable and in no acute distress... Neck HEENT: Supple, no lymphadenopathy, no thyroid enlargement, no carotid bruits. Lungs: Decreased breath sounds in the left side no crackles or wheezes. Chest Wall: Decrease expansion with deep inspiration with chest tubes in place. Heart: Regular rate and rhythm, S1, S2 mild arrhythmia with S3., no murmur, rub or gallop. Back: Symmetric, no curvature, ROM normal, no CVA tenderness. Abdomen: Soft, non-tender, bowel sounds active all four quadrants, no masses, no organomegaly. Pretty catheter draining clear horace urine. Extremities: Extremities normal, atraumatic, no cyanosis or edema. Right side had minimum bleed from the graft site Pulses: 2+ and symmetric. Skin: Skin color, texture, tugor normal, no rashes or lesions. Neurologic: Patient is awake alert and oriented 3. No focal neural deficits. - Labs CBC & Chem 7: 10/29/18 05:56 10/29/18 05:56 Labs: Abnormal Lab Results - Last 24 Hours (Table) 10/28/18 10/29/18 10/29/18 Range/Units 21:17 02:01 05:52 RBC (4.30-5.90) m/uL Hgb (13.0-17.5) gm/dL Hct (39.0-53.0) % Creatinine (0.66-1.25) mg/dL POC Glucose (mg/dL) 144 H 119 H 112 H (75-99) mg/dL 10/29/18 10/29/18 Range/Units 05:56 05:56 RBC 2.66 L (4.30-5.90) m/uL Hgb 8.1 L (13.0-17.5) gm/dL Hct 24.3 L (39.0-53.0) % Creatinine 0.60 L (0.66-1.25) mg/dL POC Glucose (mg/dL) (75-99) mg/dL Assessment and Plan Assessment: Assessment and plan: 1 post multiple vessel CABG. patient continues to have the chest tube in place as well as the pacer wires, he is off the pressors and is feeling a lot better today he continues to be somewhat short of breath, we will maintain patient on aspirin 325 mg orally once every day, Plavix 75 mg orally once every day, metoprolol 12.5 mg orally twice every day and Lipitor 40 mg orally once every day. 2 Acute hypoxic respiratory failure requiring high flow nasal cannula. Patient was successfully extubated. Pulmonary medicine managing. We'll continue with aggressive pulmonary toileting and usage of incentive spirometer. 3 hyperlipidemia. Continue patient on Lipitor 40 mg orally once every day. 4 history of cerebral palsy: Mild. 5 hyperglycemia without history of diabetes. Previous hemoglobin A1c 5.9: Remain on insulin drip and try to keep blood sugar below 150. 6 anemia post surgery: Continue to monitor. Continue patient on iron 325 mg orally once every day. 7 BPH. Stable at this time. 8. Atrial fibrillation with rapid ventricular response was on amiodarone drip will be switched to oral amiodarone and continue beta karissa and Cardizem CD. 9 . Acute blood loss anemia expected outcome of surgery post blood transfusion currently hemoglobin is stable continue with iron supplement. 10. DVT prophylaxis. Continue heparin 5000 units subcutaneously every 12 hours. 11. GI prophylaxis. Continue PPI. 12. Full code.
[2018-10-29 11:40] LABS: Glucose,Whole Blood 97 mg/dL (75-99)
[2018-10-29] MEDS: DILTIAZEM CD 120 MG CAP.ER.24H PO SCH (12:15)
--- NOTE | 2018-10-29 13:32 | P.PN ---
Subjective Progress Note Date: 10/29/18 on today's evaluation of 10/28/2018, the patient is awake and alert sitting up on a chair. The chest. He is still using incentive spirometer. Overnight he was due atrial fibrillation with some degree of breath and ventricular response in the 110 range. The patient was given boluses of amiodarone and currently is on amiodarone drip. He is back into sinus rhythm. Note that while going into atrial fibrillation, the patient developed hypotension probably related to the loss of atrial kick. He is currently back to normal sinus rhythm. He is hemodynamically stable. He is on beta blockers and Cardizem for rate control. Sternum is stable clean and intact. He is producing adequate amount of urine output. No nausea. No vomiting. No diarrhea. No altered mentation. Chest x- ray still showing some atelectatic changes in lung bases and pulmonary vascular congestion. Hemoglobin is stable.the oxygenation is improving and the patient is on 6 L of oxygen by nasal cannula with a pulse ox of 97%.hemoglobin is at 8.0. On today's evaluation of 10/29/2018 the patient is already transferred today telemetry unit. He is doing well. All of the chest is a been removed. The chest x-ray from today shows pulse vessel congestion and small effusion the left side. No hypotension. No atrial fibrillation. He remains in normal sinus rhythm. He'll be given another dose of Lasix today. The patient seemed was at 8.1. BUN is 14 creatinine 0.6. He is using his incentive spirometer. No chest pain. No altered mentation. He is emanating in the hallway. His sternal wound is dry clean and intact. He is currently on oxygen at 4 L per minute nasal cannula. Objective - Vital Signs Vital signs: Vital Signs Temp 98.8 F 10/28/18 20:00 Pulse 80 10/29/18 12:09 Resp 22 10/29/18 03:37 BP 116/65 10/29/18 03:37 Pulse Ox 95 10/29/18 03:37 Intake & Output 10/28/18 10/29/18 10/29/18 18:59 06:59 18:59 Intake Total 865 600 Output Total 80 450 Balance 785 -450 600 Weight 75.2 kg Intake: IV 175 0.9 Pressure Bag 15 Lactated Ringers 1,000 ml 160 @ 20 mls/hr IV .Q24H JENNIFER Rx#:[id number] Intake, IV Titration 250 Amount Amiodarone 300 mg In 250 Dextrose 5% in Water 250 ml @ 0.5 MG/MIN 25 mls/hr IV .Q10H PRN Rx#: [id number] Oral 440 600 Output: Chest Tube Drainage 80 Left Lateral Chest 30 Right Pleural 50 Urine 450 Other: Voiding Method Bedside Commode Toilet Urinal Urinal # Voids 1 1 1 # Bowel Movements 1 1 ABP, PAP, CO, CI - Last Documented Arterial Blood Pressure 154/69 Pulmonary Artery Pressure 35/17 Cardiac Output 12 Cardiac Index 3.2 - Exam - Constitutional General appearance: Present: cooperative, no acute distress - Respiratory Details: Lungs sounds diminished bilaterally. Respirations even, nonlabored. Currently on 4 L nasal cannula with oxygen saturation 95%. Able to achieve 750 mL on his incentive spirometry. Strong productive cough with yellow sputum. - Cardiovascular Details: S1, S2 present. Regular rate and rhythm, sinus rhythm on telemetry. Sternum stable. A/V epicardial pacemaker wires present, grounded. Palpable peripheral pulses bilaterally. Left arm trace edema present. No calf pain or tenderness noted. Heart hugger in place with patient demonstrating appropriate use although he needs encouragement. Antiembolism stockings, SCDs present. - Gastrointestinal Gastrointestinal Comment(s): Abdomen soft, nontender, nondistended. Active bowel sounds 4 quadrants present. Tolerating diet. Positive bowel movement. - Genitourinary Genitourinary Comment(s): Continues to void clear, yellow urine. - Integumentary Integumentary Comment(s): Skin is warm and dry with evidence of good perfusion. Anterior chest incision well approximated and covered with dry intact dressing. Chest tube sites draining serous drainage, covered with dressing. Left radial harvest site well approximated without drainage, patient able to move all fingers, strong crop supervisor, positive feeling, denies numbness. Right lower extremity EVH site well approximated without drainage, ecchymosis present, expected. - Neurologic Neurologic: Present: CNII-XII intact - Musculoskeletal Musculoskeletal: Present: gait normal, generalized weakness, strength equal bilaterally - Psychiatric Psychiatric: Present: A&O x's 3, appropriate affect - Labs CBC & Chem 7: 10/29/18 05:56 10/29/18 05:56 Labs: Abnormal Lab Results - Last 24 Hours (Table) 10/28/18 10/29/18 10/29/18 Range/Units 21:17 02:01 05:52 RBC (4.30-5.90) m/uL Hgb (13.0-17.5) gm/dL Hct (39.0-53.0) % Creatinine (0.66-1.25) mg/dL POC Glucose (mg/dL) 144 H 119 H 112 H (75-99) mg/dL 10/29/18 10/29/18 Range/Units 05:56 05:56 RBC 2.66 L (4.30-5.90) m/uL Hgb 8.1 L (13.0-17.5) gm/dL Hct 24.3 L (39.0-53.0) % Creatinine 0.60 L (0.66-1.25) mg/dL POC Glucose (mg/dL) (75-99) mg/dL Assessment and Plan Plan: 1 multivessel coronary disease and the patient is status post four-vessel bypass surgery. Postop day 5. Patient is recovering adequately for now. She was out and the patient has a small left-sided pleural effusion. 2 postoperative acute blood loss anemia, expected outcome of surgery, hemoglobin is at 8.1 3 ventilator management as the patient is currently on 6 L of oxygen nasal cannula, the mediastinal chest tube has been removed. 4 paroxysmal atrial fibrillation, current rhythm is sinus on a combination of metoprolol, Cardizem and amiodarone. The rhythm remains sinus 5 history of hyperlipidemia 6 cerebral palsy 7 bilateral carotid artery stenosis in the order of 70% 8 preoperative E. coli UTI, treated 9 history of cerebral palsy Plan Continue using incentive spirometer. IV Lasix. Wean off FiO2 to maintain a saturation above 90%. Hemoglobin stable at 8.1. We'll continue to follow. All of the chest tubes have been removed. His cardiac rhythm is sinus for now.
[2018-10-29 17:00] LABS: Glucose,Whole Blood 120 mg/dL (75-99)
[2018-10-29 21:05] LABS: Glucose,Whole Blood 112 mg/dL (75-99)
[2018-10-29] MEDS: SENNOSIDES-DOCUSATE SODIUM 1 EACH TAB PO SCH (21:30)
[2018-10-30] MEDS: HYDROcodone/APAP 5-325MG 1 EACH TAB PO PRN ×3 (00:46→22:08)
[2018-10-30 01:58] LABS: Glucose,Whole Blood 127 mg/dL (75-99)
[2018-10-30] MEDS: KETOROLAC 30 MG/ML 1 ML VIAL IVP SCH (05:30)
[2018-10-30 06:10] LABS: Glucose,Whole Blood 103 mg/dL (75-99)
[2018-10-30] MEDS: FERROUS SULFATE 325 MG TAB PO SCH ×2 (06:42→17:20)
[2018-10-30] MEDS: ASCORBIC ACID 500 MG TAB PO SCH ×2 (06:42→17:20)
[2018-10-30] MEDS: PANTOPRAZOLE 40 MG TABLET PO SCH (06:42)
[2018-10-30] MEDS: IPRATROPIUM-ALBUTEROL 3 ML NEB INHALATION SCH ×4 (07:04→18:48)
[2018-10-30 07:18] LABS: Basophils % (A) 0 %; Eosinophils # (A) 0.4 k/uL (0-0.7); Eosinophils % (A) 3 %; HCT 26.8 % (39.0-53.0); HGB 8.6 gm/dL (13.0-17.5); Lymphocytes # (A) 1.5 k/uL (1.0-4.8); Lymphocytes % (A) 14 %; MCH 30.1 pg (25.0-35.0); MCHC 32.2 g/dL (31.0-37.0); MCV 93.5 fL (80.0-100.0); Mean Platelet Volume 7.2; Monocytes # (A) 0.6 k/uL (0-1.0); Monocytes % (A) 5 %; Neutrophils # (A) 8.2 k/uL (1.3-7.7); Neutrophils % (A) 76 %; Platelet Count 267 k/uL (150-450); RBC 2.87 m/uL (4.30-5.90); RDW 15.3 % (11.5-15.5); WBC 10.8 k/uL (3.8-10.6)
[2018-10-30 07:25] LABS: ALT 54 U/L (21-72); AST 63 U/L (17-59); Albumin 3.2 g/dL (3.5-5.0); Alkaline Phosphatase 47 U/L (38-126); Anion Gap 5 mmol/L; Blood Urea Nitrogen 15 mg/dL (9-20); Calcium 8.7 mg/dL (8.4-10.2); Carbon Dioxide 29 mmol/L (22-30); Chloride 107 mmol/L (98-107); Glucose 93 mg/dL (74-99); Magnesium 2.1 mg/dL (1.6-2.3); Potassium 3.9 mmol/L (3.5-5.1); Sodium 141 mmol/L (137-145); Total Bilirubin 0.7 mg/dL (0.2-1.3); Total Protein 5.6 g/dL (6.3-8.2)
--- NOTE | 2018-10-30 07:49 | P.PN ---
Subjective Progress Note Date: 10/30/18 Principal diagnosis: Severe triple vessel coronary artery disease with preserved LV function. Previous medical history of hypertension, hyperlipidemia, previous tobacco dependence with preoperative FEV1 94% of predicted, cerebral palsy, bilateral carotid artery stenosis 70%, and family history of premature coronary artery disease. Preoperative E coli urinary tract infection treated with Cipro for 1 week. POD#6 coronary artery bypass graft surgery with left internal mammary artery to the left anterior descending coronary artery, left radial artery to the first obtuse marginal artery, reverse saphenous vein graft to the first diagonal artery, reverse saphenous vein graft to the posterior lateral branch of the right coronary artery. Endoscopic harvest of the right greater saphenous vein and the left radial artery. Epiaortic scanning. Intraoperative transesphageal echocardiogram. Postoperative acute blood loss anemia, expected secondary to cardiopulmonary bypass pump and hemodilution. Postoperative atrial fibrillation, unexpected but potential outcome, currently in sinus rhythm The patient is currently sitting up in no acute distress on the cardiac stepdown unit having just returned from chest x-ray. He denies pain currently, complains of shortness of breath with activity. Remains in normal sinus rhythm, he has had a couple of short bursts of controlled A. fib lasting less than 20 minutes each. Hemodynamically stable. Did shower and ambulate yesterday. No other complaints. Objective - Vital Signs Vital signs: Vital Signs Temp 98.2 F 10/30/18 05:26 Pulse 74 10/30/18 07:04 Resp 18 10/30/18 07:04 BP 121/69 10/30/18 05:26 Pulse Ox 97 10/30/18 07:04 Intake & Output 10/29/18 10/30/18 10/30/18 18:59 06:59 18:59 Intake Total 950 10 Output Total 600 Balance 350 10 Weight 74.1 kg Intake: IV 30 10 Invasive Line 4 20 Invasive Line 5 10 10 Oral 920 Output: Urine 600 Other: Voiding Method Toilet Toilet Urinal Urinal # Voids 1 2 # Bowel Movements 1 ABP, PAP, CO, CI - Last Documented Arterial Blood Pressure 154/69 Pulmonary Artery Pressure 35/17 Cardiac Output 12 Cardiac Index 3.2 - Constitutional General appearance: Present: cooperative, no acute distress - Respiratory Details: Lungs sounds diminished bilaterally, left greater than right. Respirations even, nonlabored. Currently on 2 L nasal cannula with oxygen saturation 97%. Able to achieve 750 mL on his incentive spirometry. Strong productive cough with yellow sputum. - Cardiovascular Details: S1, S2 present. Regular rate and rhythm, sinus rhythm on telemetry. Sternum stable. A/V epicardial pacemaker wires present, grounded. Palpable peripheral pulses bilaterally. Left arm trace edema present. No calf pain or tenderness noted. Heart hugger in place with patient demonstrating appropriate use although he needs encouragement. Antiembolism stockings, SCDs present. - Gastrointestinal Gastrointestinal Comment(s): Abdomen soft, nontender, nondistended. Active bowel sounds 4 quadrants present. Tolerating diet. Positive bowel movement. - Genitourinary Genitourinary Comment(s): Continues to void clear, yellow urine. - Integumentary Integumentary Comment(s): Skin is warm and dry with evidence of good perfusion. Anterior chest incision well approximated and covered with dry intact dressing. Chest tube sites draining serous drainage, covered with dressing. Left radial harvest site well approximated without drainage, patient able to move all fingers, strong director nicu, positive feeling, denies numbness. Right lower extremity EVH site well approximated without drainage, ecchymosis present, expected. - Neurologic Neurologic: Present: CNII-XII intact - Musculoskeletal Musculoskeletal: Present: gait normal, generalized weakness, strength equal bilaterally - Psychiatric Psychiatric: Present: A&O x's 3, appropriate affect - Allied health notes Allied health notes reviewed: nursing - Labs CBC & Chem 7: 10/30/18 06:34 10/30/18 06:34 Labs: Abnormal Lab Results - Last 24 Hours (Table) 10/29/18 10/29/18 10/30/18 Range/Units 16:56 20:59 01:56 WBC (3.8-10.6) k/uL RBC (4.30-5.90) m/uL Hgb (13.0-17.5) gm/dL Hct (39.0-53.0) % Neutrophils # (1.3-7.7) k/uL Creatinine (0.66-1.25) mg/dL POC Glucose (mg/dL) 120 H 112 H 127 H (75-99) mg/dL AST (17-59) U/L Total Protein (6.3-8.2) g/dL Albumin (3.5-5.0) g/dL 10/30/18 10/30/18 10/30/18 Range/Units 06:09 06:34 06:34 WBC 10.8 H (3.8-10.6) k/uL RBC 2.87 L (4.30-5.90) m/uL Hgb 8.6 L (13.0-17.5) gm/dL Hct 26.8 L (39.0-53.0) % Neutrophils # 8.2 H (1.3-7.7) k/uL Creatinine 0.62 L (0.66-1.25) mg/dL POC Glucose (mg/dL) 103 H (75-99) mg/dL AST 63 H (17-59) U/L Total Protein 5.6 L (6.3-8.2) g/dL Albumin 3.2 L (3.5-5.0) g/dL - Imaging and Cardiology Chest x-ray: image reviewed Assessment and Plan Assessment: 1. Severe triple-vessel coronary artery disease with preserved LV function, status post CABG 4 2. Hypertension 3. Hyperlipidemia 4. Previous tobacco dependence with preoperative FEV1 94% of predicted 5. Cerebral palsy 6. Bilateral carotid artery stenosis 70% 7. Family history of premature coronary artery disease 8. Preoperative E. coli urinary tract infection, treated 9. Postoperative acute blood loss anemia, expected 10. Postoperative atrial fibrillation, expected Plan: 1. Continue aspirin, statin, Plavix, beta karissa. Will increase beta karissa as tolerated. 2. Continue Cardizem for radial artery spasm prophylaxis. 3. Continue amiodarone for A. fib prophylaxis. Will start Eliquis for anticoagulation. Will discontinue epicardial pacemaker wires today. 4. Wean O2 as tolerated. Encourage incentive spirometry use 10 times every derrell r while awake. 5. Bronchodilators per pulmonology. Encourage continued smoking cessation. 6. Increase activity, ambulate as tolerated. PT/OT/cardiac rehab following. 7. Will monitor daily labs, chest x-rays. Electrolyte replacement per protocol. No further blood transfusion. 8. Pain management with current medication regimen. 9. Insulin management per primary care service. 10. GI/DVT prophylaxis. 11. Will give IV lasix today. 12. Discharge planning in progress. Patient would benefit from aggressive physical and occupational therapy, daily physician visits, frequent lab draws. In other words patient would benefit more from inpatient rehab than subacute rehab. Dr. Chen on consult. 13. Anticipate discharge to inpatient rehab today versus tomorrow. 14. More recommendations to follow as patient progresses. Time with Patient: Greater than 30
--- NOTE | 2018-10-30 08:59 | XR ---
EXAMINATION TYPE: XR chest 2V DATE OF EXAM: 10/30/2018 COMPARISON: 10/29/2018 HISTORY: Post cardiac surgery TECHNIQUE: Frontal and lateral views of the chest are obtained. FINDINGS: There is a similar appearing small left pleural effusion. External device partially limits the right lateral lung evaluation. Scattered strand-like atelectasis is present throughout the lungs . Cardia mediastinal silhouette is mildly enlarged with post CABG changes. Osseous structures are morris ssly intact with minimal degenerative changes of the thoracic spine. IMPRESSION: Persistent small left pleural effusion and multifocal subsegmental atelectasis.
[2018-10-30] MEDS ORDERED: FUROSEMIDE 10 MG/ML 2 ML VIAL IV ONE (09:04)
[2018-10-30] MEDS: CLOPIDOGREL 75 MG TAB PO SCH (09:16)
[2018-10-30] MEDS: HEPARIN SODIUM,PORCINE 5,000 UNIT/ML 1 ML VIAL SQ SCH (09:17)
[2018-10-30] MEDS: ASPIRIN 325 MG TAB PO SCH (09:17)
[2018-10-30] MEDS: METOPROLOL TARTRATE 25 MG TAB PO SCH ×2 (09:17→22:05)
[2018-10-30] MEDS: ATORVASTATIN 40 MG TAB PO SCH (09:17)
[2018-10-30] MEDS: AMIODARONE 200 MG TAB PO SCH ×2 (09:17→22:05)
[2018-10-30] MEDS: APIXABAN 5 MG TAB PO SCH ×2 (10:57→22:05)
[2018-10-30] MEDS: DILTIAZEM CD 120 MG CAP.ER.24H PO SCH (11:00)
--- NOTE | 2018-10-30 11:49 | P.PN ---
Subjective Progress Note Date: 10/30/18 Principal diagnosis: Multivessel coronary artery disease, status post four-vessel bypass surgery, postoperative day 6 on today's evaluation of 10/28/2018, the patient is awake and alert sitting up on a chair. The chest. He is still using incentive spirometer. Overnight he was due atrial fibrillation with some degree of breath and ventricular response in the 110 range. The patient was given boluses of amiodarone and currently is on amiodarone drip. He is back into sinus rhythm. Note that while going into atrial fibrillation, the patient developed hypotension probably related to the loss of atrial kick. He is currently back to normal sinus rhythm. He is hemodynamically stable. He is on beta blockers and Cardizem for rate control. Sternum is stable clean and intact. He is producing adequate amount of urine output. No nausea. No vomiting. No diarrhea. No altered mentation. Chest x- ray still showing some atelectatic changes in lung bases and pulmonary vascular congestion. Hemoglobin is stable.the oxygenation is improving and the patient is on 6 L of oxygen by nasal cannula with a pulse ox of 97%.hemoglobin is at 8.0. On today's evaluation of 10/29/2018 the patient is already transferred today telemetry unit. He is doing well. All of the chest is a been removed. The chest x-ray from today shows pulse vessel congestion and small effusion the left side. No hypotension. No atrial fibrillation. He remains in normal sinus rhythm. He'll be given another dose of Lasix today. The patient seemed was at 8.1. BUN is 14 creatinine 0.6. He is using his incentive spirometer. No chest pain. No altered mentation. He is emanating in the hallway. His sternal wound is dry clean and intact. He is currently on oxygen at 4 L per minute nasal c annula. On 10/22/2018 patient seen in follow-up on selective care unit, he sitting up in a recliner, in no acute distress, lung sounds are clear, etc. spirometer effort is 750 ML. Today's chest x-ray has been reviewed and shows persistent small left pleural effusion and multifocal subsegmental atelectasis. Patient is on 2 L of oxygen his pulse ox is 94%, afebrile, hemodynamically stable. No co mplaints of shortness of breath, patient has been ambulating in the hallway, tolerates activity well, anticipate discharge to inpatient rehab sometime today. This is postoperative day 6 status post four-vessel coronary artery bypass grafting, all chest tubes Pretty catheter have been discontinued, wires are still in place, and are grounded. Objective - Vital Signs Vital signs: Vital Signs Temp 98.9 F 10/30/18 11:07 Pulse 78 10/30/18 11:30 Resp 16 10/30/18 11:30 BP 95/56 10/30/18 11:07 Pulse Ox 94 L 10/30/18 11:07 Intake & Output 10/29/18 10/30/18 10/30/18 18:59 06:59 18:59 Intake Total 950 10 Output Total 600 Balance 350 10 Weight 74.1 kg Intake: IV 30 10 Invasive Line 4 20 Invasive Line 5 10 10 Oral 920 Output: Urine 600 Other: Voiding Method Toilet Toilet Toilet Urinal Urinal Urinal # Voids 1 2 1 # Bowel Movements 1 ABP, PAP, CO, CI - Last Documented Arterial Blood Pressure 154/69 Pulmonary Artery Pressure 35/17 Cardiac Output 12 Cardiac Index 3.2 - Exam GENERAL EXAM: Alert, pleasant, 53-year-old white male comfortable in no apparent distress. HEAD: Normocephalic/atraumatic. EYES: Normal reaction of pupils, equal size. Conjunctiva pink, sclera white. NOSE: Clear with pink turbinates. THROAT: No erythema or exudates. NECK: No masses, no JVD, no thyroid enlargement, no adenopathy. CHEST: No chest wall deformity. Symmetrical expansion. Sternal incision is clean dry and intact, stable, AV epicardial wires are grounded to the chest wall LUNGS: Equal air entry with clear breath sounds, no rhonchi, no wheezing CVS: Regular rate and rhythm, normal S1 and S2, no gallops, no murmurs, no rubs ABDOMEN: Soft, nontender. No hepatosplenomegaly, normal bowel sounds, no guarding or rigidity. EXTREMITIES: No clubbing, no edema, no cyanosis, 2+ pulses and upper and lower extremities. MUSCULOSKELETAL: Muscle strength and tone normal. SPINE: No scoliosis or deformity SKIN: No rashes CENTRAL NERVOUS SYSTEM: Alert and oriented -3. No focal deficits, tone is normal in all 4 extremities. PSYCHIATRIC: Alert and oriented -3. Appropriate affect. Intact judgment and insight. - Labs CBC & Chem 7: 10/30/18 06:34 10/30/18 06:34 Labs: Abnormal Lab Results - Last 24 Hours (Table) 10/29/18 10/29/18 10/30/18 Range/Units 16:56 20:59 01:56 WBC (3.8-10.6) k/uL RBC (4.30-5.90) m/uL Hgb (13.0-17.5) gm/dL Hct (39.0-53.0) % Neutrophils # (1.3-7.7) k/uL Creatinine (0.66-1.25) mg/dL POC Glucose (mg/dL) 120 H 112 H 127 H (75-99) mg/dL AST (17-59) U/L Total Protein (6.3-8.2) g/dL Albumin (3.5-5.0) g/dL 10/30/18 10/30/18 10/30/18 Range/Units 06:09 06:34 06:34 WBC 10.8 H (3.8-10.6) k/uL RBC 2.87 L (4.30-5.90) m/uL Hgb 8.6 L (13.0-17.5) gm/dL Hct 26.8 L (39.0-53.0) % Neutrophils # 8.2 H (1.3-7.7) k/uL Creatinine 0.62 L (0.66-1.25) mg/dL POC Glucose (mg/dL) 103 H (75-99) mg/dL AST 63 H (17-59) U/L Total Protein 5.6 L (6.3-8.2) g/dL Albumin 3.2 L (3.5-5.0) g/dL Assessment and Plan Plan: 1 multivessel coronary disease and the patient is status post four-vessel bypass surgery. Postop day 6. Patient is recovering adequately for now. Chest tubes are out and the patient has a small left-sided pleural effusion. 2 postoperative acute blood loss anemia, expected outcome of surgery, hemoglobin is at 8.1 3 ventilator management as the patient is currently on 6 L of oxygen nasal cannula, the mediastinal chest tube has been removed. 4 paroxysmal atrial fibrillation, current rhythm is sinus on a combination of metoprolol, Cardizem and amiodarone. The rhythm remains sinus 5 history of hyperlipidemia 6 cerebral palsy 7 bilateral carotid artery stenosis in the order of 70% 8 preoperative E. coli UTI, treated 9 history of cerebral palsy Plan: Continue encouraging deep breathing and coughing, today's chest x-ray has been reviewed with Dr. Smith, and was seen and evaluated by Dr. Smith, chest x-ray shows persistent small left pleural effusion and subsegmental atelectasis. Hemodynamically stable, vital signs are stable. Anticipate discharge to inpatient rehab today. I performed a history & physical examination of the patient and discussed their management with my nurse practitioner, Carlene Jiménez. I reviewed the nurse practitioner's note and agree with the documented findings and plan of care. Lung sounds are positive for clear breath sounds. The findings and the impression was discussed with the patient. I attest to the documentation by the nurse practitioner. Time with Patient: Less than 30
[2018-10-30 11:50] LABS: Glucose,Whole Blood 106 mg/dL (75-99)
--- NOTE | 2018-10-30 13:44 | P.PN ---
Subjective Progress Note Date: 10/30/18 53-year-old male one of Dr. Frank patient with mild degree of cerebral palsy who has history of hypertension hyperlipidemia and coronary artery disease with heart catheter 2 weeks ago showed 99 percentile blockage of the RCA 60% of the PLB 90% stenosis of the circumflex and acute marginal and 85 percentile stenosis of the LAD. Patient was referred to cardiothoracic seen and evaluated and was schedule elective bypass surgery with Dr. Galan which was done successfully today patient was intubated and placed on mechanical ventilation post surgery seen pulmonary and transferred to the intensive care unit, remain on vasodepressor along with insulin drip the blood sugar running marginal at the time. Patient is sedated on mechanical ventilation. 10/25: Patient remains in intensive care unit. He was successfully extubated around midnight. His pain is currently controlled. He is continued on norepinephrine and vasopressin as well as IV Cardizem and amiodarone. Patient is on insulin drip for blood sugar control. Pretty catheter in place with adequate urine output. Chest tubes remain in place. 10/26: Patient remains in intensive care unit. He has been seen by Dr. Chen for possible inpatient rehab. Patient has been afebrile, heart rate in the 70s to 80, blood pressure 93/53, pulse ox 93% on 10 L high flow nasal cannula. Patient had rapid is pulse ox yesterday afternoon while on nasal cannula and transitioned to high flow O2. Patient is using incentive spirometry at 500 ML's. awake overnight monitor is sinus rhythm. Repeat lab work this morning shows a hemoglobin of 7, white count 11.6, platelet count 125. BUN 17 and creatinine 0.53. Phosphorus 2.4, magnesium 2.4, AST 187, ALT 38. Blood sugars are running between 118 and 136. Plan to continue insulin drip another day and transitioned to long-acting and short acting insulins tomorrow. Patient is currently eating very little. [place]'s catheter has been discontinued. He has had no episodes of atrial fibrillation. He remains on vasopressin. He is scheduled for 1 unit packed RBCs followed by Lasix. Patient is currently working with PT and OT. 10/27: Patient sitting up in the chair he remains in the intensive care unit he denies any chest pain is less short of breath he continues to have chest tubes in place, he continued to have the pacer in place, he did receive an extra dose of Lasix today, he is off the pressors at this time and he continues to progress in a positive manner. 10/28: Patient sitting up on the commode he is less short of breath today he denies any chest pain or any shortness breath he had an episode of atrial fibrillation with rapid ventricular response, he was initially placed on am iodarone drip currently would be switched to oral amiodarone and he will be switched to Cardizem CD at the same time along with beta karissa he is feeling a lot better his chest tubes will come out today. 10/29: Patient is sitting up in bed he is feeling a bit better today he was moved out of the ICU, he continues to have significant shortness of breath with ambulation he will be receiving Lasix dose today is utilizing incentive spirometer and regular basis, has no abdominal pain, nausea or vomiting he has a good bowel movement. 10/30: Patient is seen on the cardiac stepdown unit. Patient states that his breathing feels like it's the same to him. He states he does have shortness of breath with getting out of bed. Pulse ox is 94% on 2 L. Sputum culture to be obtained. He has had a bowel movement. He denies any other complaints. Patient is scheduled for discharge to inpatient rehab under the care of Dr. Chen later today. Blood sugars are running between 103 and 127. Hemoglobin is 8.6, white count 10.8. Patient is to have follow-up with Dr. Gomez after discharge from rehab. Objective - Vital Signs Vital signs: Vital Signs Temp 98.9 F 10/30/18 11:07 Pulse 81 10/30/18 11:07 Resp 18 10/30/18 11:07 BP 95/56 10/30/18 11:07 Pulse Ox 94 L 10/30/18 11:07 Intake & Output 10/29/18 10/30/18 10/30/18 18:59 06:59 18:59 Intake Total 950 10 Output Total 600 Balance 350 10 Weight 74.1 kg Intake: IV 30 10 Invasive Line 4 20 Invasive Line 5 10 10 Oral 920 Output: Urine 600 Other: Voiding Method Toilet Toilet Toilet Urinal Urinal Urinal # Voids 1 2 # Bowel Movements 1 ABP, PAP, CO, CI - Last Documented Arterial Blood Pressure 154/69 Pulmonary Artery Pressure 35/17 Cardiac Output 12 Cardiac Index 3.2 - Exam Review of Systems CONSTITUTIONAL: Well-developed. Denies fever, denies chills EYES: No icterus sclerae, no conjunctivitis. EARS, NOSE, MOUTH, THROAT, and FACE: No sore throat, lymphadenopathy, carotid b ruits or deformity. RESPIRATORY: He is on mechanical ventilation.. CARDIOVASCULAR: Post CABG, no chest pain, less short of breath, no pleurisy. GASTROINTESTINAL: Patient is sedated no diarrhea no sign of GI bleed. GENITOURINARY: Negative for Hematuria. With Pretty catheter in. INTEGUMENT/BREAST: Negative. HEMATOLOGIC/LYMPHATIC: Negative for bleed or purpura. MUSCULOSKELTAL: Patient is sedated. NEURLOGICAL: Patient is more awake today. General Appearance: Patient is sitting in recliner at the bedside and appears to be comfortable and in no acute distress... Neck HEENT: Supple, no lymphadenopathy, no thyroid enlargement, no carotid bruits. Lungs: Decreased breath sounds in the left side no crackles or wheezes. Chest Wall: Decrease expansion with deep inspiration with chest tubes in place. Heart: Regular rate and rhythm, S1, S2 mild arrhythmia with S3., no murmur, rub or gallop. Back: Symmetric, no curvature, ROM normal. Abdomen: Soft, non-tender, bowel sounds active all four quadrants, no masses, no organomegaly. Extremities: Extremities normal, atraumatic, no cyanosis or edema. Pulses: 2+ and symmetric. Skin: Skin color, texture, tugor normal, no rashes or lesions. Neurologic: Patient is awake alert and oriented 3. No focal neural deficits. - Labs CBC & Chem 7: 10/30/18 06:34 10/30/18 06:34 Labs: Abnormal Lab Results - Last 24 Hours (Table) 10/29/18 10/29/18 10/30/18 Range/Units 16:56 20:59 01:56 WBC (3.8-10.6) k/uL RBC (4.30-5.90) m/uL Hgb (13.0-17.5) gm/dL Hct (39.0-53.0) % Neutrophils # (1.3-7.7) k/uL Creatinine (0.66-1.25) mg/dL POC Glucose (mg/dL) 120 H 112 H 127 H (75-99) mg/dL AST (17-59) U/L Total Protein (6.3-8.2) g/dL Albumin (3.5-5.0) g/dL 10/30/18 10/30/18 10/30/18 Range/Units 06:09 06:34 06:34 WBC 10.8 H (3.8-10.6) k/uL RBC 2.87 L (4.30-5.90) m/uL Hgb 8.6 L (13.0-17.5) gm/dL Hct 26.8 L (39.0-53.0) % Neutrophils # 8.2 H (1.3-7.7) k/uL Creatinine 0.62 L (0.66-1.25) mg/dL POC Glucose (mg/dL) 103 H (75-99) mg/dL AST 63 H (17-59) U/L Total Protein 5.6 L (6.3-8.2) g/dL Albumin 3.2 L (3.5-5.0) g/dL Assessment and Plan Plan: 1 post multiple vessel CABG. patient continues to have the chest tube in place as well as the pacer wires, he is off the pressors and is feeling a lot better today he continues to be somewhat short of breath, we will maintain patient on aspirin 325 mg orally once every day, Plavix 75 mg orally once every day, metoprolol 12.5 mg orally twice every day and Lipitor 40 mg orally once every day. 2 Acute hypoxic respiratory failure requiring high flow nasal cannula possibly related to history of smoking and underlying CP. Patient was successfully extubated. Pulmonary medicine managing. We'll continue with aggressive pulmonary toileting and usage of incentive spirometer. 3 hyperlipidemia. Continue patient on Lipitor 40 mg orally once every day. 4 history of cerebral palsy: Mild. 5 hyperglycemia without history of diabetes. Previous hemoglobin A1c 5.9. 6 anemia post surgery: Continue to monitor. Continue patient on iron 325 mg orally once every day. 7 BPH. Stable at this time. 8. Atrial fibrillation with rapid ventricular response was on amiodarone drip will be switched to oral amiodarone and continue beta karissa and Cardizem CD. 9 . Acute blood loss anemia expected outcome of surgery post blood transfusion currently hemoglobin is stable continue with iron supplement. 10. DVT prophylaxis. Continue heparin 5000 units subcutaneously every 12 hours. 11. GI prophylaxis. Continue PPI. 12. Full code. Discharge plan: Inpatient rehab at [facility] Impression and plan of care have been directed as dictated by the signing physician. Eleanor Greer nurse practitioner acting as scribe for signing physician.
--- NOTE | 2018-10-30 15:00 | P.DS ---
Providers Date of admission: 10/24/18 05:35 Expected date of discharge: 10/30/18 Attending physician: Denilson Galan Consults: 10/24/18 15:13 Consult Physician Routine Consulting Provider: Samir Feliz Consult Reason/Comments: Manager Produce Consult: post cardiac surgery Do you want consulting provider notified?: Yes Placement Type Exists?: Yes Consult Physician Routine Consulting Provider: Óscar Alfred Consult Reason/Comments: medical mgmt; [facility] patient Do you want consulting provider notified?: Yes Placement Type Exists?: Yes Consult Physician Routine Consulting Provider: Tarik Prajapati Consult Reason/Comments: Shoe Stamper Consult: post cardiac surgery Do you want consulting provider notified?: Yes Placement Type Exists?: Yes 10/26/18 07:03 Consult Physician Routine Consulting Provider: Geronimo Chen Consult Reason/Comments: inpatient rehab Do you want consulting provider notified?: Yes Primary care physician: [facility] Course: FINAL DIAGNOSIS: 1. Severe triple-vessel coronary artery disease with preserved LV function 2. Hypertension 3. Hyperlipidemia 4. Previous tobacco dependence with FEV1 94% of predicted 5. Cerebral palsy 6. Bilateral carotid artery stenosis 70% 7. Family history of premature coronary artery disease 8. Preoperative E. coli UTI treated with Cipro 1 week 9. Postoperative acute blood loss anemia, expected 10. Postoperative atrial fibrillation, unexpected PRINCIPAL PROCEDURE: 1. Coronary artery bypass graft surgery with left internal mammary artery to the left anterior descending artery, left radial artery to the first obtuse marginal artery, reverse saphenous vein graft to the first diagonal artery, reverse saphenous vein graft to the posterior lateral branch of the right coronary artery 2. Endoscopic harvesting of the right greater saphenous vein and left radial artery 3. Epi-aortic scanning 4. Intraoperative transesophageal echocardiogram HISTORY OF PRESENT ILLNESS: This is a 53-year-old in active gentleman who recently began following with Dr. Gomez on an outpatient basis. He had been experiencing intermittent chest pain for approximately 6 months which occurred with exertion associated with shortness of breath, which abated on its own. He denied any other symptoms. Apparently he had been scheduled for colonoscopy but went he told the anesthesiologist that he been having intermittent chest pain anesthesiologist canceled the case and referred him to cardiology. He followed up with Dr. Prajapati from [facility], had a stress test which was abnormal and echocardiogram, and T was recommended to undergo heart catheterization which demonstrated right coronary artery stenosis 99%, posterior lateral branch with 60% stenosis, obtuse marginal branch of the circumflex coronary artery with 90% stenosis, and proximal left anterior descending coronary artery stenosis of 85%. Consultation was placed for Dr. Galan from cardiothoracic surgery. He was recommended to undergo coronary artery bypass surgery. The usual perioperative course was discussed in detail with the patient and his family, all risks and benefits were explained, all questions were answered, and consent was obtained to proceed with surgery. The patient was discharged to home on maximal medical therapy to return as an outpatient for surgery which was scheduled at the earliest possible date HOSPITAL COURSE: The patient was brought to the hospital on 10/24/2018, taken to the preoperative area, prepared in the usual fashion, and subsequently taken to the operating room where Dr. Galan performed coronary artery bypass graft surgery with left internal mammary artery to the left anterior descending artery, left radial artery to the first obtuse marginal artery, reverse saphenous vein graft to the first diagonal artery, reverse saphenous vein graft to the posterior lateral branch of the right coronary artery, endoscopic harvesting of the right greater saphenous vein and left radial artery, epi- aortic scanning, and intraoperative transesophageal echocardiogram. Upon completion of surgery the patient was transferred to the cardiovascular intensive care unit where he was recovered, monitored hemodynamically, and where he progressed to cardiac rehabilitation phase 1. He was extubated, all lines, tubes, and drips were discontinued when appropriate, and he was transferred to 3 S. cardiac stepdown unit for further monitoring and rehabilitation. He did experience postoperative atrial fibrillation which was treated with amiodarone. His oxygen was titrated down, he continued to work with physical and occupational therapy, he was tolerating oral diet, his pain was controlled, and he was ready to be discharged to [facility] inpatient rehab on postoperative day #6. He received written and verbal instruction regarding his medications, activity restrictions, signs and symptoms requiring physician notification, and follow-up appointments. COMPLICATIONS: The patient experienced postoperative atrial fibrillation which was treated accordingly. Patient Condition at Discharge: Stable Plan - Discharge Summary Discharge Rx Participant: No New Discharge Prescriptions: New Artificial Tears-Hypromellose [Artificial Tear Drops] 2 drops BOTH EYES QID PRN bottle PRN Reason: Dry Eye(S) Diltiazem Cd [Cardizem CD] 120 mg PO DAILY@1200 cap.er.24h Benzocaine/Menthol Lozeng [Cepacol lozenge] 1 each MUCOUS MEM Q2H PRN lozenge PRN Reason: Sore Throat Amiodarone [Cordarone] 400 mg PO BID tab Ipratropium-Albuterol Nebulize [Duoneb 0.5 mg-3 mg/3 ml Soln] 3 ml INHALATION RT-QID ampul.neb Ipratropium-Albuterol Nebulize [Duoneb 0.5 mg-3 mg/3 ml Soln] 3 ml INHALATION RT-Q2H PRN ampul.neb PRN Reason: Shortness Of Breath Or Wheezing Apixaban [Eliquis] 5 mg PO BID tab Ferrous Sulfate [Iron (65 MG Elemental)] 325 mg PO BID-W/MEALS tab Furosemide [Lasix] 20 mg PO DAILY #5 tab Metoprolol Tartrate [Lopressor] 25 mg PO Q12HR tab Magnesium Hydroxide [Milk of Magnesia Concentrate] 2,400 mg PO BID PRN ml PRN Reason: Constipation Pantoprazole [Protonix] 40 mg PO AC-BRKFST tablet.dr [place]-Docusate Sodium [Senokot-S] 2 each PO HS PRN tab PRN Reason: Constipation Acetaminophen Tab [Tylenol] 1,000 mg PO Q6HR PRN tab PRN Reason: Fever and/ or Mild Pain Ascorbic Acid [Vitamin C] 500 mg PO BID-W/MEALS tab Continue Ergocalciferol (Vitamin D2) [Vitamin D2] 50,000 unit PO MO Aspirin 81 mg PO DAILY #30 chew Atorvastatin [Lipitor] 80 mg PO HS #30 tab Discontinued Nitroglycerin Sl Tabs [Nitrostat] 0.4 mg SUBLINGUAL Q5M PRN #25 tab PRN Reason: Chest Pain Metoprolol Succinate (ER) [Toprol XL] 25 mg PO DAILY #30 tab.er.24h Discharge Medication List Ergocalciferol (Vitamin D2) [Vitamin D2] 50,000 unit PO MO 10/05/18 [History] Aspirin 81 mg PO DAILY #30 chew 10/10/18 [Rx] Atorvastatin [Lipitor] 80 mg PO HS #30 tab 10/10/18 [Rx] Acetaminophen Tab [Tylenol] 1,000 mg PO Q6HR PRN tab 10/30/18 [Rx] Amiodarone [Cordarone] 400 mg PO BID tab 10/30/18 [Rx] Apixaban [Eliquis] 5 mg PO BID tab 10/30/18 [Rx] Artificial Tears-Hypromellose [Artificial Tear Drops] 2 drops BOTH EYES QID PRN bottle 10/30/18 [Rx] Ascorbic Acid [Vitamin C] 500 mg PO BID-W/MEALS tab 10/30/18 [Rx] Benzocaine/Menthol Lozeng [Cepacol lozenge] 1 each MUCOUS MEM Q2H PRN lozenge 10/30/18 [Rx] Diltiazem Cd [Cardizem CD] 120 mg PO DAILY@1200 cap.er.24h 10/30/18 [Rx] Ferrous Sulfate [Iron (65 MG Elemental)] 325 mg PO BID-W/MEALS tab 10/30/18 [Rx] Furosemide [Lasix] 20 mg PO DAILY #5 tab 10/30/18 [Rx] Ipratropium-Albuterol Nebulize [Duoneb 0.5 mg-3 mg/3 ml Soln] 3 ml INHALATION RT-Q2H PRN ampul.neb 10/30/18 [Rx] Ipratropium-Albuterol Nebulize [Duoneb 0.5 mg-3 mg/3 ml Soln] 3 ml INHALATION RT-QID ampul.neb 10/30/18 [Rx] Magnesium Hydroxide [Milk of Magnesia Concentrate] 2,400 mg PO BID PRN ml 10/30/18 [Rx] Metoprolol Tartrate [Lopressor] 25 mg PO Q12HR tab 10/30/18 [Rx] Pantoprazole [Protonix] 40 mg PO AC-BRKFST tablet.dr 10/30/18 [Rx] Sennosides-Docusate Sodium [Senokot-S] 2 each PO HS PRN tab 10/30/18 [Rx] Follow up Appointment(s)/Referral(s): Denilson Galan MD [STAFF PHYSICIAN] - 11/23/18 10:00 am Jorge Gomez DO [Primary Care Provider] - 1 Week (please make appointment upon discharge from inpatient rehab) Samir Feliz MD [STAFF PHYSICIAN] - 1 Week (please make appointment upon discharge from inpatient rehab) Tarik Prajapati MD [STAFF PHYSICIAN] - 1 Week (please make appointment upon discharge from inpatient rehab) Ambulatory/Diagnostic Orders: Complete Blood Count w/diff [LAB.AMB] Time Frame: 3 Days, Location: None Selected Comprehensive Metabolic Panel [LAB.AMB] Time Frame: 3 Days, Location: None Selected Patient Instructions/Handouts: Sternal Precautions (GEN), CABG (Coronary Artery Bypass Graft) (DC) Activity/Diet/Wound Care/Special Instructions: CONSULTS AT [facility] INPATIENT REHAB: 1. Dr. Prajapati for cardiology 2. Dr. Feliz for pulmonology DISCHARGE INSTRUCTIONS: 1. No driving for 4 weeks, or until physician gives their ok. 2. The patient should sleep in their own bed, no medical bed needed. 3. Stairs are not an issue. If the bedroom is upstairs, it is advised that the patient go up at night and down in the morning for the first week. Go slowly, using handrail and take 1 step at a time. 4. GISELA hose are to be worn for 30 days or until physician discontinues. 5. Heart hugger is to be worn 100% of the time until physician discontinues.(except when showering) 6. No lifting, pushing, or pulling more than 10 pounds for 12 weeks. The physician will advise of any restriction changes. 7. The patient is expected to continue the prescribed walking program. 8. Continue pain control per as needed orders. 9. Continue with incentive spirometry and splinting/heart hugger until oth erwise directed by the physician. 10. Must shower daily using liquid antibacterial soap and a separate white washcloth for each individual incision. 11. Routine sternal incision care. No powders, lotions, ointments on incisions. 12. Please call surgeon/BLOCK LAYER for temp greater than 101 F or purulent drainage from incisions. 13. Refills need to be filled through cost report clerk/primary care physician. 14. A Red armband has been placed on the patient. It should be worn for 30 days post surgery and will be removed by the cardiac surgeons. If an ER visit is necessary, please make sure the number on the Red armband is called. REHAB/HOME HEALTH SERVICES TO PROVIDE: RN SKILLED HOME CARE SERVICES FOR POST-OP SURGICAL PATIENTS WITH THE FOLLOWING: Coronary Artery Bypass Surgery (CABG), Mitral Valve Replacement/Repair ( MVR), Aortic Valve Replacement/Repair (AVR) RN TO CONTINUE EDUCATION FROM ``ROAD TO A HEALTH HEART PATIENT EDUCATION MANUAL (GIVEN TO PATIENT IN THE HOSPITAL) MEDICATION RECONCILIATION WITH EDUCATION NEEDED ON FIRST HOME VISIT EMPHASIZE IMPORTANCE OF WEARING BREAST SUPPORT/HEART HUGGER ENCOURAGE USE OF INCENTIVE SPIROMETER 10 X EVERY HOUR WHILE AWAKE ENCOURAGE UTILIZATION OF LOWER EXTREMITY COMPRESSION STOCKINGS/GISELA HOSE and ELEVATE LEGS ABOVE LEVEL OF HEART WHILE AT REST. ENCOURAGE AMBULATION 3-5x/day INCREASING TOLERATES, WHILE AVOID EXTREMES IN TEMPERATURE FREQUENCY: RN TO OPEN THE PATIENT WITHIN 24 HOURS OF DISCHARGE FROM REHAB WITH TELEHEALTH INSTALLED AT [facility] [place], RN TO VISIT 2-3 X A WEEK FOR 4 WEEKS ESTABLISHED BY PATIENT NEEDS. LABORATORY: CBC, CMP TO BE DRAWN ON THE THIRD DAY AT REHAB THEN PER PROTOCOL, (RAN STAT) FAX RESULTS TO [phone]. TELEHEALTH PARAMETERS: WEIGHT: NOTIFY MD OF WEIGHT GAIN OF 2 LBS IN 24 HOURS OR 5 LBS IN ONE WEEK HR: NOTIFY MD OF HR <55 BPM OR HR>100 BPM BP: NOTIFY MD IF BP <90/55 OR BP>140/100 O2 SAT: NOTIFY MD IF PO2<93% ON ROOM AIR SEND TELEHEALTH REPORT TO OTOLARYNGOLOGY TEACHER AND CARDIOVASCULAR SURGEON THE FIRST WEEK OF CARE AND THEN BI-WEEKLY. PLEASE ADDITIONALLY COMMUNICATE ANY ABNORMALS AND NEW FINDINGS TO THE SURGEONS OFFICE. Discharge Disposition: DC/TRNS INTERMEDIATE CARE FAC
--- NOTE | 2018-10-30 15:00 | P.PN ---
Subjective Progress Note Date: 10/30/18 This is a pleasant 53-year-old gentleman who is status post coronary artery bypass grafting surgery, he was seen and examined today, clinically doing well. Blood pressure 112/60 with a heart rate in the 80s to 90s, 93% on 2 L of oxygen. White blood cell count 10.8, hemoglobin 8.6, platelet count 267. Sodium 140, potassium 3.9, BUN 15 and creatinine 0.6, magnesium 2.1. Objective - Vital Signs Vital signs: Vital Signs Temp 98.9 F 10/30/18 11:07 Pulse 78 10/30/18 11:30 Resp 16 10/30/18 11:30 BP 95/56 10/30/18 11:07 Pulse Ox 94 L 10/30/18 11:07 Intake & Output 10/29/18 10/30/18 10/30/18 18:59 06:59 18:59 Intake Total 950 10 200 Output Total 600 Balance 350 10 200 Weight 74.1 kg Intake: IV 30 10 Invasive Line 4 20 Invasive Line 5 10 10 Oral 920 200 Output: Urine 600 Other: Voiding Method Toilet Toilet Toilet Urinal Urinal Urinal # Voids 1 2 1 # Bowel Movements 1 ABP, PAP, CO, CI - Last Documented Arterial Blood Pressure 154/69 Pulmonary Artery Pressure 35/17 Cardiac Output 12 Cardiac Index 3.2 - Exam GENERAL EXAM: Alert, pleasant, 53-year-old white male comfortable in no apparent distress. HEAD: Normocephalic/atraumatic. EYES: Normal reaction of pupils, equal size. Conjunctiva pink, sclera white. NOSE: Clear with pink turbinates. THROAT: No erythema or exudates. NECK: No masses, no JVD, no thyroid enlargement, no adenopathy. CHEST: No chest wall deformity. Symmetrical expansion. Sternal incision is clean dry and intact, stable, AV epicardial wires are grounded to the chest wall LUNGS: Equal air entry with clear breath sounds, no rhonchi, no wheezing CVS: Regular rate and rhythm, normal S1 and S2, no gallops, no murmurs, no rubs ABDOMEN: Soft, nontender. No hepatosplenomegaly, normal bowel sounds, no guarding or rigidity. EXTREMITIES: No clubbing, no edema, no cyanosis, 2+ pulses and upper and lower extremities. MUSCULOSKELETAL: Muscle strength and tone normal. SPINE: No scoliosis or deformity SKIN: No rashes CENTRAL NERVOUS SYSTEM: Alert and oriented -3. No focal deficits, tone is normal in all 4 extremities. PSYCHIATRIC: Alert and oriented -3. Appropriate affect. Intact judgment and insight. - Labs CBC & Chem 7: 10/30/18 06:34 10/30/18 06:34 Labs: Abnormal Lab Results - Last 24 Hours (Table) 10/29/18 10/29/18 10/30/18 Range/Units 16:56 20:59 01:56 WBC (3.8-10.6) k/uL RBC (4.30-5.90) m/uL Hgb (13.0-17.5) gm/dL Hct (39.0-53.0) % Neutrophils # (1.3-7.7) k/uL Creatinine (0.66-1.25) mg/dL POC Glucose (mg/dL) 120 H 112 H 127 H (75-99) mg/dL AST (17-59) U/L Total Protein (6.3-8.2) g/dL Albumin (3.5-5.0) g/dL 10/30/18 10/30/18 10/30/18 Range/Units 06:09 06:34 06:34 WBC 10.8 H (3.8-10.6) k/uL RBC 2.87 L (4.30-5.90) m/uL Hgb 8.6 L (13.0-17.5) gm/dL Hct 26.8 L (39.0-53.0) % Neutrophils # 8.2 H (1.3-7.7) k/uL Creatinine 0.62 L (0.66-1.25) mg/dL POC Glucose (mg/dL) 103 H (75-99) mg/dL AST 63 H (17-59) U/L Total Protein 5.6 L (6.3-8.2) g/dL Albumin 3.2 L (3.5-5.0) g/dL 10/30/18 Range/Units 11:29 WBC (3.8-10.6) k/uL RBC (4.30-5.90) m/uL Hgb (13.0-17.5) gm/dL Hct (39.0-53.0) % Neutrophils # (1.3-7.7) k/uL Creatinine (0.66-1.25) mg/dL POC Glucose (mg/dL) 106 H (75-99) mg/dL AST (17-59) U/L Total Protein (6.3-8.2) g/dL Albumin (3.5-5.0) g/dL Assessment and Plan Plan: Assessment and Plan: 1 multivessel coronary disease and the patient is status post four-vessel bypass surgery. \ 2 postoperative acute blood loss anemia 3 hyperlipidemia 4 paroxysmal atrial fibrillation, current rhythm is sinus on a combination of metoprolol, Cardizem and amiodarone. The rhythm remains sinus 5 cerebral palsy Plan Eliquis will be initiated today for anticoagulation for stroke prevention. Pacemaker was removed and patient is anticipated to be discharged home today. We'll make a follow-up appointment in the office post discharge. DNP note has been reviewed, I agree with a documented findings and plan of care. Patient was seen and examined.
[2018-10-30 16:53] LABS: Glucose,Whole Blood 106 mg/dL (75-99)
[2018-10-30 20:49] LABS: Glucose,Whole Blood 125 mg/dL (75-99)
[2018-10-30] MEDS: SENNOSIDES-DOCUSATE SODIUM 1 EACH TAB PO SCH (22:05)
[2018-10-31 02:07] LABS: Glucose,Whole Blood 98 mg/dL (75-99)
[2018-10-31 06:27] LABS: Glucose,Whole Blood 98 mg/dL (75-99)
[2018-10-31] MEDS: PANTOPRAZOLE 40 MG TABLET PO SCH (07:01)
[2018-10-31] MEDS: ASCORBIC ACID 500 MG TAB PO SCH ×2 (07:01→17:53)
[2018-10-31] MEDS: FERROUS SULFATE 325 MG TAB PO SCH ×2 (07:01→17:53)
--- NOTE | 2018-10-31 07:18 | P.PN ---
Subjective Progress Note Date: 10/31/18 Principal diagnosis: Severe triple vessel coronary artery disease with preserved LV function. Previous medical history of hypertension, hyperlipidemia, previous tobacco dependence with preoperative FEV1 94% of predicted, cerebral palsy, bilateral carotid artery stenosis 70%, and family history of premature coronary artery disease. Preoperative E coli urinary tract infection treated with Cipro for 1 week. POD#7 coronary artery bypass graft surgery with left internal mammary artery to the left anterior descending coronary artery, left radial artery to the first obtuse marginal artery, reverse saphenous vein graft to the first diagonal artery, reverse saphenous vein graft to the posterior lateral branch of the right coronary artery. Endoscopic harvest of the right greater saphenous vein and the left radial artery. Epiaortic scanning. Intraoperative transesphageal echocardiogram. Postoperative acute blood loss anemia, expected secondary to cardiopulmonary bypass pump and hemodilution. Postoperative atrial fibrillation, unexpected but potential outcome, currently in sinus rhythm Leukocytosis, unexpected, possibly from atelectasis, possibly from respiratory or urinary infection. The patient is currently sitting up in a recliner in no acute distress on the c ardi[facility] stepdown unit having just returned from chest x-ray. He denies pain currently, still complains of minimal shortness of breath with activity. Remains in normal sinus rhythm, he had a couple of short bursts of controlled A. fib lasting less than 20 minutes each, was started on anticoagulation yesterday. Hemodynamically stable. Patient does complain of right flank pain this morning, no frequency/urgency/burning with urination, afebrile. Objective - Vital Signs Vital signs: Vital Signs Temp 98.3 F 10/31/18 00:00 Pulse 78 10/31/18 04:00 Resp 18 10/31/18 04:00 BP 118/67 10/31/18 04:00 Pulse Ox 95 10/31/18 04:00 Intake & Output 10/30/18 10/31/18 10/31/18 18:59 06:59 18:59 Intake Total 318 Balance 318 Weight 73.4 kg Intake: Oral 318 Other: Voiding Method Toilet Toilet Urinal # Voids 1 1 ABP, PAP, CO, CI - Last Documented Arterial Blood Pressure 154/69 Pulmonary Artery Pressure 35/17 Cardiac Output 12 Cardiac Index 3.2 - Constitutional General appearance: Present: cooperative, no acute distress - Respiratory Details: Lungs sounds diminished bilaterally, left greater than right. Respirations even, nonlabored. Currently on room air with oxygen saturation 95%. Able to achieve 750 mL on his incentive spirometry. Strong productive cough with yellow sputum. - Cardiovascular Details: S1, S2 present. Regular rate and rhythm, sinus rhythm on telemetry. Sternum stable. Palpable peripheral pulses bilaterally. No edema present. No calf pain or tenderness noted. Heart hugger in place with patient demonstrating appropriate use although he needs encouragement. Antiembolism stockings, SCDs present. - Gastrointestinal Gastrointestinal Comment(s): Abdomen soft, nontender, nondistended. Active bowel sounds 4 quadrants present. Tolerating diet. Positive bowel movement. - Genitourinary Genitourinary Comment(s): Continues to void clear, yellow urine. - Integumentary Integumentary Comment(s): Skin is warm and dry with evidence of good perfusion. Anterior chest incision well approximated and covered with dry intact dressing. Left radial harvest site well approximated without drainage, patient able to move all fingers, strong peanut sorter, positive feeling, denies numbness. Right lower extremity EVH site well approximated without drainage, ecchymosis present, expected. - Neurologic Neurologic: Present: CNII-XII intact - Musculoskeletal Musculoskeletal: Present: gait normal, generalized weakness, strength equal bilaterally - Psychiatric Psychiatric: Present: A&O x's 3, appropriate affect - Allied health notes Allied health notes reviewed: nursing - Labs CBC & Chem 7: 10/31/18 07:45 10/30/18 06:34 Labs: Abnormal Lab Results - Last 24 Hours (Table) 10/30/18 10/30/18 10/30/18 Range/Units 06:34 06:34 11:29 WBC 10.8 H (3.8-10.6) k/uL RBC 2.87 L (4.30-5.90) m/uL Hgb 8.6 L (13.0-17.5) gm/dL Hct 26.8 L (39.0-53.0) % Neutrophils # 8.2 H (1.3-7.7) k/uL Creatinine 0.62 L (0.66-1.25) mg/dL POC Glucose (mg/dL) 106 H (75-99) mg/dL AST 63 H (17-59) U/L Total Protein 5.6 L (6.3-8.2) g/dL Albumin 3.2 L (3.5-5.0) g/dL 10/30/18 10/30/18 Range/Units 16:51 20:43 WBC (3.8-10.6) k/uL RBC (4.30-5.90) m/uL Hgb (13.0-17.5) gm/dL Hct (39.0-53.0) % Neutrophils # (1.3-7.7) k/uL Creatinine (0.66-1.25) mg/dL POC Glucose (mg/dL) 106 H 125 H (75-99) mg/dL AST (17-59) U/L Total Protein (6.3-8.2) g/dL Albumin (3.5-5.0) g/dL - Imaging and Cardiology Chest x-ray: image reviewed Assessment and Plan Assessment: 1. Severe triple-vessel coronary artery disease with preserved LV function, status post CABG 4 2. Hypertension 3. Hyperlipidemia 4. Previous tobacco dependence with preoperative FEV1 94% of predicted 5. Cerebral palsy 6. Bilateral carotid artery stenosis 70% 7. Family history of premature coronary artery disease 8. Preoperative E. coli urinary tract infection, treated 9. Postoperative acute blood loss anemia, expected 10. Postoperative atrial fibrillation, expected 11. Leukocytosis, unexpected, atelectasis vs. respiratory or urinary tract infection Plan: 1. Continue low dose aspirin, statin, beta karissa. Will increase beta karissa as tolerated. 2. Continue Cardizem for radial artery spasm prophylaxis. 3. Continue amiodarone for A. fib prophylaxis, taper weekly per orders. Continue Eliquis for anticoagulation. 4. Sputum culture, urine culture ordered. 5. Encourage incentive spirometry use 10 times every hour while awake. 6. Bronchodilators per pulmonology. Encourage continued smoking cessation. 7. Increase activity, ambulate as tolerated. PT/OT/cardiac rehab following. 8. Will monitor daily labs, chest x-rays. Electrolyte replacement per protocol. No further blood transfusion. 9. Pain management with current medication regimen. 10. Insulin management per primary care service. 11. GI/DVT prophylaxis. 12. Will give IV lasix today. 13. Discharge planning in progress. Patient would benefit from aggressive physical and occupational therapy, daily physician visits, frequent lab draws. In other words patient would benefit more from inpatient rehab than subacute rehab. Dr. Chen on consult. 14. Anticipate discharge to inpatient rehab today, just waiting on insurance authorization. 15. More recommendations to follow as patient progresses. Time with Patient: Greater than 30
--- NOTE | 2018-10-31 07:38 | XR ---
EXAMINATION TYPE: XR chest 2V DATE OF EXAM: 10/31/2018 COMPARISON: 10/30/2018 HISTORY: Shortness of breath TECHNIQUE: Frontal and lateral views of the chest are obtained. FINDINGS: Scattered senescent parenchymal changes noted. Hyperinflation compatible with COPD. Left lower lobe infiltrate and effusion appear to have increased slightly. Scattered pulmonary venous congestion. Heart size is stable. Mediastinal structures are stable and grossly unremarkable. No evidence for hilar prominence. Degenerative changes dorsal spine. IMPRESSION: 1. Left lower lobe infiltrate and effusion appear to have increased slightly. Scattered pulmonary renaldo ous congestion.
[2018-10-31 08:31] LABS: HCT 29.3 % (39.0-53.0); HGB 9.5 gm/dL (13.0-17.5); Hypochromasia Slight; MCH 30.3 pg (25.0-35.0); MCHC 32.2 g/dL (31.0-37.0); Mean Platelet Volume 7.3; Platelet Count 327 k/uL (150-450); RBC 3.12 m/uL (4.30-5.90); RDW 15.4 % (11.5-15.5); WBC 14.5 k/uL (3.8-10.6)
[2018-10-31] MEDS: IPRATROPIUM-ALBUTEROL 3 ML NEB INHALATION SCH ×4 (08:33→20:00)
[2018-10-31 08:38] LABS: Anion Gap 9 mmol/L; Blood Urea Nitrogen 13 mg/dL (9-20); Carbon Dioxide 25 mmol/L (22-30); Chloride 104 mmol/L (98-107); Glucose 142 mg/dL (74-99); Magnesium 1.8 mg/dL (1.6-2.3); Potassium 4.1 mmol/L (3.5-5.1); Sodium 138 mmol/L (137-145)
[2018-10-31] MEDS: ATORVASTATIN 40 MG TAB PO SCH (09:11)
[2018-10-31] MEDS: METOPROLOL TARTRATE 25 MG TAB PO SCH ×2 (09:11→21:35)
[2018-10-31] MEDS: ASPIRIN 81 MG PO SCH (09:11)
[2018-10-31] MEDS: APIXABAN 5 MG TAB PO SCH ×2 (09:11→21:35)
[2018-10-31] MEDS: AMIODARONE 200 MG TAB PO SCH ×2 (09:11→21:35)
[2018-10-31] MEDS ORDERED: FUROSEMIDE 10 MG/ML 2 ML VIAL IV STA (09:26)
[2018-10-31] MEDS: MAGNESIUM SULFATE-D5W PMX 1 GM in DEXTROSE/WATER 1 100ML.BAG IVPB SCH ×2 (11:04→12:52)
[2018-10-31] MEDS: DILTIAZEM CD 120 MG CAP.ER.24H PO SCH (11:04)
[2018-10-31] MEDS: HYDROcodone/APAP 5-325MG 1 EACH TAB PO PRN (11:12)
[2018-10-31 11:44] LABS: Glucose,Whole Blood 91 mg/dL (75-99)
--- NOTE | 2018-10-31 13:23 | P.PN ---
Subjective Progress Note Date: 10/31/18 Principal diagnosis: Multivessel coronary artery disease, status post four-vessel bypass surgery, postoperative day 6 on today's evaluation of 10/28/2018, the patient is awake and alert sitting up on a chair. The chest. He is still using incentive spirometer. Overnight he was due atrial fibrillation with some degree of breath and ventricular response in the 110 range. The patient was given boluses of amiodarone and currently is on amiodarone drip. He is back into sinus rhythm. Note that while going into atrial fibrillation, the patient developed hypotension probably related to the loss of atrial kick. He is currently back to normal sinus rhythm. He is hemodynamically stable. He is on beta blockers and Cardizem for rate control. Sternum is stable clean and intact. He is producing adequate amount of urine output. No nausea. No vomiting. No diarrhea. No altered mentation. Chest x- ray still showing some atelectatic changes in lung bases and pulmonary vascular congestion. Hemoglobin is stable.the oxygenation is improving and the patient is on 6 L of oxygen by nasal cannula with a pulse ox of 97%.hemoglobin is at 8.0. On today's evaluation of 10/29/2018 the patient is already transferred today telemetry unit. He is doing well. All of the chest is a been removed. The chest x-ray from today shows pulse vessel congestion and small effusion the left side. No hypotension. No atrial fibrillation. He remains in normal sinus rhythm. He'll be given another dose of Lasix today. The patient seemed was at 8.1. BUN is 14 creatinine 0.6. He is using his incentive spirometer. No chest pain. No altered mentation. He is emanating in the hallway. His sternal wound is dry clean and intact. He is currently on oxygen at 4 L per minute nasal c annula. On 10/22/2018 patient seen in follow-up on selective care unit, he sitting up in a recliner, in no acute distress, lung sounds are clear, etc. spirometer effort is 750 ML. Today's chest x-ray has been reviewed and shows persistent small left pleural effusion and multifocal subsegmental atelectasis. Patient is on 2 L of oxygen his pulse ox is 94%, afebrile, hemodynamically stable. No co mplaints of shortness of breath, patient has been ambulating in the hallway, tolerates activity well, anticipate discharge to inpatient rehab sometime today. This is postoperative day 6 status post four-vessel coronary artery bypass grafting, all chest tubes Pretty catheter have been discontinued, wires are still in place, and are grounded. On 10/31/2018 patient is seen in follow-up on selective care unit, he is resting comfortably in bed, this is postop day 7, status post four-vessel coronary artery bypass grafting. Patient is doing well, today's chest x-ray has been reviewed, and there is worsening in the appearance of left lower lobe airspace disease, atelectasis and pleural effusion, patient received another dose of IV Lasix per CT surgery. Denies any worsening dyspnea, he has been working on his incentive spirometer, he is currently on room air, with a pulse ox of 94%, he has been tolerating ambulation. Today's lab work has been reviewed, white blood cell count is 14.5, hemoglobin is 9.5, electrolytes and renal profile were unremarkable. Patient is voiding, Pretty chest tubes have been discontinued. He is awaiting discharge to inpatient rehab possibly today. Objective - Vital Signs Vital signs: Vital Signs Temp 98.8 F 10/31/18 09:10 Pulse 72 10/31/18 13:17 Resp 20 10/31/18 09:10 BP 96/61 10/31/18 09:10 Pulse Ox 94 L 10/31/18 09:10 Intake & Output 10/30/18 10/31/18 10/31/18 18:59 06:59 18:59 Intake Total 318 180 Balance 318 180 Weight 73.4 kg Intake: Oral 318 180 Other: Voiding Method Toilet Toilet Toilet Urinal # Voids 1 1 ABP, PAP, CO, CI - Last Documented Arterial Blood Pressure 154/69 Pulmonary Artery Pressure 35/17 Cardiac Output 12 Cardiac Index 3.2 - Exam GENERAL EXAM: Alert, pleasant, 53-year-old white male comfortable in no apparent distress. HEAD: Normocephalic/atraumatic. EYES: Normal reaction of pupils, equal size. Conjunctiva pink, sclera white. NOSE: Clear with pink turbinates. THROAT: No erythema or exudates. NECK: No masses, no JVD, no thyroid enlargement, no adenopathy. CHEST: No chest wall deformity. Symmetrical expansion. Sternal incision is clean dry and intact, stable, AV epicardial wires are grounded to the chest wall LUNGS: Equal air entry with clear breath sounds, no rhonchi, no wheezing CVS: Regular rate and rhythm, normal S1 and S2, no gallops, no murmurs, no rubs ABDOMEN: Soft, nontender. No hepatosplenomegaly, normal bowel sounds, no guarding or rigidity. EXTREMITIES: No clubbing, no edema, no cyanosis, 2+ pulses and upper and lower extremities. MUSCULOSKELETAL: Muscle strength and tone normal. SPINE: No scoliosis or deformity SKIN: No rashes CENTRAL NERVOUS SYSTEM: Alert and oriented -3. No focal deficits, tone is normal in all 4 extremities. PSYCHIATRIC: Alert and oriented -3. Appropriate affect. Intact judgment and insight. - Labs CBC & Chem 7: 10/31/18 07:45 10/31/18 07:45 Labs: Abnormal Lab Results - Last 24 Hours (Table) 10/30/18 10/30/18 10/31/18 Range/Units 16:51 20:43 07:45 WBC 14.5 H (3.8-10.6) k/uL RBC 3.12 L (4.30-5.90) m/uL Hgb 9.5 L (13.0-17.5) gm/dL Hct 29.3 L (39.0-53.0) % Creatinine (0.66-1.25) mg/dL Glucose (74-99) mg/dL POC Glucose (mg/dL) 106 H 125 H (75-99) mg/dL 10/31/18 Range/Units 07:45 WBC (3.8-10.6) k/uL RBC (4.30-5.90) m/uL Hgb (13.0-17.5) gm/dL Hct (39.0-53.0) % Creatinine 0.57 L (0.66-1.25) mg/dL Glucose 142 H (74-99) mg/dL POC Glucose (mg/dL) (75-99) mg/dL Assessment and Plan Plan: 1 multivessel coronary disease and the patient is status post four-vessel bypass surgery. Postop day 7. Patient is recovering adequately for now. Chest tubes are out and the patient has a small left-sided pleural effusion. 2 postoperative acute blood loss anemia, expected outcome of surgery, hemoglobin is at 8.1 3 ventilator management as the patient is currently on 6 L of oxygen nasal cannula, the mediastinal chest tube has been removed. 4 paroxysmal atrial fibrillation, current rhythm is sinus on a combination of metoprolol, Cardizem and amiodarone. The rhythm remains sinus 5 history of hyperlipidemia 6 cerebral palsy 7 bilateral carotid artery stenosis in the order of 70% 8 preoperative E. coli UTI, treated 9 history of cerebral palsy Plan: Today's chest x-ray has been reviewed with Dr. Mejia, and there is worsening in the appearance of the left basilar airspace disease, atelectasis and pleural effusion, patient received a dose of IV Lasix, diuresing, no worsening dyspnea, maintaining good oxygenation on room air, tolerating ambulation, acute events overnight, anticipate discharge to inpatient rehab sometime today. We will need to see the patient and the pulmonary clinic for follow-up in 7-10 days. I performed a history & physical examination of the patient and discussed their management with my nurse practitioner, Carlene Jiménez. I reviewed the nurse practitioner's note and agree with the documented findings and plan of care. Lung sounds are positive for clear breath sounds. The findings and the impression was discussed with the patient. I attest to the documentation by the nurse practitioner. Time with Patient: Less than 30
[2018-10-31 13:43] LABS: Appearance,Urine Clear (Clear); Bilirubin,Urine Negative (Negative); Blood,Urine Negative (Negative); Color,Urine Yellow; Glucose,Urine (UA) Negative (Negative); Ketones,Urine Negative (Negative); Leukocyte Esterase,Urine Negative (Negative); Nitrite,Urine Negative (Negative); Protein,Urine Negative (Negative); Specific Gravity,Urine 1.022 (1.001-1.035)
--- NOTE | 2018-10-31 15:24 | P.PN ---
Subjective Progress Note Date: 10/31/18 This is a pleasant 53-year-old gentleman who is status post coronary artery bypass grafting surgery, he was seen and examined today, clinically doing well. Blood pressure 112/60 with a heart rate in the 80s to 90s, 93% on 2 L of oxygen. White blood cell count 10.8, hemoglobin 8.6, platelet count 267. Sodium 140, potassium 3.9, BUN 15 and creatinine 0.6, magnesium 2.1. 10/31/2017 Patient was seen and examined today, sitting up in the chair at bedside, overall doing well. Chest x-ray was reviewed, there was worsening appearance in the left lower air space suggesting atelectasis and pleural effusion, patient did receive another dose of IV Lasix per CT surgery. Overall his breathing has been stable, hemodynamically he is stable, 94% on room air. He is anticipating transferred to rehab possibly today. Objective - Vital Signs Vital signs: Vital Signs Temp 99 F 10/31/18 12:00 Pulse 72 10/31/18 13:17 Resp 18 10/31/18 12:00 BP 114/71 10/31/18 12:00 Pulse Ox 91 L 10/31/18 12:00 Intake & Output 10/30/18 10/31/18 10/31/18 18:59 06:59 18:59 Intake Total 318 560 Balance 318 560 Weight 73.4 kg Intake: Intake, IV Titration 200 Amount Magnesium Sulfate-D5w Pmx 200 1 gm In Dextrose/Water 1 100ml.bag @ 100 mls/hr IVPB Q1H [facility] Rx#: [id number] Oral 318 360 Other: Voiding Method Toilet Toilet Toilet Urinal # Voids 1 1 2 # Bowel Movements 1 ABP, PAP, CO, CI - Last Documented Arterial Blood Pressure 154/69 Pulmonary Artery Pressure 35/17 Cardiac Output 12 Cardiac Index 3.2 - Exam GENERAL EXAM: Alert, pleasant, 53-year-old white male comfortable in no apparent distress. HEAD: Normocephalic/atraumatic. EYES: Normal reaction of pupils, equal size. Conjunctiva pink, sclera white. NOSE: Clear with pink turbinates. THROAT: No erythema or exudates. NECK: No masses, no JVD, no thyroid enlargement, no adenopathy. CHEST: No chest wall deformity. Symmetrical expansion. Sternal incision is clean dry and intact, stable, AV epicardial wires are grounded to the chest wall LUNGS: Equal air entry with clear breath sounds, no rhonchi, no wheezing CVS: Regular rate and rhythm, normal S1 and S2, no gallops, no murmurs, no rubs ABDOMEN: Soft, nontender. No hepatosplenomegaly, normal bowel sounds, no guarding or rigidity. EXTREMITIES: No clubbing, no edema, no cyanosis, 2+ pulses and upper and lower extremities. MUSCULOSKELETAL: Muscle strength and tone normal. SPINE: No scoliosis or deformity SKIN: No rashes CENTRAL NERVOUS SYSTEM: Alert and oriented -3. No focal deficits, tone is normal in all 4 extremities. PSYCHIATRIC: Alert and oriented -3. Appropriate affect. Intact judgment and insight. - Labs CBC & Chem 7: 10/31/18 07:45 10/31/18 07:45 Labs: Abnormal Lab Results - Last 24 Hours (Table) 10/30/18 10/30/18 10/31/18 Range/Units 16:51 20:43 07:45 WBC 14.5 H (3.8-10.6) k/uL RBC 3.12 L (4.30-5.90) m/uL Hgb 9.5 L (13.0-17.5) gm/dL Hct 29.3 L (39.0-53.0) % Creatinine (0.66-1.25) mg/dL Glucose (74-99) mg/dL POC Glucose (mg/dL) 106 H 125 H (75-99) mg/dL 10/31/18 Range/Units 07:45 WBC (3.8-10.6) k/uL RBC (4.30-5.90) m/uL Hgb (13.0-17.5) gm/dL Hct (39.0-53.0) % Creatinine 0.57 L (0.66-1.25) mg/dL Glucose 142 H (74-99) mg/dL POC Glucose (mg/dL) (75-99) mg/dL Assessment and Plan Plan: Assessment and Plan: 1 multivessel coronary disease and the patient is status post four-vessel bypass surgery. \ 2 postoperative acute blood loss anemia 3 hyperlipidemia 4 paroxysmal atrial fibrillation, current rhythm is sinus on a combination of metoprolol, Cardizem and amiodarone. The rhythm remains sinus 5 cerebral palsy Plan From cardiology's perspective, we'll recommend to continue the patient on his current medications. He may be transferred to rehab once cleared by cardiothoracic surgery. DNP note has been reviewed, I agree with a documented findings and plan of care. Patient was seen and examined.
--- NOTE | 2018-10-31 16:16 | P.PN ---
Subjective Progress Note Date: 10/31/18 53-year-old male one of Dr. Gomez patient with mild degree of cerebral palsy who has history of hypertension hyperlipidemia and coronary artery disease with heart catheter 2 weeks ago showed 99 percentile blockage of the RCA 60% of the PLB 90% stenosis of the circumflex and acute marginal and 85 percentile stenosis of the LAD. Patient was referred to cardiothoracic seen and evaluated and was schedule elective bypass surgery with Dr. Galan which was done successfully today patient was intubated and placed on mechanical ventilation post surgery seen pulmonary and transferred to the intensive care unit, remain on vasodepressor along with insulin drip the blood sugar running marginal at the time. Patient is sedated on mechanical ventilation. 10/25: Patient remains in intensive care unit. He was successfully extubated around midnight. His pain is currently controlled. He is continued on norepinephrine and vasopressin as well as IV Cardizem and amiodarone. Patient is on insulin drip for blood sugar control. Pretty catheter in place with adequate urine output. Chest tubes remain in place. 10/26: Patient remains in intensive care unit. He has been seen by Dr. Chen for possible inpatient rehab. Patient has been afebrile, heart rate in the 70s to 80, blood pressure 93/53, pulse ox 93% on 10 L high flow nasal cannula. Patient had rapid is pulse ox yesterday afternoon while on nasal cannula and transitioned to high flow O2. Patient is using incentive spirometry at 500 ML's. nurse staff is sinus rhythm. Repeat lab work this morning shows a hemoglobin of 7, white count 11.6, platelet count 125. BUN 17 and creatinine 0.53. Phosphorus 2.4, magnesium 2.4, AST 187, ALT 38. Blood sugars are running between 118 and 136. Plan to continue insulin drip another day and transitioned to long-acting and short acting insulins tomorrow. Patient is currently eating very little. Houston's catheter has been discontinued. He has had no episodes of atrial fibrillation. He remains on vasopressin. He is scheduled for 1 unit packed RBCs followed by Lasix. Patient is currently working with PT and OT. 10/27: Patient sitting up in the chair he remains in the intensive care unit he denies any chest pain is less short of breath he continues to have chest tubes in place, he continued to have the pacer in place, he did receive an extra dose of Lasix today, he is off the pressors at this time and he continues to progress in a positive manner. 10/28: Patient sitting up on the commode he is less short of breath today he denies any chest pain or any shortness breath he had an episode of atrial fibrillation with rapid ventricular response, he was initially placed on a miodarone drip currently would be switched to oral amiodarone and he will be switched to Cardizem CD at the same time along with beta karissa he is feeling a lot better his chest tubes will come out today. 10/29: Patient is sitting up in bed he is feeling a bit better today he was moved out of the ICU, he continues to have significant shortness of breath with ambulation he will be receiving Lasix dose today is utilizing incentive spirometer and regular basis, has no abdominal pain, nausea or vomiting he has a good bowel movement. 10/30: Patient is seen on the cardiac stepdown unit. Patient states that his breathing feels like it's the same to him. He states he does have shortness of breath with getting out of bed. Pulse ox is 94% on 2 L. Sputum culture to be obtained. He has had a bowel movement. He denies any other complaints. Patient is scheduled for discharge to inpatient rehab under the care of Dr. Chen later today. Blood sugars are running between 103 and 127. Hemoglobin is 8.6, white count 10.8. Patient is to have follow-up with Dr. Gomez after discharge from rehab. 10/31: Patient was not transferred to [facility] as insurance authorization was pending. Patient also relates today that insurance authorization remains pending. Patient did receive 1 dose of IV Lasix today. Pulse ox is 94% on room air. Breathing status appears to be stable. He is using his incentive spirometry. Hemoglobin 9.5, white cell count 14.5. Anticipate discharge today to inpatient rehab. Objective - Vital Signs Vital signs: Vital Signs Temp 98.8 F 10/31/18 09:10 Pulse 91 10/31/18 09:10 Resp 20 10/31/18 09:10 BP 96/61 10/31/18 09:10 Pulse Ox 94 L 10/31/18 09:10 Intake & Output 10/30/18 10/31/18 10/31/18 18:59 06:59 18:59 Intake Total 318 180 Balance 318 180 Weight 73.4 kg Intake: Oral 318 180 Other: Voiding Method Toilet Toilet Toilet Urinal # Voids 1 1 ABP, PAP, CO, CI - Last Documented Arterial Blood Pressure 154/69 Pulmonary Artery Pressure 35/17 Cardiac Output 12 Cardiac Index 3.2 - Exam Review of Systems CONSTITUTIONAL: Well-developed. Denies fever, denies chills EYES: No icterus sclerae, no conjunctivitis. EARS, NOSE, MOUTH, THROAT, and FACE: No sore throat, lymphadenopathy, carotid bruits or deformity. RESPIRATORY: No shortness of breath CARDIOVASCULAR: Post CABG, no chest pain, less short of breath, no pleurisy. GASTROINTESTINAL: Patient is sedated no diarrhea no sign of GI bleed. GENITOURINARY: Negative for Hematuria. With Pretty catheter in. INTEGUMENT/BREAST: Negative. HEMATOLOGIC/LYMPHATIC: Negative for bleed or purpura. MUSCULOSKELTAL: Patient is sedated. NEURLOGICAL: No numbness no tingling. General Appearance: Patient is sitting in recliner at the bedside and appears to be comfortable and in no acute distress. Neck HEENT: Supple, no lymphadenopathy, no thyroid enlargement, no carotid bruits. Lungs: Decreased breath sounds in the left side no crackles or wheezes. Chest Wall: Decrease expansion with deep inspiration. Heart: Regular rate and rhythm, S1, S2 mild arrhythmia with S3., no murmur, rub or gallop. Back: Symmetric, no curvature, ROM normal. Abdomen: Soft, non-tender, bowel sounds active all four quadrants, no masses, no organomegaly. Extremities: Extremities normal, atraumatic, no cyanosis or edema. Pulses: 2+ and symmetric. Skin: Skin color, tugor normal, no rashes or lesions. Neurologic: Patient is awake alert and oriented 3. No focal neural deficits. - Labs CBC & Chem 7: 10/31/18 07:45 10/31/18 07:45 Labs: Abnormal Lab Results - Last 24 Hours (Table) 10/30/18 10/30/18 10/30/18 Range/Units 11:29 16:51 20:43 WBC (3.8-10.6) k/uL RBC (4.30-5.90) m/uL Hgb (13.0-17.5) gm/dL Hct (39.0-53.0) % Creatinine (0.66-1.25) mg/dL Glucose (74-99) mg/dL POC Glucose (mg/dL) 106 H 106 H 125 H (75-99) mg/dL 10/31/18 10/31/18 Range/Units 07:45 07:45 WBC 14.5 H (3.8-10.6) k/uL RBC 3.12 L (4.30-5.90) m/uL Hgb 9.5 L (13.0-17.5) gm/dL Hct 29.3 L (39.0-53.0) % Creatinine 0.57 L (0.66-1.25) mg/dL Glucose 142 H (74-99) mg/dL POC Glucose (mg/dL) (75-99) mg/dL Assessment and Plan Plan: 1 post multiple vessel CABG. patient continues to have the chest tube in place as well as the pacer wires, he is off the pressors and is feeling a lot better today he continues to be somewhat short of breath, we will maintain patient on aspirin 325 mg orally once every day, Plavix 75 mg orally once every day, metoprolol 12.5 mg orally twice every day and Lipitor 40 mg orally once every day. 2 Acute hypoxic respiratory failure requiring high flow nasal cannula possibly related to history of smoking and underlying CP. Patient was successfully extubated. Pulmonary medicine managing. We'll continue with aggressive pulmonary toileting and usage of incentive spirometer. 3 hyperlipidemia. Continue patient on Lipitor 40 mg orally once every day. 4 history of cerebral palsy: Mild. 5 hyperglycemia without history of diabetes. Previous hemoglobin A1c 5.9. 6 anemia post surgery: Continue to monitor. Continue patient on iron 325 mg orally once every day. 7 BPH. Stable at this time. 8. Atrial fibrillation with rapid ventricular response was on amiodarone drip will be switched to oral amiodarone and continue beta karissa and Cardizem CD. 9 . Acute blood loss anemia expected outcome of surgery post blood transfusion currently hemoglobin is stable continue with iron supplement. 10. DVT prophylaxis. Continue heparin 5000 units subcutaneously every 12 hours. 11. GI prophylaxis. Continue PPI. 12. Full code. Discharge plan: Inpatient rehab at [facility] Impression and plan of care have been directed as dictated by the signing physician. Eleanor Greer nurse practitioner acting as scribe for signing physician.
[2018-10-31 16:39] LABS: Glucose,Whole Blood 100 mg/dL (75-99)
[2018-10-31 20:35] LABS: Glucose,Whole Blood 202 mg/dL (75-99)
[2018-10-31] MEDS: SENNOSIDES-DOCUSATE SODIUM 1 EACH TAB PO SCH (21:35)
[2018-11-01 01:51] LABS: Glucose,Whole Blood 123 mg/dL (75-99)
[2018-11-01 06:10] LABS: Glucose,Whole Blood 107 mg/dL (75-99)
[2018-11-01] MEDS: PANTOPRAZOLE 40 MG TABLET PO SCH (06:54)
[2018-11-01] MEDS: ASCORBIC ACID 500 MG TAB PO SCH ×2 (06:54→17:59)
[2018-11-01] MEDS: FERROUS SULFATE 325 MG TAB PO SCH ×2 (06:54→17:59)
[2018-11-01 07:42] LABS: Basophils % (A) 0 %; Eosinophils # (A) 0.4 k/uL (0-0.7); Eosinophils % (A) 3 %; HCT 27.9 % (39.0-53.0); HGB 8.5 gm/dL (13.0-17.5); Hypochromasia Slight; Lymphocytes # (A) 1.6 k/uL (1.0-4.8); Lymphocytes % (A) 12 %; MCHC 30.7 g/dL (31.0-37.0); MCV 94.5 fL (80.0-100.0); Mean Platelet Volume 6.6; Monocytes # (A) 0.7 k/uL (0-1.0); Monocytes % (A) 5 %; Neutrophils # (A) 10.8 k/uL (1.3-7.7); Neutrophils % (A) 79 %; Platelet Count 356 k/uL (150-450); RBC 2.95 m/uL (4.30-5.90); RDW 14.6 % (11.5-15.5); WBC 13.7 k/uL (3.8-10.6)
[2018-11-01 07:43] LABS: Anion Gap 8 mmol/L; Blood Urea Nitrogen 15 mg/dL (9-20); Calcium 8.6 mg/dL (8.4-10.2); Carbon Dioxide 26 mmol/L (22-30); Chloride 104 mmol/L (98-107); Glucose 98 mg/dL (74-99); Magnesium 1.9 mg/dL (1.6-2.3); Potassium 4.1 mmol/L (3.5-5.1); Sodium 138 mmol/L (137-145)
[2018-11-01] MEDS: IPRATROPIUM-ALBUTEROL 3 ML NEB INHALATION SCH ×4 (07:59→20:04)
--- NOTE | 2018-11-01 08:28 | XR ---
EXAMINATION TYPE: XR chest 2V DATE OF EXAM: 11/01/2018 COMPARISON: 10/31/2018 INDICATION: Post cardiac surgery TECHNIQUE: Frontal and lateral views of the chest are obtained. FINDINGS: The heart size is moderately enlarged. The pulmonary vasculature is prominent. Left pleural effusion is present.. IMPRESSION: 1. Cardiomegaly. 2. Prominent pulmonary vascular markings. 3. Left pleural effusion
--- NOTE | 2018-11-01 08:46 | P.PN ---
Subjective Progress Note Date: 11/01/18 Principal diagnosis: Severe triple vessel coronary artery disease with preserved LV function. History of hypertension, hyperlipidemia, previous tobacco dependence with preoperative FEV1 94% of predicted, cerebral palsy, bilateral internal carotid artery stenosis 70%, and family history of premature coronary artery disease. Preoperative E coli urinary tract infection treated with Cipro for 1 week. POD#8 coronary artery bypass graft surgery with left internal mammary artery to the left anterior descending coronary artery, left radial artery to the first obtuse marginal coronary artery, a reverse greater saphenous vein graft to the first diagonal coronary artery, a reverse greater saphenous vein graft to the posterior lateral branch of the right coronary artery. Endoscopic harvest of the right greater saphenous vein and the left radial artery. Epiaortic scanning. Intraoperative transesphageal echocardiogram. Postoperative acute blood loss anemia, expected outcome secondary to cardiopulmonary bypass pump and hemodilution. Postoperative atrial fibrillation, an unexpected but potential outcome, currently in sinus rhythm Leukocytosis, unexpected, possibly from atelectasis. The patient is currently sitting up to the bedside chair on the 3 S. cardiac stepdown unit. He is in no acute distress. He is complaining of some surgical type pain and denies any complaints of shortness of breath. Remote telemetry is showing normal sinus rhythm heart rate 83. No further episodes of atrial fibrillation have been reported. He remains hemodynamically stable and is on no inotropic or pressor support. Room air oxygen saturation are 92%. He is achieving 500 750 mL on his incentive spirometry with encouragement. He is anxious to be discharged to inpatient rehab for further rehabilitation needs. Objective - Vital Signs Vital signs: Vital Signs Temp 98.8 F 11/01/18 04:00 Pulse 85 11/01/18 07:59 Resp 16 11/01/18 07:59 BP 134/72 11/01/18 04:00 Pulse Ox 95 11/01/18 07:59 Intake & Output 10/31/18 11/01/18 11/01/18 18:59 06:59 18:59 Intake Total 800 360 Output Total 400 800 Balance 400 -800 360 Weight 73.5 kg 73.7 kg Intake: Intake, IV Titration 200 Amount Magnesium Sulfate-D5w Pmx 200 1 gm In Dextrose/Water 1 100ml.bag @ 100 mls/hr IVPB Q1H [facility] Rx#: [id number] Oral 600 360 Output: Urine 400 800 Other: Voiding Method Toilet Toilet # Voids 2 2 # Bowel Movements 1 1 ABP, PAP, CO, CI - Last Documented Arterial Blood Pressure 154/69 Pulmonary Artery Pressure 35/17 Cardiac Output 12 Cardiac Index 3.2 - Constitutional General appearance: Present: cooperative, no acute distress - Respiratory Details: Lung sounds essentially clear with some scattered expiratory wheezes. Diminished to his bilateral bases left greater than right. Respirations are symmetrical and nonlabored. Oxygen saturation are 92% on room air. Achieving 500-750 mL on his incentive spirometry. Loose productive cough with thin, yellow colored sputum. - Cardiovascular Details: Regular rhythm and rate. S1 and S2 present, negative for S3, gallop or murmur. Sternum is stable. Remote telemetry showing normal sinus rhythm heart rate 83. No edema present. Heart hugger is in place and he is demonstrating appropriate use. Knee-high GISELA hose and sequential compression devices in place to his bilateral lower extremities. - Gastrointestinal Gastrointestinal Comment(s): Abdomen is soft, nontender and nondistended. Active bowel sounds all 4 abdominal quadrants. Tolerating oral intake. Passing flatus. No guarding or rigidity. - Genitourinary Genitourinary Comment(s): Voiding clear yellow urine. - Integumentary Integumentary Comment(s): Skin is warm and dry. No clubbing or cyanosis is present. Midline sternal incision is clean, dry and approximated. Exofin dressing is clean, dry and intact. No drainage or redness is present. Right lower extremity EVH sites are clean, dry and approximated. No drainage or redness is present. Left radial harvest sites clean, dry and approximated. No drainage or redness is present. - Neurologic Neurologic: Present: CNII-XII intact - Musculoskeletal Musculoskeletal: Present: gait normal, generalized weakness, strength equal bilaterally - Psychiatric Psychiatric: Present: A&O x's 3, appropriate affect, intact judgment & insight - Allied health notes Allied health notes reviewed: nursing - Labs CBC & Chem 7: 11/01/18 07:09 11/01/18 07:09 Labs: Abnormal Lab Results - Last 24 Hours (Table) 10/31/18 10/31/18 10/31/18 Range/Units 07:45 07:45 16:37 WBC 14.5 H (3.8-10.6) k/uL RBC 3.12 L (4.30-5.90) m/uL Hgb 9.5 L (13.0-17.5) gm/dL Hct 29.3 L (39.0-53.0) % MCHC (31.0-37.0) g/dL Neutrophils # (1.3-7.7) k/uL Creatinine 0.57 L (0.66-1.25) mg/dL Glucose 142 H (74-99) mg/dL POC Glucose (mg/dL) 100 H (75-99) mg/dL 10/31/18 11/01/18 11/01/18 Range/Units 20:34 01:48 06:09 WBC (3.8-10.6) k/uL RBC (4.30-5.90) m/uL Hgb (13.0-17.5) gm/dL Hct (39.0-53.0) % MCHC (31.0-37.0) g/dL Neutrophils # (1.3-7.7) k/uL Creatinine (0.66-1.25) mg/dL Glucose (74-99) mg/dL POC Glucose (mg/dL) 202 H 123 H 107 H (75-99) mg/dL 11/01/18 Range/Units 07:09 WBC 13.7 H (3.8-10.6) k/uL RBC 2.95 L (4.30-5.90) m/uL Hgb 8.5 L (13.0-17.5) gm/dL Hct 27.9 L (39.0-53.0) % MCHC 30.7 L (31.0-37.0) g/dL Neutrophils # 10.8 H (1.3-7.7) k/uL Creatinine (0.66-1.25) mg/dL Glucose (74-99) mg/dL POC Glucose (mg/dL) (75-99) mg/dL Microbiology - Last 24 Hours (Table) 10/31/18 13:00 Urine Culture - Preliminary Urine,Clean Catch 10/31/18 09:00 Gram Stain - Preliminary Sputum Sputum Culture - Preliminary - Imaging and Cardiology Chest x-ray: report reviewed, image reviewed Assessment and Plan Assessment: 1. Severe triple-vessel coronary artery disease with preserved LV function, status post CABG 4 2. Hypertension 3. Hyperlipidemia 4. Previous tobacco dependence with preoperative FEV1 94% of predicted 5. Cerebral palsy 6. Bilateral internal carotid artery stenosis 70% 7. Family history of premature coronary artery disease 8. Preoperative E. coli urinary tract infection, treated 9. Postoperative acute blood loss anemia, expected 10. Postoperative atrial fibrillation, unexpected 11. Leukocytosis, unexpected, possibly from atelectasis Plan: 1. Continue low dose aspirin, statin and beta karissa. Will increase beta karissa as tolerated. 2. Continue Cardizem for radial artery spasm prophylaxis. 3. Continue amiodarone for A. fib prophylaxis, taper weekly per orders. Continue Eliquis for anticoagulation. 4. Sputum culture, urine culture results pending. 5. Encourage incentive spirometry use 10 times every hour while awake. 6. Bronchodilators per pulmonology. Encourage continued smoking cessation. 7. Increase activity, ambulate as tolerated. PT/OT/cardiac rehab following. 8. Will monitor daily labs, chest x-rays. Electrolyte replacement per protocol. 9. Pain management with current medication regimen. 10. Insulin management per primary care service. 11. GI/DVT prophylaxis. 12. Discharge planning in progress. Anticipate discharge to inpatient rehab today. 13 More recommendations to follow based on patient's clinical course. Time with Patient: Greater than 30
[2018-11-01] MEDS: ATORVASTATIN 80 MG TAB PO SCH (08:47)
[2018-11-01] MEDS: ASPIRIN 81 MG PO SCH (08:47)
[2018-11-01] MEDS: METOPROLOL TARTRATE 25 MG TAB PO SCH ×2 (08:47→23:06)
[2018-11-01] MEDS: HYDROcodone/APAP 5-325MG 1 EACH TAB PO PRN ×2 (08:47→18:14)
[2018-11-01] MEDS: APIXABAN 5 MG TAB PO SCH ×2 (08:47→23:05)
[2018-11-01] MEDS: AMIODARONE 200 MG TAB PO SCH ×2 (08:47→23:05)
[2018-11-01 10:48] VITALS: BMI 26.2
[2018-11-01 11:34] LABS: Glucose,Whole Blood 84 mg/dL (75-99)
[2018-11-01] MEDS: DILTIAZEM CD 120 MG CAP.ER.24H PO SCH (13:17)
[2018-11-01] MEDS: MAGNESIUM SULFATE-D5W PMX 1 GM in DEXTROSE/WATER 1 100ML.BAG IVPB SCH ×2 (13:18→18:13)
--- NOTE | 2018-11-01 14:13 | P.PN ---
Subjective Progress Note Date: 11/01/18 This is a pleasant 53-year-old gentleman who is status post coronary artery bypass grafting surgery, he was seen and examined today, clinically doing well. Blood pressure 112/60 with a heart rate in the 80s to 90s, 93% on 2 L of oxygen. White blood cell count 10.8, hemoglobin 8.6, platelet count 267. Sodium 140, potassium 3.9, BUN 15 and creatinine 0.6, magnesium 2.1. 10/31/2018 Patient was seen and examined today, sitting up in the chair at bedside, overall doing well. Chest x-ray was reviewed, there was worsening appearance in the left lower air space suggesting atelectasis and pleural effusion, patient did receive another dose of IV Lasix per CT surgery. Overall his breathing has been stable, hemodynamically he is stable, 94% on room air. He is anticipating transferred to rehab possibly today. 11/01/2018 Since seen and examined this morning, overall doing well. Hemodynamically stable. Anticipating transferred to inpatient rehab today. Objective - Vital Signs Vital signs: Vital Signs Temp 98.8 F 11/01/18 04:00 Pulse 85 11/01/18 07:59 Resp 16 11/01/18 07:59 BP 134/72 11/01/18 04:00 Pulse Ox 95 11/01/18 07:59 Intake & Output 10/31/18 11/01/18 11/01/18 18:59 06:59 18:59 Intake Total 800 600 Output Total 400 800 Balance 400 -800 600 Weight 73.5 kg 73.7 kg Intake: Intake, IV Titration 200 Amount Magnesium Sulfate-D5w Pmx 200 1 gm In Dextrose/Water 1 100ml.bag @ 100 mls/hr IVPB Q1H [facility] Rx#: [id number] Oral 600 600 Output: Urine 400 800 Other: Voiding Method Toilet Toilet # Voids 2 2 # Bowel Movements 1 1 ABP, PAP, CO, CI - Last Documented Arterial Blood Pressure 154/69 Pulmonary Artery Pressure 35/17 Cardiac Output 12 Cardiac Index 3.2 - Exam GENERAL EXAM: Alert, pleasant, 53-year-old white male comfortable in no apparent distress. HEAD: Normocephalic/atraumatic. EYES: Normal reaction of pupils, equal size. Conjunctiva pink, sclera white. NOSE: Clear with pink turbinates. THROAT: No erythema or exudates. NECK: No masses, no JVD, no thyroid enlargement, no adenopathy. CHEST: No chest wall deformity. Symmetrical expansion. Sternal incision is clean dry and intact, stable, AV epicardial wires are grounded to the chest wall LUNGS: Equal air entry with clear breath sounds, no rhonchi, no wheezing CVS: Regular rate and rhythm, normal S1 and S2, no gallops, no murmurs, no rubs ABDOMEN: Soft, nontender. No hepatosplenomegaly, normal bowel sounds, no guarding or rigidity. EXTREMITIES: No clubbing, no edema, no cyanosis, 2+ pulses and upper and lower extremities. MUSCULOSKELETAL: Muscle strength and tone normal. SPINE: No scoliosis or deformity SKIN: No rashes CENTRAL NERVOUS SYSTEM: Alert and oriented -3. No focal deficits, tone is normal in all 4 extremities. PSYCHIATRIC: Alert and oriented -3. Appropriate affect. Intact judgment and insight. - Labs CBC & Chem 7: 11/01/18 07:09 11/01/18 07:09 Labs: Abnormal Lab Results - Last 24 Hours (Table) 10/31/18 10/31/18 11/01/18 Range/Units 16:37 20:34 01:48 WBC (3.8-10.6) k/uL RBC (4.30-5.90) m/uL Hgb (13.0-17.5) gm/dL Hct (39.0-53.0) % MCHC (31.0-37.0) g/dL Neutrophils # (1.3-7.7) k/uL POC Glucose (mg/dL) 100 H 202 H 123 H (75-99) mg/dL 11/01/18 11/01/18 Range/Units 06:09 07:09 WBC 13.7 H (3.8-10.6) k/uL RBC 2.95 L (4.30-5.90) m/uL Hgb 8.5 L (13.0-17.5) gm/dL Hct 27.9 L (39.0-53.0) % MCHC 30.7 L (31.0-37.0) g/dL Neutrophils # 10.8 H (1.3-7.7) k/uL POC Glucose (mg/dL) 107 H (75-99) mg/dL Microbiology - Last 24 Hours (Table) 10/31/18 09:00 Gram Stain - Preliminary Sputum Sputum Culture - Preliminary 10/31/18 13:00 Urine Culture - Final Urine,Clean Catch Assessment and Plan Plan: Assessment and Plan: 1 multivessel coronary disease and the patient is status post four-vessel bypass surgery. \ 2 postoperative acute blood loss anemia 3 hyperlipidemia 4 paroxysmal atrial fibrillation, current rhythm is sinus on a combination of metoprolol, Cardizem and amiodarone. The rhythm remains sinus 5 cerebral palsy Plan From cardiology's perspective, we'll recommend to continue the patient on his current medications. He may be transferred to rehab once cleared by cardiothoracic surgery. DNP note has been reviewed, I agree with a documented findings and plan of care. Patient was seen and examined.
--- NOTE | 2018-11-01 14:57 | P.PN ---
Subjective Progress Note Date: 11/01/18 53-year-old male one of Dr. Gomez patient with mild degree of cerebral palsy who has history of hypertension hyperlipidemia and coronary artery disease with heart catheter 2 weeks ago showed 99 percentile blockage of the RCA 60% of the PLB 90% stenosis of the circumflex and acute marginal and 85 percentile stenosis of the LAD. Patient was referred to cardiothoracic seen and evaluated and was schedule elective bypass surgery with Dr. Galan which was done successfully today patient was intubated and placed on mechanical ventilation post surgery seen pulmonary and transferred to the intensive care unit, remain on vasodepressor along with insulin drip the blood sugar running marginal at the time. Patient is sedated on mechanical ventilation. 10/25: Patient remains in intensive care unit. He was successfully extubated around midnight. His pain is currently controlled. He is continued on norepinephrine and vasopressin as well as IV Cardizem and amiodarone. Patient is on insulin drip for blood sugar control. Pretty catheter in place with adequate urine output. Chest tubes remain in place. 10/26: Patient remains in intensive care unit. He has been seen by Dr. Chen for possible inpatient rehab. Patient has been afebrile, heart rate in the 70s to 80, blood pressure 93/53, pulse ox 93% on 10 L high flow nasal cannula. Patient had rapid is pulse ox yesterday afternoon while on nasal cannula and transitioned to high flow O2. Patient is using incentive spirometry at 500 ML's. teletypesetter monitor is sinus rhythm. Repeat lab work this morning shows a hemoglobin of 7, white count 11.6, platelet count 125. BUN 17 and creatinine 0.53. Phosphorus 2.4, magnesium 2.4, AST 187, ALT 38. Blood sugars are running between 118 and 136. Plan to continue insulin drip another day and transitioned to long-acting and short acting insulins tomorrow. Patient is currently eating very little. Needham's catheter has been discontinued. He has had no episodes of atrial fibrillation. He remains on vasopressin. He is scheduled for 1 unit packed RBCs followed by Lasix. Patient is currently working with PT and OT. 10/27: Patient sitting up in the chair he remains in the intensive care unit he denies any chest pain is less short of breath he continues to have chest tubes in place, he continued to have the pacer in place, he did receive an extra dose of Lasix today, he is off the pressors at this time and he continues to progress in a positive manner. 10/28: Patient sitting up on the commode he is less short of breath today he denies any chest pain or any shortness breath he had an episode of atrial fibrillation with rapid ventricular response, he was initially placed on a miodarone drip currently would be switched to oral amiodarone and he will be switched to Cardizem CD at the same time along with beta karissa he is feeling a lot better his chest tubes will come out today. 10/29: Patient is sitting up in bed he is feeling a bit better today he was moved out of the ICU, he continues to have significant shortness of breath with ambulation he will be receiving Lasix dose today is utilizing incentive spirometer and regular basis, has no abdominal pain, nausea or vomiting he has a good bowel movement. 10/30: Patient is seen on the cardiac stepdown unit. Patient states that his breathing feels like it's the same to him. He states he does have shortness of breath with getting out of bed. Pulse ox is 94% on 2 L. Sputum culture to be obtained. He has had a bowel movement. He denies any other complaints. Patient is scheduled for discharge to inpatient rehab under the care of Dr. Chen later today. Blood sugars are running between 103 and 127. Hemoglobin is 8.6, white count 10.8. Patient is to have follow-up with Dr. Gomez after discharge from rehab. 10/31: Patient was not transferred to [facility] as insurance authorization was pending. Patient also relates today that insurance authorization remains pending. Patient did receive 1 dose of IV Lasix today. Pulse ox is 94% on room air. Breathing status appears to be stable. He is using his incentive spirometry. Hemoglobin 9.5, white cell count 14.5. Anticipate discharge today to inpatient rehab. 11/01: The patient states he has had quite a bit of coughing and sputum pr oduction. He denies any real shortness of breath. Urine culture has been finalized from October 31. Sputum culture showing normal respiratory jeffery. He continues to wait for authorization for inpatient rehab which we are expecting today. Patient has been hemodynamically stable. Patient will be followed at [facility] by Dr. Johnston. Objective - Vital Signs Vital signs: Vital Signs Temp 98.8 F 11/01/18 04:00 Pulse 85 11/01/18 07:59 Resp 16 11/01/18 07:59 BP 134/72 11/01/18 04:00 Pulse Ox 95 11/01/18 07:59 Intake & Output 10/31/18 11/01/18 11/01/18 18:59 06:59 18:59 Intake Total 800 360 Output Total 400 800 Balance 400 -800 360 Weight 73.5 kg 73.7 kg Intake: Intake, IV Titration 200 Amount Magnesium Sulfate-D5w Pmx 200 1 gm In Dextrose/Water 1 100ml.bag @ 100 mls/hr IVPB Q1H JENNIFER Rx#: [id number] Oral 600 360 Output: Urine 400 800 Other: Voiding Method Toilet Toilet # Voids 2 2 # Bowel Movements 1 1 ABP, PAP, CO, CI - Last Documented Arterial Blood Pressure 154/69 Pulmonary Artery Pressure 35/17 Cardiac Output 12 Cardiac Index 3.2 - Exam Review of Systems CONSTITUTIONAL: Well-developed. Denies fever, denies chills EYES: No icterus sclerae, no conjunctivitis. EARS, NOSE, MOUTH, THROAT, and FACE: No sore throat, lymphadenopathy, carotid bruits or deformity. RESPIRATORY: No shortness of breath, reports cough, reports sputum production CARDIOVASCULAR: Post CABG, no chest pain, less short of breath, no pleurisy. GASTROINTESTINAL: Patient is sedated no diarrhea no sign of GI bleed. GENITOURINARY: Negative for Hematuria. With Pretty catheter in. INTEGUMENT/BREAST: Negative. HEMATOLOGIC/LYMPHATIC: Negative for bleed or purpura. MUSCULOSKELTAL: Patient is sedated. NEURLOGICAL: No numbness no tingling. General Appearance: Patient is sitting in recliner at the bedside and appears to be comfortable Neck HEENT: Supple, no lymphadenopathy, no thyroid enlargement, no carotid bruits. Lungs: Decreased breath sounds in the left side no crackles or wheezes. Chest Wall: Decrease expansion with deep inspiration. Heart: Regular rate and rhythm, S1, S2 mild arrhythmia with S3., no murmur, rub or gallop. Back: Symmetric, no curvature, ROM normal. Abdomen: Soft, non-tender, bowel sounds active all four quadrants, no masses, no organomegaly. Extremities: Extremities normal, atraumatic, no cyanosis or edema. Pulses: 2+ and symmetric. Skin: Skin color, tugor normal, no rashes or lesions. Neurologic: Patient is awake alert and oriented 3. No focal neural deficits. - Labs CBC & Chem 7: 11/01/18 07:09 11/01/18 07:09 Labs: Abnormal Lab Results - Last 24 Hours (Table) 10/31/18 10/31/18 11/01/18 Range/Units 16:37 20:34 01:48 WBC (3.8-10.6) k/uL RBC (4.30-5.90) m/uL Hgb (13.0-17.5) gm/dL Hct (39.0-53.0) % MCHC (31.0-37.0) g/dL Neutrophils # (1.3-7.7) k/uL POC Glucose (mg/dL) 100 H 202 H 123 H (75-99) mg/dL 11/01/18 11/01/18 Range/Units 06:09 07:09 WBC 13.7 H (3.8-10.6) k/uL RBC 2.95 L (4.30-5.90) m/uL Hgb 8.5 L (13.0-17.5) gm/dL Hct 27.9 L (39.0-53.0) % MCHC 30.7 L (31.0-37.0) g/dL Neutrophils # 10.8 H (1.3-7.7) k/uL POC Glucose (mg/dL) 107 H (75-99) mg/dL Microbiology - Last 24 Hours (Table) 10/31/18 13:00 Urine Culture - Preliminary Urine,Clean Catch 10/31/18 09:00 Gram Stain - Preliminary Sputum Sputum Culture - Preliminary Assessment and Plan Plan: 1 post multiple vessel CABG. patient continues to have the chest tube in place as well as the pacer wires, he is off the pressors and is feeling a lot better today he continues to be somewhat short of breath, we will maintain patient on aspirin 325 mg orally once every day, Plavix 75 mg orally once every day, me toprolol 12.5 mg orally twice every day and Lipitor 40 mg orally once every day. 2 Acute hypoxic respiratory failure requiring high flow nasal cannula possibly related to history of smoking and underlying CP. Patient was successfully extubated. Pulmonary medicine managing. Continue incentive spirometry 3 hyperlipidemia. Continue patient on Lipitor 40 mg orally once every day. 4 history of cerebral palsy: Mild. 5 hyperglycemia without history of diabetes. Previous hemoglobin A1c 5.9. 6 anemia post surgery: Continue to monitor. Continue patient on iron 325 mg orally once every day. 7 BPH. Stable at this time. 8. Atrial fibrillation with rapid ventricular response was on amiodarone drip will be switched to oral amiodarone and continue beta karissa and Cardizem CD. 9 . Acute blood loss anemia expected outcome of surgery post blood transfusion currently hemoglobin is stable continue with iron supplement. 10. DVT prophylaxis. Continue heparin 5000 units subcutaneously every 12 hours. 11. GI prophylaxis. Continue PPI. 12. Full code. Discharge plan: Inpatient rehab at [facility] Impression and plan of care have been directed as dictated by the signing physician. Eleanor Greer nurse practitioner acting as scribe for signing physician.
[2018-11-01 17:09] LABS: Glucose,Whole Blood 113 mg/dL (75-99)
[2018-11-01] MEDS: MAGNESIUM HYDROXIDE 2,400 MG/10 ML CUP PO PRN (18:14)
[2018-11-01 20:33] LABS: Glucose,Whole Blood 130 mg/dL (75-99)
[2018-11-01] MEDS: SENNOSIDES-DOCUSATE SODIUM 1 EACH TAB PO SCH (23:05)
[2018-11-02 06:28] LABS: Glucose,Whole Blood 130 mg/dL (75-99)
[2018-11-02] MEDS: PANTOPRAZOLE 40 MG TABLET PO SCH (06:50)
[2018-11-02] MEDS: ASCORBIC ACID 500 MG TAB PO SCH ×2 (06:51→17:41)
[2018-11-02] MEDS: FERROUS SULFATE 325 MG TAB PO SCH ×2 (06:51→17:41)
[2018-11-02 06:58] LABS: HCT 26.1 % (39.0-53.0); HGB 8.5 gm/dL (13.0-17.5); Hypochromasia Slight; MCH 29.9 pg (25.0-35.0); MCHC 32.4 g/dL (31.0-37.0); Mean Platelet Volume 7.3; Platelet Count 354 k/uL (150-450); RBC 2.83 m/uL (4.30-5.90); RDW 15.6 % (11.5-15.5); WBC 15.4 k/uL (3.8-10.6)
--- NOTE | 2018-11-02 06:59 | XR ---
EXAMINATION TYPE: XR chest 1V portable DATE OF EXAM: 11/02/2018 CLINICAL HISTORY: Difficulty breathing progress study. Postopen CABG. TECHNIQUE: Single AP portable frontal view of the chest is obtained. COMPARISON: Chest x-ray from one day earlier and older studies. FINDINGS: Post-CABG changes with mediastinal clips and sternal wires is redemonstrated. Increasing l eft basilar opacity consistent with worsening left-sided effusion is noted. Osseous structures are in tact. Right lung shows tiny amount of fluid in the fissure. Underlying cardiomegaly is suspected. IMPRESSION: Worsening moderate to borderline large size left pleural effusion with associated evaristo sive atelectasis.
[2018-11-02 07:08] LABS: Anion Gap 7 mmol/L; Blood Urea Nitrogen 12 mg/dL (9-20); Calcium 8.3 mg/dL (8.4-10.2); Carbon Dioxide 25 mmol/L (22-30); Chloride 103 mmol/L (98-107); Glucose 103 mg/dL (74-99); Magnesium 2.2 mg/dL (1.6-2.3); Potassium 4.4 mmol/L (3.5-5.1); Sodium 135 mmol/L (137-145)
[2018-11-02] MEDS: AMIODARONE 200 MG TAB PO SCH ×2 (08:30→20:45)
[2018-11-02] MEDS: METOPROLOL TARTRATE 25 MG TAB PO SCH ×2 (08:31→20:45)
[2018-11-02] MEDS: HYDROcodone/APAP 5-325MG 1 EACH TAB PO PRN ×3 (08:31→20:45)
[2018-11-02] MEDS: FUROSEMIDE 20 MG TAB PO SCH (08:31)
[2018-11-02] MEDS: ATORVASTATIN 80 MG TAB PO SCH (08:31)
[2018-11-02] MEDS: APIXABAN 5 MG TAB PO SCH ×2 (08:31→20:45)
[2018-11-02] MEDS: ASPIRIN 81 MG PO SCH (08:31)
[2018-11-02] MEDS: IPRATROPIUM-ALBUTEROL 3 ML NEB INHALATION SCH ×4 (08:45→19:54)
[2018-11-02] MEDS ORDERED: FUROSEMIDE 10 MG/ML 2 ML VIAL IV ONE (09:43)
[2018-11-02 11:30] LABS: Glucose,Whole Blood 95 mg/dL (75-99)
--- NOTE | 2018-11-02 11:31 | P.PN ---
Subjective Progress Note Date: 11/02/18 Principal diagnosis: Severe triple vessel coronary artery disease with preserved LV function. History of hypertension, hyperlipidemia, previous tobacco dependence with preoperative FEV1 94% of predicted, cerebral palsy, bilateral internal carotid artery stenosis 70%, and family history of premature coronary artery disease. Preoperative E coli urinary tract infection treated with Cipro for 1 week. POD#9 coronary artery bypass graft surgery with left internal mammary artery to the left anterior descending coronary artery, left radial artery to the first obtuse marginal coronary artery, a reverse greater saphenous vein graft to the first diagonal coronary artery, a reverse greater saphenous vein graft to the posterior lateral branch of the right coronary artery. Endoscopic harvest of the right greater saphenous vein and the left radial artery. Epiaortic scanning. Intraoperative transesphageal echocardiogram. Postoperative acute blood loss anemia, expected outcome secondary to cardiopulmonary bypass pump and hemodilution. Postoperative atrial fibrillation, an unexpected but potential outcome, currently in sinus rhythm Leukocytosis, unexpected, possibly from atelectasis. Postoperative left pleural effusion, an unexpected but potential outcome from surgery. The patient is currently sitting up to the bedside chair on the 3 S. cardiac stepdown unit. He is in no acute distress. He denies any complaints of pain or shortness of breath. Remote telemetry is showing normal sinus rhythm heart rate 87. No further episodes of atrial fibrillation have been reported. He remains hemodynamically stable and is on no inotropic or pressor support. Room air oxy gen saturation are 91%. He is achieving 1000 mL on his incentive spirometry with encouragement. He is anxious to be discharged to inpatient rehab for further rehabilitation needs. He continues to complain of a loose productive cough with thin white pale yellow sputum production. He reports that he ambulated in the 3 S. cardiac stepdown unit hallway yesterday 3 with minimal assistance. Objective - Vital Signs Vital signs: Vital Signs Temp 99.9 F H 11/02/18 04:00 Pulse 80 11/02/18 08:55 Resp 18 11/02/18 04:00 BP 132/71 11/02/18 04:00 Pulse Ox 91 L 11/02/18 04:00 Intake & Output 11/01/18 11/02/18 11/02/18 18:59 06:59 18:59 Intake Total 840 Output Total 600 Balance 840 -600 Weight 73.7 kg 74.3 kg Intake: Oral 840 Output: Urine 600 Other: Voiding Method Toilet Toilet # Voids 2 2 0 ABP, PAP, CO, CI - Last Documented Arterial Blood Pressure 154/69 Pulmonary Artery Pressure 35/17 Cardiac Output 12 Cardiac Index 3.2 - Constitutional General appearance: Present: cooperative, no acute distress, thin - Respiratory Details: Lung sounds diminished to his left lower lobe, few expiratory wheezes heard throughout. Respirations are symmetrical and nonlabored. Oxygen saturation are 91% on room air. Achieving 1000 mL on his incentive spirometry. Loose productive cough with thin white/pale yellow sputum production. - Cardiovascular Details: Regular rhythm and rate. S1 and S2 present, negative for S3, gallop or murmur. Sternum is stable. Remote telemetry showing normal sinus rhythm heart rate 87. Heart hugger is in place and he is demonstrating appropriate use. Knee-high GISELA hose and sequential compression devices in place to his bilateral lower extremities. No edema present. - Gastrointestinal Gastrointestinal Comment(s): Abdomen is soft, nontender and nondistended. Active bowel sounds to all 4 abdominal quadrants. No guarding or rigidity. No organomegaly. Tolerating oral intake. - Genitourinary Genitourinary Comment(s): Voiding clear horace urine. - Integumentary Integumentary Comment(s): Skin is warm and dry. No clubbing or cyanosis is present. Midline sternal incision is clean, dry and approximated. No drainage or redness is present. Exofin dressing is clean, dry and in place. Left radial artery harvest sites clean, dry and approximated. No drainage or redness is present. Scattered ecchymosis to his left arm. Left hand warm to touch. Right lower extremity EVH site clean, dry and approximated. - Neurologic Neurologic: Present: CNII-XII intact - Musculoskeletal Musculoskeletal: Present: gait normal, generalized weakness, strength equal bilaterally - Psychiatric Psychiatric: Present: A&O x's 3, appropriate affect, intact judgment & insight - Allied health notes Allied health notes reviewed: nursing - Labs CBC & Chem 7: 11/02/18 06:11 11/02/18 06:11 Labs: Abnormal Lab Results - Last 24 Hours (Table) 11/01/18 11/01/18 11/02/18 Range/Units 16:45 20:31 05:51 WBC (3.8-10.6) k/uL RBC (4.30-5.90) m/uL Hgb (13.0-17.5) gm/dL Hct (39.0-53.0) % RDW (11.5-15.5) % Sodium (137-145) mmol/L Creatinine (0.66-1.25) mg/dL Glucose (74-99) mg/dL POC Glucose (mg/dL) 113 H 130 H 130 H (75-99) mg/dL Calcium (8.4-10.2) mg/dL 11/02/18 11/02/18 Range/Units 06:11 06:11 WBC 15.4 H (3.8-10.6) k/uL RBC 2.83 L (4.30-5.90) m/uL Hgb 8.5 L (13.0-17.5) gm/dL Hct 26.1 L (39.0-53.0) % RDW 15.6 H (11.5-15.5) % Sodium 135 L (137-145) mmol/L Creatinine 0.63 L (0.66-1.25) mg/dL Glucose 103 H (74-99) mg/dL POC Glucose (mg/dL) (75-99) mg/dL Calcium 8.3 L (8.4-10.2) mg/dL Microbiology - Last 24 Hours (Table) 10/31/18 09:00 Gram Stain - Final Sputum Sputum Culture - Final 10/31/18 13:00 Urine Culture - Final Urine,Clean Catch - Imaging and Cardiology Chest x-ray: report reviewed, image reviewed Assessment and Plan Assessment: 1. Severe triple-vessel coronary artery disease with preserved LV function, status post CABG 4 2. Hypertension 3. Hyperlipidemia 4. Previous tobacco dependence with preoperative FEV1 94% of predicted 5. Cerebral palsy 6. Bilateral internal carotid artery stenosis 70% 7. Family history of premature coronary artery disease 8. Preoperative E. coli urinary tract infection, treated 9. Postoperative acute blood loss anemia, expected 10. Postoperative atrial fibrillation, unexpected 11. Leukocytosis, unexpected, possibly from atelectasis Plan: 1. Continue low dose aspirin, statin and beta karissa. Will increase beta karissa as tolerated. 2. Continue Cardizem for radial artery spasm prophylaxis. 3. Continue amiodarone for A. fib prophylaxis, taper weekly per orders. Contin ue Eliquis for anticoagulation. 4. Sputum culture, urine culture final report showed no growth. 5. Encourage incentive spirometry use 10 times every hour while awake. 6. Bronchodilators per pulmonology. Encourage continued smoking cessation. 7. Increase activity, ambulate as tolerated. PT/OT/cardiac rehab following. 8. Will monitor daily labs, chest x-rays. Electrolyte replacement per pr otocol. 9. Pain management with current medication regimen. 10. Insulin management per primary care service. 11. GI/DVT prophylaxis. 12. Discharge planning in progress. Anticipate discharge to inpatient rehab today. Awaiting insurance authorization. 13 Ultrasound left chest with markings for possible thoracentesis. 14. More recommendations to follow based on patient's clinical course. Time with Patient: Greater than 30
[2018-11-02] MEDS: DILTIAZEM CD 120 MG CAP.ER.24H PO SCH (12:28)
--- NOTE | 2018-11-02 13:02 | P.PN ---
Subjective Progress Note Date: 11/02/18 Principal diagnosis: Multivessel coronary artery disease, status post four-vessel bypass surgery, postoperative day 6 on today's evaluation of 10/28/2018, the patient is awake and alert sitting up on a chair. The chest. He is still using incentive spirometer. Overnight he was due atrial fibrillation with some degree of breath and ventricular response in the 110 range. The patient was given boluses of amiodarone and currently is on amiodarone drip. He is back into sinus rhythm. Note that while going into atrial fibrillation, the patient developed hypotension probably related to the loss of atrial kick. He is currently back to normal sinus rhythm. He is hemodynamically stable. He is on beta blockers and Cardizem for rate control. Sternum is stable clean and intact. He is producing adequate amount of urine output. No nausea. No vomiting. No diarrhea. No altered mentation. Chest x- ray still showing some atelectatic changes in lung bases and pulmonary vascular congestion. Hemoglobin is stable.the oxygenation is improving and the patient is on 6 L of oxygen by nasal cannula with a pulse ox of 97%.hemoglobin is at 8.0. On today's evaluation of 10/29/2018 the patient is already transferred today telemetry unit. He is doing well. All of the chest is a been removed. The chest x-ray from today shows pulse vessel congestion and small effusion the left side. No hypotension. No atrial fibrillation. He remains in normal sinus rhythm. He'll be given another dose of Lasix today. The patient seemed was at 8.1. BUN is 14 creatinine 0.6. He is using his incentive spirometer. No chest pain. No altered mentation. He is emanating in the hallway. His sternal wound is dry clean and intact. He is currently on oxygen at 4 L per minute nasal c annula. On 10/22/2018 patient seen in follow-up on selective care unit, he sitting up in a recliner, in no acute distress, lung sounds are clear, etc. spirometer effort is 750 ML. Today's chest x-ray has been reviewed and shows persistent small left pleural effusion and multifocal subsegmental atelectasis. Patient is on 2 L of oxygen his pulse ox is 94%, afebrile, hemodynamically stable. No co mplaints of shortness of breath, patient has been ambulating in the hallway, tolerates activity well, anticipate discharge to inpatient rehab sometime today. This is postoperative day 6 status post four-vessel coronary artery bypass grafting, all chest tubes Pretty catheter have been discontinued, wires are still in place, and are grounded. On 10/31/2018 patient is seen in follow-up on selective care unit, he is resting comfortably in bed, this is postop day 7, status post four-vessel coronary artery bypass grafting. Patient is doing well, today's chest x-ray has been reviewed, and there is worsening in the appearance of left lower lobe airspace disease, atelectasis and pleural effusion, patient received another dose of IV Lasix per CT surgery. Denies any worsening dyspnea, he has been working on his incentive spirometer, he is currently on room air, with a pulse ox of 94%, he has been tolerating ambulation. Today's lab work has been reviewed, white blood cell count is 14.5, hemoglobin is 9.5, electrolytes and renal profile were unremarkable. Patient is voiding, Pretty chest tubes have been discontinued. He is awaiting discharge to inpatient rehab possibly today. On 11/02/2018 patient seen in follow-up on selective care unit, he is awake and alert, in no acute distress, room air pulse ox is 91%, low-grade fever of 99.9F today, hemodynamically stable, lung sounds are diminished over bilateral bases, left greater than the right. Today's chest x-ray shows worsening moderate to borderline large size left pleural effusion with associated compressive atelectasis. Ultrasound of the chest is pending, and patient is having increased serosanguineous drainage from his former left pleural chest tube site, requiring dressing changes and gown change. No worsening dyspnea, his incentive spirometer effort is up to 750-1000 ML today. Vital signs are stable. He is on maintenance dose of oral Lasix, and he will receive an additional dose of IV Lasix per CT surgery. Objective - Vital Signs Vital signs: Vital Signs Temp 99.9 F H 11/02/18 04:00 Pulse 80 11/02/18 08:55 Resp 18 11/02/18 04:00 BP 132/71 11/02/18 04:00 Pulse Ox 91 L 11/02/18 04:00 Intake & Output 11/01/18 11/02/18 11/02/18 18:59 06:59 18:59 Intake Total 840 Output Total 600 Balance 840 -600 Weight 73.7 kg 74.3 kg Intake: Oral 840 Output: Urine 600 Other: Voiding Method Toilet Toilet # Voids 2 2 0 ABP, PAP, CO, CI - Last Documented Arterial Blood Pressure 154/69 Pulmonary Artery Pressure 35/17 Cardiac Output 12 Cardiac Index 3.2 - Exam GENERAL EXAM: Alert, pleasant, 53-year-old white male comfortable in no apparent distress. HEAD: Normocephalic/atraumatic. EYES: Normal reaction of pupils, equal size. Conjunctiva pink, sclera white. NOSE: Clear with pink turbinates. THROAT: No erythema or exudates. NECK: No masses, no JVD, no thyroid enlargement, no adenopathy. CHEST: No chest wall deformity. Symmetrical expansion. Sternal incision is clean dry and intact, stable, left chest former pleural chest tube site is draining large amount of serosanguineous drainage LUNGS: Equal air entry with clear breath sounds, no rhonchi, no wheezing CVS: Regular rate and rhythm, normal S1 and S2, no gallops, no murmurs, no rubs ABDOMEN: Soft, nontender. No hepatosplenomegaly, normal bowel sounds, no guarding or rigidity. EXTREMITIES: No clubbing, no edema, no cyanosis, 2+ pulses and upper and lower extremities. MUSCULOSKELETAL: Muscle strength and tone normal. SPINE: No scoliosis or deformity SKIN: No rashes CENTRAL NERVOUS SYSTEM: Alert and oriented -3. No focal deficits, tone is normal in all 4 extremities. PSYCHIATRIC: Alert and oriented -3. Appropriate affect. Intact judgment and insight. - Labs CBC & Chem 7: 11/02/18 06:11 11/02/18 06:11 Labs: Abnormal Lab Results - Last 24 Hours (Table) 11/01/18 11/01/18 11/02/18 Range/Units 16:45 20:31 05:51 WBC (3.8-10.6) k/uL RBC (4.30-5.90) m/uL Hgb (13.0-17.5) gm/dL Hct (39.0-53.0) % RDW (11.5-15.5) % Sodium (137-145) mmol/L Creatinine (0.66-1.25) mg/dL Glucose (74-99) mg/dL POC Glucose (mg/dL) 113 H 130 H 130 H (75-99) mg/dL Calcium (8.4-10.2) mg/dL 11/02/18 11/02/18 Range/Units 06:11 06:11 WBC 15.4 H (3.8-10.6) k/uL RBC 2.83 L (4.30-5.90) m/uL Hgb 8.5 L (13.0-17.5) gm/dL Hct 26.1 L (39.0-53.0) % RDW 15.6 H (11.5-15.5) % Sodium 135 L (137-145) mmol/L Creatinine 0.63 L (0.66-1.25) mg/dL Glucose 103 H (74-99) mg/dL POC Glucose (mg/dL) (75-99) mg/dL Calcium 8.3 L (8.4-10.2) mg/dL Microbiology - Last 24 Hours (Table) 10/31/18 09:00 Gram Stain - Final Sputum Sputum Culture - Final 10/31/18 13:00 Urine Culture - Final Urine,Clean Catch Assessment and Plan Plan: 1 multivessel coronary disease and the patient is status post four-vessel bypass surgery. Postop day 9. Patient is recovering adequately for now. Chest tubes are out and the patient has a increased drainage out of the left pleural chest tube site, was on the chest has been ordered, and patient will receive an additional dose of IV Lasix 2 postoperative acute blood loss anemia, expected outcome of surgery, hemoglobin is at 8.1 3 ventilator management as the patient is currently on 6 L of oxygen nasal cannula, the mediastinal chest tube has been removed. 4 paroxysmal atrial fibrillation, current rhythm is sinus on a combination of metoprolol, Cardizem and amiodarone. The rhythm remains sinus 5 history of hyperlipidemia 6 cerebral palsy 7 bilateral carotid artery stenosis in the order of 70% 8 preoperative E. coli UTI, treated 9 history of cerebral palsy Plan: Today's chest x-ray has been reviewed, shows increasing left pleural effusion, and atelectasis, patient is having increased drainage from the left pleural chest tube site, received an extra dose of IV Lasix, he is in no acute distress, does have a low-grade temp. Encourage deep breathing and coughing, he is tolerating ambulation, clinically he is stable. We'll review the ultrasound of the chest, for a possibility of a left-sided thoracentesis. For now the effusion is draining on its own from the former chest tube site. We'll place a ostomy bag over it. May repeat chest x-ray later on a or in the morning. Clinically he is in no distress. I performed a history & physical examination of the patient and discussed their management with my nurse practitioner, Carlene Jiménez. I reviewed the nurse practitioner's note and agree with the documented findings and plan of care. Lung sounds are positive for clear breath sounds. The findings and the impression was discussed with the patient. I attest to the documentation by the nurse practitioner. Time with Patient: Less than 30
--- NOTE | 2018-11-02 13:52 | US ---
EXAMINATION TYPE: US chest DATE OF EXAM: 11/02/2018 COMPARISON: CXR 11/02/18 CLINICAL HISTORY: Markings for thoracentesis by pulmonary staff. Worsening chest x-ray. Post-CABG. TECHNIQUE: Targeted ultrasound of the posterior lower left hemithorax EXAM MEASUREMENTS: Left Pleural Effusion pocket size: 9.2 x 2.5 x 3.1 cm Left skin surface to fluid distance: 2.2 cm Left side marked for possible thoracentesis outside the dept. Pulmonologists are able to review the images in the patient?s EMR. Difficult exam due to patient unable to sit/breathe comfortably. Fluid pocket present with lung tissu e within. IMPRESSIONS: As above, confirmation of moderate size effusion noted.
--- NOTE | 2018-11-02 14:41 | P.PN ---
Subjective Progress Note Date: 11/02/18 53-year-old male one of Dr. Gomez patient with mild degree of cerebral palsy who has history of hypertension hyperlipidemia and coronary artery disease with heart catheter 2 weeks ago showed 99 percentile blockage of the RCA 60% of the PLB 90% stenosis of the circumflex and acute marginal and 85 percentile stenosis of the LAD. Patient was referred to cardiothoracic seen and evaluated and was schedule elective bypass surgery with Dr. Galan which was done successfully today patient was intubated and placed on mechanical ventilation post surgery seen pulmonary and transferred to the intensive care unit, remain on vasodepressor along with insulin drip the blood sugar running marginal at the time. Patient is sedated on mechanical ventilation. 10/25: Patient remains in intensive care unit. He was successfully extubated around midnight. His pain is currently controlled. He is continued on norepinephrine and vasopressin as well as IV Cardizem and amiodarone. Patient is on insulin drip for blood sugar control. Pretty catheter in place with adequate urine output. Chest tubes remain in place. 10/26: Patient remains in intensive care unit. He has been seen by Dr. Chen for possible inpatient rehab. Patient has been afebrile, heart rate in the 70s to 80, blood pressure 93/53, pulse ox 93% on 10 L high flow nasal cannula. Patient had rapid is pulse ox yesterday afternoon while on nasal cannula and transitioned to high flow O2. Patient is using incentive spirometry at 500 ML's. 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 Repeat lab work this morning shows a hemoglobin of 7, white count 11.6, platelet count 125. BUN 17 and creatinine 0.53. Phosphorus 2.4, magnesium 2.4, AST 187, ALT 38. Blood sugars are running between 118 and 136. Plan to continue insulin drip another day and transitioned to long-acting and short acting insulins tomorrow. Patient is currently eating very little. Carmen's catheter has been discontinued. He has had no episodes of atrial fibrillation. He remains on vasopressin. He is scheduled for 1 unit packed RBCs followed by Lasix. Patient is currently working with PT and OT. 10/27: Patient sitting up in the chair he remains in the intensive care unit he denies any chest pain is less short of breath he continues to have chest tubes in place, he continued to have the pacer in place, he did receive an extra dose of Lasix today, he is off the pressors at this time and he continues to progress in a positive manner. 10/28: Patient sitting up on the commode he is less short of breath today he denies any chest pain or any shortness breath he had an episode of atrial fibrillation with rapid ventricular response, he was initially placed on a miodarone drip currently would be switched to oral amiodarone and he will be switched to Cardizem CD at the same time along with beta karissa he is feeling a lot better his chest tubes will come out today. 10/29: Patient is sitting up in bed he is feeling a bit better today he was moved out of the ICU, he continues to have significant shortness of breath with ambulation he will be receiving Lasix dose today is utilizing incentive spirometer and regular basis, has no abdominal pain, nausea or vomiting he has a good bowel movement. 10/30: Patient is seen on the cardiac stepdown unit. Patient states that his breathing feels like it's the same to him. He states he does have shortness of breath with getting out of bed. Pulse ox is 94% on 2 L. Sputum culture to be obtained. He has had a bowel movement. He denies any other complaints. Patient is scheduled for discharge to inpatient rehab under the care of Dr. Chen later today. Blood sugars are running between 103 and 127. Hemoglobin is 8.6, white count 10.8. Patient is to have follow-up with Dr. Gomez after discharge from rehab. 10/31: Patient was not transferred to [facility] as insurance authorization was pending. Patient also relates today that insurance authorization remains pending. Patient did receive 1 dose of IV Lasix today. Pulse ox is 94% on room air. Breathing status appears to be stable. He is using his incentive spirometry. Hemoglobin 9.5, white cell count 14.5. Anticipate discharge today to inpatient rehab. 11/01: The patient states he has had quite a bit of coughing and sputum pr oduction. He denies any real shortness of breath. Urine culture has been finalized from October 31. Sputum culture showing normal respiratory jeffery. He continues to wait for authorization for inpatient rehab which we are expecting today. Patient has been hemodynamically stable. Patient will be followed at [facility] by Dr. Johnston. 11/02: Chest x-ray this morning reveals worsening moderate to borderline large sized left pleural effusion with associated compressive atelectasis. Chest ultrasound showed a pleural effusion of 9.2. Patient received additional dose of Lasix today. Patient is having drainage from his former chest tube site and ostomy bag to be placed on this. Patient states that he has shortness of breath when laying down with activity as well. Awaiting authorization from his insurance, which will not be available until very late today and thus patient will be staying here for the weekend. Poly-medicine to decide whether patient needs left-sided thoracentesis. Objective - Vital Signs Vital signs: Vital Signs Temp 99.9 F H 11/02/18 04:00 Pulse 80 11/02/18 08:55 Resp 18 11/02/18 04:00 BP 132/71 11/02/18 04:00 Pulse Ox 91 L 11/02/18 04:00 Intake & Output 11/01/18 11/02/18 11/02/18 18:59 06:59 18:59 Intake Total 840 Output Total 600 Balance 840 -600 Weight 73.7 kg 74.3 kg Intake: Oral 840 Output: Urine 600 Other: Voiding Method Toilet Toilet # Voids 2 2 0 ABP, PAP, CO, CI - Last Documented Arterial Blood Pressure 154/69 Pulmonary Artery Pressure 35/17 Cardiac Output 12 Cardiac Index 3.2 - Exam Review of Systems CONSTITUTIONAL: Well-developed. Denies fever, denies chills EYES: No icterus sclerae, no conjunctivitis. EARS, NOSE, MOUTH, THROAT, and FACE: No sore throat, lymphadenopathy, carotid bruits or deformity. RESPIRATORY: Reports shortness of breath, reports cough, reports sputum production CARDIOVASCULAR: Post CABG, no chest pain, less short of breath, no pleurisy. GASTROINTESTINAL: Patient is sedated no diarrhea no sign of GI bleed. GENITOURINARY: Negative for Hematuria. INTEGUMENT/BREAST: Negative. HEMATOLOGIC/LYMPHATIC: Negative for bleed or purpura. MUSCULOSKELTAL: No numbness tingling, no myalgias NEURLOGICAL: No numbness no tingling. General Appearance: Patient is sitting in recliner at the bedside and appears to be comfortable Neck HEENT: Supple, no lymphadenopathy, no thyroid enlargement, no carotid bruits. Lungs: Decreased breath sounds in the left side no crackles or wheezes. Chest Wall: Decrease expansion with deep inspiration. Heart: Regular rate and rhythm, S1, S2 mild arrhythmia with S3., no murmur, rub or gallop. Back: Symmetric, no curvature, ROM normal. Abdomen: Soft, non-tender, bowel sounds active all four quadrants, no masses, no organomegaly. Extremities: Extremities normal, atraumatic, no cyanosis or edema. Pulses: 2+ and symmetric. Skin: Skin color, tugor normal, no rashes or lesions. Neurologic: Patient is awake alert and oriented 3. No focal neural deficits. - Labs CBC & Chem 7: 11/02/18 06:11 11/02/18 06:11 Labs: Abnormal Lab Results - Last 24 Hours (Table) 11/01/18 11/01/18 11/02/18 Range/Units 16:45 20:31 05:51 WBC (3.8-10.6) k/uL RBC (4.30-5.90) m/uL Hgb (13.0-17.5) gm/dL Hct (39.0-53.0) % RDW (11.5-15.5) % Sodium (137-145) mmol/L Creatinine (0.66-1.25) mg/dL Glucose (74-99) mg/dL POC Glucose (mg/dL) 113 H 130 H 130 H (75-99) mg/dL Calcium (8.4-10.2) mg/dL 11/02/18 11/02/18 Range/Units 06:11 06:11 WBC 15.4 H (3.8-10.6) k/uL RBC 2.83 L (4.30-5.90) m/uL Hgb 8.5 L (13.0-17.5) gm/dL Hct 26.1 L (39.0-53.0) % RDW 15.6 H (11.5-15.5) % Sodium 135 L (137-145) mmol/L Creatinine 0.63 L (0.66-1.25) mg/dL Glucose 103 H (74-99) mg/dL POC Glucose (mg/dL) (75-99) mg/dL Calcium 8.3 L (8.4-10.2) mg/dL Microbiology - Last 24 Hours (Table) 10/31/18 09:00 Gram Stain - Preliminary Sputum Sputum Culture - Preliminary 10/31/18 13:00 Urine Culture - Final Urine,Clean Catch Assessment and Plan Plan: 1 post multiple vessel CABG. patient continues to have the chest tube in place as well as the pacer wires, he is off the pressors and is feeling a lot better today he continues to be somewhat short of breath, we will maintain patient on aspirin 325 mg orally once every day, Plavix 75 mg orally once every day, me toprolol 12.5 mg orally twice every day and Lipitor 40 mg orally once every day. 2 Acute hypoxic respiratory failure requiring high flow nasal cannula possibly related to history of smoking and underlying CP. Patient was successfully extubated. Pulmonary medicine managing. Continue incentive spirometry 3 hyperlipidemia. Continue patient on Lipitor 40 mg orally once every day. 4 history of cerebral palsy: Mild. 5 hyperglycemia without history of diabetes. Previous hemoglobin A1c 5.9. 6 anemia post surgery: Continue to monitor. Continue patient on iron 325 mg orally once every day. 7 BPH. Stable at this time. 8. Atrial fibrillation with rapid ventricular response was on amiodarone drip will be switched to oral amiodarone and continue beta karissa and Cardizem CD. 9 . Acute blood loss anemia expected outcome of surgery post blood transfusion currently hemoglobin is stable continue with iron supplement. 10. DVT prophylaxis. Continue heparin 5000 units subcutaneously every 12 hours. 11. GI prophylaxis. Continue PPI. 12. Left-sided pleural effusion. Ultrasound. Pulmonary medicine decide on thoracentesis. Full code. Discharge plan: Inpatient rehab at [facility] on Monday Impression and plan of care have been directed as dictated by the signing physician. Eleanor Greer nurse practitioner acting as scribe for signing physician.
--- NOTE | 2018-11-02 16:10 | P.PN ---
Subjective Progress Note Date: 11/02/18 This is a pleasant 53-year-old gentleman who is status post coronary artery bypass grafting surgery, he was seen and examined today, clinically doing well. Blood pressure 112/60 with a heart rate in the 80s to 90s, 93% on 2 L of oxygen. White blood cell count 10.8, hemoglobin 8.6, platelet count 267. Sodium 140, potassium 3.9, BUN 15 and creatinine 0.6, magnesium 2.1. 10/31/2018 Patient was seen and examined today, sitting up in the chair at bedside, overall doing well. Chest x-ray was reviewed, there was worsening appearance in the left lower air space suggesting atelectasis and pleural effusion, patient did receive another dose of IV Lasix per CT surgery. Overall his breathing has been stable, hemodynamically he is stable, 94% on room air. He is anticipating transferred to rehab possibly today. 11/01/2018 Since seen and examined this morning, overall doing well. Hemodynamically stable. Anticipating transferred to inpatient rehab today. 11/02/2017 Patient seen and examined today, overall doing well. Awaiting insurance clearance to go to rehab. Objective - Vital Signs Vital signs: Vital Signs Temp 99.9 F H 11/02/18 04:00 Pulse 83 11/02/18 13:41 Resp 18 11/02/18 04:00 BP 132/71 11/02/18 04:00 Pulse Ox 91 L 11/02/18 04:00 Intake & Output 11/01/18 11/02/18 11/02/18 18:59 06:59 18:59 Intake Total 840 420 Output Total 600 Balance 840 -600 420 Weight 73.7 kg 74.3 kg Intake: Oral 840 420 Output: Urine 600 Other: Voiding Method Toilet Toilet # Voids 2 2 0 ABP, PAP, CO, CI - Last Documented Arterial Blood Pressure 154/69 Pulmonary Artery Pressure 35/17 Cardiac Output 12 Cardiac Index 3.2 - Exam GENERAL EXAM: Alert, pleasant, 53-year-old white male comfortable in no apparent distress. HEAD: Normocephalic/atraumatic. EYES: Normal reaction of pupils, equal size. Conjunctiva pink, sclera white. NOSE: Clear with pink turbinates. THROAT: No erythema or exudates. NECK: No masses, no JVD, no thyroid enlargement, no adenopathy. CHEST: No chest wall deformity. Symmetrical expansion. Sternal incision is clean dry and intact, stable, AV epicardial wires are grounded to the chest wall LUNGS: Equal air entry with clear breath sounds, no rhonchi, no wheezing CVS: Regular rate and rhythm, normal S1 and S2, no gallops, no murmurs, no rubs ABDOMEN: Soft, nontender. No hepatosplenomegaly, normal bowel sounds, no guarding or rigidity. EXTREMITIES: No clubbing, no edema, no cyanosis, 2+ pulses and upper and lower extremities. MUSCULOSKELETAL: Muscle strength and tone normal. SPINE: No scoliosis or deformity SKIN: No rashes CENTRAL NERVOUS SYSTEM: Alert and oriented -3. No focal deficits, tone is normal in all 4 extremities. PSYCHIATRIC: Alert and oriented -3. Appropriate affect. Intact judgment and insight. - Labs CBC & Chem 7: 11/02/18 06:11 11/02/18 06:11 Labs: Abnormal Lab Results - Last 24 Hours (Table) 11/01/18 11/01/18 11/02/18 Range/Units 16:45 20:31 05:51 WBC (3.8-10.6) k/uL RBC (4.30-5.90) m/uL Hgb (13.0-17.5) gm/dL Hct (39.0-53.0) % RDW (11.5-15.5) % Sodium (137-145) mmol/L Creatinine (0.66-1.25) mg/dL Glucose (74-99) mg/dL POC Glucose (mg/dL) 113 H 130 H 130 H (75-99) mg/dL Calcium (8.4-10.2) mg/dL 11/02/18 11/02/18 Range/Units 06:11 06:11 WBC 15.4 H (3.8-10.6) k/uL RBC 2.83 L (4.30-5.90) m/uL Hgb 8.5 L (13.0-17.5) gm/dL Hct 26.1 L (39.0-53.0) % RDW 15.6 H (11.5-15.5) % Sodium 135 L (137-145) mmol/L Creatinine 0.63 L (0.66-1.25) mg/dL Glucose 103 H (74-99) mg/dL POC Glucose (mg/dL) (75-99) mg/dL Calcium 8.3 L (8.4-10.2) mg/dL Microbiology - Last 24 Hours (Table) 10/31/18 09:00 Gram Stain - Final Sputum Sputum Culture - Final 10/31/18 13:00 Urine Culture - Final Urine,Clean Catch Assessment and Plan Plan: Assessment and Plan: 1 multivessel coronary disease and the patient is status post four-vessel bypass surgery. \ 2 postoperative acute blood loss anemia 3 hyperlipidemia 4 paroxysmal atrial fibrillation, current rhythm is sinus on a combination of metoprolol, Cardizem and amiodarone. The rhythm remains sinus 5 cerebral palsy Plan From cardiology's perspective, we'll recommend to continue the patient on his current medications. He may be transferred to rehab once cleared by cardiothoracic surgery. DNP note has been reviewed, I agree with a documented findings and plan of care. Patient was seen and examined.
[2018-11-02 16:51] LABS: Glucose,Whole Blood 91 mg/dL (75-99)
[2018-11-02] MEDS: SENNOSIDES-DOCUSATE SODIUM 1 EACH TAB PO SCH (20:45)
[2018-11-02 20:48] LABS: Glucose,Whole Blood 135 mg/dL (75-99)
[2018-11-03 02:28] LABS: Glucose,Whole Blood 146 mg/dL (75-99)
[2018-11-03] MEDS: PANTOPRAZOLE 40 MG TABLET PO SCH (06:16)
[2018-11-03] MEDS: FERROUS SULFATE 325 MG TAB PO SCH ×2 (06:16→16:05)
[2018-11-03] MEDS: ASCORBIC ACID 500 MG TAB PO SCH ×2 (06:16→16:05)
[2018-11-03 06:19] LABS: Glucose,Whole Blood 119 mg/dL (75-99)
[2018-11-03] MEDS: HYDROcodone/APAP 5-325MG 1 EACH TAB PO PRN ×4 (06:19→20:29)
[2018-11-03 06:30] LABS: HCT 27.5 % (39.0-53.0); HGB 8.5 gm/dL (13.0-17.5); Hypochromasia Slight; MCH 28.8 pg (25.0-35.0); MCHC 30.8 g/dL (31.0-37.0); MCV 93.7 fL (80.0-100.0); Platelet Count 439 k/uL (150-450); RBC 2.94 m/uL (4.30-5.90); RDW 14.7 % (11.5-15.5); WBC 15.3 k/uL (3.8-10.6)
[2018-11-03 06:49] LABS: Anion Gap 9 mmol/L; Blood Urea Nitrogen 14 mg/dL (9-20); Calcium 8.6 mg/dL (8.4-10.2); Carbon Dioxide 23 mmol/L (22-30); Chloride 103 mmol/L (98-107); Glucose 105 mg/dL (74-99); Potassium 4.3 mmol/L (3.5-5.1); Sodium 135 mmol/L (137-145)
--- NOTE | 2018-11-03 07:30 | XR ---
EXAMINATION TYPE: XR chest 1V portable DATE OF EXAM: 11/03/2018 HISTORY: Postoperative CABG. REFERENCE: Previous study dated 11/02/2018. FINDINGS: There has been a midline sternotomy. The heart is enlarged. There is a moderate left-sided pleural effusion. There is a smaller right-side d pleural effusion. There is left basilar airspace disease. Heart size upper limits of normal. IMPRESSION: 1. CONTINUING LEFT BASILAR AIRSPACE DISEASE. 2. BILATERAL EFFUSIONS, GREATER ON THE LEFT THAN THE RIGHT.
[2018-11-03] MEDS: IPRATROPIUM-ALBUTEROL 3 ML NEB INHALATION SCH ×4 (08:29→20:11)
--- NOTE | 2018-11-03 08:48 | P.PN ---
Subjective Progress Note Date: 11/03/18 Principal diagnosis: Severe triple vessel coronary artery disease with preserved LV function. Previous medical history of hypertension, hyperlipidemia, previous tobacco dependence with preoperative FEV1 94% of predicted, cerebral palsy, bilateral carotid artery stenosis 70%, and family history of premature coronary artery disease. Preoperative E coli urinary tract infection treated with Cipro for 1 week. POD#10 coronary artery bypass graft surgery with left internal mammary artery to the left anterior descending coronary artery, left radial artery to the first obtuse marginal artery, reverse saphenous vein graft to the first diagonal artery, reverse saphenous vein graft to the posterior lateral branch of the right coronary artery. Endoscopic harvest of the right greater saphenous vein and the left radial artery. Epiaortic scanning. Intraoperative transesphageal echocardiogram. Postoperative acute blood loss anemia, expected secondary to cardiopulmonary bypass pump and hemodilution. Postoperative atrial fibrillation, unexpected but potential outcome, currently in sinus rhythm Leukocytosis, unexpected, from atelectasis, sputum and urinary culture negative Left-sided pleural effusion, unexpected potential outcome The patient is currently sitting up in a recliner in no acute distress on the cardiac stepdown unit. He denies pain currently, still complains of minimal shortness of breath with activity. Remains in normal sinus rhythm. Hemodynamically stable. Has been ambulating the garg with assistance. No new complaints. Objective - Vital Signs Vital signs: Vital Signs Temp 98.3 F 11/03/18 08:00 Pulse 76 11/03/18 08:31 Resp 16 11/03/18 08:00 BP 107/58 11/03/18 08:00 Pulse Ox 91 L 11/03/18 08:31 Intake & Output 11/02/18 11/03/18 11/03/18 18:59 06:59 18:59 Intake Total 600 Balance 600 Weight 72.8 kg Intake: Oral 600 Other: Voiding Method Toilet Toilet # Voids 0 1 # Bowel Movements 1 ABP, PAP, CO, CI - Last Documented Arterial Blood Pressure 154/69 Pulmonary Artery Pressure 35/17 Cardiac Output 12 Cardiac Index 3.2 - Constitutional General appearance: Present: cooperative, no acute distress - Respiratory Details: Lungs sounds diminished bilaterally, left greater than right. Respirations even, nonlabored. Currently on room air with oxygen saturation 96%. Able to achieve 1000 mL on his incentive spirometry. Strong productive cough. - Cardiovascular Details: S1, S2 present. Regular rate and rhythm, sinus rhythm on telemetry. Sternum stable. Palpable peripheral pulses bilaterally. No edema present. No calf pain or tenderness noted. Heart hugger in place with patient demonstrating appropriate use although he needs encouragement. Antiembolism stockings, SCDs present. - Gastrointestinal Gastrointestinal Comment(s): Abdomen soft, nontender, nondistended. Active bowel sounds 4 quadrants present. Tolerating diet. Positive bowel movement. - Genitourinary Genitourinary Comment(s): Continues to void clear, yellow urine. - Integumentary Integumentary Comment(s): Skin is warm and dry with evidence of good perfusion. Anterior chest incision well approximated and covered with dry intact dressing. 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 Right lower extremity EVH site well approximated without drainage, ecchymosis present, expected. - Neurologic Neurologic: Present: CNII-XII intact - Musculoskeletal Musculoskeletal: Present: generalized weakness, strength equal bilaterally - Psychiatric Psychiatric: Present: A&O x's 3, appropriate affect - Allied health notes Allied health notes reviewed: nursing - Labs CBC & Chem 7: 11/03/18 06:07 11/03/18 06:07 Labs: Abnormal Lab Results - Last 24 Hours (Table) 11/02/18 11/03/18 11/03/18 Range/Units 20:46 02:23 06:07 WBC 15.3 H (3.8-10.6) k/uL RBC 2.94 L (4.30-5.90) m/uL Hgb 8.5 L (13.0-17.5) gm/dL Hct 27.5 L (39.0-53.0) % MCHC 30.8 L (31.0-37.0) g/dL Sodium (137-145) mmol/L Glucose (74-99) mg/dL POC Glucose (mg/dL) 135 H 146 H (75-99) mg/dL 11/03/18 11/03/18 Range/Units 06:07 06:18 WBC (3.8-10.6) k/uL RBC (4.30-5.90) m/uL Hgb (13.0-17.5) gm/dL Hct (39.0-53.0) % MCHC (31.0-37.0) g/dL Sodium 135 L (137-145) mmol/L Glucose 105 H (74-99) mg/dL POC Glucose (mg/dL) 119 H (75-99) mg/dL Microbiology - Last 24 Hours (Table) 10/31/18 09:00 Gram Stain - Final Sputum Sputum Culture - Final - Imaging and Cardiology Chest x-ray: report reviewed, image reviewed Assessment and Plan Assessment: 1. Severe triple-vessel coronary artery disease with preserved LV function, status post CABG 4 2. Hypertension 3. Hyperlipidemia 4. Previous tobacco dependence with preoperative FEV1 94% of predicted 5. Cerebral palsy 6. Bilateral carotid artery stenosis 70% 7. Family history of premature coronary artery disease 8. Preoperative E. coli urinary tract infection, treated 9. Postoperative acute blood loss anemia, expected 10. Postoperative atrial fibrillation, expected 11. Leukocytosis, unexpected, atelectasis with negative sputum and urine culture 12. Left-sided pleural effusion, unexpected Plan: 1. Continue low dose aspirin, statin, beta karissa. Will increase beta karissa as tolerated. 2. Continue Cardizem for radial artery spasm prophylaxis. 3. Continue amiodarone for A. fib prophylaxis, taper weekly per orders. Continue Eliquis for anticoagulation. 4. Sputum culture, urine culture negative. 5. Encourage incentive spirometry use 10 times every hour while awake. 6. Bronchodilators per pulmonology. Encourage continued smoking cessation. 7. Increase activity, ambulate as tolerated. PT/OT/cardiac rehab following. 8. Will monitor daily labs, chest x-rays. Electrolyte replacement per protocol. No further blood transfusion. 9. Pain management with current medication regimen. 10. Insulin management per primary care service. 11. GI/DVT prophylaxis. 12. Will give additional IV lasix today. Ultrasound left chest completed with markings for possible thoracentesis, although indication of lung inside the pleu ral fluid and patient has been on anticoagulation 13. Discharge planning in progress. Patient would benefit from aggressive physical and occupational therapy, daily physician visits, frequent lab draws. In other words patient would benefit more from inpatient rehab than subacute rehab. Dr. Chen on consult. 14. Anticipate discharge to inpatient rehab, still waiting on insurance authorization. 15. More recommendations to follow as patient progresses. Time with Patient: Greater than 30
[2018-11-03] MEDS: AMIODARONE 200 MG TAB PO SCH ×2 (09:08→20:27)
[2018-11-03] MEDS: ATORVASTATIN 80 MG TAB PO SCH (09:09)
[2018-11-03] MEDS: FUROSEMIDE 20 MG TAB PO SCH (09:09)
[2018-11-03] MEDS: ASPIRIN 81 MG PO SCH (09:09)
[2018-11-03] MEDS: APIXABAN 5 MG TAB PO SCH ×2 (09:09→20:27)
[2018-11-03] MEDS: METOPROLOL TARTRATE 25 MG TAB PO SCH ×2 (09:10→20:27)
--- NOTE | 2018-11-03 11:44 | P.PN ---
Subjective Progress Note Date: 11/03/18 Principal diagnosis: Multivessel coronary artery disease, status post four-vessel coronary artery bypass grafting. Patient is seen today 11/03/2018 in follow-up on the selective care unit. He is currently sitting up in a chair at the bedside. Awake and alert in no acute distress. Denies any worsening shortness of breath, cough or congestion. Working well with the incentive spirometer [id number] ML's today. Chest x-ray showed continued left basilar airspace disease with bilateral pleural effusions left greater than right. He is maintaining good O2 saturations in the 90s on room air. He's been afebrile. Hemodynamically stable. Sputum culture reveals no growth. White count 15.3. Hemoglobin 8.5. Creatinine 0.69. Remains on bronchodilators, diuretics, amiodarone. Anticoagulated with Eliquis. Objective - Vital Signs Vital signs: Vital Signs Temp 98.3 F 11/03/18 08:00 Pulse 80 11/03/18 08:41 Resp 16 11/03/18 08:00 BP 107/58 11/03/18 08:00 Pulse Ox 91 L 11/03/18 08:31 Intake & Output 11/02/18 11/03/18 11/03/18 18:59 06:59 18:59 Intake Total 600 100 Output Total 0 Balance 600 100 Weight 72.8 kg Intake: Oral 600 100 Output: Urine 0 Other: Voiding Method Toilet Toilet # Voids 0 1 # Bowel Movements 1 ABP, PAP, CO, CI - Last Documented Arterial Blood Pressure 154/69 Pulmonary Artery Pressure 35/17 Cardiac Output 12 Cardiac Index 3.2 - Exam GENERAL EXAM: Alert, pleasant, 53-year-old white male comfortable in no apparent distress. On room air. HEAD: Normocephalic/atraumatic. EYES: Normal reaction of pupils, equal size. Conjunctiva pink, sclera white. NOSE: Clear with pink turbinates. THROAT: No erythema or exudates. NECK: No masses, no JVD, no thyroid enlargement, no adenopathy. CHEST: No chest wall deformity. Symmetrical expansion. Sternal incision is clean dry and intact, stable, left chest former pleural chest tube site is van ining serosanguineous drainage LUNGS: Equal air entry with clear breath sounds, no rhonchi, no wheezing CVS: Regular rate and rhythm, normal S1 and S2, no gallops, no murmurs, no rubs ABDOMEN: Soft, nontender. No hepatosplenomegaly, normal bowel sounds, no guarding or rigidity. EXTREMITIES: No clubbing, no edema, no cyanosis, 2+ pulses and upper and lower extremities. MUSCULOSKELETAL: Muscle strength and tone normal. SPINE: No scoliosis or deformity SKIN: No rashes CENTRAL NERVOUS SYSTEM: Alert and oriented -3. No focal deficits, tone is normal in all 4 extremities. PSYCHIATRIC: Alert and oriented -3. Appropriate affect. Intact judgment and insight. - Labs CBC & Chem 7: 11/03/18 06:07 11/03/18 06:07 Labs: Abnormal Lab Results - Last 24 Hours (Table) 11/02/18 11/03/18 11/03/18 Range/Units 20:46 02:23 06:07 WBC 15.3 H (3.8-10.6) k/uL RBC 2.94 L (4.30-5.90) m/uL Hgb 8.5 L (13.0-17.5) gm/dL Hct 27.5 L (39.0-53.0) % MCHC 30.8 L (31.0-37.0) g/dL Sodium (137-145) mmol/L Glucose (74-99) mg/dL POC Glucose (mg/dL) 135 H 146 H (75-99) mg/dL 11/03/18 11/03/18 Range/Units 06:07 06:18 WBC (3.8-10.6) k/uL RBC (4.30-5.90) m/uL Hgb (13.0-17.5) gm/dL Hct (39.0-53.0) % MCHC (31.0-37.0) g/dL Sodium 135 L (137-145) mmol/L Glucose 105 H (74-99) mg/dL POC Glucose (mg/dL) 119 H (75-99) mg/dL Microbiology - Last 24 Hours (Table) 10/31/18 09:00 Gram Stain - Final Sputum Sputum Culture - Final Assessment and Plan Assessment: Impression: 1 multivessel coronary disease and the patient is status post four-vessel bypass surgery. 2 postoperative acute blood loss anemia, expected outcome of surgery, hemoglobin is at 8.5 3 ventilator management and the patient is currently on room air. 4 paroxysmal atrial fibrillation, current rhythm is sinus on a combination of metoprolol, Cardizem and amiodarone. The rhythm remains sinus 5 history of hyperlipidemia 6 cerebral palsy 7 bilateral carotid artery stenosis in the order of 70% 8 preoperative E. coli UTI, treated 9 history of cerebral palsy Plan: The patient was seen and evaluated by Dr. Mejia. Chest x-ray and labs reviewed. The patient is improving well. No pulmonary complaints. Working well with the incentive spirometer. Increase his activity as tolerated. We'll continue to follow. I, the cosigning physician, performed a history & physical examination of the patient. Lungs sounds with basilar crackles left greater than right. Maintaining good O2 saturations in the 90s on room air. I discussed the assessment and plan of care with my nurse practitioner, Eri Morelos. I attest to the above note as dictated by her.
[2018-11-03] MEDS ORDERED: FUROSEMIDE 10 MG/ML 2 ML VIAL IV ONE (12:00)
[2018-11-03 12:05] LABS: Glucose,Whole Blood 94 mg/dL (75-99)
[2018-11-03] MEDS: DILTIAZEM CD 120 MG CAP.ER.24H PO SCH (12:58)
--- NOTE | 2018-11-03 13:14 | P.PN ---
Subjective Progress Note Date: 11/03/18 53-year-old male one of Dr. Gomez patient with mild degree of cerebral palsy who has history of hypertension hyperlipidemia and coronary artery disease with heart catheter 2 weeks ago showed 99 percentile blockage of the RCA 60% of the PLB 90% stenosis of the circumflex and acute marginal and 85 percentile stenosis of the LAD. Patient was referred to cardiothoracic seen and evaluated and was schedule elective bypass surgery with Dr. Galan which was done successfully today patient was intubated and placed on mechanical ventilation post surgery seen pulmonary and transferred to the intensive care unit, remain on vasodepressor along with insulin drip the blood sugar running marginal at the time. Patient is sedated on mechanical ventilation. 10/25: Patient remains in intensive care unit. He was successfully extubated around midnight. His pain is currently controlled. He is continued on norepinephrine and vasopressin as well as IV Cardizem and amiodarone. Patient is on insulin drip for blood sugar control. Pretty catheter in place with adequate urine output. Chest tubes remain in place. 10/26: Patient remains in intensive care unit. He has been seen by Dr. Chen for possible inpatient rehab. Patient has been afebrile, heart rate in the 70s to 80, blood pressure 93/53, pulse ox 93% on 10 L high flow nasal cannula. Patient had rapid is pulse ox yesterday afternoon while on nasal cannula and transitioned to high flow O2. Patient is using incentive spirometry at 500 ML's. 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 Repeat lab work this morning shows a hemoglobin of 7, white count 11.6, platelet count 125. BUN 17 and creatinine 0.53. Phosphorus 2.4, magnesium 2.4, AST 187, ALT 38. Blood sugars are running between 118 and 136. Plan to continue insulin drip another day and transitioned to long-acting and short acting insulins tomorrow. Patient is currently eating very little. Conetoe's catheter has been discontinued. He has had no episodes of atrial fibrillation. He remains on vasopressin. He is scheduled for 1 unit packed RBCs followed by Lasix. Patient is currently working with PT and OT. 10/27: Patient sitting up in the chair he remains in the intensive care unit he denies any chest pain is less short of breath he continues to have chest tubes in place, he continued to have the pacer in place, he did receive an extra dose of Lasix today, he is off the pressors at this time and he continues to progress in a positive manner. 10/28: Patient sitting up on the commode he is less short of breath today he denies any chest pain or any shortness breath he had an episode of atrial fibrillation with rapid ventricular response, he was initially placed on a miodarone drip currently would be switched to oral amiodarone and he will be switched to Cardizem CD at the same time along with beta karissa he is feeling a lot better his chest tubes will come out today. 10/29: Patient is sitting up in bed he is feeling a bit better today he was moved out of the ICU, he continues to have significant shortness of breath with ambulation he will be receiving Lasix dose today is utilizing incentive spirometer and regular basis, has no abdominal pain, nausea or vomiting he has a good bowel movement. 10/30: Patient is seen on the cardiac stepdown unit. Patient states that his breathing feels like it's the same to him. He states he does have shortness of breath with getting out of bed. Pulse ox is 94% on 2 L. Sputum culture to be obtained. He has had a bowel movement. He denies any other complaints. Patient is scheduled for discharge to inpatient rehab under the care of Dr. Chen later today. Blood sugars are running between 103 and 127. Hemoglobin is 8.6, white count 10.8. Patient is to have follow-up with Dr. Gomez after discharge from rehab. 10/31: Patient was not transferred to [facility] as insurance authorization was pending. Patient also relates today that insurance authorization remains pending. Patient did receive 1 dose of IV Lasix today. Pulse ox is 94% on room air. Breathing status appears to be stable. He is using his incentive spirometry. Hemoglobin 9.5, white cell count 14.5. Anticipate discharge today to inpatient rehab. 11/01: The patient states he has had quite a bit of coughing and sputum pr oduction. He denies any real shortness of breath. Urine culture has been finalized from October 31. Sputum culture showing normal respiratory jeffery. He continues to wait for authorization for inpatient rehab which we are expecting today. Patient has been hemodynamically stable. Patient will be followed at [facility] by Dr. Johnstno. 11/02: Chest x-ray this morning reveals worsening moderate to borderline large sized left pleural effusion with associated compressive atelectasis. Chest ultrasound showed a pleural effusion of 9.2. Patient received additional dose of Lasix today. Patient is having drainage from his former chest tube site and ostomy bag to be placed on this. Patient states that he has shortness of breath when laying down with activity as well. Awaiting authorization from his insurance, which will not be available until very late today and thus patient will be staying here for the weekend. [facility]med[facility] to decide whether patient needs left-sided thoracentesis. 11/03: The patient is seen on the selective care floor. He states he is still having some shortness of breath. He is using his incentive spirometry. He appears to be in no acute distress. Repeat chest x-ray shows left basilar airspace disease with bilateral pleural effusions left greater than right. Patient has been afebrile, hemodynamically stable, pulse ox is 91% on room air. Patient has drainage from previous chest tubes. No plan for thoracentesis. Anticipate discharge to [facility] on Monday. Objective - Vital Signs Vital signs: Vital Signs Temp 98.3 F 11/03/18 08:00 Pulse 80 11/03/18 08:41 Resp 16 11/03/18 08:00 BP 107/58 11/03/18 08:00 Pulse Ox 91 L 11/03/18 08:31 Intake & Output 11/02/18 11/03/18 11/03/18 18:59 06:59 18:59 Intake Total 600 100 Output Total 0 Balance 600 100 Weight 72.8 kg Intake: Oral 600 100 Output: Urine 0 Other: Voiding Method Toilet Toilet # Voids 0 1 # Bowel Movements 1 ABP, PAP, CO, CI - Last Documented Arterial Blood Pressure 154/69 Pulmonary Artery Pressure 35/17 Cardiac Output 12 Cardiac Index 3.2 - Exam Review of Systems CONSTITUTIONAL: Well-developed. Denies fever, denies chills EYES: No icterus sclerae, no conjunctivitis. EARS, NOSE, MOUTH, THROAT, and FACE: No sore throat, lymphadenopathy, carotid bruits or deformity. RESPIRATORY: Reports shortness of breath, reports cough, reports sputum production CARDIOVASCULAR: Post CABG, no chest pain, less short of breath, no pleurisy. GASTROINTESTINAL: Patient is sedated no diarrhea no sign of GI bleed. GENITOURINARY: Negative for Hematuria. INTEGUMENT/BREAST: Drainage from chest tube sites. HEMATOLOGIC/LYMPHATIC: Negative for bleed or purpura. MUSCULOSKELTAL: No numbness tingling, no myalgias NEURLOGICAL: No numbness no tingling. General Appearance: Patient is sitting in recliner at the bedside and appears to be comfortable Neck HEENT: Supple, no lymphadenopathy, no thyroid enlargement, no carotid bruits. Lungs: Decreased breath sounds in the left side no crackles or wheezes. Chest Wall: Drainage from 2 chest tube sites, ostomy bag in place. Heart: Regular rate and rhythm, S1, S2 mild arrhythmia with S3., no murmur, rub or gallop. Back: Symmetric, no curvature, ROM normal. Abdomen: Soft, non-tender, bowel sounds active all four quadrants, no masses, no organomegaly. Extremities: Extremities normal, atraumatic, no cyanosis or edema. Pulses: 2+ and symmetric. Skin: Skin color, tugor normal, no rashes or lesions. Neurologic: Patient is awake alert and oriented 3. No focal neural deficits. - Labs CBC & Chem 7: 11/03/18 06:07 11/03/18 06:07 Labs: Abnormal Lab Results - Last 24 Hours (Table) 11/02/18 11/03/18 11/03/18 Range/Units 20:46 02:23 06:07 WBC 15.3 H (3.8-10.6) k/uL RBC 2.94 L (4.30-5.90) m/uL Hgb 8.5 L (13.0-17.5) gm/dL Hct 27.5 L (39.0-53.0) % MCHC 30.8 L (31.0-37.0) g/dL Sodium (137-145) mmol/L Glucose (74-99) mg/dL POC Glucose (mg/dL) 135 H 146 H (75-99) mg/dL 11/03/18 11/03/18 Range/Units 06:07 06:18 WBC (3.8-10.6) k/uL RBC (4.30-5.90) m/uL Hgb (13.0-17.5) gm/dL Hct (39.0-53.0) % MCHC (31.0-37.0) g/dL Sodium 135 L (137-145) mmol/L Glucose 105 H (74-99) mg/dL POC Glucose (mg/dL) 119 H (75-99) mg/dL Microbiology - Last 24 Hours (Table) 10/31/18 09:00 Gram Stain - Final Sputum Sputum Culture - Final Assessment and Plan Plan: 1 post multiple vessel CABG. patient continues to have the chest tube in place as well as the pacer wires, he is off the pressors and is feeling a lot better today he continues to be somewhat short of breath, we will maintain patient on aspirin 325 mg orally once every day, Plavix 75 mg orally once every day, metoprolol 12.5 mg orally twice every day and Lipitor 40 mg orally once every day. 2 Acute hypoxic respiratory failure requiring high flow nasal cannula possibly related to history of smoking and underlying CP. Patient was successfully extubated. Pulmonary medicine managing. Continue incentive spirometry 3 hyperlipidemia. Continue patient on Lipitor 40 mg orally once every day. 4 history of cerebral palsy: Mild. 5 hyperglycemia without history of diabetes. Previous hemoglobin A1c 5.9. 6 anemia post surgery: Continue to monitor. Continue patient on iron 325 mg orally once every day. 7 BPH. Stable at this time. 8. Atrial fibrillation with rapid ventricular response was on amiodarone drip will be switched to oral amiodarone and continue beta karissa and Cardizem CD. 9 . Acute blood loss anemia expected outcome of surgery post blood transfusion currently hemoglobin is stable continue with iron supplement. 10. DVT prophylaxis. Continue heparin 5000 units subcutaneously every 12 hours. 11. GI prophylaxis. Continue PPI. 12. Left-sided pleural effusion. Ultrasound. No plan for thoracentesis. Full code. Discharge plan: Inpatient rehab at [facility] on Monday Impression and plan of care have been directed as dictated by the signing physician. Eleanor Greer nurse practitioner acting as scribe for signing physician.
[2018-11-03 16:46] LABS: Glucose,Whole Blood 96 mg/dL (75-99)
[2018-11-03] MEDS: SENNOSIDES-DOCUSATE SODIUM 1 EACH TAB PO SCH (20:27)
[2018-11-03 20:55] LABS: Glucose,Whole Blood 172 mg/dL (75-99)
[2018-11-04] MEDS: PANTOPRAZOLE 40 MG TABLET PO SCH (05:53)
[2018-11-04] MEDS: ASCORBIC ACID 500 MG TAB PO SCH ×2 (05:53→17:00)
[2018-11-04] MEDS: FERROUS SULFATE 325 MG TAB PO SCH ×2 (05:54→17:00)
[2018-11-04] MEDS: HYDROcodone/APAP 5-325MG 1 EACH TAB PO PRN ×3 (06:00→20:05)
--- NOTE | 2018-11-04 06:24 | XR ---
EXAMINATION TYPE: XR chest 2V DATE OF EXAM: 11/04/2018 HISTORY: effusion. REFERENCE: Previous study dated 11/03/2018. FINDINGS: There has been a midline sternotomy. The heart is mildly enlarged. There is left basilar airspace disease. This has improved there are emelia ateral effusions. IMPRESSION: IMPROVED AERATION, LEFT LUNG BASE.
[2018-11-04 06:26] LABS: Glucose,Whole Blood 129 mg/dL (75-99)
[2018-11-04 07:28] LABS: HCT 26.9 % (39.0-53.0); HGB 8.8 gm/dL (13.0-17.5); Hypochromasia Moderate; MCH 30.1 pg (25.0-35.0); MCHC 32.6 g/dL (31.0-37.0); MCV 92.4 fL (80.0-100.0); Platelet Count 458 k/uL (150-450); Poikilocytosis Slight; RBC 2.91 m/uL (4.30-5.90); RDW 15.9 % (11.5-15.5); WBC 17.3 k/uL (3.8-10.6)
[2018-11-04 07:39] LABS: Anion Gap 8 mmol/L; Blood Urea Nitrogen 16 mg/dL (9-20); Calcium 8.6 mg/dL (8.4-10.2); Carbon Dioxide 25 mmol/L (22-30); Chloride 102 mmol/L (98-107); Glucose 103 mg/dL (74-99); Potassium 4.5 mmol/L (3.5-5.1); Sodium 135 mmol/L (137-145)
[2018-11-04] MEDS ORDERED: FUROSEMIDE 10 MG/ML 4 ML VIAL IV STA (07:45)
--- NOTE | 2018-11-04 07:47 | P.PN ---
Subjective Progress Note Date: 11/04/18 Principal diagnosis: Severe triple vessel coronary artery disease with preserved LV function. Previous medical history of hypertension, hyperlipidemia, previous tobacco dependence with preoperative FEV1 94% of predicted, cerebral palsy, bilateral carotid artery stenosis 70%, and family history of premature coronary artery disease. Preoperative E coli urinary tract infection treated with Cipro for 1 week. POD#11 coronary artery bypass graft surgery with left internal mammary artery to the left anterior descending coronary artery, left radial artery to the first obtuse marginal artery, reverse saphenous vein graft to the first diagonal artery, reverse saphenous vein graft to the posterior lateral branch of the right coronary artery. Endoscopic harvest of the right greater saphenous vein and the left radial artery. Epiaortic scanning. Intraoperative transesphageal echocardiogram. Postoperative acute blood loss anemia, expected secondary to cardiopulmonary bypass pump and hemodilution. Postoperative atrial fibrillation, unexpected but potential outcome, currently in sinus rhythm Leukocytosis, unexpected, from atelectasis, sputum and urinary culture negative Left-sided pleural effusion, unexpected potential outcome The patient is currently sitting up in a recliner in no acute distress on the cardiac stepdown unit. He denies pain currently, still complains of minimal shortness of breath with activity. Remains in normal sinus rhythm. Hemodynamically stable. Has been ambulating the garg with assistance, showering daily. No new complaints. Objective - Vital Signs Vital signs: Vital Signs Temp 98 F 11/04/18 03:49 Pulse 90 11/03/18 23:25 Resp 18 11/04/18 03:49 BP 118/70 11/04/18 03:49 Pulse Ox 95 11/04/18 03:49 Intake & Output 11/03/18 11/04/18 11/04/18 18:59 06:59 18:59 Intake Total 100 240 Output Total 990 Balance -890 240 Weight 71.6 kg Intake: Oral 100 240 Output: Chest Tube Drainage 140 Left Lateral Chest 140 Right Pleural 0 Urine 850 Other: Voiding Method Toilet Toilet # Voids 1 ABP, PAP, CO, CI - Last Documented Arterial Blood Pressure 154/69 Pulmonary Artery Pressure 35/17 Cardiac Output 12 Cardiac Index 3.2 - Constitutional General appearance: Present: cooperative, no acute distress - Respiratory Details: Lungs sounds diminished bilaterally, left greater than right. Respirations even, nonlabored. Currently on room air with oxygen saturation 95%. Able to achieve 1000 mL on his incentive spirometry. Strong productive cough. - Cardiovascular Details: S1, S2 present. Regular rate and rhythm, sinus rhythm on telemetry. Sternum stable. Palpable peripheral pulses bilaterally. No edema present. No calf pain or tenderness noted. Heart hugger in place with patient demonstrating appropriate use although he needs continued encouragement. Antiembolism stockings, SCDs present. - Gastrointestinal Gastrointestinal Comment(s): Abdomen soft, nontender, nondistended. Active bowel sounds 4 quadrants present. Tolerating diet. Positive bowel movement. - Genitourinary Genitourinary Comment(s): Continues to void clear, yellow urine. - Integumentary Integumentary Comment(s): Skin is warm and dry with evidence of good perfusion. Anterior chest incision well approximated and covered with dry intact dressing. 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 Right lower extremity EVH site well approximated without drainage, ecchymosis present, expected. Left chest t ube incision draining serous fluid, ostomy pouch placed over the site to collect drainage. - Neurologic Neurologic: Present: CNII-XII intact - Musculoskeletal Musculoskeletal: Present: generalized weakness, strength equal bilaterally - Psychiatric Psychiatric: Present: A&O x's 3, appropriate affect - Allied health notes Allied health notes reviewed: nursing - Labs CBC & Chem 7: 11/04/18 06:45 11/04/18 06:45 Labs: Abnormal Lab Results - Last 24 Hours (Table) 11/03/18 11/04/18 11/04/18 Range/Units 20:54 06:24 06:45 WBC 17.3 H (3.8-10.6) k/uL RBC 2.91 L (4.30-5.90) m/uL Hgb 8.8 L (13.0-17.5) gm/dL Hct 26.9 L (39.0-53.0) % RDW 15.9 H (11.5-15.5) % Plt Count 458 H (150-450) k/uL Sodium (137-145) mmol/L Glucose (74-99) mg/dL POC Glucose (mg/dL) 172 H 129 H (75-99) mg/dL 11/04/18 Range/Units 06:45 WBC (3.8-10.6) k/uL RBC (4.30-5.90) m/uL Hgb (13.0-17.5) gm/dL Hct (39.0-53.0) % RDW (11.5-15.5) % Plt Count (150-450) k/uL Sodium 135 L (137-145) mmol/L Glucose 103 H (74-99) mg/dL POC Glucose (mg/dL) (75-99) mg/dL - Imaging and Cardiology Chest x-ray: report reviewed, image reviewed Assessment and Plan Assessment: 1. Severe triple-vessel coronary artery disease with preserved LV function, status post CABG 4 2. Hypertension 3. Hyperlipidemia 4. Previous tobacco dependence with preoperative FEV1 94% of predicted 5. Cerebral palsy 6. Bilateral carotid artery stenosis 70% 7. Family history of premature coronary artery disease 8. Preoperative E. coli urinary tract infection, treated 9. Postoperative acute blood loss anemia, expected 10. Postoperative atrial fibrillation, expected 11. Leukocytosis, unexpected, atelectasis with negative sputum and urine culture 12. Left-sided pleural effusion, unexpected Plan: 1. Continue low dose aspirin, statin, beta karissa. Will increase beta karissa as tolerated. 2. Continue Cardizem for radial artery spasm prophylaxis. 3. Continue amiodarone for A. fib prophylaxis, taper weekly per orders, decreased to 200 mg twice daily today. Continue Eliquis for anticoagulation. 4. Sputum culture, urine culture negative. 5. Encourage incentive spirometry use 10 times every hour while awake. 6. Bronchodilators per pulmonology. Encourage continued smoking cessation. 7. Increase activity, ambulate as tolerated. PT/OT/cardiac rehab following. 8. Will monitor daily labs, chest x-rays. Electrolyte replacement per protocol. No further blood transfusion. 9. Pain management with current medication regimen. 10. Insulin management per primary care service. 11. GI/DVT prophylaxis. 12. Will give 40 mg IV lasix today. 13. Discharge planning in progress. Patient would benefit from aggressive physical and occupational therapy, daily physician visits, frequent lab draws. In other words patient would benefit more from inpatient rehab than subacute rehab. Dr. Chen on consult. 14. Anticipate discharge to inpatient rehab, still waiting on insurance author ization. 15. More recommendations to follow as patient progresses. Time with Patient: Greater than 30
[2018-11-04] MEDS: IPRATROPIUM-ALBUTEROL 3 ML NEB INHALATION SCH ×4 (08:13→20:48)
[2018-11-04] MEDS ORDERED: FUROSEMIDE 20 MG TAB PO SCH (09:00)
[2018-11-04] MEDS: AMIODARONE 200 MG TAB PO SCH ×2 (09:09→20:05)
[2018-11-04] MEDS: APIXABAN 5 MG TAB PO SCH ×2 (09:09→20:06)
[2018-11-04] MEDS: METOPROLOL TARTRATE 25 MG TAB PO SCH ×2 (09:10→20:06)
[2018-11-04] MEDS: ASPIRIN 81 MG PO SCH (09:10)
[2018-11-04] MEDS: ATORVASTATIN 80 MG TAB PO SCH (09:12)
[2018-11-04] MEDS: DILTIAZEM CD 120 MG CAP.ER.24H PO SCH (12:10)
--- NOTE | 2018-11-04 12:12 | P.PN ---
Subjective Progress Note Date: 11/04/18 Principal diagnosis: Multivessel coronary artery disease, status post four-vessel bypass surgery, postoperative day 6 on today's evaluation of 10/28/2018, the patient is awake and alert sitting up on a chair. The chest. He is still using incentive spirometer. Overnight he was due atrial fibrillation with some degree of breath and ventricular response in the 110 range. The patient was given boluses of amiodarone and currently is on amiodarone drip. He is back into sinus rhythm. Note that while going into atrial fibrillation, the patient developed hypotension probably related to the loss of atrial kick. He is currently back to normal sinus rhythm. He is hemodynamically stable. He is on beta blockers and Cardizem for rate control. Sternum is stable clean and intact. He is producing adequate amount of urine output. No nausea. No vomiting. No diarrhea. No altered mentation. Chest x- ray still showing some atelectatic changes in lung bases and pulmonary vascular congestion. Hemoglobin is stable.the oxygenation is improving and the patient is on 6 L of oxygen by nasal cannula with a pulse ox of 97%.hemoglobin is at 8.0. On today's evaluation of 10/29/2018 the patient is already transferred today telemetry unit. He is doing well. All of the chest is a been removed. The chest x-ray from today shows pulse vessel congestion and small effusion the left side. No hypotension. No atrial fibrillation. He remains in normal sinus rhythm. He'll be given another dose of Lasix today. The patient seemed was at 8.1. BUN is 14 creatinine 0.6. He is using his incentive spirometer. No chest pain. No altered mentation. He is emanating in the hallway. His sternal wound is dry clean and intact. He is currently on oxygen at 4 L per minute nasal c annula. On 10/22/2018 patient seen in follow-up on selective care unit, he sitting up in a recliner, in no acute distress, lung sounds are clear, etc. spirometer effort is 750 ML. Today's chest x-ray has been reviewed and shows persistent small left pleural effusion and multifocal subsegmental atelectasis. Patient is on 2 L of oxygen his pulse ox is 94%, afebrile, hemodynamically stable. No co mplaints of shortness of breath, patient has been ambulating in the hallway, tolerates activity well, anticipate discharge to inpatient rehab sometime today. This is postoperative day 6 status post four-vessel coronary artery bypass grafting, all chest tubes Pretty catheter have been discontinued, wires are still in place, and are grounded. On 10/31/2018 patient is seen in follow-up on selective care unit, he is resting comfortably in bed, this is postop day 7, status post four-vessel coronary artery bypass grafting. Patient is doing well, today's chest x-ray has been reviewed, and there is worsening in the appearance of left lower lobe airspace disease, atelectasis and pleural effusion, patient received another dose of IV Lasix per CT surgery. Denies any worsening dyspnea, he has been working on his incentive spirometer, he is currently on room air, with a pulse ox of 94%, he has been tolerating ambulation. Today's lab work has been reviewed, white blood cell count is 14.5, hemoglobin is 9.5, electrolytes and renal profile were unremarkable. Patient is voiding, Pretty chest tubes have been discontinued. He is awaiting discharge to inpatient rehab possibly today. On 11/02/2018 patient seen in follow-up on selective care unit, he is awake and alert, in no acute distress, room air pulse ox is 91%, low-grade fever of 99.9F today, hemodynamically stable, lung sounds are diminished over bilateral bases, left greater than the right. Today's chest x-ray shows worsening moderate to borderline large size left pleural effusion with associated compressive atelectasis. Ultrasound of the chest is pending, and patient is having increased serosanguineous drainage from his former left pleural chest tube site, requiring dressing changes and gown change. No worsening dyspnea, his incentive spirometer effort is up to 750-1000 ML today. Vital signs are stable. He is on maintenance dose of oral Lasix, and he will receive an additional dose of IV Lasix per CT surgery. On 11/04/2016 patient seen in follow-up on selective care unit, she is awake and alert, oriented 3, sitting in the recliner, in no acute distress, room air pulse ox is 92%, he was given additional dose of IV Lasix per CT surgery, today's chest x-ray showed Persistent left basilar airspace disease, but there has been improvement in the appearance of bilateral pleural effusions. He is maintaining negative fluid balance, ostomy bag has been applied to the left lower chest wall and there is serosanguineous drainage from the former chest tube site. Today's labs have been reviewed, blood cell, 17.3, hemoglobin is 8.8, sodium is 135, domestic electrolytes and renal profile are within normal limits. Incentive spirometer effort is 1250, patient is tolerating ambulation. Lung sounds reveal diminished breath sounds on the left posterior base. Clinically patient is asymptomatic. Objective - Vital Signs Vital signs: Vital Signs Temp 97.8 F 11/04/18 08:00 Pulse 76 11/04/18 12:04 Resp 16 11/04/18 08:00 BP 111/68 11/04/18 08:00 Pulse Ox 92 L 11/04/18 08:00 Intake & Output 11/03/18 11/04/18 11/04/18 18:59 06:59 18:59 Intake Total 100 240 Output Total 990 Balance -890 240 Weight 71.6 kg Intake: Oral 100 240 Output: Chest Tube Drainage 140 Left Lateral Chest 140 Right Pleural 0 Urine 850 Other: Voiding Method Toilet Toilet Toilet # Voids 1 ABP, PAP, CO, CI - Last Documented Arterial Blood Pressure 154/69 Pulmonary Artery Pressure 35/17 Cardiac Output 12 Cardiac Index 3.2 - Exam GENERAL EXAM: Alert, pleasant, 53-year-old white male comfortable in no apparent distress. HEAD: Normocephalic/atraumatic. EYES: Normal reaction of pupils, equal size. Conjunctiva pink, sclera white. NOSE: Clear with pink turbinates. THROAT: No erythema or exudates. NECK: No masses, no JVD, no thyroid enlargement, no adenopathy. CHEST: No chest wall deformity. Symmetrical expansion. Sternal incision is clean dry and intact, stable, left chest former pleural chest tube site is draining moderate amount of serosanguineous drainage, there is an ostomy bag applied to the left chest tube site, and a former mediastinal chest tube LUNGS: Equal air entry with clear breath sounds, no rhonchi, no wheezing CVS: Regular rate and rhythm, normal S1 and S2, no gallops, no murmurs, no rubs ABDOMEN: Soft, nontender. No hepatosplenomegaly, normal bowel sounds, no guarding or rigidity. EXTREMITIES: No clubbing, no edema, no cyanosis, 2+ pulses and upper and lower extremities. MUSCULOSKELETAL: Muscle strength and tone normal. SPINE: No scoliosis or deformity SKIN: No rashes CENTRAL NERVOUS SYSTEM: Alert and oriented -3. No focal deficits, tone is normal in all 4 extremities. PSYCHIATRIC: Alert and oriented -3. Appropriate affect. Intact judgment and insight. - Labs CBC & Chem 7: 11/04/18 06:45 11/04/18 06:45 Labs: Abnormal Lab Results - Last 24 Hours (Table) 11/03/18 11/04/18 11/04/18 Range/Units 20:54 06:24 06:45 WBC 17.3 H (3.8-10.6) k/uL RBC 2.91 L (4.30-5.90) m/uL Hgb 8.8 L (13.0-17.5) gm/dL Hct 26.9 L (39.0-53.0) % RDW 15.9 H (11.5-15.5) % Plt Count 458 H (150-450) k/uL Sodium (137-145) mmol/L Glucose (74-99) mg/dL POC Glucose (mg/dL) 172 H 129 H (75-99) mg/dL 11/04/18 Range/Units 06:45 WBC (3.8-10.6) k/uL RBC (4.30-5.90) m/uL Hgb (13.0-17.5) gm/dL Hct (39.0-53.0) % RDW (11.5-15.5) % Plt Count (150-450) k/uL Sodium 135 L (137-145) mmol/L Glucose 103 H (74-99) mg/dL POC Glucose (mg/dL) (75-99) mg/dL Assessment and Plan Plan: 1 multivessel coronary disease and the patient is status post four-vessel bypass surgery. Postop day 11. Patient is recovering adequately for now. Chest tubes are out and the patient has a increased drainage out of the left pleural chest tube site, was on the chest has been ordered, and patient will receive an additional dose of IV Lasix 2 postoperative acute blood loss anemia, expected outcome of surgery 3 Routine ventilator management 4 paroxysmal atrial fibrillation, current rhythm is sinus on a combination of metoprolol, Cardizem and amiodarone. The rhythm remains sinus 5 history of hyperlipidemia 6 cerebral palsy 7 bilateral carotid artery stenosis in the order of 70% 8 preoperative E. coli UTI, treated 9 history of cerebral palsy Plan: Continue current deep breathing and coughing, agree with the dose of IV diuretics, today's chest x-ray has been reviewed with Dr. Smith, and patient was seen and evaluated by Dr. Smith, some improvement in the appearance of bilateral pleural effusions, and the left chest tube site is draining serosanguineous drainage, he is maintaining good oxygenation on room air, clinically stable. Will continue to follow. I performed a history & physical examination of the patient and discussed their management with my nurse practitioner, Carlene Jiménez. I reviewed the nurse practitioner's note and agree with the documented findings and plan of care. Lung sounds are positive for clear breath sounds. The findings and the impression was discussed with the patient. I attest to the documentation by the nurse practitioner. Time with Patient: Less than 30
[2018-11-04 12:14] LABS: Glucose,Whole Blood 103 mg/dL (75-99)
--- NOTE | 2018-11-04 12:43 | P.PN ---
Subjective Progress Note Date: 11/04/18 53-year-old male one of Dr. Gomez patient with mild degree of cerebral palsy who has history of hypertension hyperlipidemia and coronary artery disease with heart catheter 2 weeks ago showed 99 percentile blockage of the RCA 60% of the PLB 90% stenosis of the circumflex and acute marginal and 85 percentile stenosis of the LAD. Patient was referred to cardiothoracic seen and evaluated and was schedule elective bypass surgery with Dr. Galan which was done successfully today patient was intubated and placed on mechanical ventilation post surgery seen pulmonary and transferred to the intensive care unit, remain on vasodepressor along with insulin drip the blood sugar running marginal at the time. Patient is sedated on mechanical ventilation. 10/25: Patient remains in intensive care unit. He was successfully extubated around midnight. His pain is currently controlled. He is continued on norepinephrine and vasopressin as well as IV Cardizem and amiodarone. Patient is on insulin drip for blood sugar control. Pretty catheter in place with adequate urine output. Chest tubes remain in place. 10/26: Patient remains in intensive care unit. He has been seen by Dr. Chen for possible inpatient rehab. Patient has been afebrile, heart rate in the 70s to 80, blood pressure 93/53, pulse ox 93% on 10 L high flow nasal cannula. Patient had rapid is pulse ox yesterday afternoon while on nasal cannula and transitioned to high flow O2. Patient is using incentive spirometry at 500 ML's. ekg monitor tech is sinus rhythm. Repeat lab work this morning shows a hemoglobin of 7, white count 11.6, platelet count 125. BUN 17 and creatinine 0.53. Phosphorus 2.4, magnesium 2.4, AST 187, ALT 38. Blood sugars are running between 118 and 136. Plan to continue insulin drip another day and transitioned to long-acting and short acting insulins tomorrow. Patient is currently eating very little. Inglis's catheter has been discontinued. He has had no episodes of atrial fibrillation. He remains on vasopressin. He is scheduled for 1 unit packed RBCs followed by Lasix. Patient is currently working with PT and OT. 10/27: Patient sitting up in the chair he remains in the intensive care unit he denies any chest pain is less short of breath he continues to have chest tubes in place, he continued to have the pacer in place, he did receive an extra dose of Lasix today, he is off the pressors at this time and he continues to progress in a positive manner. 10/28: Patient sitting up on the commode he is less short of breath today he denies any chest pain or any shortness breath he had an episode of atrial fibrillation with rapid ventricular response, he was initially placed on a miodarone drip currently would be switched to oral amiodarone and he will be switched to Cardizem CD at the same time along with beta karissa he is feeling a lot better his chest tubes will come out today. 10/29: Patient is sitting up in bed he is feeling a bit better today he was moved out of the ICU, he continues to have significant shortness of breath with ambulation he will be receiving Lasix dose today is utilizing incentive spirometer and regular basis, has no abdominal pain, nausea or vomiting he has a good bowel movement. 10/30: Patient is seen on the cardiac stepdown unit. Patient states that his breathing feels like it's the same to him. He states he does have shortness of breath with getting out of bed. Pulse ox is 94% on 2 L. Sputum culture to be obtained. He has had a bowel movement. He denies any other complaints. Patient is scheduled for discharge to inpatient rehab under the care of Dr. Chen later today. Blood sugars are running between 103 and 127. Hemoglobin is 8.6, white count 10.8. Patient is to have follow-up with Dr. Gomez after discharge from rehab. 10/31: Patient was not transferred to [facility] as insurance authorization was pending. Patient also relates today that insurance authorization remains pending. Patient did receive 1 dose of IV Lasix today. Pulse ox is 94% on room air. Breathing status appears to be stable. He is using his incentive spirometry. Hemoglobin 9.5, white cell count 14.5. Anticipate discharge today to inpatient rehab. 11/01: The patient states he has had quite a bit of coughing and sputum pr oduction. He denies any real shortness of breath. Urine culture has been finalized from October 31. Sputum culture showing normal respiratory jeffery. He continues to wait for authorization for inpatient rehab which we are expecting today. Patient has been hemodynamically stable. Patient will be followed at [facility] by Dr. Johnston. 11/02: Chest x-ray this morning reveals worsening moderate to borderline large sized left pleural effusion with associated compressive atelectasis. Chest ultrasound showed a pleural effusion of 9.2. Patient received additional dose of Lasix today. Patient is having drainage from his former chest tube site and ostomy bag to be placed on this. Patient states that he has shortness of breath when laying down with activity as well. Awaiting authorization from his insurance, which will not be available until very late today and thus patient will be staying here for the weekend. [facility] to decide whether patient needs left-sided thoracentesis. 11/03: The patient is seen on the selective care floor. He states he is still having some shortness of breath. He is using his incentive spirometry. He appears to be in no acute distress. Repeat chest x-ray shows left basilar airspace disease with bilateral pleural effusions left greater than right. Patient has been afebrile, hemodynamically stable, pulse ox is 91% on room air. Patient has drainage from previous chest tubes. No plan for thoracentesis. Anticipate discharge to [facility] on Monday. 11/04: Patient complains of midsternal chest pain when he takes of breath but no other type of chest pain. He denies any palpitations. He also complains of abdominal pain that was sharp that resolved. He states he tried to have a bowel movement but did not. His last bowel movement was yesterday. No abdominal bloating. He has been afebrile, blood pressure 118/70, pulse 72, pulse ox 95% on room air. Repeat chest x-ray will be ordered. Objective - Vital Signs Vital signs: Vital Signs Temp 97.8 F 11/04/18 08:00 Pulse 76 11/04/18 12:04 Resp 16 11/04/18 08:00 BP 111/68 11/04/18 08:00 Pulse Ox 92 L 11/04/18 08:00 Intake & Output 11/03/18 11/04/18 11/04/18 18:59 06:59 18:59 Intake Total 100 240 Output Total 990 Balance -890 240 Weight 71.6 kg Intake: Oral 100 240 Output: Chest Tube Drainage 140 Left Lateral Chest 140 Right Pleural 0 Urine 850 Other: Voiding Method Toilet Toilet Toilet # Voids 1 ABP, PAP, CO, CI - Last Documented Arterial Blood Pressure 154/69 Pulmonary Artery Pressure 35/17 Cardiac Output 12 Cardiac Index 3.2 - Exam Review of Systems CONSTITUTIONAL: Well-developed. Denies fever, denies chills EYES: No icterus sclerae, no conjunctivitis. EARS, NOSE, MOUTH, THROAT, and FACE: No sore throat, lymphadenopathy, carotid bruits or deformity. RESPIRATORY: Reports shortness of breath, reports cough, reports sputum production CARDIOVASCULAR: Post CABG, no chest pain, less short of breath, no pleurisy. GASTROINTESTINAL: Reports sharp abdominal pain resolved no diarrhea no sign of G I bleed. GENITOURINARY: Negative for Hematuria. INTEGUMENT/BREAST: Drainage from chest tube sites. HEMATOLOGIC/LYMPHATIC: Negative for bleed or purpura. MUSCULOSKELTAL: No numbness tingling, no myalgias NEURLOGICAL: No numbness no tingling. General Appearance: Patient is sitting in recliner at the bedside and appears to be comfortable Neck HEENT: Supple, no lymphadenopathy, no thyroid enlargement, no carotid bruits. Lungs: Decreased breath sounds in the left side no crackles or wheezes. Heart: Regular rate and rhythm, S1, S2 mild arrhythmia with S3., no murmur, rub or gallop. Back: Symmetric, no curvature, ROM normal. Abdomen: Soft, non-tender, bowel sounds active all four quadrants, no masses, no organomegaly. Extremities: Extremities normal, atraumatic, no cyanosis or edema. Pulses: 2+ and symmetric. Skin: Skin color, tugor normal, no rashes or lesions. Neurologic: Patient is awake alert and oriented 3. No focal neural deficits. - Labs CBC & Chem 7: 11/04/18 06:45 11/04/18 06:45 Labs: Abnormal Lab Results - Last 24 Hours (Table) 11/03/18 11/04/18 11/04/18 Range/Units 20:54 06:24 06:45 WBC 17.3 H (3.8-10.6) k/uL RBC 2.91 L (4.30-5.90) m/uL Hgb 8.8 L (13.0-17.5) gm/dL Hct 26.9 L (39.0-53.0) % RDW 15.9 H (11.5-15.5) % Plt Count 458 H (150-450) k/uL Sodium (137-145) mmol/L Glucose (74-99) mg/dL POC Glucose (mg/dL) 172 H 129 H (75-99) mg/dL 11/04/18 11/04/18 Range/Units 06:45 12:11 WBC (3.8-10.6) k/uL RBC (4.30-5.90) m/uL Hgb (13.0-17.5) gm/dL Hct (39.0-53.0) % RDW (11.5-15.5) % Plt Count (150-450) k/uL Sodium 135 L (137-145) mmol/L Glucose 103 H (74-99) mg/dL POC Glucose (mg/dL) 103 H (75-99) mg/dL Assessment and Plan Plan: 1 post multiple vessel CABG. patient continues to have the chest tube in place as well as the pacer wires, he is off the pressors and is feeling a lot better today he continues to be somewhat short of breath, we will maintain patient on aspirin 325 mg orally once every day, Plavix 75 mg orally once every day, metoprolol 12.5 mg orally twice every day and Lipitor 40 mg orally once every day. 2 Acute hypoxic respiratory failure requiring high flow nasal cannula possibly related to history of smoking and underlying CP. Patient was successfully extubated. Pulmonary medicine managing. Continue incentive spirometry. Chest x-ray ordered. 3 hyperlipidemia. Continue patient on Lipitor 40 mg orally once every day. 4 history of cerebral palsy: Mild. 5 hyperglycemia without history of diabetes. Previous hemoglobin A1c 5.9. 6 anemia post surgery: Continue to monitor. Continue patient on iron 325 mg orally once every day. 7 BPH. Stable at this time. 8. Atrial fibrillation with rapid ventricular response was on amiodarone drip will be switched to oral amiodarone and continue beta karissa and Cardizem CD. 9 . Acute blood loss anemia expected outcome of surgery post blood transfusion currently hemoglobin is stable continue with iron supplement. 10. DVT prophylaxis. Continue heparin 5000 units subcutaneously every 12 hours. 11. GI prophylaxis. Continue PPI. 12. Left-sided pleural effusion. Ultrasound. No plan for thoracentesis. Full code. Discharge plan: Inpatient rehab at [facility] on Monday Impression and plan of care have been directed as dictated by the signing physician. Eleanor Greer nurse practitioner acting as scribe for signing physician.
[2018-11-04 16:58] LABS: Glucose,Whole Blood 107 mg/dL (75-99)
[2018-11-04] MEDS: SENNOSIDES-DOCUSATE SODIUM 1 EACH TAB PO SCH (20:06)
[2018-11-04 21:26] LABS: Glucose,Whole Blood 132 mg/dL (75-99)
[2018-11-05 02:09] LABS: Glucose,Whole Blood 123 mg/dL (75-99)
[2018-11-05] MEDS: FERROUS SULFATE 325 MG TAB PO SCH ×2 (05:43→16:23)
[2018-11-05] MEDS: PANTOPRAZOLE 40 MG TABLET PO SCH (05:43)
[2018-11-05] MEDS: HYDROcodone/APAP 5-325MG 1 EACH TAB PO PRN ×4 (05:43→20:07)
[2018-11-05] MEDS: ASCORBIC ACID 500 MG TAB PO SCH ×2 (05:43→16:23)
[2018-11-05] MEDS ORDERED: BISACODYL 10 MG SUPP RECTAL STA (06:31)
[2018-11-05 06:36] LABS: Glucose,Whole Blood 116 mg/dL (75-99)
[2018-11-05 06:44] LABS: Basophils % (A) 0 %; Eosinophils # (A) 0.2 k/uL (0-0.7); Eosinophils % (A) 1 %; HCT 29.2 % (39.0-53.0); HGB 8.9 gm/dL (13.0-17.5); Hypochromasia Moderate; Lymphocytes # (A) 1.5 k/uL (1.0-4.8); Lymphocytes % (A) 9 %; MCH 28.8 pg (25.0-35.0); MCHC 30.7 g/dL (31.0-37.0); MCV 93.8 fL (80.0-100.0); Mean Platelet Volume 6.6; Monocytes # (A) 0.7 k/uL (0-1.0); Monocytes % (A) 4 %; Neutrophils # (A) 14.4 k/uL (1.3-7.7); Neutrophils % (A) 85 %; Platelet Count 492 k/uL (150-450); Poikilocytosis Slight; RBC 3.11 m/uL (4.30-5.90); RDW 14.9 % (11.5-15.5)
[2018-11-05 06:56] LABS: Anion Gap 10 mmol/L; Blood Urea Nitrogen 12 mg/dL (9-20); Calcium 8.8 mg/dL (8.4-10.2); Carbon Dioxide 23 mmol/L (22-30); Chloride 101 mmol/L (98-107); Glucose 105 mg/dL (74-99); Potassium 4.5 mmol/L (3.5-5.1); Sodium 134 mmol/L (137-145)
--- NOTE | 2018-11-05 07:08 | XR ---
EXAMINATION TYPE: XR chest 2V DATE OF EXAM: 11/05/2018 COMPARISON: 11/04/2018 HISTORY: Effusion. TECHNIQUE: Frontal and lateral views of the chest are obtained. FINDINGS: There is a trace left pleural effusion and left hemidiaphragm elevation unchanged from the prior. There is also similar left basilar airspace disease along the medial and mid hemidiaphragm. T here is also trace right pleural effusion blunting the costophrenic angle. Cardia mediastinal silhoue tte is enlarged with post CABG changes the chest. No pneumothorax is seen. No new focal consolidation . No acute osseous pathology. IMPRESSION: Stable trace pleural effusions and left basilar airspace disease.
[2018-11-05] MEDS ORDERED: FUROSEMIDE 10 MG/ML 4 ML VIAL IV STA (08:25)
--- NOTE | 2018-11-05 08:27 | P.PN ---
<Natalie Cline - Last Filed: 11/05/18 08:41> Subjective Progress Note Date: 11/05/18 Principal diagnosis: Severe triple vessel coronary artery disease with preserved LV function. Previous medical history of hypertension, hyperlipidemia, previous tobacco dependence with preoperative FEV1 94% of predicted, cerebral palsy, bilateral carotid artery stenosis 70%, and family history of premature coronary artery disease. Preoperative E coli urinary tract infection treated with Cipro for 1 week. POD#12 coronary artery bypass graft surgery with left internal mammary artery to the left anterior descending coronary artery, left radial artery to the first obtuse marginal artery, reverse saphenous vein graft to the first diagonal artery, reverse saphenous vein graft to the posterior lateral branch of the right coronary artery. Endoscopic harvest of the right greater saphenous vein and the left radial artery. Epiaortic scanning. Intraoperative transesphageal echocardiogram. Postoperative acute blood loss anemia, expected secondary to cardiopulmonary bypass pump and hemodilution. Postoperative atrial fibrillation, unexpected but potential outcome, currently in sinus rhythm Leukocytosis, unexpected, from likely from atelectasis, sputum and urinary culture negative Left-sided pleural effusion, unexpected potential outcome The patient is currently sitting up in a recliner in no acute distress on the cardiac stepdown unit. He denies pain currently, still complains of minimal lexy rtness of breath with activity. Remains in normal sinus rhythm. Hemodynamically stable. Has been ambulating the garg with assistance, showering daily. No new complaints. Requires reminders to use heart hugger. Objective - Vital Signs Vital signs: Vital Signs Temp 98.4 F 11/05/18 03:08 Pulse 82 11/05/18 03:08 Resp 18 11/05/18 03:08 BP 99/52 11/05/18 03:08 Pulse Ox 93 L 11/05/18 03:08 Intake & Output 11/04/18 11/05/18 11/05/18 18:59 06:59 18:59 Intake Total 500 200 Output Total 940 Balance -440 200 Weight 71.4 kg Intake: Oral 500 200 Output: Chest Tube Drainage 90 Left Lateral Chest 90 Urine 850 Other: Voiding Method Toilet # Voids 1 1 ABP, PAP, CO, CI - Last Documented Arterial Blood Pressure 154/69 Pulmonary Artery Pressure 35/17 Cardiac Output 12 Cardiac Index 3.2 - Constitutional General appearance: Present: cooperative, no acute distress - Respiratory Details: Lungs sounds diminished bilaterally. Respirations even, nonlabored. Currently on room air with oxygen saturation 93%. Able to achieve 2286-0932 mL on his incentive spirometry. Strong productive cough. - Cardiovascular Details: S1, S2 present. Regular rate and rhythm, sinus rhythm on telemetry. Sternum stable. Palpable peripheral pulses bilaterally. No edema present. No calf pain or tenderness noted. Heart hugger in place with patient demonstrating appropriate use although he needs continued encouragement. Antiembolism stockings, SCDs present. - Gastrointestinal Gastrointestinal Comment(s): Abdomen soft, nontender, nondistended. Active bowel sounds 4 quadrants present. Tolerating diet. Positive bowel movement yesterday although very s mall. - Genitourinary Genitourinary Comment(s): Continues to void clear, yellow urine. - Integumentary Integumentary Comment(s): Skin is warm and dry with evidence of good perfusion. Anterior chest incision well approximated and covered with dry intact dressing. 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 Right lower extremity EVH site well approximated without drainage, ecchymosis present, expected. Left chest tube incision draining serous fluid, ostomy pouch placed over the site to collect drainage. - Neurologic Neurologic: Present: CNII-XII intact - Musculoskeletal Musculoskeletal: Present: generalized weakness, strength equal bilaterally - Psychiatric Psychiatric: Present: A&O x's 3, appropriate affect - Allied health notes Allied health notes reviewed: nursing - Labs CBC & Chem 7: 11/05/18 06:11 11/05/18 06:11 Labs: Abnormal Lab Results - Last 24 Hours (Table) 11/04/18 11/04/18 11/04/18 Range/Units 12:11 16:55 21:25 WBC (3.8-10.6) k/uL RBC (4.30-5.90) m/uL Hgb (13.0-17.5) gm/dL Hct (39.0-53.0) % MCHC (31.0-37.0) g/dL Plt Count (150-450) k/uL Neutrophils # (1.3-7.7) k/uL Sodium (137-145) mmol/L Creatinine (0.66-1.25) mg/dL Glucose (74-99) mg/dL POC Glucose (mg/dL) 103 H 107 H 132 H (75-99) mg/dL 11/05/18 11/05/18 11/05/18 Range/Units 02:06 06:11 06:11 WBC 17.0 H (3.8-10.6) k/uL RBC 3.11 L (4.30-5.90) m/uL Hgb 8.9 L (13.0-17.5) gm/dL Hct 29.2 L (39.0-53.0) % MCHC 30.7 L (31.0-37.0) g/dL Plt Count 492 H (150-450) k/uL Neutrophils # 14.4 H (1.3-7.7) k/uL Sodium 134 L (137-145) mmol/L Creatinine 0.63 L (0.66-1.25) mg/dL Glucose 105 H (74-99) mg/dL POC Glucose (mg/dL) 123 H (75-99) mg/dL 11/05/18 Range/Units 06:35 WBC (3.8-10.6) k/uL RBC (4.30-5.90) m/uL Hgb (13.0-17.5) gm/dL Hct (39.0-53.0) % MCHC (31.0-37.0) g/dL Plt Count (150-450) k/uL Neutrophils # (1.3-7.7) k/uL Sodium (137-145) mmol/L Creatinine (0.66-1.25) mg/dL Glucose (74-99) mg/dL POC Glucose (mg/dL) 116 H (75-99) mg/dL - Imaging and Cardiology Chest x-ray: report reviewed, image reviewed Assessment and Plan Assessment: 1. Severe triple-vessel coronary artery disease with preserved LV function, status post CABG 4 2. Hypertension 3. Hyperlipidemia 4. Previous tobacco dependence with preoperative FEV1 94% of predicted 5. Cerebral palsy 6. Bilateral carotid artery stenosis 70% 7. Family history of premature coronary artery disease 8. Preoperative E. coli urinary tract infection, treated 9. Postoperative acute blood loss anemia, expected 10. Postoperative atrial fibrillation, expected 11. Leukocytosis, unexpected, atelectasis with negative sputum and urine culture 12. Left-sided pleural effusion, unexpected Plan: 1. Continue low dose aspirin, statin, beta karissa. 2. Continue Cardizem for radial artery spasm prophylaxis. 3. Continue amiodarone for A. fib prophylaxis, taper weekly per orders, decrease to 200 mg daily 11/11/18. Continue Eliquis for anticoagulation. 4. Sputum culture, urine culture negative. Procalcitonin ordered by primary care, results pending. 5. Encourage incentive spirometry use 10 times every hour while awake. 6. Bronchodilators per pulmonology. Encourage continued smoking cessation. 7. Increase activity, ambulate as tolerated. PT/OT/cardiac rehab following. 8. Will monitor daily labs, chest x-rays. Electrolyte replacement per protocol. No further blood transfusion. 9. Pain management with current medication regimen. 10. Insulin management per primary care service. 11. GI/DVT prophylaxis. 12. Will give 40 mg IV lasix today. 13. Discharge planning in progress. Patient would benefit from intensive physical and occupational therapy, daily physician visits, frequent lab draws. He requires frequent reminders of sternal precautions. Patient would benefit more from inpatient rehab than subacute rehab. Dr. Chen on consult, willing to accept patient but patient needs insurance authorization. 14. Anticipate discharge to inpatient rehab, still waiting on insurance authorization, hopefully will be authorized today. 15. More recommendations to follow as patient progresses. Time with Patient: Greater than 30 <Denilson Galan - Last Filed: 11/05/18 10:34> Objective - Vital Signs Vital signs: Vital Signs Temp 98.4 F 11/05/18 03:08 Pulse 78 11/05/18 08:49 Resp 18 11/05/18 08:00 BP 99/52 11/05/18 03:08 Pulse Ox 93 L 11/05/18 03:08 Intake & Output 11/04/18 11/05/18 11/05/18 18:59 06:59 18:59 Intake Total 500 200 600 Output Total 940 Balance -440 200 600 Weight 71.4 kg Intake: Oral 500 200 600 Output: Chest Tube Drainage 90 Left Lateral Chest 90 Urine 850 Other: Voiding Method Toilet Toilet # Voids 1 1 ABP, PAP, CO, CI - Last Documented Arterial Blood Pressure 154/69 Pulmonary Artery Pressure 35/17 Cardiac Output 12 Cardiac Index 3.2 - Labs CBC & Chem 7: 11/05/18 06:11 06/03/19 06:11 Labs: Abnormal Lab Results - Last 24 Hours (Table) 11/04/18 11/04/18 11/04/18 Range/Units 06:45 12:11 16:55 WBC (3.8-10.6) k/uL RBC (4.30-5.90) m/uL Hgb (13.0-17.5) gm/dL Hct (39.0-53.0) % MCHC (31.0-37.0) g/dL Plt Count (150-450) k/uL Neutrophils # (1.3-7.7) k/uL Sodium (137-145) mmol/L Creatinine (0.66-1.25) mg/dL Glucose (74-99) mg/dL POC Glucose (mg/dL) 103 H 107 H (75-99) mg/dL Procalcitonin 0.11 H (0.02-0.09) ng/mL 11/04/18 11/05/18 11/05/18 Range/Units 21:25 02:06 06:11 WBC 17.0 H (3.8-10.6) k/uL RBC 3.11 L (4.30-5.90) m/uL Hgb 8.9 L (13.0-17.5) gm/dL Hct 29.2 L (39.0-53.0) % MCHC 30.7 L (31.0-37.0) g/dL Plt Count 492 H (150-450) k/uL Neutrophils # 14.4 H (1.3-7.7) k/uL Sodium (137-145) mmol/L Creatinine (0.66-1.25) mg/dL Glucose (74-99) mg/dL POC Glucose (mg/dL) 132 H 123 H (75-99) mg/dL Procalcitonin (0.02-0.09) ng/mL 11/05/18 11/05/18 Range/Units 06:11 06:35 WBC (3.8-10.6) k/uL RBC (4.30-5.90) m/uL Hgb (13.0-17.5) gm/dL Hct (39.0-53.0) % MCHC (31.0-37.0) g/dL Plt Count (150-450) k/uL Neutrophils # (1.3-7.7) k/uL Sodium 134 L (137-145) mmol/L Creatinine 0.63 L (0.66-1.25) mg/dL Glucose 105 H (74-99) mg/dL POC Glucose (mg/dL) 116 H (75-99) mg/dL Procalcitonin (0.02-0.09) ng/mL
[2018-11-05] MEDS: IPRATROPIUM-ALBUTEROL 3 ML NEB INHALATION SCH ×4 (08:38→20:03)
[2018-11-05] MEDS: AMIODARONE 200 MG TAB PO SCH ×2 (09:10→19:20)
[2018-11-05] MEDS: APIXABAN 5 MG TAB PO SCH ×2 (09:10→19:20)
[2018-11-05] MEDS: ASPIRIN 81 MG PO SCH (09:10)
[2018-11-05] MEDS: METOPROLOL TARTRATE 25 MG TAB PO SCH ×2 (09:10→19:20)
[2018-11-05] MEDS: ATORVASTATIN 80 MG TAB PO SCH (09:10)
[2018-11-05 11:52] LABS: Glucose,Whole Blood 104 mg/dL (75-99)
[2018-11-05] MEDS: DILTIAZEM CD 120 MG CAP.ER.24H PO SCH (12:40)
--- NOTE | 2018-11-05 14:24 | P.PN ---
Subjective Progress Note Date: 11/05/18 53-year-old male one of Dr. Gomez patient with mild degree of cerebral palsy who has history of hypertension hyperlipidemia and coronary artery disease with heart catheter 2 weeks ago showed 99 percentile blockage of the RCA 60% of the PLB 90% stenosis of the circumflex and acute marginal and 85 percentile stenosis of the LAD. Patient was referred to cardiothoracic seen and evaluated and was schedule elective bypass surgery with Dr. Galan which was done successfully today patient was intubated and placed on mechanical ventilation post surgery seen pulmonary and transferred to the intensive care unit, remain on vasodepressor along with insulin drip the blood sugar running marginal at the time. Patient is sedated on mechanical ventilation. 10/25: Patient remains in intensive care unit. He was successfully extubated around midnight. His pain is currently controlled. He is continued on norepinephrine and vasopressin as well as IV Cardizem and amiodarone. Patient is on insulin drip for blood sugar control. Pretty catheter in place with adequate urine output. Chest tubes remain in place. 10/26: Patient remains in intensive care unit. He has been seen by Dr. Chen for possible inpatient rehab. Patient has been afebrile, heart rate in the 70s to 80, blood pressure 93/53, pulse ox 93% on 10 L high flow nasal cannula. Patient had rapid is pulse ox yesterday afternoon while on nasal cannula and transitioned to high flow O2. Patient is using incentive spirometry at 500 ML's. monitoring specialist is sinus rhythm. Repeat lab work this morning shows a hemoglobin of 7, white count 11.6, platelet count 125. BUN 17 and creatinine 0.53. Phosphorus 2.4, magnesium 2.4, AST 187, ALT 38. Blood sugars are running between 118 and 136. Plan to continue insulin drip another day and transitioned to long-acting and short acting insulins tomorrow. Patient is currently eating very little. Wheatcroft's catheter has been discontinued. He has had no episodes of atrial fibrillation. He remains on vasopressin. He is scheduled for 1 unit packed RBCs followed by Lasix. Patient is currently working with PT and OT. 10/27: Patient sitting up in the chair he remains in the intensive care unit he denies any chest pain is less short of breath he continues to have chest tubes in place, he continued to have the pacer in place, he did receive an extra dose of Lasix today, he is off the pressors at this time and he continues to progress in a positive manner. 10/28: Patient sitting up on the commode he is less short of breath today he denies any chest pain or any shortness breath he had an episode of atrial fibrillation with rapid ventricular response, he was initially placed on a miodarone drip currently would be switched to oral amiodarone and he will be switched to Cardizem CD at the same time along with beta karissa he is feeling a lot better his chest tubes will come out today. 10/29: Patient is sitting up in bed he is feeling a bit better today he was moved out of the ICU, he continues to have significant shortness of breath with ambulation he will be receiving Lasix dose today is utilizing incentive spirometer and regular basis, has no abdominal pain, nausea or vomiting he has a good bowel movement. 10/30: Patient is seen on the cardiac stepdown unit. Patient states that his breathing feels like it's the same to him. He states he does have shortness of breath with getting out of bed. Pulse ox is 94% on 2 L. Sputum culture to be obtained. He has had a bowel movement. He denies any other complaints. Patient is scheduled for discharge to inpatient rehab under the care of Dr. Chen later today. Blood sugars are running between 103 and 127. Hemoglobin is 8.6, white count 10.8. Patient is to have follow-up with Dr. Gomez after discharge from rehab. 10/31: Patient was not transferred to [facility] as insurance authorization was pending. Patient also relates today that insurance authorization remains pending. Patient did receive 1 dose of IV Lasix today. Pulse ox is 94% on room air. Breathing status appears to be stable. He is using his incentive spirometry. Hemoglobin 9.5, white cell count 14.5. Anticipate discharge today to inpatient rehab. 11/01: The patient states he has had quite a bit of coughing and sputum pr oduction. He denies any real shortness of breath. Urine culture has been finalized from October 31. Sputum culture showing normal respiratory jeffery. He continues to wait for authorization for inpatient rehab which we are expecting today. Patient has been hemodynamically stable. Patient will be followed at [facility] by Dr. Johnston. 11/02: Chest x-ray this morning reveals worsening moderate to borderline large sized left pleural effusion with associated compressive atelectasis. Chest ultrasound showed a pleural effusion of 9.2. Patient received additional dose of Lasix today. Patient is having drainage from his former chest tube site and ostomy bag to be placed on this. Patient states that he has shortness of breath when laying down with activity as well. Awaiting authorization from his insurance, which will not be available until very late today and thus patient will be staying here for the weekend. Poly-medicine to decide whether patient needs left-sided thoracentesis. 11/03: The patient is seen on the selective care floor. He states he is still having some shortness of breath. He is using his incentive spirometry. He appears to be in no acute distress. Repeat chest x-ray shows left basilar airspace disease with bilateral pleural effusions left greater than right. Patient has been afebrile, hemodynamically stable, pulse ox is 91% on room air. Patient has drainage from previous chest tubes. No plan for thoracentesis. Anticipate discharge to [facility] on Monday. 11/04: Patient complains of midsternal chest pain when he takes of breath but no other type of chest pain. He denies any palpitations. He also complains of abdominal pain that was sharp that resolved. He states he tried to have a bowel movement but did not. His last bowel movement was yesterday. No abdominal bloating. He has been afebrile, blood pressure 118/70, pulse 72, pulse ox 95% on room air. Repeat chest x-ray will be ordered. 11/05: The patient states that he continues to have some chest wall pain. Notice crackles in the right side. ProCalcitonin was 0.11. Repeat chest x-ray shows stable trace pleural effusions and left basilar airspace disease. Discussed case with cardiothoracic surgery. No plan for antibiotics at this point. He has been afebrile but leukocytosis continues. Patient has received authorization from his insurance for discharge to [facility] but no male beds are available and patient will be discharged tomorrow. Objective - Vital Signs Vital signs: Vital Signs Temp 99.2 F 11/05/18 08:00 Pulse 78 11/05/18 08:49 Resp 16 11/05/18 08:00 BP 100/59 11/05/18 08:00 Pulse Ox 95 11/05/18 08:00 Intake & Output 11/04/18 11/05/18 11/05/18 18:59 06:59 18:59 Intake Total 500 200 600 Output Total 940 100 Balance -440 200 500 Weight 71.4 kg Intake: Oral 500 200 600 Output: Chest Tube Drainage 90 100 Left Lateral Chest 90 100 Urine 850 Other: Voiding Method Toilet Toilet # Voids 1 1 ABP, PAP, CO, CI - Last Documented Arterial Blood Pressure 154/69 Pulmonary Artery Pressure 35/17 Cardiac Output 12 Cardiac Index 3.2 - Exam Review of Systems CONSTITUTIONAL: Denies fever, denies chills EYES: No icterus sclerae, no conjunctivitis. EARS, NOSE, MOUTH, THROAT, and FACE: No sore throat, lymphadenopathy, carotid bruits or deformity. RESPIRATORY: Reports shortness of breath, reports cough, reports sputum production CARDIOVASCULAR: Post CABG, no chest pain, less short of breath, no pleurisy. GASTROINTESTINAL: Reports sharp abdominal pain resolved no diarrhea no sign of GI bleed. GENITOURINARY: Negative for Hematuria. INTEGUMENT/BREAST: Drainage from chest tube sites. HEMATOLOGIC/LYMPHATIC: Negative for bleed or purpura. MUSCULOSKELTAL: No numbness tingling, no myalgias NEURLOGICAL: No numbness no tingling. General Appearance: Patient is sitting in recliner at the bedside and appears to be comfortable Neck HEENT: Supple, no lymphadenopathy, no thyroid enlargement, no carotid bruits. Lungs: Decreased breath sounds in the left side no crackles or wheezes. Heart: Regular rate and rhythm, S1, S2 mild arrhythmia with S3., no murmur, rub or gallop. Drainage from chest tube sites. Abdomen: Soft, non-tender, bowel sounds active all four quadrants, no masses, no organomegaly. Extremities: Extremities normal, atraumatic, no cyanosis or edema. Pulses: 2+ and symmetric. Skin: Skin color, tugor normal, no rashes or lesions. Neurologic: Patient is awake alert and oriented 3. No focal neural deficits. - Labs CBC & Chem 7: 11/05/18 06:11 11/05/18 06:11 Labs: Abnormal Lab Results - Last 24 Hours (Table) 11/04/18 11/04/18 11/04/18 Range/Units 06:45 12:11 16:55 WBC (3.8-10.6) k/uL RBC (4.30-5.90) m/uL Hgb (13.0-17.5) gm/dL Hct (39.0-53.0) % MCHC (31.0-37.0) g/dL Plt Count (150-450) k/uL Neutrophils # (1.3-7.7) k/uL Sodium (137-145) mmol/L Creatinine (0.66-1.25) mg/dL Glucose (74-99) mg/dL POC Glucose (mg/dL) 103 H 107 H (75-99) mg/dL Procalcitonin 0.11 H (0.02-0.09) ng/mL 11/04/18 11/05/18 11/05/18 Range/Units 21:25 02:06 06:11 WBC 17.0 H (3.8-10.6) k/uL RBC 3.11 L (4.30-5.90) m/uL Hgb 8.9 L (13.0-17.5) gm/dL Hct 29.2 L (39.0-53.0) % MCHC 30.7 L (31.0-37.0) g/dL Plt Count 492 H (150-450) k/uL Neutrophils # 14.4 H (1.3-7.7) k/uL Sodium (137-145) mmol/L Creatinine (0.66-1.25) mg/dL Glucose (74-99) mg/dL POC Glucose (mg/dL) 132 H 123 H (75-99) mg/dL Procalcitonin (0.02-0.09) ng/mL 11/05/18 11/05/18 Range/Units 06:11 06:35 WBC (3.8-10.6) k/uL RBC (4.30-5.90) m/uL Hgb (13.0-17.5) gm/dL Hct (39.0-53.0) % MCHC (31.0-37.0) g/dL Plt Count (150-450) k/uL Neutrophils # (1.3-7.7) k/uL Sodium 134 L (137-145) mmol/L Creatinine 0.63 L (0.66-1.25) mg/dL Glucose 105 H (74-99) mg/dL POC Glucose (mg/dL) 116 H (75-99) mg/dL Procalcitonin (0.02-0.09) ng/mL Assessment and Plan Plan: 1 post multiple vessel CABG. patient continues to have the chest tube in place as well as the pacer wires, he is off the pressors and is feeling a lot better t silvestre he continues to be somewhat short of breath, we will maintain patient on aspirin 325 mg orally once every day, Plavix 75 mg orally once every day, metoprolol 12.5 mg orally twice every day and Lipitor 40 mg orally once every day. 2 Acute hypoxic respiratory failure requiring high flow nasal cannula possibly related to history of smoking and underlying CP. Patient was successfully extubated. Pulmonary medicine managing. Continue incentive spirometry. Chest x-ray as above. Procalcitonin 0.11. 3 hyperlipidemia. Continue patient on Lipitor 40 mg orally once every day. 4 history of cerebral palsy: Mild. 5 hyperglycemia without history of diabetes. Previous hemoglobin A1c 5.9. 6 anemia post surgery: Continue to monitor. Continue patient on iron 325 mg orally once every day. 7 BPH. Stable at this time. 8. Atrial fibrillation with rapid ventricular response was on amiodarone drip will be switched to oral amiodarone and continue beta karissa and Cardizem CD. 9 . Acute blood loss anemia expected outcome of surgery post blood transfusion currently hemoglobin is stable continue with iron supplement. 10. DVT prophylaxis. Continue heparin 5000 units subcutaneously every 12 hours. 11. GI prophylaxis. Continue PPI. 12. Left-sided pleural effusion. Ultrasound. No plan for thoracentesis. Full code. Discharge plan: Inpatient rehab at [facility] on Monday Impression and plan of care have been directed as dictated by the signing physician. Eleanor Greer nurse practitioner acting as scribe for signing physician.
--- NOTE | 2018-11-05 14:41 | P.PN ---
Subjective Progress Note Date: 11/05/18 Principal diagnosis: Multivessel coronary artery disease, status post four-vessel bypass surgery, postoperative day 6 on today's evaluation of 10/28/2018, the patient is awake and alert sitting up on a chair. The chest. He is still using incentive spirometer. Overnight he was due atrial fibrillation with some degree of breath and ventricular response in the 110 range. The patient was given boluses of amiodarone and currently is on amiodarone drip. He is back into sinus rhythm. Note that while going into atrial fibrillation, the patient developed hypotension probably related to the loss of atrial kick. He is currently back to normal sinus rhythm. He is hemodynamically stable. He is on beta blockers and Cardizem for rate control. Sternum is stable clean and intact. He is producing adequate amount of urine output. No nausea. No vomiting. No diarrhea. No altered mentation. Chest x- ray still showing some atelectatic changes in lung bases and pulmonary vascular congestion. Hemoglobin is stable.the oxygenation is improving and the patient is on 6 L of oxygen by nasal cannula with a pulse ox of 97%.hemoglobin is at 8.0. On today's evaluation of 10/29/2018 the patient is already transferred today telemetry unit. He is doing well. All of the chest is a been removed. The chest x-ray from today shows pulse vessel congestion and small effusion the left side. No hypotension. No atrial fibrillation. He remains in normal sinus rhythm. He'll be given another dose of Lasix today. The patient seemed was at 8.1. BUN is 14 creatinine 0.6. He is using his incentive spirometer. No chest pain. No altered mentation. He is emanating in the hallway. His sternal wound is dry clean and intact. He is currently on oxygen at 4 L per minute nasal c annula. On 10/22/2018 patient seen in follow-up on selective care unit, he sitting up in a recliner, in no acute distress, lung sounds are clear, etc. spirometer effort is 750 ML. Today's chest x-ray has been reviewed and shows persistent small left pleural effusion and multifocal subsegmental atelectasis. Patient is on 2 L of oxygen his pulse ox is 94%, afebrile, hemodynamically stable. No co mplaints of shortness of breath, patient has been ambulating in the hallway, tolerates activity well, anticipate discharge to inpatient rehab sometime today. This is postoperative day 6 status post four-vessel coronary artery bypass grafting, all chest tubes Pretty catheter have been discontinued, wires are still in place, and are grounded. On 10/31/2018 patient is seen in follow-up on selective care unit, he is resting comfortably in bed, this is postop day 7, status post four-vessel coronary artery bypass grafting. Patient is doing well, today's chest x-ray has been reviewed, and there is worsening in the appearance of left lower lobe airspace disease, atelectasis and pleural effusion, patient received another dose of IV Lasix per CT surgery. Denies any worsening dyspnea, he has been working on his incentive spirometer, he is currently on room air, with a pulse ox of 94%, he has been tolerating ambulation. Today's lab work has been reviewed, white blood cell count is 14.5, hemoglobin is 9.5, electrolytes and renal profile were unremarkable. Patient is voiding, Pretty chest tubes have been discontinued. He is awaiting discharge to inpatient rehab possibly today. On 11/02/2018 patient seen in follow-up on selective care unit, he is awake and alert, in no acute distress, room air pulse ox is 91%, low-grade fever of 99.9F today, hemodynamically stable, lung sounds are diminished over bilateral bases, left greater than the right. Today's chest x-ray shows worsening moderate to borderline large size left pleural effusion with associated compressive atelectasis. Ultrasound of the chest is pending, and patient is having increased serosanguineous drainage from his former left pleural chest tube site, requiring dressing changes and gown change. No worsening dyspnea, his incentive spirometer effort is up to 750-1000 ML today. Vital signs are stable. He is on maintenance dose of oral Lasix, and he will receive an additional dose of IV Lasix per CT surgery. On 11/04/2016 patient seen in follow-up on selective care unit, she is awake and alert, oriented 3, sitting in the recliner, in no acute distress, room air pulse ox is 92%, he was given additional dose of IV Lasix per CT surgery, today's chest x-ray showed Persistent left basilar airspace disease, but there has been improvement in the appearance of bilateral pleural effusions. He is maintaining negative fluid balance, ostomy bag has been applied to the left lower chest wall and there is serosanguineous drainage from the former chest tube site. Today's labs have been reviewed, blood cell, 17.3, hemoglobin is 8.8, sodium is 135, domestic electrolytes and renal profile are within normal limits. Incentive spirometer effort is 1250, patient is tolerating ambulation. Lung sounds reveal diminished breath sounds on the left posterior base. Clinically patient is asymptomatic. On 11/05/2018 patient is seen in follow-up on selective care unit, he is resting comfortably in bed, in no acute distress, awake and alert, oriented 3, he is on room air. Pulse ox is 93%, he is working his incentive spirometer, today's chest x-ray has been reviewed, and showed stable trace pleural effusions and lef t basilar airspace disease, there has been 90 mL out of the left lateral chest tube site, she received a dose of IV diuretics yesterday, received another dose today. In negative fluid balance, no respiratory distress, lung sounds are diminished at the left base, significant rhonchi or wheezes. Today's labs have been reviewed, white blood cell, 17.0, hemoglobin is 8.9, serum sodium is 134, the rest of electrolytes and renal profile are unremarkable. Calcitonin level is low at 0.11. Urine and sputum cultures have been negative thus far. No fever or chills. Objective - Vital Signs Vital signs: Vital Signs Temp 99.2 F 11/05/18 08:00 Pulse 76 11/05/18 12:00 Resp 16 11/05/18 14:28 BP 107/59 11/05/18 12:00 Pulse Ox 93 L 11/05/18 12:00 Intake & Output 11/04/18 11/05/18 11/05/18 18:59 06:59 18:59 Intake Total 500 200 600 Output Total 940 100 Balance -440 200 500 Weight 71.4 kg Intake: Oral 500 200 600 Output: Chest Tube Drainage 90 100 Left Lateral Chest 90 100 Urine 850 Other: Voiding Method Toilet Toilet # Voids 1 1 1 ABP, PAP, CO, CI - Last Documented Arterial Blood Pressure 154/69 Pulmonary Artery Pressure 35/17 Cardiac Output 12 Cardiac Index 3.2 - Exam GENERAL EXAM: Alert, pleasant, 53-year-old white male comfortable in no apparent distress. HEAD: Normocephalic/atraumatic. EYES: Normal reaction of pupils, equal size. Conjunctiva pink, sclera white. NOSE: Clear with pink turbinates. THROAT: No erythema or exudates. NECK: No masses, no JVD, no thyroid enlargement, no adenopathy. CHEST: No chest wall deformity. Symmetrical expansion. Sternal incision is clean dry and intact, stable, left chest former pleural chest tube site is draining moderate amount of serosanguineous drainage, there is an ostomy bag applied to the left chest tube site, and a former mediastinal chest tube LUNGS: Equal air entry with clear breath sounds, no rhonchi, no wheezing CVS: Regular rate and rhythm, normal S1 and S2, no gallops, no murmurs, no rubs ABDOMEN: Soft, nontender. No hepatosplenomegaly, normal bowel sounds, no guarding or rigidity. EXTREMITIES: No clubbing, no edema, no cyanosis, 2+ pulses and upper and lower extremities. MUSCULOSKELETAL: Muscle strength and tone normal. SPINE: No scoliosis or deformity SKIN: No rashes CENTRAL NERVOUS SYSTEM: Alert and oriented -3. No focal deficits, tone is normal in all 4 extremities. PSYCHIATRIC: Alert and oriented -3. Appropriate affect. Intact judgment and insight. - Labs CBC & Chem 7: 11/05/18 06:11 11/05/18 06:11 Labs: Abnormal Lab Results - Last 24 Hours (Table) 11/04/18 11/04/18 11/04/18 Range/Units 06:45 16:55 21:25 WBC (3.8-10.6) k/uL RBC (4.30-5.90) m/uL Hgb (13.0-17.5) gm/dL Hct (39.0-53.0) % MCHC (31.0-37.0) g/dL Plt Count (150-450) k/uL Neutrophils # (1.3-7.7) k/uL Sodium (137-145) mmol/L Creatinine (0.66-1.25) mg/dL Glucose (74-99) mg/dL POC Glucose (mg/dL) 107 H 132 H (75-99) mg/dL Procalcitonin 0.11 H (0.02-0.09) ng/mL 11/05/18 11/05/18 11/05/18 Range/Units 02:06 06:11 06:11 WBC 17.0 H (3.8-10.6) k/uL RBC 3.11 L (4.30-5.90) m/uL Hgb 8.9 L (13.0-17.5) gm/dL Hct 29.2 L (39.0-53.0) % MCHC 30.7 L (31.0-37.0) g/dL Plt Count 492 H (150-450) k/uL Neutrophils # 14.4 H (1.3-7.7) k/uL Sodium 134 L (137-145) mmol/L Creatinine 0.63 L (0.66-1.25) mg/dL Glucose 105 H (74-99) mg/dL POC Glucose (mg/dL) 123 H (75-99) mg/dL Procalcitonin (0.02-0.09) ng/mL 11/05/18 11/05/18 Range/Units 06:35 11:51 WBC (3.8-10.6) k/uL RBC (4.30-5.90) m/uL Hgb (13.0-17.5) gm/dL Hct (39.0-53.0) % MCHC (31.0-37.0) g/dL Plt Count (150-450) k/uL Neutrophils # (1.3-7.7) k/uL Sodium (137-145) mmol/L Creatinine (0.66-1.25) mg/dL Glucose (74-99) mg/dL POC Glucose (mg/dL) 116 H 104 H (75-99) mg/dL Procalcitonin (0.02-0.09) ng/mL Assessment and Plan Plan: 1 multivessel coronary disease and the patient is status post four-vessel b ypass surgery. Postop day 12. Patient is recovering adequately for now. Chest tubes are out and the patient has a increased drainage out of the left pleural chest tube site, was on the chest has been ordered, and patient will receive an additional dose of IV Lasix 2 postoperative acute blood loss anemia, expected outcome of surgery 3 Routine ventilator management 4 paroxysmal atrial fibrillation, current rhythm is sinus on a combination of metoprolol, Cardizem and amiodarone. The rhythm remains sinus 5 history of hyperlipidemia 6 cerebral palsy 7 bilateral carotid artery stenosis in the order of 70% 8 preoperative E. coli UTI, treated 9 history of cerebral palsy Plan: Routine current medical treatment, patient was given additional dose of IV diuretics, today's chest x-ray shows small effusions, and left basilar airspace disease, likely related to atelectasis, Procalcitonin level was low, suggesting absence of infection. Encourage breathing and coughing, incentive spirometer use. I performed a history & physical examination of the patient and discussed their management with my nurse practitioner, Carlene Jiménez. I reviewed the nurse practitioner's note and agree with the documented findings and plan of care. Lung sounds are positive for clear breath sounds. The findings and the impression was discussed with the patient. I attest to the documentation by the nurse practitioner. Time with Patient: Less than 30
[2018-11-05 16:56] LABS: Glucose,Whole Blood 106 mg/dL (75-99)
[2018-11-05] MEDS: SENNOSIDES-DOCUSATE SODIUM 1 EACH TAB PO SCH (19:19)
[2018-11-05 21:14] LABS: Glucose,Whole Blood 137 mg/dL (75-99)
[2018-11-06] MEDS: FERROUS SULFATE 325 MG TAB PO SCH (05:51)
[2018-11-06] MEDS: HYDROcodone/APAP 5-325MG 1 EACH TAB PO PRN ×2 (05:51→10:23)
[2018-11-06] MEDS: PANTOPRAZOLE 40 MG TABLET PO SCH (05:51)
[2018-11-06] MEDS: ASCORBIC ACID 500 MG TAB PO SCH (05:51)
[2018-11-06 06:11] LABS: Glucose,Whole Blood 108 mg/dL (75-99)
[2018-11-06 06:43] LABS: HCT 29.6 % (39.0-53.0); HGB 9.3 gm/dL (13.0-17.5); Hypochromasia Moderate; MCH 29.1 pg (25.0-35.0); MCHC 31.6 g/dL (31.0-37.0); MCV 92.3 fL (80.0-100.0); Mean Platelet Volume 6.8; Platelet Count 510 k/uL (150-450); Poikilocytosis Slight; RDW 15.1 % (11.5-15.5); WBC 16.1 k/uL (3.8-10.6)
--- NOTE | 2018-11-06 06:56 | XR ---
EXAMINATION TYPE: XR chest 2V DATE OF EXAM: 11/06/2018 COMPARISON: Prior chest x-ray 11/05/2018 HISTORY: Status post cardiac surgery TECHNIQUE: Frontal and lateral views of the chest are obtained. FINDINGS: Patient is post median sternotomy and rotated. There is persistent blunting the costophren ic angles, elevation of the right hemidiaphragm. No evident pneumothorax. Heart size is likely stable . Interstitium mildly increased. Retrocardiac density persists. IMPRESSION: Basilar atelectasis and associated effusions, correlate to exclude pneumonia. Postop blaine olivareses.
[2018-11-06 06:59] LABS: Anion Gap 10 mmol/L; Blood Urea Nitrogen 12 mg/dL (9-20); Calcium 8.8 mg/dL (8.4-10.2); Carbon Dioxide 25 mmol/L (22-30); Chloride 102 mmol/L (98-107); Glucose 104 mg/dL (74-99); Potassium 4.3 mmol/L (3.5-5.1); Sodium 137 mmol/L (137-145)
[2018-11-06] MEDS: ASPIRIN 81 MG PO SCH (08:30)
[2018-11-06] MEDS: METOPROLOL TARTRATE 25 MG TAB PO SCH (08:30)
[2018-11-06] MEDS: ATORVASTATIN 80 MG TAB PO SCH (08:30)
[2018-11-06] MEDS: APIXABAN 5 MG TAB PO SCH (08:30)
[2018-11-06] MEDS: AMIODARONE 200 MG TAB PO SCH (08:30)
[2018-11-06] MEDS: IPRATROPIUM-ALBUTEROL 3 ML NEB INHALATION SCH ×2 (08:45→12:23)
[2018-11-06 09:00] VITALS: RESP 20; TEMP 98
--- NOTE | 2018-11-06 09:00 | P.DS ---
Providers Date of admission: 10/24/18 05:35 Expected date of discharge: 11/06/18 Attending physician: Denilson Galan Consults: 10/24/18 15:13 Consult Physician Routine Consulting Provider: Samir Feliz Consult Reason/Comments: Billing Supervisor Consult: post cardiac surgery Do you want consulting provider notified?: Yes Placement Type Exists?: Yes Consult Physician Routine Consulting Provider: Óscar Alfred Consult Reason/Comments: medical mgmt; [facility] patient Do you want consulting provider notified?: Yes Placement Type Exists?: Yes Consult Physician Routine Consulting Provider: Tarik Prajapati Consult Reason/Comments: Inspector Welded Parts Consult: post cardiac surgery Do you want consulting provider notified?: Yes Placement Type Exists?: Yes 10/26/18 07:03 Consult Physician Routine Consulting Provider: Geronimo Chen Consult Reason/Comments: inpatient rehab Do you want consulting provider notified?: Yes Primary care physician: [facility] Course: FINAL DIAGNOSIS: 1. Severe triple-vessel coronary artery disease with preserved LV function 2. Hypertension 3. Hyperlipidemia 4. Previous tobacco dependence with FEV1 94% of predicted 5. Cerebral palsy 6. Bilateral carotid artery stenosis 70% 7. Family history of premature coronary artery disease 8. Preoperative E. coli UTI treated with Cipro 1 week 9. Postoperative acute blood loss anemia, expected 10. Postoperative atrial fibrillation, unexpected 11. Leukocytosis, likely atelectasis, unexpected 12. Left-sided pleural effusion, unexpected PRINCIPAL PROCEDURE: 1. Coronary artery bypass graft surgery with left internal mammary artery to the left anterior descending artery, left radial artery to the first obtuse marginal artery, reverse saphenous vein graft to the first diagonal artery, reverse saphenous vein graft to the posterior lateral branch of the right coronary artery 2. Endoscopic harvesting of the right greater saphenous vein and left radial a rtery 3. Epi-aortic scanning 4. Intraoperative transesophageal echocardiogram HISTORY OF PRESENT ILLNESS: This is a 53-year-old in active gentleman who recently began following with Dr. Gomez on an outpatient basis. He had been experiencing intermittent chest pain for approximately 6 months which occurred with exertion associated with shortness of breath, which abated on its own. He denied any other symptoms. Apparently he had been scheduled for colonoscopy but went he told the anesthesiologist that he been having intermittent chest pain anesthesiologist canceled the case and referred him to cardiology. He followed up with Dr. Prajapati from [facility], had a stress test which was abnormal and echocardiogram, and T was recommended to undergo heart catheterization which demonstrated right coronary artery stenosis 99%, posterior lateral branch with 60% stenosis, obtuse marginal branch of the circumflex coronary artery with 90% stenosis, and proximal left anterior descending coronary artery stenosis of 85%. Consultation was placed for Dr. Galan from cardiothoracic surgery. He was recommended to undergo coronary artery bypass surgery. The usual perioperative course was discussed in detail with the patient and his family, all risks and benefits were explained, all questions were answered, and consent was obtained to proceed with surgery. The patient was discharged to home on maximal medical therapy to return as an outpatient for surgery which was scheduled at the earliest possible date HOSPITAL COURSE: The patient was brought to the hospital on 10/24/2018, taken to the preoperative area, prepared in the usual fashion, and subsequently taken to the operating room where Dr. Galan performed coronary artery bypass graft surgery with left internal mammary artery to the left anterior descending artery, left radial artery to the first obtuse marginal artery, reverse saphenous vein graft to the first diagonal artery, reverse saphenous vein graft to the posterior lateral branch of the right coronary artery, endoscopic harvesting of the right greater saphenous vein and left radial artery, epi- aortic scanning, and intraoperative transesophageal echocardiogram. Upon completion of surgery the patient was transferred to the cardiovascular intensive care unit where he was recovered, monitored hemodynamically, and where he progressed to cardiac rehabilitation phase 1. He was extubated, all lines, tubes, and drips were discontinued when appropriate, and he was transferred to 3 S. cardiac stepdown unit for further monitoring and rehabilitation. He did experience postoperative atrial fibrillation which was treated with amiodarone. His oxygen was titrated down, he continued to work with physical and occupational therapy, he was tolerating oral diet, his pain was controlled, and he was ready to be discharged to [facility] inpatient rehab on postoperative day #6, however insurance authorization took time and he wasn't approved to be sent to [facility] until POD #12. He received written and verbal instruction regarding his medications, activity restrictions, signs and symptoms requiring physician notification, and follow-up appointments. COMPLICATIONS: The patient experienced postoperative atrial fibrillation which was treated with amiodarone, left pleural effusion treated with lasix, and leukocytosis with needed encouragement of pulmonary hygiene. Patient Condition at Discharge: Stable Plan - Discharge Summary Discharge Rx Participant: No New Discharge Prescriptions: New Artificial Tears-Hypromellose [Artificial Tear Drops] 2 drops BOTH EYES QID PRN bottle PRN Reason: Dry Eye(S) Diltiazem Cd [Cardizem CD] 120 mg PO DAILY@1200 cap.er.24h Benzocaine/Menthol Lozeng [Cepacol lozenge] 1 each MUCOUS MEM Q2H PRN lozenge PRN Reason: Sore Throat Ipratropium-Albuterol Nebulize [Duoneb 0.5 mg-3 mg/3 ml Soln] 3 ml INHALATION RT-QID ampul.neb Ipratropium-Albuterol Nebulize [Duoneb 0.5 mg-3 mg/3 ml Soln] 3 ml INHALATION RT-Q2H PRN ampul.neb PRN Reason: Shortness Of Breath Or Wheezing Apixaban [Eliquis] 5 mg PO BID tab Ferrous Sulfate [Iron (65 MG Elemental)] 325 mg PO BID-W/MEALS tab Metoprolol Tartrate [Lopressor] 25 mg PO Q12HR tab Magnesium Hydroxide [Milk of Magnesia Concentrate] 2,400 mg PO BID PRN ml PRN Reason: Constipation Pantoprazole [Protonix] 40 mg PO AC-BRKFST tablet.dr [place]-Docusate Sodium [Senokot-S] 2 each PO HS PRN tab PRN Reason: Constipation Acetaminophen Tab [Tylenol] 1,000 mg PO Q6HR PRN tab PRN Reason: Fever and/ or Mild Pain Ascorbic Acid [Vitamin C] 500 mg PO BID-W/MEALS tab Amiodarone [Cordarone] 200 mg PO BID tab Furosemide [Lasix] 40 mg PO DAILY #7 tablet Continue Ergocalciferol (Vitamin D2) [Vitamin D2] 50,000 unit PO MO Aspirin 81 mg PO DAILY #30 chew Atorvastatin [Lipitor] 80 mg PO HS #30 tab Discontinued Nitroglycerin Sl Tabs [Nitrostat] 0.4 mg SUBLINGUAL Q5M PRN #25 tab PRN Reason: Chest Pain Metoprolol Succinate (ER) [Toprol XL] 25 mg PO DAILY #30 tab.er.24h Discharge Medication List Ergocalciferol (Vitamin D2) [Vitamin D2] 50,000 unit PO MO 10/05/18 [History] Aspirin 81 mg PO DAILY #30 chew 10/10/18 [Rx] Atorvastatin [Lipitor] 80 mg PO HS #30 tab 10/10/18 [Rx] Acetaminophen Tab [Tylenol] 1,000 mg PO Q6HR PRN tab 10/30/18 [Rx] Apixaban [Eliquis] 5 mg PO BID tab 10/30/18 [Rx] Artificial Tears-Hypromellose [Artificial Tear Drops] 2 drops BOTH EYES QID PRN bottle 10/30/18 [Rx] Ascorbic Acid [Vitamin C] 500 mg PO BID-W/MEALS tab 10/30/18 [Rx] Benzocaine/Menthol Lozeng [Cepacol lozenge] 1 each MUCOUS MEM Q2H PRN lozenge 10/30/18 [Rx] Diltiazem Cd [Cardizem CD] 120 mg PO DAILY@1200 cap.er.24h 10/30/18 [Rx] Ferrous Sulfate [Iron (65 MG Elemental)] 325 mg PO BID-W/MEALS tab 10/30/18 [Rx] Ipratropium-Albuterol Nebulize [Duoneb 0.5 mg-3 mg/3 ml Soln] 3 ml INHALATION RT-Q2H PRN ampul.neb 10/30/18 [Rx] Ipratropium-Albuterol Nebulize [Duoneb 0.5 mg-3 mg/3 ml Soln] 3 ml INHALATION RT-QID ampul.neb 10/30/18 [Rx] Magnesium Hydroxide [Milk of Magnesia Concentrate] 2,400 mg PO BID PRN ml 10/30/18 [Rx] Metoprolol Tartrate [Lopressor] 25 mg PO Q12HR tab 10/30/18 [Rx] Pantoprazole [Protonix] 40 mg PO AC-BRKFST tablet.dr 10/30/18 [Rx] Sennosides-Docusate Sodium [Senokot-S] 2 each PO HS PRN tab 10/30/18 [Rx] Amiodarone [Cordarone] 200 mg PO BID tab 11/06/18 [Rx] Furosemide [Lasix] 40 mg PO DAILY #7 tablet 11/06/18 [Rx] Follow up Appointment(s)/Referral(s): Denilson Galan MD [STAFF PHYSICIAN] - 11/23/18 10:00 am Jorge Gomez DO [Primary Care Provider] - 1 Week (please make appointment upon discharge from inpatient rehab) Samir Feliz MD [STAFF PHYSICIAN] - 1 Week (please make appointment upon discharge from inpatient rehab) Tarik Prajapati MD [STAFF PHYSICIAN] - 1 Week (please make appointment upon discharge from inpatient rehab) Ambulatory/Diagnostic Orders: Complete Blood Count w/diff [LAB.AMB] Time Frame: 3 Days, Location: None Selected Comprehensive Metabolic Panel [LAB.AMB] Time Frame: 3 Days, Location: None Selected Patient Instructions/Handouts: Sternal Precautions (GEN), CABG (Coronary Artery Bypass Graft) (DC) Activity/Diet/Wound Care/Special Instructions: CONSULTS AT [facility] INPATIENT REHAB: 1. Dr. Prajapati for cardiology 2. Dr. Feliz for pulmonology DISCHARGE INSTRUCTIONS: 1. No driving for 4 weeks, or until physician gives their ok. 2. The patient should sleep in their own bed, no medical bed needed. 3. Stairs are not an issue. If the bedroom is upstairs, it is advised that the patient go up at night and down in the morning for the first week. Go slowly, using handrail and take 1 step at a time. 4. GISELA hose are to be worn for 30 days or until physician discontinues. 5. Heart hugger is to be worn 100% of the time until physician discontinues.(except when showering) 6. No lifting, pushing, or pulling more than 10 pounds for 12 weeks. The physician will advise of any restriction changes. 7. The patient is expected to continue the prescribed walking program. 8. Continue pain control per as needed orders. 9. Continue with incentive spirometry and splinting/heart hugger until otherwise directed by the physician. 10. Must shower daily using liquid antibacterial soap and a separate white washcloth for each individual incision. 11. Routine sternal incision care. No powders, lotions, ointments on incisions. 12. Please call surgeon/OVERAGE SHORTAGE AND DAMAGE CLERK for temp greater than 101 F or purulent drainage from incisions. 13. Refills need to be filled through iron worker foreman/primary care physician. 14. A Red armband has been placed on the patient. It should be worn for 30 days post surgery and will be removed by the cardiac surgeons. If an ER visit is necessary, please make sure the number on the Red armband is called. REHAB/HOME HEALTH SERVICES TO PROVIDE: RN SKILLED HOME CARE SERVICES FOR POST-OP SURGICAL PATIENTS WITH THE FOLLOWING: Coronary Artery Bypass Surgery (CABG), Mitral Valve Replacement/Repair ( MVR), Aortic Valve Replacement/Repair (AVR) RN TO CONTINUE EDUCATION FROM ``ROAD TO A HEALTH HEART PATIENT EDUCATION MANUAL (GIVEN TO PATIENT IN THE HOSPITAL) MEDICATION RECONCILIATION WITH EDUCATION NEEDED ON FIRST HOME VISIT EMPHASIZE IMPORTANCE OF WEARING BREAST SUPPORT/HEART HUGGER ENCOURAGE USE OF INCENTIVE SPIROMETER 10 X EVERY HOUR WHILE AWAKE ENCOURAGE UTILIZATION OF LOWER EXTREMITY COMPRESSION STOCKINGS/GISELA HOSE and ELEVATE LEGS ABOVE LEVEL OF HEART WHILE AT REST. ENCOURAGE AMBULATION 3-5x/day INCREASING TOLERATES, WHILE AVOID EXTREMES IN TEMPERATURE FREQUENCY: RN TO OPEN THE PATIENT WITHIN 24 HOURS OF DISCHARGE FROM REHAB WITH TELEHEALTH INSTALLED AT [facility], RN TO VISIT 2-3 X A WEEK FOR 4 WEEKS ESTABLISHED BY PATIENT NEEDS. LABORATORY: CBC, CMP TO BE DRAWN ON THE THIRD DAY AT REHAB THEN PER PROTOCOL, (RAN STAT) FAX RESULTS TO [phone]. TELEHEALTH PARAMETERS: WEIGHT: NOTIFY MD OF WEIGHT GAIN OF 2 LBS IN 24 HOURS OR 5 LBS IN ONE WEEK HR: NOTIFY MD OF HR <55 BPM OR HR>100 BPM BP: NOTIFY MD IF BP <90/55 OR BP>140/100 O2 SAT: NOTIFY MD IF PO2<93% ON ROOM AIR SEND TELEHEALTH REPORT TO RIM TURNING MACHINE OPERATOR AND CARDIOVASCULAR SURGEON THE FIRST WEEK OF CARE AND THEN BI-WEEKLY. PLEASE ADDITIONALLY COMMUNICATE ANY ABNORMALS AND NEW FINDINGS TO THE SURGEONS OFFICE. Discharge Disposition: DC/TRNS INTERMEDIATE CARE FAC
--- NOTE | 2018-11-06 11:24 | P.PN ---
Subjective Progress Note Date: 11/06/18 Principal diagnosis: Multivessel coronary artery disease, status post four-vessel bypass surgery, postoperative day 6 on today's evaluation of 10/28/2018, the patient is awake and alert sitting up on a chair. The chest. He is still using incentive spirometer. Overnight he was due atrial fibrillation with some degree of breath and ventricular response in the 110 range. The patient was given boluses of amiodarone and currently is on amiodarone drip. He is back into sinus rhythm. Note that while going into atrial fibrillation, the patient developed hypotension probably related to the loss of atrial kick. He is currently back to normal sinus rhythm. He is hemodynamically stable. He is on beta blockers and Cardizem for rate control. Sternum is stable clean and intact. He is producing adequate amount of urine output. No nausea. No vomiting. No diarrhea. No altered mentation. Chest x- ray still showing some atelectatic changes in lung bases and pulmonary vascular congestion. Hemoglobin is stable.the oxygenation is improving and the patient is on 6 L of oxygen by nasal cannula with a pulse ox of 97%.hemoglobin is at 8.0. On today's evaluation of 10/29/2018 the patient is already transferred today telemetry unit. He is doing well. All of the chest is a been removed. The chest x-ray from today shows pulse vessel congestion and small effusion the left side. No hypotension. No atrial fibrillation. He remains in normal sinus rhythm. He'll be given another dose of Lasix today. The patient seemed was at 8.1. BUN is 14 creatinine 0.6. He is using his incentive spirometer. No chest pain. No altered mentation. He is emanating in the hallway. His sternal wound is dry clean and intact. He is currently on oxygen at 4 L per minute nasal c annula. On 10/22/2018 patient seen in follow-up on selective care unit, he sitting up in a recliner, in no acute distress, lung sounds are clear, etc. spirometer effort is 750 ML. Today's chest x-ray has been reviewed and shows persistent small left pleural effusion and multifocal subsegmental atelectasis. Patient is on 2 L of oxygen his pulse ox is 94%, afebrile, hemodynamically stable. No co mplaints of shortness of breath, patient has been ambulating in the hallway, tolerates activity well, anticipate discharge to inpatient rehab sometime today. This is postoperative day 6 status post four-vessel coronary artery bypass grafting, all chest tubes Pretty catheter have been discontinued, wires are still in place, and are grounded. On 10/31/2018 patient is seen in follow-up on selective care unit, he is resting comfortably in bed, this is postop day 7, status post four-vessel coronary artery bypass grafting. Patient is doing well, today's chest x-ray has been reviewed, and there is worsening in the appearance of left lower lobe airspace disease, atelectasis and pleural effusion, patient received another dose of IV Lasix per CT surgery. Denies any worsening dyspnea, he has been working on his incentive spirometer, he is currently on room air, with a pulse ox of 94%, he has been tolerating ambulation. Today's lab work has been reviewed, white blood cell count is 14.5, hemoglobin is 9.5, electrolytes and renal profile were unremarkable. Patient is voiding, Pretty chest tubes have been discontinued. He is awaiting discharge to inpatient rehab possibly today. On 11/02/2018 patient seen in follow-up on selective care unit, he is awake and alert, in no acute distress, room air pulse ox is 91%, low-grade fever of 99.9F today, hemodynamically stable, lung sounds are diminished over bilateral bases, left greater than the right. Today's chest x-ray shows worsening moderate to borderline large size left pleural effusion with associated compressive atelectasis. Ultrasound of the chest is pending, and patient is having increased serosanguineous drainage from his former left pleural chest tube site, requiring dressing changes and gown change. No worsening dyspnea, his incentive spirometer effort is up to 750-1000 ML today. Vital signs are stable. He is on maintenance dose of oral Lasix, and he will receive an additional dose of IV Lasix per CT surgery. On 11/04/2016 patient seen in follow-up on selective care unit, she is awake and alert, oriented 3, sitting in the recliner, in no acute distress, room air pulse ox is 92%, he was given additional dose of IV Lasix per CT surgery, today's chest x-ray showed Persistent left basilar airspace disease, but there has been improvement in the appearance of bilateral pleural effusions. He is maintaining negative fluid balance, ostomy bag has been applied to the left lower chest wall and there is serosanguineous drainage from the former chest tube site. Today's labs have been reviewed, blood cell, 17.3, hemoglobin is 8.8, sodium is 135, domestic electrolytes and renal profile are within normal limits. Incentive spirometer effort is 1250, patient is tolerating ambulation. Lung sounds reveal diminished breath sounds on the left posterior base. Clinically patient is asymptomatic. On 11/05/2018 patient is seen in follow-up on selective care unit, he is resting comfortably in bed, in no acute distress, awake and alert, oriented 3, he is on room air. Pulse ox is 93%, he is working his incentive spirometer, today's chest x-ray has been reviewed, and showed stable trace pleural effusions and lef t basilar airspace disease, there has been 90 mL out of the left lateral chest tube site, she received a dose of IV diuretics yesterday, received another dose today. In negative fluid balance, no respiratory distress, lung sounds are diminished at the left base, significant rhonchi or wheezes. Today's labs have been reviewed, white blood cell, 17.0, hemoglobin is 8.9, serum sodium is 134, the rest of electrolytes and renal profile are unremarkable. Calcitonin level is low at 0.11. Urine and sputum cultures have been negative thus far. No fever or chills. On 11/06/2018 she is seen in follow-up on selective care unit, he is resting comfortably in bed, on room air, his pulse ox is 97%, vital signs are stable, afebrile, there has been 180 mL of pleural fluid output from the left lateral chest tube site, and 330 mL from the right pleural chest tube site. Patient received dose of IV Lasix yesterday diuresed, his weight is down 1.3 kg since yesterday. Lung sounds reveal some limited crackles at the right lower base. Objective - Vital Signs Vital signs: Vital Signs Temp 98 F 11/06/18 08:00 Pulse 74 11/06/18 08:55 Resp 20 11/06/18 08:00 BP 123/68 11/06/18 08:00 Pulse Ox 97 11/06/18 08:00 Intake & Output 0611/06/18 11/06/18 18:59 06:59 18:59 Intake Total 960 180 Output Total 280 230 Balance 680 -230 180 Weight 70.1 kg Intake: Oral 960 180 Output: Chest Tube Drainage 280 230 Left Lateral Chest 130 50 Right Pleural 150 180 Other: Voiding Method Toilet Toilet # Voids 1 1 ABP, PAP, CO, CI - Last Documented Arterial Blood Pressure 154/69 Pulmonary Artery Pressure 35/17 Cardiac Output 12 Cardiac Index 3.2 - Exam GENERAL EXAM: Alert, pleasant, 53-year-old white male comfortable in no apparent distress. HEAD: Normocephalic/atraumatic. EYES: Normal reaction of pupils, equal size. Conjunctiva pink, sclera white. NOSE: Clear with pink turbinates. THROAT: No erythema or exudates. NECK: No masses, no JVD, no thyroid enlargement, no adenopathy. CHEST: No chest wall deformity. Symmetrical expansion. Sternal incision is clean dry and intact, stable, left chest former pleural chest tube site is draining moderate amount of serosanguineous drainage, there is an ostomy bag applied to the left chest tube site, and a former mediastinal chest tube and right pleural chest tube site LUNGS: Equal air entry with clear breath sounds, no rhonchi, no wheezing CVS: Regular rate and rhythm, normal S1 and S2, no gallops, no murmurs, no rubs ABDOMEN: Soft, nontender. No hepatosplenomegaly, normal bowel sounds, no guarding or rigidity. EXTREMITIES: No clubbing, no edema, no cyanosis, 2+ pulses and upper and lower extremities. MUSCULOSKELETAL: Muscle strength and tone normal. SPINE: No scoliosis or deformity SKIN: No rashes CENTRAL NERVOUS SYSTEM: Alert and oriented -3. No focal deficits, tone is normal in all 4 extremities. PSYCHIATRIC: Alert and oriented -3. Appropriate affect. Intact judgment and insight. - Labs CBC & Chem 7: 11/06/18 06:09 11/06/18 06:09 Labs: Abnormal Lab Results - Last 24 Hours (Table) 11/05/18 11/05/18 11/05/18 Range/Units 11:51 16:54 21:13 WBC (3.8-10.6) k/uL RBC (4.30-5.90) m/uL Hgb (13.0-17.5) gm/dL Hct (39.0-53.0) % Plt Count (150-450) k/uL Creatinine (0.66-1.25) mg/dL Glucose (74-99) mg/dL POC Glucose (mg/dL) 104 H 106 H 137 H (75-99) mg/dL 11/06/18 11/06/18 11/06/18 Range/Units 06:09 06:09 06:09 WBC 16.1 H (3.8-10.6) k/uL RBC 3.20 L (4.30-5.90) m/uL Hgb 9.3 L (13.0-17.5) gm/dL Hct 29.6 L (39.0-53.0) % Plt Count 510 H (150-450) k/uL Creatinine 0.64 L (0.66-1.25) mg/dL Glucose 104 H (74-99) mg/dL POC Glucose (mg/dL) 108 H (75-99) mg/dL Assessment and Plan Plan: 1 multivessel coronary disease and the patient is status post four-vessel bypass surgery. Postop day 13. Patient is recovering adequately for now. Chest tubes are out and the patient has a increased drainage out of the left pleural chest tube site, was on the chest has been ordered, and patient will receive an additional dose of IV Lasix 2 postoperative acute blood loss anemia, expected outcome of surgery 3 Routine ventilator management 4 paroxysmal atrial fibrillation, current rhythm is sinus on a combination of metoprolol, Cardizem and amiodarone. The rhythm remains sinus 5 history of hyperlipidemia 6 cerebral palsy 7 bilateral carotid artery stenosis in the order of 70% 8 preoperative E. coli UTI, treated 9 history of cerebral palsy Plan: We'll continue current medical treatment, patient remains stable, today's chest x-ray has been reviewed by Dr. Mahoney and shows basilar atelectasis and associated pleural effusions, vital signs are still draining some pleural fluid, patient is on room air, maintaining stable oxygenation, vital signs remain stable. From pulmonary perspective patient is stable for discharge to inpatient rehab today. I performed a history & physical examination of the patient and discussed their management with my nurse practitioner, Carlene Jiménez. I reviewed the nurse practitioner's note and agree with the documented findings and plan of care. Lung sounds are positive for clear breath sounds. The findings and the impression was discussed with the patient. I attest to the documentation by the nurse practitioner. Time with Patient: Less than 30
[2018-11-06 11:35] VITALS: BP 127/72
[2018-11-06 11:50] LABS: Glucose,Whole Blood 90 mg/dL (75-99)
[2018-11-06] MEDS: DILTIAZEM CD 120 MG CAP.ER.24H PO SCH (11:59)
[2018-11-06 12:27] VITALS: PULSE 70
== END 2018-11-06 15:38 | DRG 236 ==
LOC: 2ORMAIN 05:35 → 2SICU 13:47 → 3SCARD 10-28 14:29
PROVIDERS: ADMIT Surgery; ATTEND Surgery
PROC: 03BC4ZZ Excision of Left Radial Artery, Percutaneous Endoscopic Approach (ICD-10-PCS; 2018-10-24)
PROC: 06BP4ZZ Excision of Right Saphenous Vein, Percutaneous Endoscopic Approach (ICD-10-PCS; 2018-10-24)
PROC: B246ZZ4 Ultrasonography of Right and Left Heart, Transesophageal (ICD-10-PCS; 2018-10-24)
PROC: 5A1221Z Performance of Cardiac Output, Continuous (ICD-10-PCS; 2018-10-24)
PROC: 5A1935Z Respiratory Ventilation, Less than 24 Consecutive Hours (ICD-10-PCS; 2018-10-24)
PROC: 0BH17EZ Insertion of Endotracheal Airway into Trachea, Via Natural or Artificial Opening (ICD-10-PCS; 2018-10-24)
PROC: 02100Z9 Bypass Coronary Artery, One Artery from Left Internal Mammary, Open Approach (ICD-10-PCS; principal; 2018-10-24 08:00)
PROC: 021209W Bypass Coronary Artery, Three Arteries from Aorta with Autologous Venous Tissue, Open Approach (ICD-10-PCS; 2018-10-24 08:00)
DX: I25.10 Atherosclerotic heart disease of native coronary artery without angina pectoris (principal); D62 Acute posthemorrhagic anemia; I97.190 Other postprocedural cardiac functional disturbances following cardiac surgery; E87.2 Acidosis; J98.11 Atelectasis; N39.0 Urinary tract infection, site not specified; J90 Pleural effusion, not elsewhere classified; I48.0 Paroxysmal atrial fibrillation; Y83.2 Surgical operation with anastomosis, bypass or graft as the cause of abnormal reaction of the patient, or of later complication, without mention of misadventure at the time of the procedure; Y71.8 Miscellaneous cardiovascular devices associated with adverse incidents, not elsewhere classified; G80.9 Cerebral palsy, unspecified; E78.5 Hyperlipidemia, unspecified; I10 Essential (primary) hypertension; I65.23 Occlusion and stenosis of bilateral carotid arteries; R09.02 Hypoxemia; B96.20 Unspecified Escherichia coli [E. coli] as the cause of diseases classified elsewhere; N40.0 Benign prostatic hyperplasia without lower urinary tract symptoms; Z79.82 Long term (current) use of aspirin; Z79.899 Other long term (current) drug therapy; Z82.49 Family history of ischemic heart disease and other diseases of the circulatory system; Z87.891 Personal history of nicotine dependence; R73.9 Hyperglycemia, unspecified; D72.828 Other elevated white blood cell count; Z56.0 Unemployment, unspecified; R00.1 Bradycardia, unspecified
CPT/HCPCS: 71045; 71046; 76604; 80048; 80053; 81003; 82330; 82533; 82805; 83735; 84100; 84145; 85025; 85027; 85520; 85610; 85730; 86850; 86891; 86900; 86901; 86920; 87070; 87086; 87205; 94002; 94003; 94640; 94760

== ENCOUNTER 2018-11-10 18:45 | Observation (INO) | payer OTHER ==
[2018-11-11 00:48] VITALS: BMI 25.1
[2018-11-11] MEDS ORDERED: SENNOSIDES-DOCUSATE SODIUM 1 EACH TAB PO PRN (00:48)
[2018-11-11] MEDS ORDERED: BENZOCAINE/MENTHOL LOZENG 1 EACH LOZENGE MUCOUS MEM PRN (00:48)
[2018-11-11] MEDS ORDERED: ARTIFICIAL TEARS-HYPROMELLOSE DROPS 15 ML BTL BOTH EYES PRN (00:48)
[2018-11-11] MEDS ORDERED: ACETAMINOPHEN TAB 500 MG TAB PO PRN (00:48)
[2018-11-11] MEDS ORDERED: MAGNESIUM HYDROXIDE 2,400 MG/10 ML CUP PO PRN (00:48)
[2018-11-11] MEDS ORDERED: IPRATROPIUM-ALBUTEROL 3 ML NEB INHALATION PRN (00:48)
[2018-11-11] MEDS: MELATONIN 3 MG TABLET PO SCH ×2 (01:18→20:55)
[2018-11-11] MEDS ORDERED: VANCOMYCIN IV PER PHARMACY 1 EACH MISC MISCELLANE PRN (01:24)
[2018-11-11] MEDS: VANCOMYCIN 1,250 MG in SODIUM CHLORIDE 0.9% 250 ML IVPB SCH ×3 (04:32→17:11)
[2018-11-11 04:59] LABS: HCT 30.4 % (39.0-53.0); HGB 9.5 gm/dL (13.0-17.5); Hypochromasia Marked; MCH 28.7 pg (25.0-35.0); MCHC 31.3 g/dL (31.0-37.0); MCV 91.8 fL (80.0-100.0); Mean Platelet Volume 6.7; Platelet Count 615 k/uL (150-450); Poikilocytosis Slight; RBC 3.31 m/uL (4.30-5.90); RDW 14.8 % (11.5-15.5); WBC 10.6 k/uL (3.8-10.6)
[2018-11-11] MEDS: APIXABAN 5 MG TAB PO SCH ×2 (08:55→20:55)
[2018-11-11] MEDS: FUROSEMIDE 40 MG TAB PO SCH (08:55)
[2018-11-11] MEDS: ASCORBIC ACID 500 MG TAB PO SCH ×2 (08:55→17:11)
[2018-11-11] MEDS: METOPROLOL TARTRATE 25 MG TAB PO SCH ×2 (08:55→20:55)
[2018-11-11] MEDS: PIPERACILLIN-TAZOBACTAM 3.375 GM in SODIUM CHLORIDE 0.9% 100 ML IVPB SCH ×3 (08:55→23:32)
[2018-11-11] MEDS: FERROUS SULFATE 325 MG TAB PO SCH ×2 (08:55→17:12)
[2018-11-11] MEDS: PANTOPRAZOLE 40 MG TABLET PO SCH (08:56)
[2018-11-11] MEDS: ASPIRIN 81 MG PO SCH (08:56)
[2018-11-11] MEDS: AMIODARONE 200 MG TAB PO SCH ×2 (08:56→20:55)
[2018-11-11] MEDS: HYDROcodone/APAP 5-325MG 1 EACH TAB PO PRN ×2 (09:00→20:57)
[2018-11-11] MEDS: IPRATROPIUM-ALBUTEROL 3 ML NEB INHALATION SCH ×4 (09:00→20:28)
[2018-11-11 10:18] LABS: African American GFR (CKD) >90 (>60 ml/min/1.73 sqM)
[2018-11-11] MEDS: DILTIAZEM CD 120 MG CAP.ER.24H PO SCH (11:01)
--- NOTE | 2018-11-11 12:10 | P.GSCN ---
History of Present Illness Consult date: 11/11/18 Reason for Consult: Recent coronary artery bypass grafting surgery 4 vessels, midline sternal incision with scant serous drainage. Requesting physician: Jean Carlos Ariza History of present illness: This is a 53-year-old gentleman who recently moved up from [place] to live with his sister and follows with Dr. Gomez on an outpatient basis. He has a past medical history significant for severe triple vessel coronary artery disease with preserved LV function and recent coronary artery bypass grafting surgery 4 vessels on 10/24/2018, hypertension, hyperlipidemia, cerebral palsy, family history of premature coronary artery disease, bilateral carotid artery stenosis of 70%, previous tobacco dependence with a preoperative FEV1 94% of predicted value, history of preoperative urinary tract infection treated with Cipro for one week, postoperative paroxysmal atrial fibrillation and left-sided pleural effusion. On 10/24/2018 the patient underwent a four-vessel coronary artery bypass grafting surgery with placement of his left internal mammary artery to his left anterior descending coronary artery, left radial artery to the first obtuse marginal coronary artery, reverse greater saphenous vein graft from the first diagonal coronary artery and a reverse greater saphenous vein graft to the posterior lateral branch of the right coronary artery. The patient was recovered from the coronary artery bypass grafting surgery and on postop day #12 was transferred to [facility] inpatient rehab for further rehabilitation needs. Subsequently, while at inpatient rehab on 11/09/2018 his nurse noticed him to have some scant serous drainage from his midline sternal incision. The patient has been afebrile although his WBC count at inpatient rehab was 17.7 on November 07 and he was placed on Augmentin and on 11/10/2018 his WBC count was 12.3. The patient denies any pain, shortness of breath, trauma, palpitations, nausea, vomiting, diarrhea, fever or chills. Subsequently due to the patient's drainage from his sternal incision the patient was transferred to [facility] for further evaluation by the cardiothoracic surgery team. The patient's WBC count this morning was 10.6, hemoglobin 9.5, and platelet count 615. Review of Systems A 14 point review systems was completed and was negative except as mentioned in the HPI. Past Medical History Past Medical History: Atrial Fibrillation, Coronary Artery Disease (CAD), Hyperlipidemia, Hypertension Additional Past Medical History / Comment(s): Cerebral palsy, bilateral carotid artery stenosis 70%, history of UTI with E. coli, treated. History of Any Multi-Drug Resistant Organisms: None Reported Past Surgical History: Coronary Bypass/CABG, Heart Catheterization Past Anesthesia/Blood Transfusion Reactions: No Reported Reaction Additional Past Anesthesia/Blood Transfusion Reaction / Comm: no hx general anesthesia or blood transfusion Past Psychological History: No Psychological Hx Reported Smoking Status: Former smoker Past Alcohol Use History: None Reported Additional Past Alcohol Use History / Comment(s): QUIT SMOKING 03/2017-started smoking at age 4,2 ppd. STATES HAS NOT ETOH IN OVER A YEAR Past Drug Use History: None Reported - Past Family History Mother Family Medical History: No Reported History Additional Family Medical History / Comment(s): family history of premature coronary artery disease on his mother's side Medications and Allergies Home Medications Medication Instructions Recorded Confirmed Type Ergocalciferol (Vitamin D2) 50,000 unit PO MO 10/05/18 11/11/18 History [Vitamin D2] Aspirin 81 mg PO DAILY #30 chew 10/10/18 11/11/18 Rx Atorvastatin [Lipitor] 80 mg PO HS #30 tab 10/10/18 11/11/18 Rx Acetaminophen Tab [Tylenol] 1,000 mg PO Q6HR PRN tab 10/30/18 11/11/18 Rx Apixaban [Eliquis] 5 mg PO BID tab 10/30/18 11/11/18 Rx Artificial Tears-Hypromellose 2 drops BOTH EYES QID PRN bottle 10/30/18 11/11/18 Rx [Artificial Tear Drops] Ascorbic Acid [Vitamin C] 500 mg PO BID-W/MEALS tab 10/30/18 11/11/18 Rx Benzocaine/Menthol Lozeng [Cepacol 1 each MUCOUS MEM Q2H PRN lozenge 10/30/18 11/11/18 Rx lozenge] Diltiazem Cd [Cardizem CD] 120 mg PO DAILY@1200 cap.er.24h 10/30/18 11/11/18 Rx Ferrous Sulfate [Iron (65 MG 325 mg PO BID-W/MEALS tab 10/30/18 11/11/18 Rx Elemental)] Ipratropium-Albuterol Nebulize 3 ml INHALATION RT-Q2H PRN 10/30/18 11/11/18 Rx [Duoneb 0.5 mg-3 mg/3 ml Soln] ampul.neb Ipratropium-Albuterol Nebulize 3 ml INHALATION RT-QID ampul.neb 10/30/18 11/11/18 Rx [Duoneb 0.5 mg-3 mg/3 ml Soln] Magnesium Hydroxide [Milk of 2,400 mg PO BID PRN ml 10/30/18 11/11/18 Rx Magnesia Concentrate] Metoprolol Tartrate [Lopressor] 25 mg PO Q12HR tab 10/30/18 11/11/18 Rx Pantoprazole [Protonix] 40 mg PO AC-BRKFST tablet. 10/30/18 11/11/18 Rx Sennosides-Docusate Sodium 2 each PO HS PRN tab 10/30/18 11/11/18 Rx [Senokot-S] Amiodarone [Cordarone] 200 mg PO BID tab 11/06/18 11/11/18 Rx Furosemide [Lasix] 40 mg PO DAILY #7 tablet 11/06/18 11/11/18 Rx Hydrocodone/Acetaminophen [[place] 1 tab PO Q6HR PRN 11/10/18 11/11/18 History 5-325] Melatonin 3 mg PO DAILY 11/10/18 11/11/18 History Allergies Allergy/AdvReac Type Severity Reaction Status Date / Time No Known Allergies Allergy Verified 11/11/18 08:35 Surgical - Exam Vital Signs Temp Pulse Resp BP Pulse Ox 97.4 F L 64 16 96/62 90 L 11/11/18 00:00 11/11/18 00:00 11/11/18 00:00 11/11/18 00:00 11/11/18 00:00 - General well developed, well nourished, no distress, no pain - Eyes PERRL, normal ocular movement - ENT normal pinna, normal nares, normal mucosa, no hearing loss, no congestion - Neck Neck is supple, no lymphadenopathy. no masses, trachea midline, no venous distension - Respiratory Lung sounds are essentially clear to his bilateral upper lobes, diminished to his bilateral bases. Respirations are symmetrical and nonlabored. No wheezing, crackles or rhonchi. - Cardiovascular Regular rhythm and rate. S1 and S2 present, negative for S3, gallop or murmur. Peripheral pulses are palpable. No edema present. Minimal sternal clicking felt. Heart hugger is in place and he is demonstrating appropriate use. - Abdomen Abdomen is soft, nontender and nondistended. Active bowel sounds all 4 abdominal quadrants. No guarding or rigidity. No organomegaly. - Genitourinary Deferred - Rectum Deferred - Integumentary Midline sternal incision is clean, and approximated. Scant serous drainage mid incision. No redness is present. Chest tube sites with some maceration present. No drainage present. Left radial artery harvest site clean, dry and approximated. No drainage or redness noted. Some ecchymosis present. Right lower extremity EVH sites clean, dry and approximated. no rash, no growths - Neurologic normal coordination, normal sensation - Musculoskeletal Generalized weakness, cerebral palsy. normal posture - Psychiatric oriented to time, oriented to person, oriented to place, speech is normal, memory intact Results - Labs 11/11/18 04:27 11/11/18 04:27 Abnormal Lab Results - Last 24 Hours (Table) 11/11/18 11/11/18 Range/Units 04:27 04:27 RBC 3.31 L (4.30-5.90) m/uL Hgb 9.5 L (13.0-17.5) gm/dL Hct 30.4 L (39.0-53.0) % Plt Count 615 H (150-450) k/uL Creatinine 0.55 L (0.66-1.25) mg/dL Diabetes panel 11/11/18 Range/Units 04:27 Creatinine 0.55 L (0.66-1.25) mg/dL Pituitary panel 11/11/18 Range/Units 04:27 Creatinine 0.55 L (0.66-1.25) mg/dL Adrenal panel 11/11/18 Range/Units 04:27 Creatinine 0.55 L (0.66-1.25) mg/dL Assessment and Plan Assessment: 1. Severe triple-vessel coronary artery disease with preserved left ventricular function, status post coronary artery bypass grafting surgery 4 vessels 2. Midline sternal incision with scant serous drainage 3. Hypertension 4. Hyperlipidemia 5. Previous tobacco dependence with a preoperative FEV1 94% of predicted value 6. Cerebral palsy 7. Bilateral internal carotid artery stenosis 70% 8. Family history of premature coronary artery disease 9. History of urinary tract infection E. coli, treated 10. History of postoperative paroxysmal atrial fibrillation 11. History of left pleural effusion 12. Postoperative acute blood loss anemia, an expected outcome. Plan: The patient was seen and examined in the intensive care unit. His chart and diagnostics were reviewed. He was seen and evaluated by Dr. Phi Agarwal from ardiothoracic surgery. The patient's midline sternal incision is without redness although does have some scant serous drainage. Minimal sternal clicking felt with coughing. Per the cardiothoracic surgery standpoint the patient can receive 24 hours of IV antibiotics and kept in the hospital for a 24-hour observation, then discharged back to inpatient rehab or [facility] further rehabilitation needs and oral antibiotic management. The patient's WBC count is normal at 10.6 and the patient remains afebrile. This was discussed with Dr. Ariza from internal medicine and he is in agreement. Continue postoperative coronary artery bypass grafting surgery and reductions. No lifting pushing and pulling anything greater than 10 pounds or jug of milk for 12 weeks. Continues to shower daily, encourage continued use of his heart hugger, continue cessation from smoking. Thank you Dr. Ariza for this consult and we will look forward to working with you in the care of your patient. Time with Patient: Greater than 30
--- NOTE | 2018-11-11 12:26 | XR ---
EXAMINATION TYPE: XR chest 2V DATE OF EXAM: 11/11/2018 HISTORY: Postoperative CABG, hx of left pleural effusion. REFERENCE: Previous study dated 11/06/2018. FINDINGS: There has been a midline sternotomy. The left hemidiaphragm is elevated and there is atelectatic change at the left lung base. This has im proved from previous. The heart is upper limits of normal in size. The right lung is clear. IMPRESSION: IMPROVING LEFT BASILAR AIRSPACE DISEASE.
--- NOTE | 2018-11-11 20:04 | P.HPIM ---
History of Present Illness H&P Date: 11/11/18 Chief Complaint: Surgical wound complication This is 53 years old male status post CABG who was discharged to inpatient rehabilitation program and presented today for possible complication would sternum wound. Patient was tolerating the rehabilitation without difficulty exce pt for one episode of dizziness upon standing up and walking around that resolved on its own but patient had elevated white blood count and later that night nursing staff reported the drainage from the wound described as pus and patient was transferred to cardiac unit for further evaluation. Patient currently is denying chest pain, shortness breath, nausea, vomiting, abdominal pain, dizziness, lightheadedness or blurry vision. Patient is tolerating diet and physical therapy without difficulty. Patient is denying tobacco alcohol or drug abuse Review of Systems All 14 systems reviewed and negative Past Medical History Past Medical History: Atrial Fibrillation, Coronary Artery Disease (CAD), Hyperlipidemia, Hypertension Additional Past Medical History / Comment(s): Cerebral palsy, bilateral carotid artery stenosis 70%, history of UTI with E. coli, treated. History of Any Multi-Drug Resistant Organisms: None Reported Past Surgical History: Coronary Bypass/CABG, Heart Catheterization Past Anesthesia/Blood Transfusion Reactions: No Reported Reaction Additional Past Anesthesia/Blood Transfusion Reaction / Comment(s): no hx general anesthesia or blood transfusion Past Psychological History: No Psychological Hx Reported Smoking Status: Former smoker Past Alcohol Use History: None Reported Additional Past Alcohol Use History / Comment(s): QUIT SMOKING 03/2017-started smoking at age 4,2 ppd. STATES HAS NOT ETOH IN OVER A YEAR Past Drug Use History: None Reported - Past Family History Mother Family Medical History: No Reported History Additional Family Medical History / Comment(s): family history of premature coronary artery disease on his mother's side Medications and Allergies Home Medications Medication Instructions Recorded Confirmed Type Ergocalciferol (Vitamin D2) 50,000 unit PO MO 10/05/18 11/11/18 History [Vitamin D2] Aspirin 81 mg PO DAILY #30 chew 10/10/18 11/11/18 Rx Atorvastatin [Lipitor] 80 mg PO HS #30 tab 10/10/18 11/11/18 Rx Acetaminophen Tab [Tylenol] 1,000 mg PO Q6HR PRN tab 10/30/18 11/11/18 Rx Apixaban [Eliquis] 5 mg PO BID tab 10/30/18 11/11/18 Rx Artificial Tears-Hypromellose 2 drops BOTH EYES QID PRN bottle 10/30/18 11/11/18 Rx [Artificial Tear Drops] Ascorbic Acid [Vitamin C] 500 mg PO BID-W/MEALS tab 10/30/18 11/11/18 Rx Benzocaine/Menthol Lozeng [Cepacol 1 each MUCOUS MEM Q2H PRN lozenge 10/30/18 11/11/18 Rx lozenge] Diltiazem Cd [Cardizem CD] 120 mg PO DAILY@1200 cap.er.24h 10/30/18 11/11/18 Rx Ferrous Sulfate [Iron (65 MG 325 mg PO BID-W/MEALS tab 10/30/18 11/11/18 Rx Elemental)] Ipratropium-Albuterol Nebulize 3 ml INHALATION RT-Q2H PRN 10/30/18 11/11/18 Rx [Duoneb 0.5 mg-3 mg/3 ml Soln] ampul.neb Ipratropium-Albuterol Nebulize 3 ml INHALATION RT-QID ampul.neb 10/30/18 11/11/18 Rx [Duoneb 0.5 mg-3 mg/3 ml Soln] Magnesium Hydroxide [Milk of 2,400 mg PO BID PRN ml 10/30/18 11/11/18 Rx Magnesia Concentrate] Metoprolol Tartrate [Lopressor] 25 mg PO Q12HR tab 10/30/18 11/11/18 Rx Pantoprazole [Protonix] 40 mg PO AC-BRKFST tablet. 10/30/18 11/11/18 Rx Sennosides-Docusate Sodium 2 each PO HS PRN tab 10/30/18 11/11/18 Rx [Senokot-S] Amiodarone [Cordarone] 200 mg PO BID tab 11/06/18 11/11/18 Rx Furosemide [Lasix] 40 mg PO DAILY #7 tablet 11/06/18 11/11/18 Rx Hydrocodone/Acetaminophen [[place] 1 tab PO Q6HR PRN 11/10/18 11/11/18 History 5-325] Melatonin 3 mg PO DAILY 11/10/18 11/11/18 History Allergies Allergy/AdvReac Type Severity Reaction Status Date / Time No Known Allergies Allergy Verified 11/11/18 08:35 Physical Exam Vitals: Vital Signs Temp Pulse Resp BP Pulse Ox 11/11/18 19:00 73 19 119/67 97 11/11/18 18:00 85 19 119/67 96 11/11/18 17:00 78 20 102/59 98 11/11/18 16:37 74 11/11/18 16:23 70 11/11/18 16:00 97.8 F 72 18 94/69 96 11/11/18 15:00 70 20 125/94 95 11/11/18 14:00 68 22 95/60 96 11/11/18 13:00 71 21 113/80 93 L 11/11/18 12:49 72 11/11/18 12:37 70 11/11/18 12:00 97.7 F 72 20 97/66 95 11/11/18 11:00 64 12 98/65 93 L 11/11/18 10:00 69 21 115/71 91 L 11/11/18 09:11 74 11/11/18 09:02 78 11/11/18 09:00 79 23 119/78 93 L 11/11/18 08:00 97.9 F 82 22 105/63 92 L 11/11/18 07:00 68 24 123/65 92 L 11/11/18 06:00 71 16 100/64 90 L 11/11/18 05:00 70 24 88/63 89 L 11/11/18 04:00 97.8 F 67 24 96/62 90 L 11/11/18 03:00 64 24 86/57 91 L 11/11/18 02:00 67 19 111/66 88 L 11/11/18 01:00 75 24 99/68 93 L 11/11/18 00:00 97.4 F L 64 16 96/62 90 L Intake and Output 11/11/18 11/11/18 11/11/18 06:59 14:59 22:59 Intake Total 290 1150 890 Output Total 575 2200 1400 Balance -963 -4378 -584 Intake: IV 260 300 165 NS 10 50 40 Vancomycin 1,250 mg In 250 250 125 Sodium Chloride 0.9% 250 ml @ 125 mls/hr IVPB Q8H JENNIFER Rx#:[id number] Intake, IV Titration 125 Amount Vancomycin 1,250 mg In 125 Sodium Chloride 0.9% 250 ml @ 125 mls/hr IVPB Q8H JENNIFER Rx#:[id number] Oral 30 850 600 Output: Urine 575 2200 1400 Other: Voiding Method Urinal Bedside Commode Bedside Commode Urinal Urinal Weight 69.8 kg Physical exam HEENT atraumatic normocephalic. PERRLA Lungs clear to auscultation bilaterally Heart normal S1-S2 Abdomen soft no tenderness plus falls. 4 quadrant Lower extremity no edema Skin no new rash Psych alert and oriented 3 Neuro no focal deficit Sternum wound positive for serosanguineous drainage minor Results CBC & Chem 7: 11/11/18 04:27 11/11/18 04:27 Labs: Abnormal Lab Results - Last 24 Hours (Table) 11/11/18 11/11/18 Range/Units 04:27 04:27 RBC 3.31 L (4.30-5.90) m/uL Hgb 9.5 L (13.0-17.5) gm/dL Hct 30.4 L (39.0-53.0) % Plt Count 615 H (150-450) k/uL Creatinine 0.55 L (0.66-1.25) mg/dL Thrombosis Risk Factor Assmnt - Choose All That Apply Any of the Below Risk Factors Present?: Yes Each Factor Represents 1 point: Age 41-60 years, History of prior major surgery (<1month) Other Risk Factors: No Other congenital or acquired thrombophilia - If yes, enter type in comment: No Thrombosis Risk Factor Assessment Total Risk Factor Score: 2 Thrombosis Risk Factor Assessment Level: Low Risk Assessment and Plan Assessment: 1. Slow healing of sternum wound with ongoing serosanguineous drainage without obvious infection or pus drainage on physical exam. 2. Status post CABG. 3. Peripheral arterial disease/coronary artery disease. 4. At that atrial fibrillation, rate controlled. 5. Hypertension. 6. Hyperlipidemia. 7. Acute blood loss anemia, stable. 8. History of cerebral palsy. Plan discussed with surgery as we would like to follow up on culture results cultures from prior hospitalization showed staph epidermidis and the status bovis both of them pansensitive. I would like to continue with vancomycin and Zosyn, consult infectious disease, follow-up with Gen. surgery recommendation regarding discharge planning and consider discharging patients back to inpatient rehabilitation in addition program once cleared from infectious disease and general surgery. We'll resume his home medication continue with heart rate controlling agent continue with factor X inhibitors for anticoagulation monitor vital signs closely and repeat blood work in the morning have physical therapy evaluated the patient on daily basis
[2018-11-11] MEDS ORDERED: ATORVASTATIN 80 MG TAB PO SCH (21:00)
[2018-11-12] MEDS: VANCOMYCIN 1,250 MG in SODIUM CHLORIDE 0.9% 250 ML IVPB SCH ×2 (02:23→08:59)
[2018-11-12 05:12] LABS: African American GFR (CKD) >90 (>60 ml/min/1.73 sqM); Anion Gap 8 mmol/L; Blood Urea Nitrogen 10 mg/dL (9-20); Calcium 8.8 mg/dL (8.4-10.2); Carbon Dioxide 23 mmol/L (22-30); Chloride 106 mmol/L (98-107); Glucose 105 mg/dL (74-99); Potassium 4.3 mmol/L (3.5-5.1); Sodium 137 mmol/L (137-145)
[2018-11-12] MEDS: IPRATROPIUM-ALBUTEROL 3 ML NEB INHALATION SCH ×2 (08:30→11:41)
[2018-11-12] MEDS: HYDROcodone/APAP 5-325MG 1 EACH TAB PO PRN (09:00)
[2018-11-12] MEDS: ASPIRIN 81 MG PO SCH (09:00)
[2018-11-12] MEDS ORDERED: VANCOMYCIN TROUGH DUE 1 EACH MISC MISCELLANE ONE (09:00)
[2018-11-12] MEDS: ASCORBIC ACID 500 MG TAB PO SCH (09:00)
[2018-11-12] MEDS ORDERED: ERGOCALCIFEROL 50,000 UNIT CAP PO SCH (09:00)
[2018-11-12] MEDS ORDERED: AMIODARONE 200 MG TAB PO SCH (09:00)
[2018-11-12] MEDS: METOPROLOL TARTRATE 25 MG TAB PO SCH (09:02)
[2018-11-12] MEDS: FERROUS SULFATE 325 MG TAB PO SCH (09:02)
[2018-11-12] MEDS: FUROSEMIDE 40 MG TAB PO SCH (09:03)
[2018-11-12] MEDS: PANTOPRAZOLE 40 MG TABLET PO SCH (09:03)
[2018-11-12] MEDS: APIXABAN 5 MG TAB PO SCH (09:03)
--- NOTE | 2018-11-12 09:26 | P.DS ---
Providers Date of admission: 11/10/18 22:30 Expected date of discharge: 11/12/18 Attending physician: Jean Carlos Ariza Consults: 11/11/18 01:24 Consult Physician Routine Consulting Provider: Phi Agarwal Consult Reason/Comments: post op infection Do you want consulting provider notified?: Already Contacted Placement Type Exists?: Yes Primary care physician: Stated None Hospital Course: This is 53 years old male status post CABG who was discharged to inpatient rehabilitation program and presented today for possible complication would sternum wound. Patient was tolerating the rehabilitation without difficulty except for one episode of dizziness upon standing up and walking around that resolved on its own but patient had elevated white blood count and later that night nursing staff reported the drainage from the wound described as pus and patient was transferred to cardiac unit for further evaluation. Patient currently is denying chest pain, shortness breath, nausea, vomiting, abdominal pain, dizziness, lightheadedness or blurry vision. Patient is tolerating diet and physical therapy without difficulty. Patient is denying tobacco alcohol or drug abuse 11/12: Patient has been seen by the cardiothoracic team with recommendations for 24 hours of IV antibiotics and then discharged back to inpatient rehab. We'll plan to continue 3 more days of ciprofloxacin. Wound to be kept clean and dry. No sign of infection at this time. Amiodarone is now at 200 mg daily and will be completed on November 18. At that point, amiodarone can be completely discontinued. Discharge diagnoses: 1. Slow healing of sternum wound with ongoing serosanguineous drainage without obvious infection or pus drainage on physical exam. 2. Status post CABG. 3. Peripheral arterial disease/coronary artery disease. 4. Paroxysmal atrial fibrillation. 5. Hypertension. 6. Hyperlipidemia. 7. Postoperative Acute blood loss anemia, stable. 8. History of cerebral palsy. Discharge plan: Return to [facility] for inpatient rehab. Impression and plan of care have been directed as dictated by the signing physician. Eleanor Greer nurse practitioner acting as scribe for signing physician. Patient Condition at Discharge: Good Plan - Discharge Summary New Discharge Prescriptions: New Ciprofloxacin HCl [Cipro] 500 mg PO BID 3 Days #6 tab Amiodarone [Cordarone] 200 mg PO DAILY tab Continue Ergocalciferol (Vitamin D2) [Vitamin D2] 50,000 unit PO MO Aspirin 81 mg PO DAILY #30 chew Atorvastatin [Lipitor] 80 mg PO HS #30 tab Artificial Tears-Hypromellose [Artificial Tear Drops] 2 drops BOTH EYES QID PRN bottle PRN Reason: Dry Eye(S) Diltiazem Cd [Cardizem CD] 120 mg PO DAILY@1200 cap.er.24h Benzocaine/Menthol Lozeng [Cepacol lozenge] 1 each MUCOUS MEM Q2H PRN lozenge PRN Reason: Sore Throat Ipratropium-Albuterol Nebulize [Duoneb 0.5 mg-3 mg/3 ml Soln] 3 ml INHALATION RT-QID ampul.neb Ipratropium-Albuterol Nebulize [Duoneb 0.5 mg-3 mg/3 ml Soln] 3 ml INHALATION RT-Q2H PRN ampul.neb PRN Reason: Shortness Of Breath Or Wheezing Apixaban [Eliquis] 5 mg PO BID tab Ferrous Sulfate [Iron (65 MG Elemental)] 325 mg PO BID-W/MEALS tab Metoprolol Tartrate [Lopressor] 25 mg PO Q12HR tab Magnesium Hydroxide [Milk of Magnesia Concentrate] 2,400 mg PO BID PRN ml PRN Reason: Constipation Pantoprazole [Protonix] 40 mg PO AC-BRKFST tablet.dr [place]-Docusate Sodium [Senokot-S] 2 each PO HS PRN tab PRN Reason: Constipation Acetaminophen Tab [Tylenol] 1,000 mg PO Q6HR PRN tab PRN Reason: Fever and/ or Mild Pain Ascorbic Acid [Vitamin C] 500 mg PO BID-W/MEALS tab Furosemide [Lasix] 40 mg PO DAILY #7 tablet Hydrocodone/Acetaminophen [[place] 5-325] 1 tab PO Q6HR PRN PRN Reason: Moderate To Severe Pain Melatonin 3 mg PO DAILY Discontinued Amiodarone [Cordarone] 200 mg PO BID tab Discharge Medication List Ergocalciferol (Vitamin D2) [Vitamin D2] 50,000 unit PO MO 10/05/18 [History] Aspirin 81 mg PO DAILY #30 chew 10/10/18 [Rx] Atorvastatin [Lipitor] 80 mg PO HS #30 tab 10/10/18 [Rx] Acetaminophen Tab [Tylenol] 1,000 mg PO Q6HR PRN tab 10/30/18 [Rx] Apixaban [Eliquis] 5 mg PO BID tab 10/30/18 [Rx] Artificial Tears-Hypromellose [Artificial Tear Drops] 2 drops BOTH EYES QID PRN bottle 10/30/18 [Rx] Ascorbic Acid [Vitamin C] 500 mg PO BID-W/MEALS tab 10/30/18 [Rx] Benzocaine/Menthol Lozeng [Cepacol lozenge] 1 each MUCOUS MEM Q2H PRN lozenge 10/30/18 [Rx] Diltiazem Cd [Cardizem CD] 120 mg PO DAILY@1200 cap.er.24h 10/30/18 [Rx] Ferrous Sulfate [Iron (65 MG Elemental)] 325 mg PO BID-W/MEALS tab 10/30/18 [Rx] Ipratropium-Albuterol Nebulize [Duoneb 0.5 mg-3 mg/3 ml Soln] 3 ml INHALATION RT-Q2H PRN ampul.neb 10/30/18 [Rx] Ipratropium-Albuterol Nebulize [Duoneb 0.5 mg-3 mg/3 ml Soln] 3 ml INHALATION RT-QID ampul.neb 10/30/18 [Rx] Magnesium Hydroxide [Milk of Magnesia Concentrate] 2,400 mg PO BID PRN ml 10/30/18 [Rx] Metoprolol Tartrate [Lopressor] 25 mg PO Q12HR tab 10/30/18 [Rx] Pantoprazole [Protonix] 40 mg PO AC-BRKFST tablet.dr 10/30/18 [Rx] Sennosides-Docusate Sodium [Senokot-S] 2 each PO HS PRN tab 10/30/18 [Rx] Furosemide [Lasix] 40 mg PO DAILY #7 tablet 11/06/18 [Rx] Hydrocodone/Acetaminophen [[place] 5-325] 1 tab PO Q6HR PRN 11/10/18 [History] Melatonin 3 mg PO DAILY 11/10/18 [History] Amiodarone [Cordarone] 200 mg PO DAILY tab 11/12/18 [Rx] Ciprofloxacin HCl [Cipro] 500 mg PO BID 3 Days #6 tab 11/12/18 [Rx] Follow up Appointment(s)/Referral(s): Denilson Galan MD [STAFF PHYSICIAN] - 11/23/18 10:00 am Jorge Gomez DO [REFERRING] - 1 Week (After discharge from rehab) Samir Feliz MD [STAFF PHYSICIAN] - 1 Week Tarik Prajapati MD [STAFF PHYSICIAN] - 1 Week Activity/Diet/Wound Care/Special Instructions: DISCHARGE INSTRUCTIONS: 1. No driving for 4 weeks, or until physician gives their ok. 2. The patient should sleep in their own bed, no medical bed needed. 3. Stairs are not an issue. If the bedroom is upstairs, it is advised that the patient go up at night and down in the morning for the first week. Go slowly, using handrail and take 1 step at a time. 4. GISELA hose are to be worn for 30 days or until physician discontinues. 5. Heart hugger is to be worn 100% of the time until physician discontinues.(except when showering) 6. No lifting, pushing, or pulling more than 10 pounds for 12 weeks. The physician will advise of any restriction changes. 7. The patient is expected to continue the prescribed walking program. 8. Continue pain control per as needed orders. 9. Continue with incentive spirometry and splinting/heart hugger until otherwise directed by the physician. 10. Must shower daily using liquid antibacterial soap and a separate white washcloth for each individual incision. 11. Routine sternal incision care. No powders, lotions, ointments on incisions. 12. Please call surgeon/STRUCTURED CABLING TECHNICIAN for temp greater than 101 F or purulent drainage from incisions. 13. Refills need to be filled through comfort filler/primary care physician. 14. A Red armband has been placed on the patient. It should be worn for 30 days post surgery and will be removed by the cardiac surgeons. If an ER visit is necessary, please make sure the number on the Red armband is called. REHAB/HOME HEALTH SERVICES TO PROVIDE: RN SKILLED HOME CARE SERVICES FOR POST-OP SURGICAL PATIENTS WITH THE FOLLOWING: Coronary Artery Bypass Surgery (CABG), Mitral Valve Replacement/Repair ( MVR), Aortic Valve Replacement/Repair (AVR) RN TO CONTINUE EDUCATION FROM ``ROAD TO A HEALTH HEART PATIENT EDUCATION MANUAL (GIVEN TO PATIENT IN THE HOSPITAL) MEDICATION RECONCILIATION WITH EDUCATION NEEDED ON FIRST HOME VISIT EMPHASIZE IMPORTANCE OF WEARING BREAST SUPPORT/HEART HUGGER ENCOURAGE USE OF INCENTIVE SPIROMETER 10 X EVERY HOUR WHILE AWAKE ENCOURAGE UTILIZATION OF LOWER EXTREMITY COMPRESSION STOCKINGS/GISELA HOSE and ELEVATE LEGS ABOVE LEVEL OF HEART WHILE AT REST. ENCOURAGE AMBULATION 3-5x/day INCREASING TOLERATES, WHILE AVOID EXTREMES IN TEMPERATURE FREQUENCY: RN TO OPEN THE PATIENT WITHIN 24 HOURS OF DISCHARGE FROM REHAB WITH TELEHEALTH INSTALLED AT [facility] [place], RN TO VISIT 2-3 X A WEEK FOR 4 WEEKS ESTABLISHED BY PATIENT NEEDS. TELEHEALTH PARAMETERS: WEIGHT: NOTIFY MD OF WEIGHT GAIN OF 2 LBS IN 24 HOURS OR 5 LBS IN ONE WEEK HR: NOTIFY MD OF HR <55 BPM OR HR>100 BPM BP: NOTIFY MD IF BP <90/55 OR BP>140/100 O2 SAT: NOTIFY MD IF PO2<93% ON ROOM AIR SEND TELEHEALTH REPORT TO PROCUREMENT ANALYST AND CARDIOVASCULAR SURGEON THE FIRST WEEK OF CARE AND THEN BI-WEEKLY. PLEASE ADDITIONALLY COMMUNICATE ANY ABNORMALS AND NEW FINDINGS TO THE SURGEONS OFFICE.. Discharge Disposition: OTHER INSTITUTION NOT DEFINED
[2018-11-12] MEDS: PIPERACILLIN-TAZOBACTAM 3.375 GM in SODIUM CHLORIDE 0.9% 100 ML IVPB SCH (09:27)
--- NOTE | 2018-11-12 09:39 | P.PN ---
Subjective Progress Note Date: 11/12/18 Principal diagnosis: Sternal incision with serous drainage, superficial. Previous medical history of severe triple vessel coronary artery disease status post coronary artery bypass graft surgery 4 on 10/24/2018 with postoperative paroxysmal atrial fibrillation, hypertension, hyperlipidemia, previous tobacco dependence, cerebral palsy, bilateral carotid artery stenosis 70%, preoperative E. coli urinary tract infection treated with Cipro. The patient is currently sitting up in the recliner in no acute distress. Denies pain, shortness of breath. Has been ambulating in the hallway. No new complaints. He was seen this morning with Dr. Galan. There was no reported drainage overnight from his sternal incision. There was no redness surrounding the sternal incision. His white blood cell count is normal and he remains afebrile. We expressed a small amount of thin serous drainage this morning. He has been on greater than 24 hours worth of IV vancomycin and Zosyn. Objective - Vital Signs Vital signs: Vital Signs Temp 98.1 F 11/12/18 04:00 Pulse 62 11/12/18 04:00 Resp 19 11/12/18 04:00 BP 123/70 11/12/18 04:00 Pulse Ox 95 11/12/18 04:00 Intake & Output 11/11/18 11/12/18 11/12/18 18:59 06:59 18:59 Intake Total 1930 435 Output Total 3400 550 Balance -1470 -115 Weight 71 kg Intake: IV 455 335 NS 80 110 Piperacillin-Tazobactam 3 100 .375 gm In Sodium Chloride 0.9% 100 ml @ 25 mls/hr IVPB Q8HR JENNIFER Rx# :[id number] Vancomycin 1,250 mg In 375 125 Sodium Chloride 0.9% 250 ml @ 125 mls/hr IVPB Q8H JENNIFER Rx#:[id number] Intake, IV Titration 125 Amount Vancomycin 1,250 mg In 125 Sodium Chloride 0.9% 250 ml @ 125 mls/hr IVPB Q8H JENNIFER Rx#:[id number] Oral 1350 100 Output: Urine 3400 550 Other: Voiding Method Bedside Commode Bedside Commode Urinal Urinal - Constitutional General appearance: Present: cooperative, no acute distress - Respiratory Details: Lungs sounds diminished bilaterally. Respirations even, nonlabored. Currently on room air with oxygen saturation 94%. Able to achieve 1500 mL on his incent bety spirometry. Strong cough. - Cardiovascular Details: S1, S2 present. Regular rate and rhythm, sinus rhythm on telemetry. Sternum stable. Palpable peripheral pulses bilaterally. No edema present. No calf pain or tenderness noted. Heart hugger in place with patient demonstrating appropriate use. - Gastrointestinal Gastrointestinal Comment(s): Abdomen soft, nontender, nondistended. Active bowel sounds present 4 quadrants. Tolerating diet. - Genitourinary Genitourinary Comment(s): Voiding clear, yellow urine. - Integumentary Integumentary Comment(s): Skin is warm and dry with evidence of good perfusion. Anterior chest incision well approximated although we were able to express a minimal amount of thin serous fluid. There is no redness present. No drainage from chest tube sites. Left radial artery harvest site clean, approximated without drainage. Right lower extremity EVH site well approximated without drainage. - Neurologic Neurologic: Present: CNII-XII intact - Musculoskeletal Musculoskeletal: Present: strength equal bilaterally - Psychiatric Psychiatric: Present: A&O x's 3, appropriate affect - Allied health notes Allied health notes reviewed: nursing - Labs CBC & Chem 7: 11/11/18 04:27 11/12/18 04:15 Labs: Abnormal Lab Results - Last 24 Hours (Table) 11/11/18 11/12/18 Range/Units 04:27 04:15 Creatinine 0.55 L 0.65 L (0.66-1.25) mg/dL Glucose 105 H (74-99) mg/dL Assessment and Plan Assessment: 1. Severe triple-vessel coronary artery disease status post 4 vessel coronary artery bypass surgery, mid line sternal incision with small amount of thin serous drainage. 2. History of hypertension 3. History of hyperlipidemia 4. Previous tobacco dependence 5. Cerebral palsy 6. Bilateral internal carotid artery stenosis 7. History of postoperative paroxysmal atrial fibrillation, currently in normal sinus rhythm, on Eliquis for anticoagulation Plan: 1. From cardiothoracic surgery standpoint the patient can be discharged back to inpatient rehab or [facility] for further rehabilitation. Surgical discharge instructions placed on the discharge summary. 2. May discharge with oral antibiotics. This was discussed with primary care services. 3. Patient should continue with postoperative cardiac surgery sternal precautions including no lifting, pushing, pulling anything heavier than 10 pounds for the first 3 months, encourage continued heart hugger use. 4. Encourage continued incentive spirometry use. 5. Encourage ambulation. 6. Patient should shower every single day. 7. Medical management per primary care service. Time with Patient: Greater than 30
[2018-11-12] MEDS: DILTIAZEM CD 120 MG CAP.ER.24H PO SCH (12:28)
[2018-11-12 12:44] VITALS: BP 103/63; PULSE 75; RESP 22; TEMP 98.8
--- NOTE | 2018-11-14 03:03 | CDI ---
Documentation Clarification Form Date: 11/14/18 From: Juancho Lainez Phone: call [phone] Admit Date: 11/10/2018 10:30:00 PM Patient Name: Jeovany Mathew Visit Number: [id number] Discharge Date: 11/12/2018 3:08:00 PM ATTENTION: The Clinical Documentation Specialists (CDI) and [facility] Coding Staff appreciate your assistance in clarifying documentation. Please respond to the clarification below the line at the bottom and electronically sign. The CDI & [facility] Coding staff will review the response and follow-up if needed. Please note: Queries are made part of the Legal Health Record. If you have any questions, please contact the author of this message via ITS. Dr. Jean Carlos Ariza, The patient presented with the following post-op seroma from sternal wound. History/ Risks: CABG procedure on 10/24 Mentioned in consult note and discharge summary as Acute blood loss anemia stable. Hemoglobin 9.5. In your professional opinion, can you please clarify Acute blood loss anemia is present? Other, please specify Unable to determine MTDD
== END 2018-11-12 15:08 ==
LOC: 2SICU 22:30 → INTOOBSV 22:30 → OBSVTOIN 22:30 → UNDODISIN 11-12 15:08 → UNDODISOB 11-12 15:08
PROVIDERS: ADMIT Internal Medicine; ATTEND Internal Medicine
DX: L76.34 Postprocedural seroma of skin and subcutaneous tissue following other procedure (principal); D62 Acute posthemorrhagic anemia; G80.9 Cerebral palsy, unspecified; E78.5 Hyperlipidemia, unspecified; I10 Essential (primary) hypertension; I25.10 Atherosclerotic heart disease of native coronary artery without angina pectoris; I48.0 Paroxysmal atrial fibrillation; I65.23 Occlusion and stenosis of bilateral carotid arteries; I73.9 Peripheral vascular disease, unspecified; Z79.01 Long term (current) use of anticoagulants; Z79.82 Long term (current) use of aspirin; Z79.899 Other long term (current) drug therapy; Z82.49 Family history of ischemic heart disease and other diseases of the circulatory system; Z87.891 Personal history of nicotine dependence; Z87.440 Personal history of urinary (tract) infections; Z95.1 Presence of aortocoronary bypass graft
CPT/HCPCS: 96365; 96366 ×2; 96368 ×2; 94640 ×3; 97166; 80048; 82565; 85027; 80202; 71046; G0379; G0378 ×3; J2543 ×2; J3370 ×2

== ENCOUNTER → 2020-04-15 | Outpatient (CLI) | payer MEDICARE ==
[2020-04-15 09:21] LABS: HCT 47.2 % (39.0-53.0); HGB 15.7 gm/dL (13.0-17.5); MCH 30.9 pg (25.0-35.0); MCHC 33.3 g/dL (31.0-37.0); MCV 92.7 fL (80.0-100.0); Mean Platelet Volume 6.8; Platelet Count 257 k/uL (150-450); RBC 5.09 m/uL (4.30-5.90); RDW 13.1 % (11.5-15.5)
[2020-04-15 09:38] LABS: African American GFR (CKD) >90 (>60 ml/min/1.73 sqM); Anion Gap 8 mmol/L; Blood Urea Nitrogen 11 mg/dL (9-20); Carbon Dioxide 27 mmol/L (22-30); Chloride 108 mmol/L (98-107); Non-African American GFR(CKD) >90 (>60 ml/min/1.73 sqM); Sodium 143 mmol/L (137-145)
--- NOTE | 2020-04-15 11:25 | CT ---
"EXAMINATION TYPE: CT angio neck DATE OF EXAM: 04/15/2020 COMPARISON: None HISTORY: Bilateral carotid stenosis CT DLP: 349 mGycm CONTRAST: CTA cervical carotids is performed and without and with IV Contrast, patient injected with 65 ml mL o f Isovue 370. Contrast CTA of the cervical carotids was performed 3-D reconstruction imaging obtained at a separate workstation. Right carotid system: Mild plaque is seen of the right common carotid artery. Moderate calcific and s oft plaque about the right carotid bulb and proximal ICA. Critical stenosis noted approximately 1.3 c m from the takeoff of the right ICA. ECA is patent. Right vertebral artery appears unremarkable. Left carotid system: Mild plaque is seen of the left common carotid artery. There is severe calcific plaque involving the carotid bulb and proximal left ICA with estimated diameter reduction of approxi mately 85%. ECA is patent. Left vertebral artery appears unremarkable. IMPRESSION: 1. Critical stenosis right ICA greater than 95%. 2. Estimated diameter reduction left ICA of the 85%. A [place] level critical message alert has been initiated for Kelvin Burnett MD via the LOC&ALL 60 | Critical Results System on 04/15/2020 11:23 AM. This message alert has been sent to Kelvin roman MD via the preferences provided by the clinician for the receipt of Radiology Critical Findings. Message ID [id number]."
== END | disposition home or self-care (01) ==
LOC: RADCTMAIN 08:37
PROVIDERS: ATTEND Internal Medicine Cardiovascular Disease
DX: Z01.818 Encounter for other preprocedural examination (principal); I65.23 Occlusion and stenosis of bilateral carotid arteries
CPT/HCPCS: 80051; 82565; 84520; 85027; 70498; 36415; Q9967

== ENCOUNTER 2020-06-10 07:56 | Inpatient (IN) | payer MEDICARE ==
[2020-06-03 11:03] VITALS: BMI 25.8
[~2020-06-10 07:56] MED LIST changes: -ALBUMIN HUMAN 25% 50 ML IV ONE; +ALPRAZolam 0.25 MG TAB PO PRN; +ALPRAZolam 0.5 MG TAB PO PRN; -ASPIRIN 325 MG TAB PO ONE; +ASPIRIN 325 MG TAB PO PRN; -ATORVASTATIN 10 MG TAB PO ONE; -CALCIUM CHLORIDE 100 MG/ML 10 ML SYRINGE IV ONE; -CHLORHEXIDINE GLUCONATE 15 ML CUP MUCOUS MEM ONE; -CLEVIDIPINE BUTYRATE 25 MG in EMPTY BAG 1 BAG IV ONE; +CLOPIDOGREL 75 MG TAB PO PRN; -DEXTROSE 5% IN WATER 1,000 ML with POTASSIUM CHLORIDE 110 MEQ, MAGNESIUM SULFATE 16 MEQ... IV ONE; -DEXTROSE 5% IN WATER 1,000 ML with POTASSIUM CHLORIDE 25 MEQ, SODIUM CHLORIDE 2.5MEQ/ML... IRRIGATION ONE; -HEPARIN SODIUM 1,000 UN/ML (10ML VL) IV ONE; -HEPARIN SODIUM,PORCINE 5,000 UNIT in SODIUM CHLORIDE 0.9% 500 ML 500 ML IV ONE; -LACTATED RINGERS 1,000 ML IV ONE; -MAGNESIUM SULFATE MG 500 MG/ML IV ONE; -MANNITOL 25% 12.5 GM/50 ML VIAL IV ONE; -METOPROLOL TARTRATE 12.5 MG TAB PO ONE; +NITROGLYCERIN SL TABS 0.4 MG TAB SUBLINGUAL PRN; -NITROGLYCERIN-D5W PMX 25 MG/250 ML BTL IV ONE; -NOREPINEPHRINE 4 MG in SODIUM CHLORIDE 0.9% 250 ML IV ONE; -PAPAVERINE 360 MG in SODIUM CHLORIDE 0.9% 90 ML IV ONE; -PHENYLEPHRINE 10 MG/ML VIAL IV ONE; -PHENYLEPHRINE 40 MG in SODIUM CHLORIDE 0.9% 250 ML IV ONE; -PROPOFOL 1,000 MG/100 ML VIAL IV ONE; -PROTAMINE SULFATE 10 MG/ML 25 ML VIAL IV ONE; -PROTAMINE SULFATE 250 MG in EMPTY BAG 1 BAG IV ONE; -SODIUM BICARB 8.4% 50 ML SYR (1 MEQ/ML) IV ONE; -SODIUM CHLORIDE 0.9% 1,000 ML IV ONE; +SODIUM CHLORIDE 0.9% 1,000 ML in EMPTY BAG 1 BAG IV ONE; -TRANEXAMIC ACID 2,000 MG in SODIUM CHLORIDE 0.9% 80 ML IV ONE; -ceFAZolin 1,000 MG in SODIUM CHLORIDE 0.9% IRRIGATIO 1,000 ML IRRIGATION ONE; -ceFAZolin 2,000 MG in SODIUM CHLORIDE 0.9% 30 ML IVPB ONE; -ceFAZolin IN SWFI 2 GM/20 ML SYRINGE IVP ONE
[2020-06-10 09:13] LABS: Basophils # (A) 0.1 k/uL (0-0.2); Basophils % (A) 1 %; Eosinophils # (A) 0.3 k/uL (0-0.7); Eosinophils % (A) 2 %; HCT 42.1 % (39.0-53.0); HGB 14.4 gm/dL (13.0-17.5); Lymphocytes # (A) 2.6 k/uL (1.0-4.8); Lymphocytes % (A) 21 %; MCH 32.1 pg (25.0-35.0); MCHC 34.2 g/dL (31.0-37.0); MCV 93.9 fL (80.0-100.0); Mean Platelet Volume 7.1; Monocytes # (A) 0.7 k/uL (0-1.0); Monocytes % (A) 6 %; Neutrophils # (A) 8.7 k/uL (1.3-7.7); Neutrophils % (A) 70 %; Platelet Count 261 k/uL (150-450); RBC 4.48 m/uL (4.30-5.90); RDW 13.3 % (11.5-15.5); WBC 12.5 k/uL (3.8-10.6)
[2020-06-10 09:22] LABS: African American GFR (CKD) >90 (>60 ml/min/1.73 sqM); Anion Gap 5 mmol/L; Blood Urea Nitrogen 15 mg/dL (9-20); Calcium 9.7 mg/dL (8.4-10.2); Carbon Dioxide 30 mmol/L (22-30); Chloride 106 mmol/L (98-107); Glucose 112 mg/dL (74-99); Non-African American GFR(CKD) >90 (>60 ml/min/1.73 sqM); Sodium 141 mmol/L (137-145)
[2020-06-10] MEDS ORDERED: LIDOCAINE 1% INJ 10MG/ML (20 ML MDV) SQ ONE (10:55)
[2020-06-10] MEDS ORDERED: HEPARIN SODIUM 1,000 UN/ML (10ML VL) IV ONE (11:00)
[2020-06-10] MEDS ORDERED: ATROPINE SULFATE 0.1 MG/ML 10ML SYRINGE IVP ONE (11:49)
[2020-06-10] MEDS ORDERED: NOREPINEPHRINE 4 MG in SODIUM CHLORIDE 0.9% 250 ML IV ONE (11:54)
[2020-06-10] MEDS ORDERED: ERGOCALCIFEROL 50,000 UNIT CAP PO SCH (12:00)
[2020-06-10] MEDS ORDERED: CLOPIDOGREL 75 MG TAB PO ONE (12:03)
[2020-06-10] MEDS ORDERED: IOPAMIDOL-250 100ML BTL INTRAARTER ONE ×2 (12:04)
[2020-06-10] MEDS ORDERED: NITROGLYCERIN SL TABS 0.4 MG TAB SUBLINGUAL PRN (12:13)
[2020-06-10] MEDS ORDERED: ATROPINE SULFATE 0.1 MG/ML 10ML SYRINGE IV PRN (12:14)
[2020-06-10] MEDS ORDERED: RX INFO: IV CONTRAST WAS GIVEN 1 EACH MISC MISCELLANE PRN (12:14)
[2020-06-10] MEDS ORDERED: MAG HYDROX/AL HYDROX/SIMETH 30 ML CUP PO PRN (12:14)
[2020-06-10 12:24] LABS: Glucose,Whole Blood 87 mg/dL (75-99)
[2020-06-10] MEDS: NOREPINEPHRINE 4 MG in SODIUM CHLORIDE 0.9% 250 ML IV SCH (13:29)
[2020-06-10] MEDS: SODIUM CHLORIDE 0.9% 1,000 ML IV SCH ×2 (13:34→20:42)
[2020-06-10] MEDS ORDERED: HEPARIN SODIUM,PORCINE 5,000 UNIT/ML 1 ML VIAL IV STA (14:36)
[2020-06-10 15:04] LABS: Glucose,Whole Blood 117 mg/dL (75-99)
--- NOTE | 2020-06-10 15:26 | AN ---
ANGIOGRAPHY REPORT CAROTID STENTING: DATE OF SERVICE: June 10, 2020. PERFORMING PHYSICIAN: Patrick Friedman MD. PROCEDURE PERFORMED: 1. Successful stenting of the right internal carotid artery using Xact 8-6 x 40 mm carotid stent with an excellent angiographic result and reduction of stenosis from 99% to 0% with adjunctive use of NAV6 distal protection filter. 2. Selective angiogram of the right common and right internal carotid artery. 3. Intracranial angiogram. 4. Right common femoral artery angiogram. INDICATION: This is a 54-year-old gentleman with coronary artery disease and prior coronary artery bypass grafting as well as diabetes and hypertension and dyslipidemia who was diagnosed recently by Dr. Burnett with critical disease involving the right internal carotid artery and left internal carotid arteries. APPROACH: Right common femoral artery. COMPLICATION: None. LEVEL OF SEDATION: Moderate with sedation length of 60 minutes. Please note that sedation was not given and this is the duration of the procedure. PROCEDURE DESCRIPTION: After obtaining an informed consent, the patient was brought to the cardiac packing house laborer. The right common femoral artery was cannulated using micropuncture technique. The micropuncture wire passed easily then I placed a 90 cm 6-Gabonese sheath at the right common femoral artery where the sheath was advanced over a 0.[address] way to the descending aorta. An aortic arch angiogram was performed initially using 5-Gabonese long pigtail catheter. The aortic arch angiogram revealed type 1 aortic arch and a bovine arch as well. Subsequently, I did select the right common carotid artery using a JB2 catheter with 0.035 stiff Glidewire. After that I advanced that JB2 catheter all the way over the stiff Glidewire to the proximal right common carotid artery. Subsequently, the sheath was advanced over the catheter and the wire to the mid right common carotid artery. Right common and right internal carotid artery angiogram was performed using injections through the sheath, that revealed critical disease involving the right internal carotid artery. Subsequently, I did place a NAV6 distal protection filter after the filter was prepped under saline with making sure no bubbles. Subsequently I did predilatation using 4 mm balloon. After that I deployed 8-6 x 40 mm Xact self expandable carotid stent where the stent was positioned under fluoroscopy guidance and deployed under fluoroscopic guidance. Post dilatation was achieved using 5 mm balloon. The procedure was completed without any complication. Please note that the patient did have a long episode of sinus pause during the pre and post dilatation and that recovered completely. After that I did exchange the long sheath into short sheath using 0.035 stiff Glidewire before I did selective right common femoral artery angiogram. The procedure was completed without any complication. POSTPROCEDURE MANAGEMENT: 1. Dual anti-platelet therapy. 2. Risk factor modifications. 3. Follow up with the patient. ENDY / ALISHA: [id number] /
--- NOTE | 2020-06-10 15:32 | CT ---
EXAMINATION TYPE: CT brain wo con DATE OF EXAM: 06/10/2020 COMPARISON: None INDICATION: neurological symptoms post cardiac cath DLP: 1089 mGycm, Automated exposure control for dose reduction was used. CONTRAST: None CT of the brain is performed utilizing 3 mm thick sections through the posterior fossa and 3 mm thick sections through the remaining calvarium. Study is performed within 24 hours of arrival to the hosp ital. No abnormal hyperdensity is present to suggest an acute intracranial hemorrhage. No mass lesion is evident. No acute infarcts are evident. Periventricular white matter hypodensity is present, likely on the bas is of chronic white matter ischemic change. Ventricles are prominent. Third ventricle is prominent. Ventricles and sulci are appropriate for the patient age. Paranasal sinuses and mastoid air cells within the [id number]-ex-jger are clear. IMPRESSIONS: 1. Chronic appearing Periventricular white matter hypodensity. 2. Atrophy
[2020-06-10] MEDS ORDERED: ATROPINE SULFATE 0.1 MG/ML 10ML SYRINGE ONE (15:58)
--- NOTE | 2020-06-10 16:20 | CT ---
EXAMINATION TYPE: CODE STROKE: CTA head neck DATE OF EXAM: 06/10/2020 HISTORY: neuro changes COMPARISON: None CT DLP: 454.4 mGycm. Automated Exposure Control for Dose Reduction was Utilized. TECHNIQUE: CTA scan of the neck is performed with IV Contrast, patient injected with 65 mL of Isovue 370, axial images are obtained, coronal and sagittal reformatted images are reviewed. Three-D recons tructed images are created on an independent workstation and reviewed. Source images are reviewed. FINDINGS: Carotid/Vascular Structures: Atheromatous plaquing is at the bilateral carotid bifurcations. Severe p laque is present at the left carotid bifurcation. Right carotid stent is present. Contrast extends b eyond the stent without obstruction. The right vertebral artery is not visualized. Small amount of contrast is present within the right ve rtebral artery. This appears to be some retrograde flow. Cervical of Cheek: Basilar artery appears unremarkable. Left vertebral artery is normal. Posterior c erebral vasculature is unremarkable. Internal carotid arteries bifurcate normally into A1 and M1 segm ents. A2 segments are normal. The anterior communicating artery is patent. Left Posterior communicati ng artery is patent. Right posterior communicating artery is patent. IMPRESSION: 1. There appears to be moderate flow-limiting stenosis of the left carotid bifurcation no obstruction however is evident. 2. Right carotid artery stent is patent. 3. Nonvisualization of the proximal right vertebral artery. Retrograde flow is likely present superio rly.
[2020-06-10 16:27] LABS: Cholesterol 100 mg/dL (<200); HDL Cholesterol 60 mg/dL (40-60); LDL Cholesterol,Calculated 23 mg/dL (0-99); Triglycerides 84 mg/dL (<150)
--- NOTE | 2020-06-10 16:39 | P.CNNES ---
History of Present Illness Consult date: 06/10/20 Requesting physician: Patrick Friedman Reason for Consult: Acute right vision change after carotid stenting History of Present Illness: This is a 54-year-old gentleman with history of cerebral palsy with residual right hemiparesis, bilateral carotid stenosis, coronary artery disease status post CABG, hypertension, hyperlipidemia, ex-smoker that's had carotid sending the day over the right and then the patient complained of vision business change manager the right eye. The patient had the carotid stenting procedure today between 03/05 and it lasted on up until 12 PM. During the procedure the patient had that bradycardia in the 40s and had two episodes off unresponsiveness that were brief lasting 4-5 seconds. Also was told that that the patient had the low blood pressure in the 90s systolic. Per Dr. Friedman there is no seizure-like activity and there is no jerk in upon asking him. He stated patient just became unresponsive. It seems that that Levothroid had to be turned back on and atropine have to be used. He stated that his carotid stenosis were 99% prior to procedure and was excessively patent after. During the procedure the patient received the heparin drip as well as that he received Plavix Patient was then taken to ICU and per the patient's nurse and his heart rate was in the 40s and his blood pressure was running low as well 90s to 100 and the the lesions that had to be adjusted. The patient stated that between 1:30 to 2:00 and p.m. (per nurse it was around 2pm) he noticed the initially a black spot then the waistline over the the right eye. He said it's constant. He said that he had it in the past and the last time he had it was about a year ago and he hasn't had it since. Patient denies of any new weakness, numbness, difficulty swallowing or difficulty getting his words out. The patient is on home aspirin the 325 daily as well as Lipitor 80mg daily. Per the patient he has history of cerebral palsy. He states that he was a product of term, vaginal delivery and no complication. He said that that as a child he was being treated by his father and the that's how he suffered is a wea kness over the right side but he is not exactly sure but that's what the he recalls. Review of Systems The template review of system is reviewed and apparent positive and negative as per HPI. Past Medical History Past Medical History: Coronary Artery Disease (CAD), Hyperlipidemia, Hypertension Additional Past Medical History / Comment(s): Cerebral palsy, no mobility issues, bilateral carotid artery stenosis History of Any Multi-Drug Resistant Organisms: None Reported Past Surgical History: Coronary Bypass/CABG, Heart Catheterization Additional Past Surgical History / Comment(s): 4 vessel CABG 10/24/18 Past Anesthesia/Blood Transfusion Reactions: No Reported Reaction Additional Past Anesthesia/Blood Transfusion Reaction / Comment(s): no hx general anesthesia or blood transfusion Smoking Status: Former smoker - Past Family History Mother Family Medical History: No Reported History Additional Family Medical History / Comment(s): family history of premature coronary artery disease on his mother's side Medications and Allergies Home Medications Medication Instructions Recorded Confirmed Type Aspirin 81 mg PO DAILY #30 chew 10/10/18 06/10/20 Rx Atorvastatin [Lipitor] 80 mg PO HS #30 tab 10/10/18 06/10/20 Rx Ascorbic Acid [Vitamin C] 500 mg PO DAILY 06/03/20 06/10/20 History Diltiazem Cd [Cardizem CD] 120 mg PO DAILY 06/03/20 06/10/20 History Ergocalciferol [Vitamin D2 50,000 unit PO Q7D 06/03/20 06/10/20 History (DRISDOL)] Metoprolol Tartrate [Lopressor] 25 mg PO DAILY 06/03/20 06/10/20 History Nitroglycerin Sl Tabs [Nitrostat] 0.4 mg SUBLINGUAL Q5M PRN 06/03/20 06/03/20 History Clopidogrel [Plavix] 75 mg PO DAILY #90 tablet 06/10/20 Rx Allergies Allergy/AdvReac Type Severity Reaction Status Date / Time No Known Allergies Allergy Verified 06/03/20 10:56 Physical Examination - Vital Signs Vital Signs: Vital Signs Temp Pulse Pulse Resp BP BP BP 06/10/20 15:30 65 11 L 130/78 06/10/20 15:20 130/78 06/10/20 15:10 130/78 06/10/20 15:00 75 10 L 108/65 06/10/20 14:50 72 16 108/65 06/10/20 14:40 49 L 21 108/65 06/10/20 14:30 55 L 16 108/65 06/10/20 14:20 55 L 14 108/65 06/10/20 14:10 53 L 15 108/65 06/10/20 14:00 55 L 20 111/65 06/10/20 13:50 49 L 8 L 82/54 06/10/20 13:40 53 L 26 H 82/54 06/10/20 13:30 59 L 16 82/54 06/10/20 13:20 58 L 12 82/54 06/10/20 13:10 60 14 82/54 06/10/20 13:00 70 11 L 06/10/20 12:50 61 15 06/10/20 12:40 67 19 92/55 06/10/20 12:30 98.7 F 67 21 92/55 06/10/20 12:20 67 13 92/55 06/10/20 08:58 97.9 F 76 16 149/70 139/65 Pulse Ox 06/10/20 15:30 97 06/10/20 15:20 06/10/20 15:10 06/10/20 15:00 97 06/10/20 14:50 95 06/10/20 14:40 98 06/10/20 14:30 96 06/10/20 14:20 06/10/20 14:10 97 06/10/20 14:00 96 06/10/20 13:50 98 06/10/20 13:40 95 06/10/20 13:30 94 L 06/10/20 13:20 94 L 06/10/20 13:10 93 L 06/10/20 13:00 95 06/10/20 12:50 95 06/10/20 12:40 96 06/10/20 12:30 96 06/10/20 12:20 06/10/20 08:58 98 Intake and Output 06/10/20 06/10/20 06/10/20 06:59 14:59 22:59 Intake Total 755 100 Balance 755 100 Intake: IV 755 100 0.9 NACL 200 100 Other: Weight 70.8 kg ABP, PAP, CO, CI - Last 8 Hours Arterial Blood Pressure 142/57 Arterial Blood Pressure 132/61 Arterial Blood Pressure 104/50 Arterial Blood Pressure 120/52 Arterial Blood Pressure 100/47 Arterial Blood Pressure 110/46 Arterial Blood Pressure 117/49 Arterial Blood Pressure 122/55 Arterial Blood Pressure 120/40 Arterial Blood Pressure 101/48 Arterial Blood Pressure 92/44 Arterial Blood Pressure 89/44 Arterial Blood Pressure 86/43 Arterial Blood Pressure 100/49 Arterial Blood Pressure 91/43 Arterial Blood Pressure 92/46 Arterial Blood Pressure 101/49 GENERAL: The patient is lying in bed and is not in acute distress. CHEST: The heart rate is regular rate rhythm. No murmurs to auscultation. LUNG: Clear to auscultation bilaterally no wheezing noted throughout. Not labored breathing. ABDOMEN/GI: Bowel sounds present in all 4 quadrants. No tenderness to palpation throughout. NEUROLOGICAL: Higher mental function: The patient is awake, alert, oriented to self, place and time. Patient is following commands. No aphasia and no neglect. Cranial nerves: The pupils are round, equal and reactive to light and accommodation. Visual mitchell are full to confrontation throughout. Extraocular movement is intact no nystagmus is noted. Facial sensation is normal to touch throughout. The facial strength is normal throughout. Hearing is normal bilaterally to hand rub. Tongue is midline and moved [id number] without any difficulty. No dysarthria is noted. Shoulder shrug is normal bilaterally. Motor: Gait is deferred. The strength is is able to lift the right upper and lower extremity above gravity wihtout drift but the patient has increased tone on the right side from a previous injury (cerebral palsy). Otherwise the left upper and lower extremities strength is normal but could not assess exact strength because of recent procedure. Cerebellum: Normal finger bilaterally. Sensation: Sensation is normal to touch throughout. Reflexes (right/left): 3+ over the right while 2+ over the left. Plantars are downgoing bilaterally. NIH stroke scale: 0. Results Serum glucose around 9:00 is 112. While at 1502 is 117. Calcium is 9.7. 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 Complained of having a black spot then the turned into grayish. He stated that he did have visual disturbance over the right in the past but the last time he had it was about a year ago. His NIH stroke scale is 0. As a result no TPA and also patient had acute intervention today. Acue Right Visual disturbance over the right eye: Likely TIA vs stroke possibly seems from today's carotid stenting. Syncope: From carotid baroreceptor sensitivity from carotid intervention History of cerebral palsy with right hemiparesis Previous the episode of visual disturbance over the right eye and the last episode was about 1 year ago Bilateral carotid stenosis History of coronary artery disease status post CABG Hypertension Hyperlipidemia X tobacco user Plan: I ordered the stat CT as well as CT angiography of the head and neck. If the CT of the head is normal, I will order MRI of the brain as well as the orbits. Patient is currently on aspirin 325 as well as the Plavix 75 mg daily. Lipitor 80mg to be continued for secondary stroke prophylaxis. I ordered that 2-D echo I ordered lipid panel and TSH. Not consult physical therapy and occupational therapy since the patient does not have any weakness that acute or subacute. Continue cardiac monitoring Ordered a routine EEG. I will not start the patient on antiepileptic drug unless there is applicable discharges or seizure on the EEG. The stroke team was not called since the patient is not to be a candidate since NIH of 0. As well as no intervention is required. Please avoid any hypotension episodes as well as the avoid any bradycardia. Recommend goal of Systolic blood pressure 130 to 150. But will defer that to the cardiology team. UPDATE: CT of the head the is reported as chronic appearing periventricular white matter hypodensity. Atrophy. In the body it's reported as the ventricles are prominent. The third ventricles prominent at. I felt the posterior horn of the lateral ventricles and prominent as well as the third ventricle. CTA of the head and neck was reported as there appears to be moderate flow limiting stenosis of the left carotid bifurcation no obstruction however is evident. Right carotid artery stent is patent. Nonvisualization of the proximal right vertebral artery. Antegrade flow is likely present superiorly. The plan was discussed with the patient nurse as well as Dr. Friedman. Thank you for the consultation. Denilson Mahoney MD Neuro-Hospitalist Time with Patient: Greater than 30
[2020-06-10] MEDS: ATORVASTATIN 80 MG TAB PO SCH (20:42)
[2020-06-10] MEDS ORDERED: ATORVASTATIN 80 MG TAB PO SCH (21:00)
[2020-06-10] MEDS ORDERED: ATORVASTATIN 40 MG TAB PO SCH (21:00)
[2020-06-11] MEDS: NOREPINEPHRINE 4 MG in SODIUM CHLORIDE 0.9% 250 ML IV SCH (00:44)
[2020-06-11] MEDS ORDERED: ATROPINE SULFATE 0.1 MG/ML 10ML SYRINGE IV STA (02:56)
[2020-06-11 04:43] LABS: Basophils % (A) 0 %; Eosinophils # (A) 0.2 k/uL (0-0.7); Eosinophils % (A) 2 %; HGB 12.5 gm/dL (13.0-17.5); Lymphocytes # (A) 2.1 k/uL (1.0-4.8); Lymphocytes % (A) 19 %; MCH 30.4 pg (25.0-35.0); MCV 94.7 fL (80.0-100.0); Mean Platelet Volume 7.1; Monocytes # (A) 0.7 k/uL (0-1.0); Monocytes % (A) 6 %; Neutrophils # (A) 7.7 k/uL (1.3-7.7); Neutrophils % (A) 71 %; Platelet Count 241 k/uL (150-450); RBC 4.11 m/uL (4.30-5.90); RDW 13.8 % (11.5-15.5); WBC 10.7 k/uL (3.8-10.6)
[2020-06-11 05:04] LABS: African American GFR (CKD) >90 (>60 ml/min/1.73 sqM); Anion Gap 7 mmol/L; Blood Urea Nitrogen 10 mg/dL (9-20); Calcium 8.8 mg/dL (8.4-10.2); Carbon Dioxide 23 mmol/L (22-30); Chloride 110 mmol/L (98-107); Glucose 106 mg/dL (74-99); Non-African American GFR(CKD) >90 (>60 ml/min/1.73 sqM); Potassium 3.7 mmol/L (3.5-5.1); Sodium 140 mmol/L (137-145)
[2020-06-11] MEDS ORDERED: POTASSIUM CHLORIDE ER 20 MEQ TAB.ER PO SCH (06:00)
[2020-06-11] MEDS: MAGNESIUM SULFATE-D5W PMX 1 GM in DEXTROSE/WATER 1 100ML.BAG IVPB SCH ×2 (06:51→08:30)
[2020-06-11] MEDS ORDERED: SODIUM CHLORIDE 0.9% 500 ML 200 ML IV ONE (08:13)
--- NOTE | 2020-06-11 08:27 | ECHOF ---
Referral Reason:stroke MEASUREMENTS -------- HEIGHT: 167.6 cm WEIGHT: 73.0 kg BP: 125/77 RVIDd: 3.3 cm (< 3.3) IVSd: 1.4 cm (0.6 - 1.1) LVIDd: 4.0 cm (3.9 - 5.3) LVPWd: 1.4 cm (0.6 - 1.1) IVSs: 1.7 cm LVIDs: 2.7 cm LVPWs: 1.7 cm LA Diam: 3.8 cm (2.7 - 3.8) LAESV Index (A-L): 24.34 ml/m Ao Diam: 3.4 cm (2.0 - 3.7) AV Cusp: 2.4 cm (1.5 - 2.6) MV EXCURSION: 17.918 mm (> 18.000) MV EF SLOPE: 125 mm/s (70 - 150) EPSS: 0.5 cm MV E Devonte: 0.97 m/s MV DecT: 243 ms MV A Devonte: 0.67 m/s MV E/A Ratio: 1.43 FINDINGS -------- Resting bradycardia (HR<60bpm). This was a technically good study. The left ventricular size is normal. There is moderate concentric left ventricular hypertrophy. O verall left ventricular systolic function is normal with, an EF between 60 - 65 %. The right ventricle is mildly enlarged. Normal LA size by volume 22+/-6 ml/m2. The right atrium is normal in size. Interatrial and interventricular septum intact. The aortic valve is trileaflet and appears structurally normal. The mitral valve is normal. The tricuspid valve appears structurally normal. Trace/mild (physiologic) pulmonic regurgitation. The aortic root size is normal. Normal inferior vena cava with normal inspiratory collapse consistent with estimated right atrial pre ssure of 5 mmHg. There is no pericardial effusion. CONCLUSIONS -------- 1. The left ventricular size is normal. 2. There is moderate concentric left ventricular hypertrophy. 3. Overall left ventricular systolic function is normal with, an EF between 60 - 65 %. 4. The right ventricle is mildly enlarged. 5. Normal LA size by volume 22+/-6 ml/m2. 6. Trace/mild (physiologic) pulmonic regurgitation. 7. There is no pericardial effusion. MACHINE OILER: Elizabeth Pate RDCS
[2020-06-11] MEDS: ASPIRIN 325 MG TAB PO SCH (08:30)
[2020-06-11] MEDS: CLOPIDOGREL 75 MG TAB PO SCH (08:30)
[2020-06-11] MEDS: ASCORBIC ACID 500 MG TAB PO SCH (08:31)
[2020-06-11] MEDS ORDERED: ASPIRIN 81 MG PO SCH (09:00)
[2020-06-11] MEDS: MIDODRINE 5 MG TAB PO SCH ×3 (09:20→17:26)
[2020-06-11] MEDS ORDERED: SODIUM CHLORIDE 0.9% 500 ML IV SCH (09:30)
--- NOTE | 2020-06-11 10:14 | IR ---
EXAMINATION TYPE: IR stent intravas non coronary DATE OF EXAM: 06/10/2020 COMPARISON: NONE HISTORY: Fluoroscopy time. Fluoroscopy was provided to the referring clinician.
[2020-06-11] MEDS ORDERED: MIDODRINE 5 MG TAB PO SCH (12:30)
--- NOTE | 2020-06-11 16:26 | P.PN ---
Subjective Progress Note Date: 06/11/20 The patient was seen at bedside and he stated that that he's having some improvement in his vision over the right eye. He stated that he feels like there is a spot over the pupil and it's the size of a thump and he stated that that the size has not decreased since yesterday. He did state that the when he has left eye closed he'll see that but one both his eyes are open the it resolved. Otherwise he denies of any new weakness, numbness, field defect. He also denies of any word finding difficulty or difficulty getting his words out. It was planned for the patient to get MRI of the brain as well as MR the orbits in the AM, but there is no safety information on the stent he had placed. They contacted the company in the company wasn't available to provide them with any information so the the was recommended to have MRI after 6 weeks. Regarding the EEG, I would think the patient has a seizure and upon informing him that we are trying to get an EEG to rule out epileptiform discharges especially that he had 2 episodes of unresponsiveness he stated that he does not want to go ahead with EEG. Objective - Vital Signs Vital signs: Vital Signs Temp 98.0 F 06/11/20 12:00 Pulse 52 L 06/11/20 15:00 Resp 26 H 06/11/20 15:00 BP 107/60 06/11/20 15:00 Pulse Ox 96 06/11/20 14:45 Intake & Output 06/10/20 06/11/20 06/11/20 18:59 06:59 18:59 Intake Total 1244.06 1680.310 869.548 Output Total 150 1075 500 Balance 1094.06 605.310 369.548 Weight 70.8 kg 73.4 kg Intake: IV 1155 1200 800 0.9 NACL 600 1200 800 Intake, IV Titration 89.06 280.310 69.548 Amount Norepinephrine 4 mg In 89.06 280.310 69.548 Sodium Chloride 0.9% 250 ml @ 0.07 MCG/KG/MIN 18. 882 mls/hr IV .[id number] JENNIFER Rx#:[id number] Oral 200 Output: Urine 150 1075 500 Other: Voiding Method Urinal Urinal Urinal # Voids 1 0 # Bowel Movements 1 ABP, PAP, CO, CI - Last Documented Arterial Blood Pressure 123/50 - Exam GENERAL: The patient is lying in bed and is not in acute distress. NEUROLOGICAL: Higher mental function: The patient is awake, alert, oriented to self, place and time. Patient is following commands. No aphasia and no neglect. Cranial nerves: The pupils are round, equal and reactive to light and accommodation. Visual mitchell are full to confrontation throughout. Extraocular movement is intact no nystagmus is noted. Facial sensation is normal to touch throughout. The facial strength is normal throughout. Hearing is normal bilaterally to hand rub. Tongue is midline and moved [id number] without any difficulty. No dysarthria is noted. Shoulder shrug is normal bilaterally. Motor: Gait is deferred. The strength is is able to lift the right upper and lower extremity above gravity wihtout drift but the patient has increased tone on the right side (mostly distal upper and distal lower extremity from a previous injury cerebral palsy). Otherwise the left upper and lower extremities strength is normal but could not assess exact strength because of recent procedure. Cerebellum: Normal finger bilaterally. Sensation: Sensation is normal to touch throughout. Reflexes (right/left): 3+ over the right while 2+ over the left. Plantars are downgoing bilaterally. 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 Complained of having a black spot then the turned into grayish. He stated that he did have visual distu rbance over the right in the past but the last time he had it was about a year ago. His NIH stroke scale is 0. As a result no TPA and also patient had acute intervention today. Acue Right Visual disturbance over the right eye: Likely TIA vs stroke possibly seems from carotid stenting on 06/10/2020. Syncope: From carotid baroreceptor sensitivity from carotid intervention History of cerebral palsy with right hemiparesis Previous the episode of visual disturbance over the right eye and the last episode was about 1 year ago Bilateral carotid stenosis History of coronary artery disease status post CABG Hypertension Hyperlipidemia X tobacco user Plan: * CT of the head the is reported as chronic appearing periventricular white matter hypodensity. Atrophy. In the body it's reported as the ventricles are prominent. The third ventricles prominent at. I felt the posterior horn of the lateral ventricles and prominent as well as the third ventricle. * CTA of the head and neck was reported as there appears to be moderate flow limiting stenosis of the left carotid bifurcation no obstruction however is evident. Right carotid artery stent is patent. Nonvisualization of the proximal right vertebral artery.Antegrade flow is likely present superiorly. * It was planned for the patient to get MRI of the brain as well as MR the orbits in the AM, but there is no safety information on the stent he had placed. They contacted the company in the company wasn't available to provide them with any information so the the was recommended to have MRI after 6 weeks. * Regarding the EEG, I would think the patient has a seizure and upon informing him that we are trying to get an EEG to rule out epileptiform discharges especially that he had 2 episodes of unresponsiveness he stated that he does not want to go ahead with EEG. * Patient is currently on aspirin 325 as well as the Plavix 75 mg daily. Lipitor 80mg to be continued for secondary stroke prophylaxis. * 2-D echo: Moderate concentric left ventricular hypertrophy. Ejection fraction of 60-65%. Normal left atrial size by volume. * Lipid panel: Triglyceride of 84, cholesterol 100, LDLs 23, HDL 60. * TSH: 3.08 (normal). * Not consult physical therapy and occupational therapy since the patient does not have any weakness that acute or subacute. * Continue cardiac monitoring * Patient needs to follow-up with a neurologist as well as neuro financial reporting director (if not financial reporting director) within 1-2 weeks as an outpatient. * Please avoid any hypotension episodes as well as the avoid any bradycardia and will defer management to Dr. Friedman. There is no further neurological workup. Denilson Mahoney MD Neuro-Hospitalist Time with Patient: Less than 30
--- NOTE | 2020-06-11 17:59 | PN ---
PROGRESS NOTE DATE OF SERVICE: June 11, 2020. HISTORY: This is a 54-year-old gentleman with coronary artery disease and prior coronary artery bypass grafting as well as hypertension and dyslipidemia who underwent yesterday successful stenting of the right internal carotid artery for a critical disease involving the right internal carotid artery. The patient was experiencing symptoms of visual disturbance involving the right eye in the past. He underwent recently a carotid duplex study and subsequently a CTA which confirmed the presence of bilateral critical disease involving the internal carotid artery bilaterally. Yesterday, he underwent successful stenting of the right internal carotid artery using Xact 8-6 by 40 mm carotid stent with an excellent angiographic results and reduction of stenosis from 99% to 0% with adjunctive use of distal protection filter. The procedure itself was very uneventful. Several hours after the procedure, the patient noticed that once he closed his left eye, he feels a small round spot appeared to be black in front of the right eye. The spot was the size of the thumb. Because of that, I consulted Neurology to see the patient. CT scan of the head and CTA of the head and neck were performed and they came in to be unremarkable. Initially the patient was going to undergo an MRI today and also an EEG but both tests were canceled because of insurance issue and patient request as well. When the patient was seen and evaluated by the Neurology service, he was doing well without any other focal neurologic finding. He was seen today. He remains asymptomatic from a cardiovascular standpoint of view. The spot in front of the right eye was getting slightly smaller. The patient cannot see any spot if he opens both eyes. Hemodynamically, he was requiring small dose of norepinephrine which we are in the process of weaning him from. Beside that, I am going to start him a small dose of midodrine to support his pressure. His heart rate continues to be marginal in the 50s in spite of holding the beta karissa he was on at home and also the calcium channel karissa he was on at home as well. The blood work from today was reviewed and came in to be unremarkable with a hemoglobin of 12.5 and normal kidney function as well as normal electrolytes. The right groin is soft and nontender and without any bruises. At this point., I am going to continue the current medical regimen and that includes dual anti-platelet therapy. I am going to continue high intensity statin. We will continue holding any AV myla karissa agents. He will be started on midodrine at 2.5 mg p.o. t.i.d. We will hold any other blood pressure medication and monitor the patient for additional 24 hours to be discharged home tomorrow morning if there is no clinical events happen. ENDY / ALISHA: [id number] /
[2020-06-11] MEDS: ATORVASTATIN 80 MG TAB PO SCH (20:11)
[2020-06-12] MEDS: MIDODRINE 5 MG TAB PO SCH (06:49)
[2020-06-12] MEDS: CLOPIDOGREL 75 MG TAB PO SCH (08:27)
[2020-06-12] MEDS: ASCORBIC ACID 500 MG TAB PO SCH (08:27)
[2020-06-12] MEDS: ASPIRIN 325 MG TAB PO SCH (08:27)
[2020-06-12 08:31] VITALS: BP 100/51; PULSE 56; RESP 16; TEMP 98.2
--- NOTE | 2020-06-12 13:07 | P.DS ---
Providers Date of admission: 06/10/20 08:30 Attending physician: Patrick Friedman Consults: 06/10/20 12:14 Consult Physician Routine Consulting Provider: Patrick Friedman Consult Reason/Comments: Post Interventional patient Do you want consulting provider notified?: Already Contacted 06/10/20 14:37 Consult Physician Stat Consulting Provider: Denilson Mahoney Consult Reason/Comments: nuerological changes Do you want consulting provider notified?: Yes Primary care physician: Stated None Hospital Course: This is a very pleasant 54-year-old gentleman who was admitted to the hospital 2 days ago and underwent successful stenting of critical right internal carotid artery. The patient was seen today. He denies any symptoms of chest pain or chest discomfort or shortness of breath or dizziness or lightheadedness. He stated this spots he so in the right eye yesterday has resolved today. The right groin continue to be soft and nontender and without any bruises. The patient was seen by the neurology service during his admission and he was cleared to be discharged. He is going to be discharged on dual antiplatelet therapy along with high intensity statin and he is going to follow-up with Dr. Burnett. He did not have any more episodes of bradycardia and he will go home without any beta karissa or calcium channel karissa. Plan - Discharge Summary Discharge Rx Participant: No New Discharge Prescriptions: New Clopidogrel [Plavix] 75 mg PO DAILY #90 tab Midodrine [ProAmatine] 2.5 mg PO AC-TID #90 tab Continue Aspirin 81 mg PO DAILY #30 chew Atorvastatin [Lipitor] 80 mg PO HS #30 tab Ergocalciferol [Vitamin D2 (DRISDOL)] 50,000 unit PO Q7D Ascorbic Acid [Vitamin C] 500 mg PO DAILY Discontinued Metoprolol Tartrate [Lopressor] 25 mg PO DAILY Diltiazem Cd [Cardizem CD] 120 mg PO DAILY Nitroglycerin Sl Tabs [Nitrostat] 0.4 mg SUBLINGUAL Q5M PRN PRN Reason: Angina Discharge Medication List Aspirin 81 mg PO DAILY #30 chew 10/10/18 [Rx] Atorvastatin [Lipitor] 80 mg PO HS #30 tab 10/10/18 [Rx] Ascorbic Acid [Vitamin C] 500 mg PO DAILY 06/03/20 [History] Ergocalciferol [Vitamin D2 (DRISDOL)] 50,000 unit PO Q7D 06/03/20 [History] Clopidogrel [Plavix] 75 mg PO DAILY #90 tab 06/11/20 [Rx] Midodrine [ProAmatine] 2.5 mg PO AC-TID #90 tab 06/11/20 [Rx] Follow up Appointment(s)/Referral(s): Jarad Naranjo MD [STAFF PHYSICIAN] - 06/15/20 7:45 am Umer Durham DO [STAFF PHYSICIAN] - 1 Week ( office will contact you with an appointment time.) Kelvin Burnett MD [STAFF PHYSICIAN] - 06/23/20 2:30 pm Patient Instructions/Handouts: Carotid Artery Stent Placement (DC), Carotid Artery Stent Placement (GEN)
--- NOTE | 2020-06-12 19:36 | P.PN ---
Subjective Progress Note Date: 06/12/20 Causing the patient he feels about the same as yesterday. He stated that that when he opens his eyes he doesn't see any black spots over the right eye but when he closes of the left eye see the black spot just of over the pupil also it's just in the medical upper and it's this thighs of the thumb according to him but it goes away when he opens both eyes. Denies any further focal weakness, numbness, difficulty getting his words out or understanding. Upon seeing him in the morning today the patient the was a where he is closed and the and was being discharged. His heart rate has been in the range of predominantly in the 40s to 50s he'll have some episodes in the 60s. His systolic blood pressure has been in the range of predominantly 90s to 100s and the diastolic has been in the range of 40s to 60s predominantly but he'll have a couple episodes in the 70s. Patient is started on admitted ring 2.5 mg 1 tablet 3 times a day. Of note on 06/08/2020 when the patient had the episode pauses during carotid stenting, he was given atropine as well as patient was on norepinephrine during the procedure. Per the ICU nurse when the norepinephrine was stopped and was in the ICU later he had these episodes where he was complaining of right visual disturbance. She stated his systolic blood pressure was low. Clarification, I spoke with the patient ICU nurse the have them yesterday and she stated that the MRI contacted the company for stenting and the company responded. And and per the ICU nurse she was notified he can have MRI after 6 weeks. Objective - Vital Signs Vital signs: Vital Signs Temp 98.2 F 06/12/20 08:00 Pulse 56 L 06/12/20 08:00 Resp 16 06/12/20 08:00 BP 100/51 06/12/20 08:00 Pulse Ox 96 06/12/20 08:00 Intake & Output 06/11/20 06/12/20 06/12/20 18:59 06:59 18:59 Intake Total 969.548 800 Output Total 600 1500 Balance 369.548 -700 Weight 73.4 kg Intake: IV 900 800 0.9 NACL 900 800 Intake, IV Titration 69.548 Amount Norepinephrine 4 mg In 69.548 Sodium Chloride 0.9% 250 ml @ 0.07 MCG/KG/MIN 18. 882 mls/hr IV .[id number] [facility] Rx#:[id number] Output: Urine 600 1500 Other: Voiding Method Urinal Urinal Urinal # Voids 0 ABP, PAP, CO, CI - Last Documented Arterial Blood Pressure 123/50 - Exam GENERAL: The patient is lying in bed and is not in acute distress. NEUROLOGICAL: Higher mental function: The patient is awake, alert, oriented to self, place and time. Patient is following commands. No aphasia and no neglect. Cranial nerves: The pupils are round, equal and reactive to light and accommodation. Visual acuity is 20/100 OU without correction. Visual mitchell are full to confrontation throughout. Extraocular movement is intact no nystagmus is noted. Facial sensation is normal to touch throughout. The facial strength is normal throughout. Hearing is normal bilaterally to hand rub. Tongue is midline and moved [id number] without any difficulty. No dysarthria is noted. Shoulder shrug is normal bilaterally. Motor: Gait is deferred. The strength is is able to lift the right upper and lower extremity above gravity wihtout drift but the patient has increased tone on the right side (mostly distal upper and distal lower extremity from a previous injury cerebral palsy). Otherwise the left upper and lower extremities strength is normal but could not assess exact strength because of recent procedure. Cerebellum: Normal finger bilaterally. Sensation: Sensation is normal to touch throughout. Reflexes (right/left): 3+ over the right while 2+ over the left. Plantars are downgoing bilaterally. 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 Complained of having a black spot then the turned into grayish. He stated that he did have visual disturbance over the right in the past but the last time he had it was about a year ago. His NIH stroke scale is 0. As a result no TPA and also patient had acute intervention today. Acue Right Visual disturbance over the right eye: Likely acute ischemic stroke and seems from carotid stenting on 06/10/2020. Syncope: From carotid baroreceptor sensitivity from carotid intervention History of cerebral palsy with right hemiparesis Previous the episode of visual disturbance over the right eye and the last episode was about 1 year ago Bilateral carotid stenosis History of coronary artery disease status post CABG Hypertension Hyperlipidemia X tobacco user Plan: * CT of the head the is reported as chronic appearing periventricular white matter hypodensity. Atrophy. In the body it's reported as the ventricles are prominent. The third ventricles prominent at. I felt the posterior horn of the lateral ventricles and prominent as well as the third ventricle. * CTA of the head and neck was reported as there appears to be moderate flow limiting stenosis of the left carotid bifurcation no obstruction however is evident. Right carotid artery stent is patent. Nonvisualization of the proximal right vertebral artery.Antegrade flow is likely present superiorly. * Attempted to get MRI of the brain as well as MR the orbits but was notified by ICU nurse he can have it after 6 weeks because of acute stenting. * Regarding the EEG, I would think the patient has a seizure and upon informing him that we are trying to get an EEG to rule out epileptiform discharges especially that he had 2 episodes of unresponsiveness he stated that he does not want to go ahead with EEG. * Patient is currently on aspirin 325 as well as the Plavix 75 mg daily. Lipitor 80mg to be continued for secondary stroke prophylaxis. * 2-D echo: Moderate concentric left ventricular hypertrophy. Ejection fraction of 60-65%. Normal left atrial size by volume. * Lipid panel: Triglyceride of 84, cholesterol 100, LDLs 23, HDL 60. * TSH: 3.08 (normal). * Not consult physical therapy and occupational therapy since the patient does not have any weakness that acute or subacute. * Regarding his bradycardia and hypotensive episode all defer the management to his asphalt paving supervisor (Dr. Friedman). * Patient needs to follow-up with a neurologist as well as neuro gas meter installer helper (if not gas meter installer helper) within 1-2 weeks as an outpatient. There is no further neurological workup. Denilson Mahoney MD Neuro-Hospitalist Time with Patient: Less than 30
--- NOTE | 2020-06-16 09:05 | CDI ---
Documentation Clarification Form Date: 06/16/2020 From: Jamee Walters RN, CCDS Admit Date: 06/10/2020 08:30:00 AM Patient Name: Jeovany Mathew Visit Number: [id number] Discharge Date: 06/12/2020 01:14:00 PM ATTENTION: The Clinical Documentation Specialists (CDI) and [facility] Coding Staff appreciate your assistance in clarifying documentation. Please respond to the clarification below the line at the bottom and electronically sign. The CDI & [facility] Coding staff will review the response and follow-up if needed. Please note: Queries are made part of the Legal Health Record. If you have any questions, please contact the author of this message via ITS. Dr. Patrick Friedman Bradycardia and hypotension episode is documented in the neurology progress note on 06/11 that occurred during the procedure on 06/10/20. Please provide further specificity of the bradycardia and hypotension. Patients Admitting Diagnosis: Occlusion and stenosis of bilateral carotid arteries Post-Operative Diagnosis: Same Procedure performed: Stenting of the right internal carotid artery. Selective angiogram of the right common and right internal carotid artery. Intracranial angiogram, Right common femoral artery angiogram. History/Risk Factors: Coronary artery disease, bilateral carotid stenosis, Tobacco use Clinical Indicators: 54-year-old male present on 06/10 for elective procedure after his CTA showed 95 % stenosis involving the right internal carotid artery and 85 % stenosis involving the left carotid artery. 06/10 procedure log at 11:48 Balloon removed patient had another pause and returned to baseline, 0.5 mg of Atropine given. 06/10 procedure log at 11: 48 HR 63, PRE, and NIBP 73/42 RESP: 15 SPO2 85, NOTES: Manual 06/10 procedure log at 11:50 HR 72 PRE, NIBP: 64/42, RESP: 8 SPO2 99, NOTES: Manual 06/10 procedure log at 11:52: Starting the patient on a Levo drip for his BP 64/42 06/11 Cardiology progress note: he was requiring small dose of norepinephrine which we are in the process of weaning him from. Besides that, I am going to start him on a small dose of Midodrine to support his pressure. His heart rate continues to be marginal in the 50s in spite of holding the beta karissa he was on at home and also the calcium channel karissa he was on at home as well. Hold any other blood pressure medication and monitor the patient for additional 24 hours. Treatment: Levophed 4 mg in 254 mls@18.82 mls/hr IV 06/10-06/11 Atropine 0.5 mg IVP 06/10 @ 11:49 and 12:14 Midodrine 2.5 mg PO AC-TID .9NS IV @100 mls/hr EEG refused MRI: will need to wait 6 weeks because of acute stenting. 06/12 Neurology consult: Acute right visual disturbance over the right eye. Likely acute ischemic stroke and seems from carotid stenting on 06/10/2020. Previous the episode of visual disturbance over the right eye and the last episode was about 1 year ago. Regarding his bradycardia and hypotensive episode all defer the management to his customer service specialist (Dr. Friedman). In order to accurately reflect this patients severity of illness, please clarify if the bradycardia and hypotensive episode: -is a complication of surgical procedure -is an expected outcome of the surgical procedure -is related to co-morbid condition(s) of -Other please specify -Unable to determine (Last Revision: July 2019) Is related to co-morbib condition MTDD
--- NOTE | 2020-06-16 10:33 | CDI ---
Documentation Clarification Form Date: 06/16/2020 09:21:42 AM From: Jamee Walters RN, CCDS Admit Date: 06/10/2020 08:30:00 AM Patient Name: Jeovany Mathew Visit Number: [id number] Discharge Date: 06/12/2020 01:14:00 PM ATTENTION: The Clinical Documentation Specialists (CDI) and [facility] Coding Staff appreciate your assistance in clarifying documentation. Please respond to the clarification below the line at the bottom and electronically sign. The CDI & [facility] Coding staff will review the response and follow-up if needed. Please note: Queries are made part of the Legal Health Record. If you have any questions, please contact the author of this message via ITS. Dr. Patrick Friedman Likely acute ischemic stroke and seems from carotid stent on 06/10/2020 is documented in the neurology progress notes on 06/12/20. Please render your opinion on the cause and effect relationship of this documentation if known. Patients Admitting Diagnosis: Occlusion and stenosis of bilateral carotid arteries Post-Operative Diagnosis: Same Procedure performed: Stenting of the right internal carotid artery. Selective angiogram of the right common and right internal carotid artery. Intracranial angiogram, Right common femoral artery angiogram. History/Risk Factors: Cerebral palsy, Coronary artery disease, bilateral carotid stenosis, Tobacco use Clinical Indicators: 54-year-old male present on 06/10 for elective procedure after his CTA showed 95 % stenosis involving the right internal carotid artery and 85 % stenosis involving the left carotid artery, carotid stenting on 06/10/2020. During the procedure the patient had bradycardia in the 40s and had two episodes of unresponsiveness that were brief lasting 4-5 seconds after the procedure the patient noticed a black spot over the right. Previous the episode of visual disturbance over the right eye and the last episode was about 1 year ago. He denied any new weakness, numbness, difficulty swallowing or difficulty getting his words out. 06/10 CT angiogram head and neck: (per neurology review) moderate flow limiting stenosis of left carotid bifurcation no obstruction however is evident. Right carotid artery stent is patent. Non-visualization of the proximal right vertebral artery. Antergrade flow is likely present superiorly. 06/12 NIH stroke scale: 0 Treatment: Neurological checks per orders Aspirin 325 mg po daily Heparin drip 06/10 (dc) Plavix 600 mg po once (06/10) than 75 mg po daily Midodrine 2.5 mg PO AC-TID .9NS IV @100 mls/hr EEG refused MRI: will need to wait 6 weeks because of acute stenting. In order to accurately reflect this patients severity of illness, please clarify if the acute ischemic stroke and seems from carotid stenting: -is a complication of surgical procedure -is an expected outcome of the surgical procedure -is related to co-morbid condition(s) of (specify) -Other, please specify -Unable to determine (Last Revision: July 2019) Is related to co-morbid condition MTDD
--- NOTE | 2020-06-29 11:57 | EM ---
EVENT MONITOR The patient was monitored between the and June. The rhythm strip revealed a sinus mechanism with single PVCs and PACs. No atrial fibrillation was noted. No episode of ventricular tachycardia was noted. No symptoms were reported. MMODL / IJN: [id number] /
== END 2020-06-12 13:14 | disposition home or self-care (01) | DRG 34 ==
LOC: 2ORMAIN 08:30 → 2SICU 11:57 → 3SCARD 06-12 05:53
PROVIDERS: ADMIT Internal Medicine Interventional Cardiology; ATTEND Internal Medicine Interventional Cardiology
PROC: B3161ZZ Fluoroscopy of Right Internal Carotid Artery using Low Osmolar Contrast (ICD-10-PCS; principal; 2020-06-10 09:30)
PROC: 037K3DZ Dilation of Right Internal Carotid Artery with Intraluminal Device, Percutaneous Approach (ICD-10-PCS; principal; 2020-06-10 09:30)
PROC: B3131ZZ Fluoroscopy of Right Common Carotid Artery using Low Osmolar Contrast (ICD-10-PCS; principal; 2020-06-10 09:30)
PROC: B41J1ZZ Fluoroscopy of Other Lower Arteries using Low Osmolar Contrast (ICD-10-PCS; principal; 2020-06-10 09:30)
DX: I65.23 Occlusion and stenosis of bilateral carotid arteries (principal); I63.9 Cerebral infarction, unspecified; I10 Essential (primary) hypertension; E78.5 Hyperlipidemia, unspecified; I25.10 Atherosclerotic heart disease of native coronary artery without angina pectoris; R00.1 Bradycardia, unspecified; I95.9 Hypotension, unspecified; G80.9 Cerebral palsy, unspecified; E11.9 Type 2 diabetes mellitus without complications; Z79.02 Long term (current) use of antithrombotics/antiplatelets; Z95.1 Presence of aortocoronary bypass graft; Z86.73 Personal history of transient ischemic attack (TIA), and cerebral infarction without residual deficits; Z82.49 Family history of ischemic heart disease and other diseases of the circulatory system; Z79.899 Other long term (current) drug therapy; Z79.82 Long term (current) use of aspirin
CPT/HCPCS: 37215; 70450; 70496; 70498; 80048; 80061; 83735; 84443; 85025; 85347; 93270; 93306

== ENCOUNTER → 2023-11-28 | Outpatient (CLI) | payer MEDICARE ==
[2023-11-28 19:25] LABS: Basophils # (A) 0.03 X 10*3/uL (0.00-0.10); Basophils % (A) 0.3 %; Eosinophils # (A) 0.05 X 10*3/uL (0.04-0.35); Eosinophils % (A) 0.5 %; HCT 40.6 % (39.6-50.0); HGB 13.6 g/dL (13.0-17.0); Lymphocytes # (A) 1.49 X 10*3/uL (0.90-5.00); Lymphocytes % (A) 13.6 %; MCH 31.6 pg (27.0-32.0); MCHC 33.5 g/dL (32.0-37.0); MCV 94.4 FL (80.0-97.0); Mean Platelet Volume 10.1 FL (9.5-12.2); Monocytes # (A) 0.81 X 10*3/uL (0.20-1.00); Monocytes % (A) 7.4 %; NRBC Per 100 WBC 0 X 10*3/uL (0.00-0.01); Neutrophils # (A) 8.55 X 10*3/uL (1.80-7.70); Neutrophils % (A) 77.7 %; Platelet Count 233 X 10*3/uL (140-440); RBC Morphology Normal (Normal); RDW 13.6 % (11.5-14.5); WBC 10.98 X 10*3/uL (4.50-10.00)
[2023-11-29 02:41] LABS: Immunoglobulin E 66.2 IU/mL (0.00-114.00)
[2023-11-29 04:28] LABS: Alternaria alternata IgE <0.10 kU/L; Aspergillus fumagatus IgE <0.10 kU/L; Birch IgE <0.10 kU/L; Cat Epith & Dander IgE <0.10 kU/L; Cladosporian herbarum IgE <0.10 kU/L; Cockroach IgE <0.10 kU/L; Dermato. farinae IgE <0.10 kU/L; Dog Dander IgE <0.10 kU/L; Elm IgE <0.10 kU/L; Maple (Box Elder) IgE <0.10 kU/L; Oak IgE <0.10 kU/L; Ragweed,Common IgE <0.10 kU/L; Red Top (Bentgrass) IgE <0.10 kU/L
[2023-11-29 12:08] LABS: Alpha 1 Anti-Trypsin 173 mg/dL (90 - 200)
[2023-11-29 12:14] LABS: Alt. alternata IgE Class CLASS 0; Alternaria alternata IgE <0.10 kU/L (<0.10); Asperg. fumagatus IgE <0.10 kU/L (<0.10); Asperg. fumagatus IgE Class CLASS 0; Bermuda Grass IgE <0.10 kU/L (<0.10); Birch(Com.Silvr) IgE <0.10 kU/L (<0.10); Birch(Com.Silvr) IgE Class CLASS 0; Cat Epith & Dander IgE <0.10 kU/L (<0.10); Cat Epith & Dander IgE Class CLASS 0; Clad herbarum IgE <0.10 kU/L (<0.10); Clad herbarum IgE Class CLASS 0; Cockroach IgE 0.22 kU/L (<0.10); Cottonwood IgE <0.10 kU/L (<0.10); Dermato. Pteronyssinus Class CLASS 0; Dermato. Pteronyssinus IgE <0.10 kU/L (<0.10); Dermato. farinae IgE <0.10 kU/L (<0.10); Dermato. farinae IgE Class CLASS 0; Dog Dander IgE <0.10 kU/L (<0.10); Elm IgE <0.10 kU/L (<0.10); IgE (Allergen) 62.3 IU/mL (<114.0); Maple (Box Elder) IgE <0.10 kU/L (<0.10); Maple (Box Elder) IgE Class CLASS 0; Mountain Cedar IgE <0.10 kU/L (<0.10); Mountain Cedar IgE Class CLASS 0; Mouse Urine IgE Class CLASS 0; Mouse Urine Proteins,IgE <0.10 kU/L (0.10); Nettle IgE <0.10 kU/L (<0.10); Nettle IgE Class CLASS 0; Oak IgE <0.10 kU/L (<0.10); Penicillium chrysogenum IgE <0.10 kU/L (<0.10); Penicillium chrysogenum IgE Cl CLASS 0; Rough Marshelder IgE <0.10 kU/L (<0.10); Rough Marshelder IgE Class CLASS 0; Timothy Grass IgE <0.10 kU/L (<0.10); Timothy Grass IgE Class CLASS 0; White Ash IgE Class CLASS 0
[2023-12-11 10:35] LABS: Alternaria Alternata IgG 15.6 mcg/mL (<13.6); Aspergillus fumigatus IgG NOT DETECTED; Aureobasidium pullulans IgG <13.6 mcg/mL (<13.6); Cladosporium herbarium IgG 21.1 mcg/mL (<14.7); Phoma ssp. IgG 16.6 mcg/mL (<6.6); Saccaharopoly. rectivirgula NOT DETECTED
== END | disposition home or self-care (01) ==
LOC: LABWHC1 16:15
PROVIDERS: ATTEND Internal Medicine Pulmonary Disease
DX: J45.50 Severe persistent asthma, uncomplicated (principal); R06.02 Shortness of breath; J44.9 Chronic obstructive pulmonary disease, unspecified; R05.1 Acute cough
CPT/HCPCS: 36415; 82103; 82104; 82785; 85025; 86001; 86003; 86606; 86609

== ENCOUNTER → 2024-01-18 | Outpatient (CLI) | payer MEDICARE | END | disposition home or self-care (01) | LOC: LABPRL 12:00 | PROVIDERS: ATTEND Dermatology | DX: A42.9 Actinomycosis, unspecified (principal); L02.212 Cutaneous abscess of back [any part, except buttock and flank] | CPT/HCPCS: 87070; 87205 ==

== ENCOUNTER → 2024-02-01 | Outpatient (CLI) | payer MEDICARE ==
--- NOTE | 2024-02-01 12:34 | CT ---
EXAMINATION TYPE: CT chest wo con DATE OF EXAM: 02/01/2024 COMPARISON: None HISTORY: Dyspnea, asthma unspecified, COPD CT DLP: 504 mGycm. Automated Exposure Control for Dose Reduction was Utilized. TECHNIQUE: CT scan of the thorax is performed without IV contrast. FINDINGS: LUNGS: The lungs are grossly clear, there is no concerning parenchymal mass or nodule identified. T here is no pleural effusion or pneumothorax seen. The tracheobronchial tree is patent. Mild hyperinf lation be associated with asthma or mild COPD. There is a vague right upper lobe subpleural density m easuring 1 cm. Could be postinflammatory or postinfectious and related to scarring favored over neopl asm recommend 3 month follow-up CT scan. There is elevated left hemidiaphragm with by basilar subsegmental scarring or atelectasis. Tiny calcified granuloma right lower lobe. 2 mm micronodule image 32 right upper lobe is benign. No evidence of focal pneumonia or pulmonary edema. MEDIASTINUM: Lack of IV contrast is noted to limit evaluation for mediastinal and especially hilar ad enopathy. There are no definitive greater than 1 cm hilar or mediastinal lymph nodes. No cardiomega ly or pericardial effusion is seen. Post median sternotomy changes with dense coronary artery calcifi cation. Atherosclerotic changes aorta. Calcified lymph nodes noted in the right hilum compatible with chronic granulomatous disease. OTHER: Splenic granuloma noted. Small hiatal hernia. Indeterminant hypodensity by noncontrast techniq ue partially included in the field of view mid pole left kidney. Lesion suboptimally evaluated. IMPRESSION: 1. Mild COPD\asthma with no evidence of acute pneumonia or pulmonary edema. 2. There is a 1 cm subpleural nodularity right upper lobe recommend CT scan 3 month follow-up. Most l ikely sequela prior inflammatory or infectious etiology. Follow-up recommendations for incidental pulmonary nodules are per [employer] or [employer].
== END | disposition home or self-care (01) ==
LOC: RADCTMAIN 11:50
PROVIDERS: ATTEND Internal Medicine Pulmonary Disease
DX: J44.89 Other specified chronic obstructive pulmonary disease (principal); R91.1 Solitary pulmonary nodule
CPT/HCPCS: 71250

== ENCOUNTER → 2024-08-02 | Outpatient (CLI) | payer MEDICARE ==
--- NOTE | 2024-08-02 14:38 | PE ---
EXAMINATION TYPE: PET CT fusion skull to thigh DATE OF EXAM: 08/02/2024 COMPARISON: Chest CT February 01, 2024 HISTORY: Solitary pulmonary nodule TECHNIQUE: Following the intravenous administration of 11.22 mCi of F-18 FDG, whole body images are performed from the skull base to the midthigh. Images are reviewed on the computer in the coronal, a xial, and sagittal planes. Reconstructed rotating images are created on independent workstation and reviewed on the computer. A localization and attenuation correction CT is performed in conjunction with the PET scan. Blood glucose level equals 103. SCAN: Initial Scan FINDINGS: SKULL BASE AND NECK: No areas of suspicious hypermetabolic uptake. CHEST, MEDIASTINUM, AND HILAR REGION: Persistent linear scarring in the lateral aspect of the right u pper lobe having slightly more nodular component along the periphery measuring approximate 12 x 4 mm axial image 99. This is not significantly changed in size from prior CT. No abnormal hypermetabolic u ptake at this level. No abnormal hypermetabolic uptake in the entire thorax. ABDOMEN AND PELVIS: Normal excretion is present. No hypermetabolic adrenal masses. No suspicious hype rmetabolic uptake. OSSEOUS STRUCTURES: No suspicious abnormal hypermetabolic uptake. OTHER CT: There are stents in the region of the bilateral carotid bulbs. Overlying sternal wires and mediastinal clips are redemonstrated. There is persistent near 1 cm calcified right hilar nodule or b enign granuloma. A few punctate calcifications throughout the spleen are redemonstrated consistent wi th underlying granulomatous disease. There is a large fat-containing right inguinal hernia. IMPRESSION: No suspicious hypermetabolic uptake to suggest malignancy. No new or enlarging nodules. Consider precautionary CT follow-up in 6-12 months time to reassess. [facility], , 08/02/2024 2:35 PM
== END | disposition home or self-care (01) ==
LOC: RADPETMAIN 10:58
PROVIDERS: ATTEND Internal Medicine Pulmonary Disease
DX: R91.1 Solitary pulmonary nodule (principal); K40.90 Unilateral inguinal hernia, without obstruction or gangrene, not specified as recurrent
CPT/HCPCS: 78815; A9552